=== PATIENT | female | born 1975 | race Caucasian/White ===

== ENCOUNTER 2018-01-25 21:03 | Inpatient (IN) | payer SELFPAY ==
--- NOTE | 2018-01-25 22:14 | RAD ---
CHEST ONE VIEWS: 01/25/18 HISTORY: 42-year-old female with history of dyspnea. History of rheumatoid arthritis and lung disorder. Single upright AP view of the chest is performed. There is extensive interstitial and reticulonodular parenchymal changes throughout both lungs. Heart size is at least borderline enlarged. No evidence for significant pleural effusion. No old studies. IMPRESSION: Extensive bilateral alveolar and interstitial opacities throughout both lungs. This certainly could b e consistent with pulmonary edema although could also represent extensive bilateral atypical pneumon itis including that that can be seen in rheumatoid lung disease. No cardiomegaly or pleural effusion. POS: [facility]
[2018-01-25] MEDS ORDERED: Morphine 2 MG/ML SYRINGE ONE (22:49)
[2018-01-25] MEDS ORDERED: methylPREDNISolone Sod Succ/PF 125 MG/2 ML VIAL ONE (22:56)
[2018-01-25] MEDS ORDERED: cefTRIAXone\\ROCEPHIN 2 GM VIAL ONE (22:56)
[2018-01-25 23:03] LABS: #Lymphocytes 0.7 thou/uL (1.20-3.40); #Monocytes 0.6 thou/uL (0.11-0.59); #Neutrophils 15.5 thou/uL (1.40-6.50); %Eosinophils 0.1 % (0.0-10.0); %Lymphocytes 3.9 % (21.0-51.0); %Monocytes 3.6 % (0.0-10.0); %Neutrophils 92.4 % (42.0-75.0); Hemoglobin 12.7 g/dL (12.0-16.0); Mean Corpuscular HGB CONC 32.9 g/dL (32.0-36.0); Mean Corpuscular Hemoglobin 31.6 pg (27.0-31.0); Mean Corpuscular Volume 95.8 fL (78.0-98.0); Mean Platelet Volume 7.1 fL (7.4-10.4); Platelet Count 269 thou/uL (130-400); RBC Distribution Width 15.2 % (11.5-14.5); Red Blood Cell (RBC) Count 4.02 mill/uL (4.20-5.40); White Blood Cell (WBC) Count 16.8 thou/uL (4.8-10.8)
[2018-01-25 23:19] LABS: ALT (SGPT) 20 U/L (8-55); AST (SGOT) 38 U/L (5-34); Albumin 3.9 g/dL (3.5-5.0); Alkaline Phosphatase 63 U/L (40-150); Anion Gap 17 mmol/L (10-20); BUN (Urea Nitrogen) 11 mg/dL (7.0-18.7); Bilirubin, Total 0.3 mg/dL (0.2-1.2); Calc. Creatinine Clearance 0 mL/min (70-130); Calcium 8.8 mg/dL (7.8-10.44); Carbon Dioxide 23 mmol/L (22-29); Chloride 102 mmol/L (98-107); Estimated GFR-MDRD Greater than 90; Globulin 2.6 g/dL (2.4-3.5); Glucose 102 mg/dL (70-105); Potassium 3.6 mmol/L (3.5-5.1); Protein, Total 6.5 g/dL (6.0-8.3); Sodium 138 mmol/L (136-145)
[2018-01-25 23:23] LABS: CKMB 2.5 ng/mL (0-6.6); Troponin I Less than 0.010 ng/mL (< 0.028)
[2018-01-26 00:57] LABS: Troponin I Less than 0.010 ng/mL (< 0.028)
[2018-01-26] MEDS ORDERED: Ondansetron ODT 4 MG TAB SL PRN (01:12)
[2018-01-26] MEDS ORDERED: Ondansetron PF 4 MG/2 ML Vial IVP PRN ×2 (01:12→07:27)
[2018-01-26] MEDS ORDERED: Acetaminophen 325 MG TAB PO PRN (01:12)
[2018-01-26 03:47] LABS: Troponin I Less than 0.010 ng/mL (< 0.028)
[2018-01-26] MEDS ORDERED: guaiFENesin/Codeine Phosphate 200 mg/20 mg 10 ml UD Cup PO PRN (05:26)
[2018-01-26] MEDS ORDERED: Benzonatate 100 MG CAP PO PRN (05:27)
[2018-01-26] MEDS ORDERED: Guaifenesin DM 100-10/5 ML UDCUP PO PRN (05:27)
[2018-01-26] MEDS ORDERED: PROVENTIL INHALER 6.7 G (200 INHALATIONS) INH PRN (05:29)
[2018-01-26] MEDS ORDERED: Artificial Tear Sol 15 ML BOT EA EYE PRN (07:27)
[2018-01-26] MEDS ORDERED: Eucerin (Mineral Oil/Petrolatum,White) 30 gm Jar TOP PRN (07:27)
[2018-01-26] MEDS ORDERED: Bisacodyl 5 MG TAB PO PRN (07:27)
[2018-01-26] MEDS ORDERED: Zolpidem Tartrate 5 MG TAB PO PRN (07:27)
[2018-01-26] MEDS ORDERED: Cepastat Lozenges 1 LOZ PO PRN (07:27)
[2018-01-26] MEDS ORDERED: Diabetic Tussin 200 MG/10 ML UDCUP PO PRN (07:27)
[2018-01-26] MEDS ORDERED: Sodium Chloride 0.65% Nasal 44 ML BOT EA NARE PRN (07:27)
[2018-01-26] MEDS ORDERED: Calcium Carbonate 500 MG ChewTAB PO PRN (07:27)
[2018-01-26] MEDS ORDERED: Bisacodyl 10 MG SUPP PR PRN (07:27)
[2018-01-26] MEDS ORDERED: hydrALAZINE 20 MG/ML VIAL SLOW IVP PRN (07:27)
[2018-01-26] MEDS ORDERED: Loratadine 10 MG TAB PO PRN (07:27)
[2018-01-26] MEDS ORDERED: Senokot S 8.6-50 MG TAB PO PRN (07:27)
[2018-01-26] MEDS: Azithromycin 500 MG in Sodium Chloride 0.9% 250 ML 250 ML IVPB SCH (08:25)
[2018-01-26] MEDS: Enoxaparin Sodium 40 MG/0.4 ML SYRINGE SC SCH (08:26)
[2018-01-26] MEDS: Saccharomyces boulardii 250 MG CAP PO SCH (08:26)
[2018-01-26] MEDS: Famotidine 20 MG TAB PO SCH ×2 (08:26→20:02)
[2018-01-26] MEDS: Divalproex Sodium 250 MG (DR) TAB PO SCH (08:26)
[2018-01-26] MEDS: Hydroxychloroquine Sulfate 200 MG TAB PO SCH (08:39)
[2018-01-26] MEDS: HYDROcodone/Acetaminophen 10/325 mg Tablet PO PRN ×4 (09:07→21:17)
--- NOTE | 2018-01-26 11:36 | HP ---
PRIMARY CARE PHYSICIAN: Dr. Maciej Batista. REASON FOR ADMISSION: Acute hypoxic respiratory failure, pneumonitis. HISTORY OF PRESENT ILLNESS: A 42-year-old female who has underlying history of rheumatoid arthritis as well as chronic interstitial lung disease and seizure disorder who was brought to the emergency ro with complaint of shortness of breath. The patient reports that yesterday, they went to [facility] here she was exposed with dry heat. Subsequently, she was feeling shortness of breath. She remained outside in her car. She remained confused to find her car. At that time, she also exposed to cold air. She started feeling shortness of breath. When she went home, her oxygen saturation was low. I t was in 70s and they tried a breathing treatment at home, but her oxygen saturation was not coming u p, it remained in 70 to 80s and that is why family member brought her to emergency room for evaluatio n. In the emergency room, her oxygen saturation was 80% on room air. Otherwise, she was afebrile. She denies any recent upper respiratory or lower respiratory symptoms. She does have a cough. She r eports that she had interstitial lung disease diagnosed by her java web engineer with the biopsy. She is following Juanita rouge miller and java web engineer. Patient denies any recent travel or sick exposures. She denies any fever or chills. She denies any UTI symptoms. She does have polyarthralgia from her rheumatoid arthritis. She denies any lower extr emity edema, orthopnea, or PND. She is not using oxygen at home. REVIEW OF SYSTEMS: The following complete review of systems was negative, unless otherwise mentioned in the HPI or below: Constitutional: Weight loss or gain, ability to conduct usual activities. Skin: Rash, itching. Eyes: Double vision, pain. ENT/Mouth: Nose bleeding, neck stiffness, pain, tenderness. Cardiovascular: Palpitations, dyspnea on exertion, orthopnea. Respiratory: Shortness of breath, wheezing, cough, hemoptysis, fever or night sweats. Gastrointestinal: Poor appetite, abdominal pain, heartburn, nausea, vomiting, constipation, or diarr hea. Genitourinary: Urgency, frequency, dysuria, nocturia. Musculoskeletal: Pain, swelling. Neurologic/Psychiatric: Anxiety, depression. Allergy/Immunologic: Skin rash, bleeding tendency. Please see my HPI for pertinent positive and negative. All other review of systems reviewed and nega tive except as mentioned in the HPI. ALLERGIES: LEVAQUIN, NSAID, PENICILLIN, TRAMADOL. CURRENT HOME MEDICATIONS: Plaquenil 400 mg p.o. daily, [place] 10 one tablet q.4 hourly p.r.n., Fioric et 1-2 tablets q.6 hourly p.r.n., Depakote 750 mg daily, prednisone 10 mg p.o. b.i.d. PAST MEDICAL HISTORY: Interstitial lung disease, rheumatoid arthritis, lupus, seizure disorder. PAST SURGICAL HISTORY: Tubal ligation, lung biopsy, . PAST PSYCHIATRIC HISTORY: Reviewed and negative. SOCIAL HISTORY: Patient is . She drinks alcohol socially. She smokes about half pack per da y. She denies any other illicit drug abuse. FAMILY HISTORY: The patient denies any strong family history of autoimmune disorder, coronary artery disease, stroke or cancer. EMERGENCY ROOM COURSE: The patient is given morphine 8 mg, Rocephin 2 grams, Solu-Medrol 125 mg, Duo Neb therapy, IV fluid. PHYSICAL EXAMINATION: VITAL SIGNS: On arrival, blood pressure 117/69, pulse 96, respiratory rate 24, temperature 98.6, sat uration 80% on room air, weight 72.6 kilograms. GENERAL: Patient is currently alert, awake, mild respiratory distress. HEENT: Head: Normocephalic, atraumatic. Eyes: Pupils round, reactive to light. Extraocular muscl e intact. ENT: Oropharynx within normal limits. Moist mucous membranes, no oral lesion, no pharyng eal erythema, no exudate. NECK: Supple, no JVD, no thyromegaly, no carotid bruit. LUNGS: Bibasilar fine rales noted. No wheezing, no accessory muscles of respiration in use. CARDIAC: S1, S2 regular without any murmur. ABDOMEN: Soft, bowel sounds present, nontender, nondistended. No organomegaly, no mass, no suprapub ic tenderness. BACK: Unremarkable, no CVA tenderness. EXTREMITIES: Upper extremity, passive movement of all joints are normal. Lower extremity, no edema . Good distal pulsation, no calf tenderness. SKIN: No skin rash. HEMATOLOGICAL: No lymphadenopathy. NEUROLOGIC: Nonfocal examination. The patient moves all 4 limbs. Plantar bilateral flexor. Speech normal. MUSCULOSKELETAL: The patient does have polyarthralgia without any active inflammation. Range of mot ion is limited because of arthralgia. SIGNIFICANT LABORATORY DATA AND IMAGING: EKG showing normal sinus rhythm, LVH, nonspecific ST-T garner ges. CBC: WBC 16.8, hemoglobin 12.7, platelet 269. ESR 33. BMP: Sodium 138, potassium 3.6, chlor talon 102, carbon dioxide 23, BUN 11, creatinine 0.70, glucose 102, calcium 8.8. LFT: AST 38, ALT 20, alkaline phosphatase 63, albumin 3.9. Cardiac enzymes negative x3. BNP 37.9. CRP 22.6. Influenzae A and B negative. ASSESSMENT AND PLAN: 1. Acute respiratory failure with hypoxia, likely due to pneumonitis. The patient will need oxygen therapy. We will titrate oxygen requirement. This patient has underlying chronic interstitial lung disease. We will monitor whether she needs any oxygen upon discharge. 2. Acute pneumonitis. This was happened after heat exposure and cold exposure, underlying infection cannot be entirely excluded. Her CRP is elevated, suspecting from inflammatory process. We will co ntinue with Solu-Medrol 40 mg IV q.6 hourly. We will also start empiric antibiotic therapy with Roce phin and azithromycin. Respiratory therapy with DuoNeb will be given. Pulmonary group will be consu lted. 3. Interstitial lung disease with current exacerbation. As mentioned in problem #2, we will continu e Solu-Medrol, respiratory therapy and monitor. 4. Rheumatoid arthritis. The patient is not on any specific disease modifying therapy. At this poi nt, we will continue with Solu-Medrol. We will continue Plaquenil 400 mg p.o. daily. 5. Seizure disorder. Continue Depakote 750 mg p.o. daily. 6. Obesity with BMI of 37. Dietary education given, weight loss education given. 7. Deep venous thrombosis prophylaxis. Lovenox 40 mg subcu daily. 8. Gastrointestinal prophylaxis, Pepcid 20 mg p.o. b.i.d. 9. CODE STATUS: The patient is FULL CODE. Patient's is surrogate decision maker. We will also check GENARO, respiratory virus panel, urinalysis.
[2018-01-26] MEDS ORDERED: Furosemide 20 MG/2 ML VIAL SLOW IVP SCH (15:30)
--- NOTE | 2018-01-26 16:07 | CON ---
DATE OF CONSULTATION: 01/26/2018 SERVICE: Pulmonary Medicine. REASON FOR CONSULTATION: Respiratory failure. HISTORY OF PRESENT ILLNESS: The patient is a 42-year-old white female with past medical history significant for connective tissue disease. This is a rheumatoid arthritis or lupus. Either way, she also suffers from interstitial lung disease. She is on 40 mg of prednisone on a daily basis. This was initiated about a month ago. She reports being on Plaquenil at home on a daily basis. She was in her usual state of health until she went into [facility]. There was some dry air on inside of the store. She started having progressive increasing dyspnea with exertion. It came on gradually over a period of about 20 minutes or so. She then came outside and hit the cold air. This made things a little bit worse. She checked her saturations when she got home and was in the 70s. As such, EMS services were contacted. She was subsequently brought to the emergency department. In the IMCU, her breathing has improved. She denies having any fevers or chills. She is coughing and bringing up a little bit of clear phlegm from time to time. She is not having any night sweats, nausea, vomiting, diarrhea, hot, red, swollen joints, arthralgias, or rashes. Whenever she coughs, she has some chest discomfort for which she has aspirin, [place]. She is having a difficult time sleeping because of the steroids and is requesting melatonin. PAST MEDICAL HISTORY: 1. Rheumatoid arthritis. 2. Systemic lupus erythematosus. 3. Interstitial lung disease. 4. Seizure disorder. 5. Migraine headaches. PAST SURGICAL HISTORY: 1. Tubal ligation. 2. Bronchoscopy. 3. section. SOCIAL HISTORY: She smokes a half pack on a daily basis, but has a greater than [id number] history of smoking. She denies any street drugs or significant alcohol use. She has no exposure to chemicals, dust asbestos or tuberculosis. FAMILY HISTORY: Noncontributory. ALLERGIES: LEVAQUIN, NSAID, PENICILLIN, TRAMADOL. REVIEW OF SYSTEMS: General, head, ears, eyes, nose, throat, cardiovascular, respiratory, GI, , musculoskeletal, neurologic and skin is negative except as mentioned in the HPI. MEDICATIONS: List of her inpatient medications were reviewed and heavily modified. PHYSICAL EXAMINATION: VITAL SIGNS: Afebrile, pulse 85, blood pressure 135/91, respirations 22, saturation 92% on 4 liters nasal cannula. GENERAL: The patient is awake, alert, no apparent distress. LUNGS: Excellent air entry. Crackles are present. There is no prolonged expiratory phase or wheezing present. HEART: Normal rate, regular. ABDOMEN: Soft, nontender, nondistended. Bowel sounds are positive. MUSCULOSKELETAL: No cyanosis or clubbing. There is no pitting in the bilateral lower extremities. NEUROLOGIC: Grossly nonfocal. LABORATORY DATA: WBC 16.8, hemoglobin 12.7, platelets 269,000. ESR is 33. Neutrophil count is 93%. Comprehensive metabolic profile is completely unremarkable. Troponin is negative x3, BNP is normal, CRP is 22.6. Respiratory virus panel is negative, Influenza A and B is unremarkable. IMAGING: Chest x-ray demonstrates bilateral patchy infiltrates as well as interstitial lung changes that spare the lower portions of the lung field consistent with a noncardiogenic pulmonary edema, superimposed on interstitial process. ASSESSMENT: 1. Acute on chronic hypoxic respiratory failure, improving. 2. Interstitial lung disease. 3. Connective tissue disease (rheumatoid arthritis and/or systemic lupus erythematosus). 4. Sepsis. DISCUSSION AND PLAN: I agree with our empiric antibiotics currently. We need to get blood cultures, urinalysis, urine cultures. From my perspective, she is stable for transition to the regular floor. I will check a D-dimer. If it is elevated, reflex CTA of the chest will be considered. Melatonin will be scheduled at night. No additional narcotics will be provided beyond her home medication. 70 minutes have been devoted to this patient in various activities. I personally reviewed all imaging studies and laboratory data noted within this document. For fifty percent of this time, I was interacting with the patient at the bedside or coordinating care with the care team. For the remainder of the time I was immediately available to the patient in the hospital unit. DEMETRIO
[2018-01-26 16:21] LABS: Bilirubin Negative (Negative); Blood, Urine Moderate (Negative); Clarity CLEAR (Clear); Glucose, Urine (Dipstick) Negative (Negative); Leukocyte Negative (Negative); Nitrite Negative (Negative); Protein, Urine (Dipstick) Negative (Neg-Trace); Urobilinogen 0.2 mg/dL (0.2-1.0); pH, Urine 6.5 (5.0-9.0)
[2018-01-26 16:23] LABS: Bacteria/HPF None Seen HPF (None Seen); Hyaline Casts/LPF 0-3 HYALINE CAST LPF (0-3 Hyaline); WBC/HPF 0-3 HPF (0-3)
[2018-01-26 16:42] LABS: Amphetamine Not Detected (NotDetected); Barbiturates Screen Not Detected (NotDetected); Benzodiazepine Screen Not Detected (NotDetected); Cocaine Metabolite Screen Not Detected (NotDetected); Medtox Control Line Valid? VALID (VALID); Medtox Reader # READER 4; Methadone Not Detected (NotDetected); Methamphetamine Not Detected (NotDetected); Opiate Screen Detected (NotDetected); Oxycodone Screen Not Detected (NotDetected); Phencyclidine (PCP) Not Detected (NotDetected); THC/Cannabinoid Screen Not Detected (NotDetected); Tricyclic Screen Not Detected (NotDetected)
[2018-01-26] MEDS: Melatonin 3 MG TAB PO SCH (21:17)
[2018-01-26] MEDS: cefTRIAXone\\ROCEPHIN 2 GM in Sodium Chloride 0.9% 100 ML IVPB SCH (22:38)
[2018-01-27] MEDS: Fioricet 325/50/40 mg Tablet PO PRN ×2 (00:27→11:46)
[2018-01-27 04:29] LABS: #Lymphocytes 1.2 thou/uL (1.20-3.40); #Monocytes 0.7 thou/uL (0.11-0.59); #Neutrophils 13.2 thou/uL (1.40-6.50); %Basophils 0.1 % (0.0-1.0); %Eosinophils 0.3 % (0.0-10.0); %Lymphocytes 8.1 % (21.0-51.0); %Monocytes 4.3 % (0.0-10.0); %Neutrophils 87.2 % (42.0-75.0); Hemoglobin 11.1 g/dL (12.0-16.0); Mean Corpuscular HGB CONC 31.9 g/dL (32.0-36.0); Mean Corpuscular Hemoglobin 30.5 pg (27.0-31.0); Mean Corpuscular Volume 95.6 fL (78.0-98.0); Mean Platelet Volume 7.1 fL (7.4-10.4); Platelet Count 289 thou/uL (130-400); RBC Distribution Width 15.2 % (11.5-14.5); Red Blood Cell (RBC) Count 3.65 mill/uL (4.20-5.40); White Blood Cell (WBC) Count 15.1 thou/uL (4.8-10.8)
[2018-01-27 04:51] LABS: Anion Gap 14 mmol/L (10-20); BUN (Urea Nitrogen) 9 mg/dL (7.0-18.7); Calc. Creatinine Clearance 172 mL/min (70-130); Calcium 9.3 mg/dL (7.8-10.44); Carbon Dioxide 29 mmol/L (22-29); Chloride 103 mmol/L (98-107); Estimated GFR-MDRD Greater than 90; Glucose 104 mg/dL (70-105); Potassium 3.5 mmol/L (3.5-5.1); Sodium 142 mmol/L (136-145)
--- NOTE | 2018-01-27 07:29 | RAD ---
CHEST PA AND LATERAL: 01/25/18 HISTORY: Dyspnea. Patient with rheumatoid arthritis and lung disorder with difficulty breathing. Monitor leads overlie the chest. Heart size is borderline enlarged. There are extensive interstitial and reticulonodular parenchymal changes noted bilaterally diffusely through both lungs. This is nonsp ecific and could be related to bilateral edema or certainly could be related to bilateral nonspecific pneumonitis including lung disease associated with rheumatoid arthritis. No confluent pneumonia. No pleural effusion. IMPRESSION: Extensive bilateral mostly interstitial lung disease with possibilities including that of interstitia l edema, interstitial atypical pneumonia or pneumonitis, and/or interstitial lung disease associated with rheumatoid arthritis. POS: [facility]
[2018-01-27] MEDS: Enoxaparin Sodium 40 MG/0.4 ML SYRINGE SC SCH (09:20)
[2018-01-27] MEDS: Divalproex Sodium 250 MG (DR) TAB PO SCH (09:21)
[2018-01-27] MEDS: Azithromycin 500 MG in Sodium Chloride 0.9% 250 ML 250 ML IVPB SCH (09:21)
[2018-01-27] MEDS: predniSONE 20 MG TAB PO SCH (09:21)
[2018-01-27] MEDS: Saccharomyces boulardii 250 MG CAP PO SCH (09:22)
[2018-01-27] MEDS: Hydroxychloroquine Sulfate 200 MG TAB PO SCH (09:22)
[2018-01-27] MEDS: Famotidine 20 MG TAB PO SCH (09:22)
[2018-01-27 10:22] LABS: ALT (SGPT) 19 U/L (8-55); AST (SGOT) 46 U/L (5-34); Albumin 3.5 g/dL (3.5-5.0); Alkaline Phosphatase 64 U/L (40-150); Bilirubin, Direct 0.2 mg/dL (0.1-0.3); Bilirubin, Total 0.3 mg/dL (0.2-1.2); Protein, Total 6.3 g/dL (6.0-8.3)
--- NOTE | 2018-01-27 10:22 | PDOC.PN ---
- Subjective Encounter Start Date: 01/27/18 Encounter Start Time: 10:00 -: old records requested/rev Patient seen and examined. No new complaints. No overnight events still has dyspnea and cough - Objective Resuscitation Status: Resuscitation Status FULL:Full Resuscitation MAR Reviewed: Yes Vital Signs & Weight: Vital Signs (12 hours) Temp Pulse Resp BP Pulse Ox 01/27/18 07:17 97.5 F L 95 22 H 145/89 H 95 01/27/18 06:25 90 L 01/27/18 06:23 107 H 20 01/27/18 03:39 98.6 F 74 18 109/72 94 L 01/27/18 00:15 113 H 135/85 01/26/18 23:47 98.4 F 99 18 139/97 H 98 01/26/18 23:13 100 16 97 Weight Weight 206 lb 9.6 oz I&O: 01/26/18 01/27/18 01/28/18 06:59 06:59 06:59 Intake Total 360 100 Output Total 800 750 Balance -440 -650 Result Diagrams: 01/27/18 03:46 01/27/18 03:46 EKG Reviewed by me: Yes (nsr) Phys Exam - Physical Examination Constitutional: NAD HEENT: PERRLA, moist MMs, sclera anicteric Neck: no JVD, supple Respiratory: no wheezing, no rhonchi bilateral lower part coarse rales+ Cardiovascular: RRR, no significant murmur, no rub Gastrointestinal: soft, non-tender, no distention, positive bowel sounds Musculoskeletal: no edema, pulses present Neurological: non-focal, normal sensation, moves all 4 limbs Psychiatric: normal affect, A&O x 3 Skin: no rash, normal turgor Dx/Plan (1) Acute respiratory failure with hypoxia Code(s): J96.01 - ACUTE RESPIRATORY FAILURE WITH HYPOXIA Status: Acute (2) Obesity (BMI 30-39.9) Code(s): E66.9 - OBESITY, UNSPECIFIED Status: Acute (3) Pneumonitis Code(s): J18.9 - PNEUMONIA, UNSPECIFIED ORGANISM Status: Acute (4) ILD (interstitial lung disease) Code(s): J84.9 - INTERSTITIAL PULMONARY DISEASE, UNSPECIFIED Status: Chronic (5) Rheumatoid arthritis Code(s): M06.9 - RHEUMATOID ARTHRITIS, UNSPECIFIED Status: Chronic (6) Seizure disorder Code(s): G40.909 - EPILEPSY, UNSP, NOT INTRACTABLE, WITHOUT STATUS EPILEPTICUS Status: Chronic (7) Tobacco abuse Code(s): Z72.0 - TOBACCO USE Status: Chronic - Plan cont current plan of care, continue antibiotics, respiratory therapy * transfer to medical * continue iv rocephin and azithromycin * continue oral prednisone * evaluate for need for home oxygen * medication reviewed as below * symptomatic treatment * counselled to avoid smoking. Review of Systems - Review of Systems Constitutional: negative: fever, chills, sweats, weakness, malaise, other Eyes: negative: Pain, Vision Change, Conjunctivae Inflammation, Eyelid Inflammation, Redness, Other ENT: negative: Ear Pain, Ear Discharge, Nose Pain, Nose Discharge, Nose Congestion, Mouth Pain, Mouth Swelling, Throat Pain, Throat Swelling, Other Respiratory: Cough, Shortness of Breath, SOB with Excertion. negative: Dry, Hemoptysis, Pleuritic Pain, Sputum, Wheezing Cardiovascular: negative: chest pain, palpitations, orthopnea, paroxysmal nocturnal dyspnea, edema, light headedness, other Gastrointestinal: negative: Nausea, Vomiting, Abdominal Pain, Diarrhea, Constipation, Melena, Hematochezia, Other Genitourinary: negative: Dysuria, Frequency, Incontinence, Hematuria, Retention , Other Musculoskeletal: negative: Neck Pain, Shoulder Pain, Arm Pain, Back Pain, Hand Pain, Leg Pain, Foot Pain, Other Skin: negative: Rash, Lesions, Harish, Bruising, Other - Medications/Allergies Allergies/Adverse Reactions: Allergies Allergy/AdvReac Type Severity Reaction Status Date / Time levofloxacin [From Levaquin] Allergy Verified 01/26/18 01:11 NSAIDS (Non-Steroidal Allergy Verified 01/26/18 01:11 Anti-Inflamma Penicillins Allergy Verified 01/26/18 01:23 tramadol Allergy Verified 01/26/18 01:11 Medications: Current Medications Acetaminophen/Butalbital/Caffeine (Fioricet) 1 tab PO Q6HR PRN PRN Reason: Headache Stop: 01/31/18 07:31 Last Admin: 01/27/18 00:27 Dose: 1 tab Hydrocodone Bitart/Acetaminophen ([place] 10/325) 1 tab PO Q4HR PRN PRN Reason: Moderate Pain (4-6) Last Admin: 01/26/18 21:17 Dose: 1 tab Albuterol Sulfate (Proventil Hfa) 1 puff INH QIDPRN PRN PRN Reason: sob/wheezing Albuterol/Ipratropium (Duoneb) 3 ml NEB Q4H PRN PRN Reason: SOB &/or Wheezing Albuterol/Ipratropium (Duoneb) 3 ml NEB [id number] [facility] Last Admin: 01/27/18 06:23 Dose: 3 ml Artificial Tears (Tears Renewed 15ml Bottle) 2 drop EA EYE PRN PRN PRN Reason: Dry Eyes Bisacodyl (Dulcolax) 10 mg PO DAILYPRN PRN PRN Reason: Constipation Bisacodyl (Dulcolax) 10 mg ND DAILYPRN PRN PRN Reason: Constipation Calcium Carbonate (Tums) 1,000 mg PO Q4H PRN PRN Reason: Heartburn or Indigestion Divalproex Sodium (Depakote) 750 mg PO DAILY [facility] Last Admin: 01/27/18 09:21 Dose: 750 mg Enoxaparin Sodium (Lovenox) 40 mg SC 0900 [facility] Last Admin: 01/27/18 09:20 Dose: 40 mg Famotidine (Pepcid) 20 mg PO BID [facility] Last Admin: 01/27/18 09:22 Dose: 20 mg Guaifenesin (Robitussin Sf) 200 mg PO Q4H PRN PRN Reason: Cough Guaifenesin/Codeine Phosphate (Robitussin Ac) 10 ml PO Q6H PRN PRN Reason: FOR PRODUCTIVE Cough 1ST AGE Last Admin: 01/26/18 05:57 Dose: 10 ml Hydralazine HCl (Apresoline) 10 mg SLOW IVP Q4H PRN PRN Reason: SBP Greater Than 170 Hydroxychloroquine Sulfate (Plaquenil) 400 mg PO DAILY [facility] Last Admin: 01/27/18 09:22 Dose: 400 mg Azithromycin 500 mg/ Sodium (Chloride) 250 mls @ 250 mls/hr IVPB Q24HR [facility] Last Admin: 01/27/18 09:21 Dose: 250 mls Ceftriaxone Sodium 2 gm/ (Sodium Chloride) 100 mls @ 200 mls/hr IVPB Q24HR [facility] Last Admin: 01/26/18 22:38 Dose: 100 mls Loratadine (Claritin) 10 mg PO DAILYPRN PRN PRN Reason: Sinus Symptoms Melatonin (Melatonin) 3 mg PO 2200 [facility] Last Admin: 01/26/18 21:17 Dose: 3 mg Mineral Oil/White Petrolatum (Eucerin Cream) 0 gm TOP BIDPRN PRN PRN Reason: Dry Skin Ondansetron HCl (Zofran Odt) 4 mg PO Q6H PRN PRN Reason: Nausea/Vomiting Ondansetron HCl (Zofran) 4 mg IVP Q6H PRN PRN Reason: Nausea/Vomiting Prednisone (Prednisone) 40 mg PO QA-[facility] Last Admin: 01/27/18 09:21 Dose: 40 mg Saccharomyces Boulardii (Florastor) 250 mg PO DAILY [facility] Last Admin: 01/27/18 09:22 Dose: 250 mg Senna/Docusate Sodium (Senokot S) 2 tab PO BID PRN PRN Reason: Constipation Sodium Chloride ([place] 0.65%) 0 ml EA NARE QIDPRN PRN PRN Reason: Nasal Congestion Throat Lozenges (Cepastat Lozenges) 1 candice PO Q2H PRN PRN Reason: Sore Throat Zolpidem Tartrate (Ambien) 5 mg PO HSPRN PRN PRN Reason: Insomnia
[2018-01-27 11:56] LABS: Actual Bicarbonate (HCO3a) 28.9 mEq/L (22-28); Base Excess (BEa) 4.5 mEq/L (-2.0 to +3.0); Calcium, Ionized 1.13 mmol/L (1.12-1.30); Carboxyhemoglobin (COHb) 1.6 gm% (0.0-3.0); Hemoglobin (Hb) 11.9 g/dL (12.0-16.0); Potassium - ABG Lab 3.63 mmol/L (3.70-5.30); pH, Arterial 7.46 (7.35-7.45)
[2018-01-27] MEDS ORDERED: Naloxone HCl 0.4 mg/ml Vial IV PRN (11:59)
[2018-01-27] MEDS ORDERED: Furosemide 20 MG/2 ML VIAL SLOW IVP SCH (12:00)
[2018-01-27 12:08] LABS: O2 Tension (PaO2) 45.5 mmHg (80.0-100.0); Puncture Site RR
[2018-01-27] MEDS: Ondansetron ODT 4 MG TAB PO PRN (12:17)
--- NOTE | 2018-01-27 13:23 | PRG ---
DATE OF SERVICE: 01/27/2018 SERVICE: Pulmonary Medicine. INTERVAL HISTORY: Patient was doing just fine yesterday afternoon. This morning, she was difficult to arouse. She was hypersomnolent. Whenever she would wake up, she would ask for pain medication, basically every time it was available. We suspected that she perhaps was using additional medications. We asked to inspect her purse, she refused. We then were able to look at her purse at some later point. We found a bottle of [place] 10/325's. They were supposed to be 120 tablets in it because she had filled this thing only 4 days ago. There was about 60 tablets left. The rest of the medications were taken apparently over the last 2 days. My suspicion is this is a major contributing factor to her presentation. Either way, we confiscated those medications. She will not be taking any medications that are not on her explicitly written for her to have during this hospital stay. Otherwise, there has been no interval change to her condition. PHYSICAL EXAMINATION: VITAL SIGNS: Afebrile with the T-max of 100.3, pulse 108, blood pressure 137/ 100, respirations 18, saturation 95% on Ventimask. HEENT: Normocephalic, atraumatic. Sclerae are white, conjunctivae pink. Oral and nasal mucosa is moist without lesions. LUNGS: Crackles are present bilaterally. No prolonged expiratory phase or wheezing is appreciated. HEART: Normal rate, regular. ABDOMEN: Soft, nontender, nondistended. Bowel sounds are positive. MUSCULOSKELETAL: No cyanosis or clubbing. There is trace pitting in the bilateral lower extremities. NEUROLOGIC: Grossly nonfocal. LABORATORY DATA: WBC 15.1 and down trending. Hemoglobin 11.1, platelets 289, 000. Neutrophil count is 87%. D-dimer 0.39. Basic metabolic profile and liver function studies are essentially unremarkable. CRP 22.6. Urinalysis is unremarkable, opiates are positive on the urine drug screen. Blood cultures x2 were unremarkable. ASSESSMENT: 1. Acute on chronic hypoxic respiratory failure. 2. Interstitial lung disease. 3. Connective tissue disease. 4. Narcotic abuse (60 tablets of 10/325 [place] have been consumed in addition to what we have been giving her in 4 days). 5. Sepsis. DISCUSSION AND PLAN: Her AST is gently trending upward. That being said, the acetaminophen is likely already out of her system. As such, I do think that she is going to develop any hepatotoxicity associated with this ingestion. We will continue empiric antibiotics. The patient can be transitioned to the medical unit. I am going to drop her narcotics to [place] 5/325 q.4 hours as needed for discomfort. She is not to take any of her home medications from this moment forward. I did call her physician, Dr. Batista at [facility] in [place], [place]. I have let him know about her drug-seeking behavior. He seemed appreciative for the phone call. DEMETRIO
[2018-01-27] MEDS: Melatonin 3 MG TAB PO SCH (21:31)
[2018-01-27] MEDS: cefTRIAXone\\ROCEPHIN 2 GM in Sodium Chloride 0.9% 100 ML IVPB SCH (22:34)
[2018-01-27] MEDS: HYDROcodone/Acetaminophen 5/325 mg Tablet PO PRN (23:25)
[2018-01-28] MEDS: HYDROcodone/Acetaminophen 5/325 mg Tablet PO PRN ×4 (05:48→20:47)
[2018-01-28] MEDS ORDERED: Potassium Chloride 20 MEQ TAB PO SCH (09:00)
[2018-01-28] MEDS: Azithromycin 500 MG in Sodium Chloride 0.9% 250 ML 250 ML IVPB SCH (09:58)
[2018-01-28] MEDS: Enoxaparin Sodium 40 MG/0.4 ML SYRINGE SC SCH (09:58)
[2018-01-28] MEDS: predniSONE 20 MG TAB PO SCH (09:59)
[2018-01-28] MEDS: Saccharomyces boulardii 250 MG CAP PO SCH (09:59)
[2018-01-28] MEDS: Hydroxychloroquine Sulfate 200 MG TAB PO SCH (10:00)
[2018-01-28] MEDS: Divalproex Sodium 250 MG (DR) TAB PO SCH (10:00)
--- NOTE | 2018-01-28 10:10 | PDOC.PN ---
- Subjective Encounter Start Date: 01/28/18 Encounter Start Time: 09:30 Patient seen and examined. No new complaints. No overnight events - Objective Resuscitation Status: Resuscitation Status FULL:Full Resuscitation MAR Reviewed: Yes Vital Signs & Weight: Vital Signs (12 hours) Temp Pulse Resp BP BP Pulse Ox 01/28/18 08:00 98 01/28/18 07:43 98 01/28/18 07:41 91 22 H 98 01/28/18 07:23 98.7 F 82 36 H 123/81 100 01/28/18 04:00 99.6 F 98 18 127/100 H 100 01/28/18 00:11 93 L 01/28/18 00:00 99.7 F H 108 H 18 140/98 H 92 L Weight Weight 207 lb I&O: 01/27/18 01/28/18 01/29/18 06:59 06:59 06:59 Intake Total 100 1000 Output Total 750 2000 Balance -650 -1000 Result Diagrams: 01/27/18 03:46 01/27/18 03:46 Additional Labs: Accuchecks 01/27/18 16:42 POC Glucose 139 H EKG Reviewed by me: Yes (nsr) Phys Exam - Physical Examination Constitutional: NAD HEENT: PERRLA, moist MMs, sclera anicteric Neck: no JVD, supple Respiratory: no wheezing, no rhonchi bilateral rales+ Cardiovascular: RRR, no significant murmur, no rub Gastrointestinal: soft, non-tender, no distention, positive bowel sounds Musculoskeletal: no edema, pulses present Neurological: non-focal, normal sensation Lymphatic: no nodes Psychiatric: normal affect, A&O x 3 Skin: no rash, normal turgor Dx/Plan (1) Acute respiratory failure with hypoxia Code(s): J96.01 - ACUTE RESPIRATORY FAILURE WITH HYPOXIA Status: Acute (2) Obesity (BMI 30-39.9) Code(s): E66.9 - OBESITY, UNSPECIFIED Status: Acute (3) Pneumonitis Code(s): J18.9 - PNEUMONIA, UNSPECIFIED ORGANISM Status: Acute (4) ILD (interstitial lung disease) Code(s): J84.9 - INTERSTITIAL PULMONARY DISEASE, UNSPECIFIED Status: Chronic (5) Rheumatoid arthritis Code(s): M06.9 - RHEUMATOID ARTHRITIS, UNSPECIFIED Status: Chronic (6) Seizure disorder Code(s): G40.909 - EPILEPSY, UNSP, NOT INTRACTABLE, WITHOUT STATUS EPILEPTICUS Status: Chronic (7) Tobacco abuse Code(s): Z72.0 - TOBACCO USE Status: Chronic - Plan cont current plan of care, plan discussed w/ family, continue antibiotics, respiratory therapy * continue rocephin and azithromycin * continue prednisone * monitor oxygen saturation, her level drops with exertion and while at sleep, she may need home oxygen * will monitor today * discussed with * medication reviewed as below * symptomatic treatment. Review of Systems - Review of Systems ENT: negative: Ear Pain, Ear Discharge, Nose Pain, Nose Discharge, Nose Congestion, Mouth Pain, Mouth Swelling, Throat Pain, Throat Swelling, Other Respiratory: Cough, Shortness of Breath, SOB with Excertion. negative: Dry, Hemoptysis, Pleuritic Pain, Sputum, Wheezing Cardiovascular: negative: chest pain, palpitations, orthopnea, paroxysmal nocturnal dyspnea, edema, light headedness, other Gastrointestinal: negative: Nausea, Vomiting, Abdominal Pain, Diarrhea, Constipation, Melena, Hematochezia, Other Genitourinary: negative: Dysuria, Frequency, Incontinence, Hematuria, Retention , Other Musculoskeletal: negative: Neck Pain, Shoulder Pain, Arm Pain, Back Pain, Hand Pain, Leg Pain, Foot Pain, Other Skin: negative: Rash, Lesions, Harish, Bruising, Other - Medications/Allergies Allergies/Adverse Reactions: Allergies Allergy/AdvReac Type Severity Reaction Status Date / Time levofloxacin [From Levaquin] Allergy Verified 01/26/18 01:11 NSAIDS (Non-Steroidal Allergy Verified 01/26/18 01:11 Anti-Inflamma Penicillins Allergy Verified 01/26/18 01:23 tramadol Allergy Verified 01/26/18 01:11 Medications: Current Medications Acetaminophen/Butalbital/Caffeine (Fioricet) 1 tab PO Q6HR PRN PRN Reason: Headache Stop: 01/31/18 07:31 Last Admin: 01/27/18 00:27 Dose: 1 tab Hydrocodone Bitart/Acetaminophen ([place] 5/325) 1 tab PO Q4H PRN PRN Reason: Pain Last Admin: 01/28/18 05:48 Dose: 1 tab Albuterol Sulfate (Proventil Hfa) 1 puff INH QIDPRN PRN PRN Reason: sob/wheezing Albuterol/Ipratropium (Duoneb) 3 ml NEB Q4H PRN PRN Reason: SOB &/or Wheezing Albuterol/Ipratropium (Duoneb) 3 ml NEB [id number] [facility] Last Admin: 01/28/18 07:41 Dose: 3 ml Artificial Tears (Tears Renewed 15ml Bottle) 2 drop EA EYE PRN PRN PRN Reason: Dry Eyes Bisacodyl (Dulcolax) 10 mg PO DAILYPRN PRN PRN Reason: Constipation Bisacodyl (Dulcolax) 10 mg [place] DAILYPRN PRN PRN Reason: Constipation Calcium Carbonate (Tums) 1,000 mg PO Q4H PRN PRN Reason: Heartburn or Indigestion Divalproex Sodium (Depakote) 750 mg PO DAILY [facility] Last Admin: 01/28/18 10:00 Dose: 750 mg Enoxaparin Sodium (Lovenox) 40 mg SC 0900 [facility] Last Admin: 01/28/18 09:58 Dose: 40 mg Guaifenesin (Robitussin Sf) 200 mg PO Q4H PRN PRN Reason: Cough Hydralazine HCl (Apresoline) 10 mg SLOW IVP Q4H PRN PRN Reason: SBP Greater Than 170 Hydroxychloroquine Sulfate (Plaquenil) 400 mg PO DAILY [facility] Last Admin: 01/28/18 10:00 Dose: 400 mg Azithromycin 500 mg/ Sodium (Chloride) 250 mls @ 250 mls/hr IVPB Q24HR [facility] Last Admin: 01/28/18 09:58 Dose: 250 mls Ceftriaxone Sodium 2 gm/ (Sodium Chloride) 100 mls @ 200 mls/hr IVPB Q24HR [facility] Last Admin: 01/27/18 22:34 Dose: 100 mls Loratadine (Claritin) 10 mg PO DAILYPRN PRN PRN Reason: Sinus Symptoms Melatonin (Melatonin) 3 mg PO 2200 [facility] Last Admin: 01/27/18 21:31 Dose: Not Given Mineral Oil/White Petrolatum (Eucerin Cream) 0 gm TOP BIDPRN PRN PRN Reason: Dry Skin Naloxone HCl (Narcan) 0.4 mg IV Q2H PRN PRN Reason: Sedation Last Admin: 01/27/18 12:17 Dose: 0.4 mg Ondansetron HCl (Zofran Odt) 4 mg PO Q6H PRN PRN Reason: Nausea/Vomiting Last Admin: 01/27/18 12:17 Dose: 4 mg Ondansetron HCl (Zofran) 4 mg IVP Q6H PRN PRN Reason: Nausea/Vomiting Potassium Chloride (K-Dur) 40 meq PO 0900 [facility] Stop: 01/28/18 11:00 Last Admin: 01/28/18 10:06 Dose: 40 meq Prednisone (Prednisone) 40 mg PO [facility] Last Admin: 01/28/18 09:59 Dose: 40 mg Saccharomyces Boulardii (Florastor) 250 mg PO DAILY [facility] Last Admin: 01/28/18 09:59 Dose: 250 mg Senna/Docusate Sodium (Senokot S) 2 tab PO BID PRN PRN Reason: Constipation Sodium Chloride ([place] Nasal [place] 0.65%) 0 ml EA NARE QIDPRN PRN PRN Reason: Nasal Congestion Throat Lozenges (Cepastat Lozenges) 1 candice PO Q2H PRN PRN Reason: Sore Throat
[2018-01-28] MEDS: Ondansetron ODT 4 MG TAB PO PRN (17:43)
[2018-01-28] MEDS: Melatonin 3 MG TAB PO SCH (22:12)
[2018-01-28] MEDS: cefTRIAXone\\ROCEPHIN 2 GM in Sodium Chloride 0.9% 100 ML IVPB SCH (22:12)
[2018-01-29] MEDS: HYDROcodone/Acetaminophen 5/325 mg Tablet PO PRN ×4 (01:48→19:19)
[2018-01-29 05:49] VITALS: BMI 35.2
[2018-01-29] MEDS: predniSONE 20 MG TAB PO SCH (09:34)
[2018-01-29] MEDS: Saccharomyces boulardii 250 MG CAP PO SCH (09:34)
[2018-01-29] MEDS: Enoxaparin Sodium 40 MG/0.4 ML SYRINGE SC SCH (09:35)
[2018-01-29] MEDS: Hydroxychloroquine Sulfate 200 MG TAB PO SCH (09:35)
[2018-01-29] MEDS: Azithromycin 500 MG in Sodium Chloride 0.9% 250 ML 250 ML IVPB SCH (09:36)
[2018-01-29] MEDS: Divalproex Sodium 250 MG (DR) TAB PO SCH ×2 (09:37→09:42)
--- NOTE | 2018-01-29 09:47 | PDOC.PN ---
- Subjective Encounter Start Date: 01/29/18 Encounter Start Time: 07:10 Patient seen and examined. No new complaints. No overnight events - Objective Resuscitation Status: Resuscitation Status FULL:Full Resuscitation MAR Reviewed: Yes Vital Signs & Weight: Vital Signs (12 hours) Temp Pulse Resp BP Pulse Ox 01/29/18 07:15 94 L 01/29/18 07:14 65 19 94 L 01/29/18 04:00 99.0 F 75 17 112/74 92 L 01/29/18 00:26 84 14 100 01/29/18 00:00 98.5 F 73 18 110/77 99 Weight Weight 198 lb 9.6 oz I&O: 01/28/18 01/29/18 01/30/18 06:59 06:59 06:59 Intake Total 1000 760 Output Total 2000 Balance -1000 760 Result Diagrams: 01/27/18 03:46 01/27/18 03:46 EKG Reviewed by me: Yes (nsr) Phys Exam - Physical Examination Constitutional: NAD HEENT: PERRLA, moist MMs, sclera anicteric Neck: no JVD, supple Respiratory: no wheezing, no rhonchi bilateral fine rales+ basally Cardiovascular: RRR, no significant murmur, no rub Gastrointestinal: soft, non-tender, no distention, positive bowel sounds Musculoskeletal: no edema, pulses present Neurological: non-focal, normal sensation, moves all 4 limbs Lymphatic: no nodes Psychiatric: normal affect, A&O x 3 Skin: no rash, normal turgor Dx/Plan (1) Acute respiratory failure with hypoxia Code(s): J96.01 - ACUTE RESPIRATORY FAILURE WITH HYPOXIA Status: Acute (2) Obesity (BMI 30-39.9) Code(s): E66.9 - OBESITY, UNSPECIFIED Status: Acute (3) Pneumonitis Code(s): J18.9 - PNEUMONIA, UNSPECIFIED ORGANISM Status: Acute (4) ILD (interstitial lung disease) Code(s): J84.9 - INTERSTITIAL PULMONARY DISEASE, UNSPECIFIED Status: Chronic (5) Rheumatoid arthritis Code(s): M06.9 - RHEUMATOID ARTHRITIS, UNSPECIFIED Status: Chronic (6) Seizure disorder Code(s): G40.909 - EPILEPSY, UNSP, NOT INTRACTABLE, WITHOUT STATUS EPILEPTICUS Status: Chronic (7) Tobacco abuse Code(s): Z72.0 - TOBACCO USE Status: Chronic - Plan cont current plan of care, continue antibiotics, respiratory therapy * transfer to medical * will need assessment for oxygen with ambulation * she will need arrangement for home oxygen on discharge * continue rocephin and azithromycin and prednisone. Review of Systems - Review of Systems ENT: negative: Ear Pain, Ear Discharge, Nose Pain, Nose Discharge, Nose Congestion, Mouth Pain, Mouth Swelling, Throat Pain, Throat Swelling, Other Respiratory: Cough, Shortness of Breath, SOB with Excertion. negative: Dry, Hemoptysis, Pleuritic Pain, Sputum, Wheezing Cardiovascular: negative: chest pain, palpitations, orthopnea, paroxysmal nocturnal dyspnea, edema, light headedness, other Gastrointestinal: negative: Nausea, Vomiting, Abdominal Pain, Diarrhea, Constipation, Melena, Hematochezia, Other Genitourinary: negative: Dysuria, Frequency, Incontinence, Hematuria, Retention , Other Musculoskeletal: negative: Neck Pain, Shoulder Pain, Arm Pain, Back Pain, Hand Pain, Leg Pain, Foot Pain, Other Skin: negative: Rash, Lesions, Harish, Bruising, Other - Medications/Allergies Allergies/Adverse Reactions: Allergies Allergy/AdvReac Type Severity Reaction Status Date / Time levofloxacin [From Levaquin] Allergy Verified 01/26/18 01:11 NSAIDS (Non-Steroidal Allergy Verified 01/26/18 01:11 Anti-Inflamma Penicillins Allergy Verified 01/26/18 01:23 tramadol Allergy Verified 01/26/18 01:11 Medications: Current Medications Acetaminophen/Butalbital/Caffeine (Fioricet) 1 tab PO Q6HR PRN PRN Reason: Headache Stop: 01/31/18 07:31 Last Admin: 01/27/18 00:27 Dose: 1 tab Hydrocodone Bitart/Acetaminophen ([place] 5/325) 1 tab PO Q4H PRN PRN Reason: Pain Last Admin: 01/29/18 09:35 Dose: 1 tab Albuterol Sulfate (Proventil Hfa) 1 puff INH QIDPRN PRN PRN Reason: sob/wheezing Albuterol/Ipratropium (Duoneb) 3 ml NEB Q4H PRN PRN Reason: SOB &/or Wheezing Albuterol/Ipratropium (Duoneb) 3 ml NEB [id number] [id number] Last Admin: 01/29/18 07:14 Dose: 3 ml Artificial Tears (Tears Renewed 15ml Bottle) 2 drop EA EYE PRN PRN PRN Reason: Dry Eyes Bisacodyl (Dulcolax) 10 mg PO DAILYPRN PRN PRN Reason: Constipation Bisacodyl (Dulcolax) 10 mg [place] DAILYPRN PRN PRN Reason: Constipation Calcium Carbonate (Tums) 1,000 mg PO Q4H PRN PRN Reason: Heartburn or Indigestion Divalproex Sodium (Depakote) 750 mg PO DAILY [facility] Last Admin: 01/29/18 09:42 Dose: 750 mg Enoxaparin Sodium (Lovenox) 40 mg SC 0900 [facility] Last Admin: 01/29/18 09:35 Dose: 40 mg Guaifenesin (Robitussin Sf) 200 mg PO Q4H PRN PRN Reason: Cough Hydralazine HCl (Apresoline) 10 mg SLOW IVP Q4H PRN PRN Reason: SBP Greater Than 170 Hydroxychloroquine Sulfate (Plaquenil) 400 mg PO DAILY [facility] Last Admin: 01/29/18 09:35 Dose: 400 mg Azithromycin 500 mg/ Sodium (Chloride) 250 mls @ 250 mls/hr IVPB Q24HR [facility] Last Admin: 01/29/18 09:36 Dose: 250 mls Ceftriaxone Sodium 2 gm/ (Sodium Chloride) 100 mls @ 200 mls/hr IVPB Q24HR [facility] Last Admin: 01/28/18 22:12 Dose: 100 mls Loratadine (Claritin) 10 mg PO DAILYPRN PRN PRN Reason: Sinus Symptoms Melatonin (Melatonin) 3 mg PO 2200 [facility] Last Admin: 01/28/18 22:12 Dose: 3 mg Mineral Oil/White Petrolatum (Eucerin Cream) 0 gm TOP BIDPRN PRN PRN Reason: Dry Skin Naloxone HCl (Narcan) 0.4 mg IV Q2H PRN PRN Reason: Sedation Last Admin: 01/27/18 12:17 Dose: 0.4 mg Ondansetron HCl (Zofran Odt) 4 mg PO Q6H PRN PRN Reason: Nausea/Vomiting Last Admin: 01/28/18 17:43 Dose: 4 mg Ondansetron HCl (Zofran) 4 mg IVP Q6H PRN PRN Reason: Nausea/Vomiting Prednisone (Prednisone) 40 mg PO QAM-[facility] Last Admin: 01/29/18 09:34 Dose: 40 mg Saccharomyces Boulardii (Florastor) 250 mg PO DAILY [facility] Last Admin: 01/29/18 09:34 Dose: 250 mg Senna/Docusate Sodium (Senokot S) 2 tab PO BID PRN PRN Reason: Constipation Sodium Chloride ([place] Nasal [place] 0.65%) 0 ml EA NARE QIDPRN PRN PRN Reason: Nasal Congestion Throat Lozenges (Cepastat Lozenges) 1 candice PO Q2H PRN PRN Reason: Sore Throat
--- NOTE | 2018-01-29 10:40 | PRG ---
DATE OF SERVICE: 01/29/2018 SERVICE: Pulmonary Medicine. INTERVAL HISTORY: The patient is doing fine from a respiratory standpoint. She is breathing comfort ably. She has no complaints of fevers, chills, nausea or vomiting. She continues to have a little b it of dyspnea that limits her activity. Her oxygen saturations remained marginal. When she walks, s he desaturates. PHYSICAL EXAMINATION: VITAL SIGNS: Afebrile with a T-max of 99.0. Pulse 65, blood pressure 112/74, respirations 19, satur ation 94% on 3 liters nasal cannula. GENERAL: The patient is awake and alert, in no apparent distress. LUNGS: Decent air entry. Crackles are present. No prolonged expiratory phase or wheezing is apprec iated. HEART: Normal rate, regular. ABDOMEN: Soft, nontender, nondistended. Bowel sounds are positive. MUSCULOSKELETAL: No cyanosis or clubbing. There is no pitting in the bilateral lower extremities. NEUROLOGIC: Grossly nonfocal. LABORATORY DATA: No laboratories. ASSESSMENT: 1. Acute on chronic hypoxic respiratory failure. 2. Interstitial lung disease. 3. Connective tissue disease. 4. Narcotic abuse. 5. Sepsis. DISCUSSION AND PLAN: From my perspective, the patient is stable for transition out of the hospital. We need to continue her antibiotics to treat for a total duration of 7 days. On discharge from the hospital, she can resume her home dose of steroids. She will need to follow up with her pulmonologis t as previously directed. He has relocated to [facility] recently.
[2018-01-29] MEDS: Melatonin 3 MG TAB PO SCH (21:28)
[2018-01-29] MEDS: cefTRIAXone\\ROCEPHIN 2 GM in Sodium Chloride 0.9% 100 ML IVPB SCH (21:28)
[2018-01-30] MEDS: HYDROcodone/Acetaminophen 5/325 mg Tablet PO PRN ×3 (00:10→10:24)
[2018-01-30] MEDS: Azithromycin 500 MG in Sodium Chloride 0.9% 250 ML 250 ML IVPB SCH (08:46)
[2018-01-30] MEDS: Saccharomyces boulardii 250 MG CAP PO SCH (08:47)
[2018-01-30] MEDS: predniSONE 20 MG TAB PO SCH (08:47)
[2018-01-30] MEDS: Enoxaparin Sodium 40 MG/0.4 ML SYRINGE SC SCH (08:48)
[2018-01-30] MEDS: Hydroxychloroquine Sulfate 200 MG TAB PO SCH (08:48)
[2018-01-30] MEDS: Divalproex Sodium 250 MG (DR) TAB PO SCH (08:50)
--- NOTE | 2018-01-30 09:39 | PDOC.PN ---
- Subjective Encounter Start Date: 01/30/18 Encounter Start Time: 08:40 Patient seen and examined. No new complaints. No overnight events - Objective Resuscitation Status: Resuscitation Status FULL:Full Resuscitation MAR Reviewed: Yes Vital Signs & Weight: Vital Signs (12 hours) Temp Pulse Resp BP Pulse Ox 01/30/18 09:04 99 01/30/18 08:00 98.3 F 73 16 146/94 H 99 01/30/18 06:02 79 14 96 01/30/18 00:08 75 16 96 Weight Weight 198 lb 9.6 oz I&O: 01/29/18 01/30/18 01/31/18 06:59 06:59 06:59 Intake Total 760 Balance 760 Result Diagrams: 01/27/18 03:46 01/27/18 03:46 Phys Exam - Physical Examination Constitutional: NAD HEENT: PERRLA, moist MMs, sclera anicteric Neck: no JVD, supple Respiratory: no wheezing, no rhonchi few basal rales Cardiovascular: RRR, no significant murmur, no rub Gastrointestinal: soft, non-tender, no distention, positive bowel sounds Musculoskeletal: no edema, pulses present Neurological: non-focal, normal sensation, moves all 4 limbs Lymphatic: no nodes Psychiatric: normal affect, A&O x 3 Skin: no rash, normal turgor Dx/Plan (1) Acute respiratory failure with hypoxia Code(s): J96.01 - ACUTE RESPIRATORY FAILURE WITH HYPOXIA Status: Acute (2) Obesity (BMI 30-39.9) Code(s): E66.9 - OBESITY, UNSPECIFIED Status: Acute (3) Pneumonitis Code(s): J18.9 - PNEUMONIA, UNSPECIFIED ORGANISM Status: Acute (4) ILD (interstitial lung disease) Code(s): J84.9 - INTERSTITIAL PULMONARY DISEASE, UNSPECIFIED Status: Chronic (5) Rheumatoid arthritis Code(s): M06.9 - RHEUMATOID ARTHRITIS, UNSPECIFIED Status: Chronic (6) Seizure disorder Code(s): G40.909 - EPILEPSY, UNSP, NOT INTRACTABLE, WITHOUT STATUS EPILEPTICUS Status: Chronic (7) Tobacco abuse Code(s): Z72.0 - TOBACCO USE Status: Chronic - Plan cont current plan of care, continue antibiotics, respiratory therapy * today will dc with home oxygen * change prednisone taper and omnicef * medication reviewed as below * symptomatic treatment. Review of Systems - Review of Systems ENT: negative: Ear Pain, Ear Discharge, Nose Pain, Nose Discharge, Nose Congestion, Mouth Pain, Mouth Swelling, Throat Pain, Throat Swelling, Other Respiratory: negative: Cough, Dry, Shortness of Breath, Hemoptysis, SOB with Excertion, Pleuritic Pain, Sputum, Wheezing Cardiovascular: negative: chest pain, palpitations, orthopnea, paroxysmal nocturnal dyspnea, edema, light headedness, other Gastrointestinal: negative: Nausea, Vomiting, Abdominal Pain, Diarrhea, Constipation, Melena, Hematochezia, Other Genitourinary: negative: Dysuria, Frequency, Incontinence, Hematuria, Retention , Other Musculoskeletal: negative: Neck Pain, Shoulder Pain, Arm Pain, Back Pain, Hand Pain, Leg Pain, Foot Pain, Other - Medications/Allergies Allergies/Adverse Reactions: Allergies Allergy/AdvReac Type Severity Reaction Status Date / Time levofloxacin [From Levaquin] Allergy Verified 01/26/18 01:11 NSAIDS (Non-Steroidal Allergy Verified 01/26/18 01:11 Anti-Inflamma Penicillins Allergy Verified 01/26/18 01:23 tramadol Allergy Verified 01/26/18 01:11 Medications: Current Medications Acetaminophen/Butalbital/Caffeine (Fioricet) 1 tab PO Q6HR PRN PRN Reason: Headache Stop: 01/31/18 07:31 Last Admin: 01/27/18 00:27 Dose: 1 tab Hydrocodone Bitart/Acetaminophen ([place] 5/325) 1 tab PO Q4H PRN PRN Reason: Pain Last Admin: 01/30/18 04:46 Dose: 1 tab Albuterol Sulfate (Proventil Hfa) 1 puff INH QIDPRN PRN PRN Reason: sob/wheezing Albuterol/Ipratropium (Duoneb) 3 ml NEB Q4H PRN PRN Reason: SOB &/or Wheezing Albuterol/Ipratropium (Duoneb) 3 ml NEB [id number] Last Admin: 01/30/18 06:02 Dose: 3 ml Artificial Tears (Tears Renewed 15ml Bottle) 2 drop EA EYE PRN PRN PRN Reason: Dry Eyes Bisacodyl (Dulcolax) 10 mg PO DAILYPRN PRN PRN Reason: Constipation Bisacodyl (Dulcolax) 10 mg [place] DAILYPRN PRN PRN Reason: Constipation Calcium Carbonate (Tums) 1,000 mg PO Q4H PRN PRN Reason: Heartburn or Indigestion Divalproex Sodium (Depakote) 750 mg PO DAILY [facility] Last Admin: 01/30/18 08:50 Dose: 750 mg Enoxaparin Sodium (Lovenox) 40 mg SC 0900 [facility] Last Admin: 01/30/18 08:48 Dose: 40 mg Guaifenesin (Robitussin Sf) 200 mg PO Q4H PRN PRN Reason: Cough Hydralazine HCl (Apresoline) 10 mg SLOW IVP Q4H PRN PRN Reason: SBP Greater Than 170 Hydroxychloroquine Sulfate (Plaquenil) 400 mg PO DAILY [facility] Last Admin: 01/30/18 08:48 Dose: 400 mg Azithromycin 500 mg/ Sodium (Chloride) 250 mls @ 250 mls/hr IVPB Q24HR [facility] Last Admin: 01/30/18 08:46 Dose: 250 mls Ceftriaxone Sodium 2 gm/ (Sodium Chloride) 100 mls @ 200 mls/hr IVPB Q24HR [facility] Last Admin: 01/29/18 21:28 Dose: 100 mls Loratadine (Claritin) 10 mg PO DAILYPRN PRN PRN Reason: Sinus Symptoms Melatonin (Melatonin) 3 mg PO 2200 [facility] Last Admin: 01/29/18 21:28 Dose: 3 mg Mineral Oil/White Petrolatum (Eucerin Cream) 0 gm TOP BIDPRN PRN PRN Reason: Dry Skin Naloxone HCl (Narcan) 0.4 mg IV Q2H PRN PRN Reason: Sedation Last Admin: 01/27/18 12:17 Dose: 0.4 mg Ondansetron HCl (Zofran Odt) 4 mg PO Q6H PRN PRN Reason: Nausea/Vomiting Last Admin: 01/28/18 17:43 Dose: 4 mg Ondansetron HCl (Zofran) 4 mg IVP Q6H PRN PRN Reason: Nausea/Vomiting Prednisone (Prednisone) 40 mg PO QAM-WM [facility] Last Admin: 01/30/18 08:47 Dose: 40 mg Saccharomyces Boulardii (Florastor) 250 mg PO DAILY [facility] Last Admin: 01/30/18 08:47 Dose: 250 mg Senna/Docusate Sodium (Senokot S) 2 tab PO BID PRN PRN Reason: Constipation Sodium Chloride ([place] Nasal [place] 0.65%) 0 ml EA NARE QIDPRN PRN PRN Reason: Nasal Congestion Throat Lozenges (Cepastat Lozenges) 1 candice PO Q2H PRN PRN Reason: Sore Throat
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
[2018-01-30 11:34] VITALS: BP 155/95; TEMP 97.9
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
[2018-01-30 15:39] LABS: ANA Symphony (Qualitative) Negative (Negative); dsDNA IgG Antibody Less than 0.5 IU/mL (<10 Negative)
--- NOTE | 2018-01-31 15:51 | PQF ---
RIVER COE RICHA MD [id number] CLINICAL DOCUMENTATION CLARIFICATION FORM: POST DISCHARGE Addendum to original discharge summary date: NOT MY PATIENT AT ALL FOR THESE DATES Late entry note date: __ DATE: 01/31/18 ATTN: Please exercise your independent, professional judgment in responding to the clarification form. Clinical indicators are provided on the bottom of this form for your review Please check appropriate box(es): [ ] Sepsis due to: (Pna, UTI, gangrenous gall bladder, etc.) Due to: [ ] Device (please specify) [ ] Implant [ ] Graft [ ] Infusion [ ] SIRS due to non-infectious process (please specify etiology) [ ] with organ dysfunction [ ] without organ dysfunction [ ] Severe sepsis with acute organ dysfunction of: (Examples: respiratory failure, encephalopathy, acute kidney failure, other) [ ] Septic Shock [ ] Localized infection without sepsis [ ] Other diagnosis __NOT MY PATIENT.PLEASE REASSIGN TO DR PEREIRA [ ] Unable to determine In addition, please specify: Present on Admission (POA): [ ] Yes [ ] No [ ] Unable to determine For continuity of documentation, please document condition throughout progress notes and discharge summary. Thank You. CLINICAL INDICATORS - SIGNS / SYMPTOMS / LABS Altered mental status Fever or hypothermia (<96.8 F/36 C or > 100.4 F/38C) Respiratory rate >20/min, Hypoxemia, WBC count (>12,000/mm^4 or <4000/mm^3 or 10% neuts, 10% bands) RISK FACTORS Pneumonia Respiratory failure TREATMENTS: IV antibiotics - broad spectrum IV Fluids (This form is maintained as a part of the permanent medical record) 2014 [employer]. All Rights Reserved Ap [email or web address] [phone] MTDD
--- NOTE | 2018-02-06 14:18 | EKG ---
Test Reason : Blood Pressure : / mmHG Vent. Rate : 083 BPM Atrial Rate : 083 BPM P-R Int : 118 ms QRS Dur : 088 ms QT Int : 378 ms P-R-T Axes : 006 -04 -13 degrees QTc Int : 444 ms Normal sinus rhythm Voltage criteria for left ventricular hypertrophy Abnormal ECG Confirmed by EDGARD BLEVINS ([id number]), business editor CORIN GRIMES ([id number]) on 02/06/2018 2:18:09 PM Referred By: GEN Confirmed By:EDGARD BLEVINS
--- NOTE | 2018-02-10 18:23 | PQF ---
RIVER COE, DENAE SCOTT MD [id number] CLINICAL DOCUMENTATION CLARIFICATION FORM: POST DISCHARGE Addendum to original discharge summary date: ____ Late entry note date: __ DATE: 02/10/18 ATTN: Please exercise your independent, professional judgment in responding to the clarification form. Clinical indicators are provided on the bottom of this form for your review Please check appropriate box(es): [x ] Sepsis due to: (Pna, UTI, gangrenous gall bladder, etc.) pneumonia Due to: [ ] Device (please specify) [ ] Implant [ ] Graft [ ] Infusion [ ] SIRS due to non-infectious process (please specify etiology) [ ] with organ dysfunction [ ] without organ dysfunction [ x] Severe sepsis with acute organ dysfunction of: __acute respi failure (Examples: respiratory failure, encephalopathy, acute kidney failure, other) [ ] Septic Shock [ ] Localized infection without sepsis [ ] Other diagnosis [ ] Unable to determine In addition, please specify: Present on Admission (POA): [ x ] Yes [ ] No [ ] Unable to determine For continuity of documentation, please document condition throughout progress notes and discharge summary. Thank You. CLINICAL INDICATORS - SIGNS / SYMPTOMS / LABS Altered mental status Fever or hypothermia (<96.8 F/36 C or > 100.4 F/38C) Respiratory rate >20/min, Hypoxemia, WBC count (>12,000/mm^4 or <4000/mm^3 or 10% neuts, 10% bands) RISK FACTORS Pneumonia, Respiratory Failure TREATMENTS: IV antibiotics - broad spectrum IV Fluids (This form is maintained as a part of the permanent medical record) 2014 [employer]. All Rights Reserved Ap [email or web address] [phone] MTDD
== END 2018-01-30 12:08 | disposition home or self-care (01) | DRG 871 ==
LOC: ERS 21:03 → IMCU/EMU 01-26 00:46 → T4-A 01-29 19:25
PROVIDERS: ADMIT Internal Medicine; ATTEND Internal Medicine
DX: A41.9 Sepsis, unspecified organism (principal); J18.9 Pneumonia, unspecified organism; J96.01 Acute respiratory failure with hypoxia; G40.909 Epilepsy, unspecified, not intractable, without status epilepticus; Z88.0 Allergy status to penicillin; Z88.1 Allergy status to other antibiotic agents; Z88.6 Allergy status to analgesic agent; Z88.5 Allergy status to narcotic agent; Z79.899 Other long term (current) drug therapy; Z79.52 Long term (current) use of systemic steroids; M06.9 Rheumatoid arthritis, unspecified; M32.9 Systemic lupus erythematosus, unspecified; F17.210 Nicotine dependence, cigarettes, uncomplicated; E66.9 Obesity, unspecified; Z68.37 Body mass index [BMI] 37.0-37.9, adult; M35.9 Systemic involvement of connective tissue, unspecified; F11.10 Opioid abuse, uncomplicated; R65.20 Severe sepsis without septic shock
CPT/HCPCS: 36415; 36416; 71046; 80048; 80053; 80076; 80306; 81001; 82553; 82805; 83880; 84484; 85025; 85379; 85652; 86038; 86140; 86225; 87040; 87086; 87633; 87804; 90471; 90686; 90732; 93005; 94640; 94760; 96361; 96365; 96375; G0008; G0009; J0456; J0696; J1650; J1940; J2270; J2310; J2920; J2930; J7050; J7506; J7620; Q0162

== ENCOUNTER 2018-03-26 21:07 | Emergency (ER) | payer SELFPAY ==
--- NOTE | 2018-03-26 22:14 | RAD ---
TWO VIEWS CHEST: 03/26/18 PROVIDED CLINICAL HISTORY: Cough. FINDINGS: Comparison 01/25/18. The cardiac silhouette remains enlarged. Prominence of the pulmonary vasculature. No focal consolidat ion, pleural fluid, or pneumothorax apparent. IMPRESSION: Cardiomegaly and prominence of the pulmonary vasculature. POS: [facility]
== END 2018-03-26 22:37 | disposition home or self-care (01) ==
LOC: ERS 21:07
DX: J06.9 Acute upper respiratory infection, unspecified (principal); F17.210 Nicotine dependence, cigarettes, uncomplicated; M06.9 Rheumatoid arthritis, unspecified; Z79.891 Long term (current) use of opiate analgesic; Z79.899 Other long term (current) drug therapy
CPT/HCPCS: 71046; 87804

== ENCOUNTER 2018-04-21 22:34 | Inpatient (IN) | payer SELFPAY ==
--- NOTE | 2018-04-21 23:23 | RAD ---
CHEST TWO VIEWS: HISTORY: A 42-year-old in need of home oxygen. COMPARISON: 03/26/2018 TECHNIQUE: PA and lateral views of the chest are obtained. FINDINGS: Two views of the chest demonstrate cardiomegaly. Pulmonary vascular congestion is seen. No signific ant interval changes or effusions seen. No evidence of pneumonia seen. IMPRESSION: Cardiomegaly and pulmonary vascular congestion. POS: [facility]
[2018-04-21] MEDS ORDERED: Albuterol Sulfate 2.5 mg/3 ml Neb ONE (23:34)
[2018-04-21 23:57] LABS: #Eosinphils 0.1 thou/uL (0.0-0.7); #Lymphocytes 3.2 thou/uL (1.20-3.40); #Monocytes 1.3 thou/uL (0.11-0.59); %Basophils 0.3 % (0.0-1.0); %Eosinophils 0.8 % (0.0-10.0); %Lymphocytes 23.4 % (21.0-51.0); %Monocytes 9.3 % (0.0-10.0); %Neutrophils 66.1 % (42.0-75.0); Hemoglobin 12.7 g/dL (12.0-16.0); Mean Corpuscular HGB CONC 33.3 g/dL (32.0-36.0); Mean Corpuscular Hemoglobin 31.5 pg (27.0-31.0); Mean Corpuscular Volume 94.6 fL (78.0-98.0); Mean Platelet Volume 7.1 fL (7.4-10.4); Platelet Count 341 thou/uL (130-400); RBC Distribution Width 14.6 % (11.5-14.5); Red Blood Cell (RBC) Count 4.03 mill/uL (4.20-5.40); White Blood Cell (WBC) Count 13.5 thou/uL (4.8-10.8)
[2018-04-22 00:05] LABS: Bilirubin Negative (Negative); Blood, Urine Moderate (Negative); Clarity CLEAR (Clear); Glucose, Urine (Dipstick) Negative (Negative); Leukocyte Small (Negative); Nitrite Negative (Negative); Protein, Urine (Dipstick) Negative (Neg-Trace); Specific Gravity, Urine 1.008 (1.002-1.036); Urobilinogen 0.2 mg/dL (0.2-1.0)
[2018-04-22 00:09] LABS: Bacteria/HPF None Seen HPF (None Seen); Hyaline Casts/LPF 0-3 HYALINE CAST LPF (0-3 Hyaline); Squamous Epithelial 0-3 HPF (0-3)
[2018-04-22 00:25] LABS: ALT (SGPT) 23 U/L (8-55); AST (SGOT) 21 U/L (5-34); Alkaline Phosphatase 59 U/L (40-150); Anion Gap 14 mmol/L (10-20); BUN (Urea Nitrogen) 10 mg/dL (7.0-18.7); CK (CPK) 109 U/L (29-168); Calc. Creatinine Clearance 0 mL/min (70-130); Calcium 9.1 mg/dL (7.8-10.44); Carbon Dioxide 27 mmol/L (22-29); Chloride 103 mmol/L (98-107); Estimated GFR-MDRD 83; Globulin 2.6 g/dL (2.4-3.5); Glucose 87 mg/dL (70-105); Lipase 22 U/L (8-78); Protein, Total 6.6 g/dL (6.0-8.3); Sodium 141 mmol/L (136-145)
[2018-04-22 00:30] LABS: Potassium 2.8 mmol/L (3.5-5.1)
[2018-04-22] MEDS ORDERED: Potassium Chloride 20 MEQ TAB ONE (00:42)
[2018-04-22] MEDS ORDERED: Magnesium 2 GM/50 ML BAG (IN WATER) ONE (00:42)
[2018-04-22] MEDS ORDERED: Dexamethasone 4 mg/ml Vial ONE (00:43)
[2018-04-22] MEDS ORDERED: Azithromycin 500 MG VIAL ONE (01:18)
[2018-04-22] MEDS ORDERED: Morphine 4 MG/ML VIAL ONE (01:18)
[2018-04-22 01:34] LABS: Bilirubin, Total 0.3 mg/dL (0.2-1.2)
[2018-04-22] MEDS: cefTRIAXone\\ROCEPHIN 1 GM in Sodium Chloride 0.9% 100 ML IVPB SCH (03:32)
[2018-04-22 04:05] VITALS: BMI 38.0
[2018-04-22] MEDS ORDERED: Ondansetron ODT 4 MG TAB PO PRN (05:36)
[2018-04-22] MEDS ORDERED: Ondansetron PF 4 MG/2 ML Vial IVP PRN (05:36)
[2018-04-22] MEDS ORDERED: Acetaminophen 325 MG TAB PO PRN (05:36)
[2018-04-22] MEDS ORDERED: Fioricet 325/50/40 mg Tablet PO PRN (05:38)
[2018-04-22 06:11] LABS: Hemoglobin 11.3 g/dL (12.0-16.0); Mean Corpuscular HGB CONC 33.2 g/dL (32.0-36.0); Mean Corpuscular Hemoglobin 31.4 pg (27.0-31.0); Mean Corpuscular Volume 94.4 fL (78.0-98.0); Mean Platelet Volume 7.5 fL (7.4-10.4); Platelet Count 313 thou/uL (130-400); RBC Distribution Width 14.6 % (11.5-14.5); White Blood Cell (WBC) Count 11.8 thou/uL (4.8-10.8)
[2018-04-22] MEDS ORDERED: VANCOMYCIN IVPB PRN (06:13)
[2018-04-22] MEDS ORDERED: Potassium Chloride 20 MEQ TAB PO SCH ×2 (06:15→13:15)
[2018-04-22 06:35] LABS: Band 3 % (5-11); Lymphocytes 3 % (21-51); MDiff Complete? YES; Monocytes 1 % (0-10); Neutrophil 93 % (42-75)
--- NOTE | 2018-04-22 07:56 | CT ---
PRELIMINARY REPORT/[facility]/EMERGENTY AFTER-HOURS PROCEDURE CT Angiography Chest With Contrast EXAM DATE/TIME: 04/22/2018 1:08 AM CLINICAL HISTORY: 42 years old, female; Signs and symptoms; Dyspnea; Patient HX: F42 dx with ra, lupus and interstitial lung disease presents to ed with C/O weakness, dizziness and cough. Reports that this is a flare up. Reports similar attack in january for which the PT stayed in the icu. TECHNIQUE: Axial computed tomographic angiography images of the chest with intravenous contrast using CT angiogr aphy protocol. MIP reconstructed images were created and reviewed. COMPARISON: No relevant prior studies available. FINDINGS: Pulmonary arteries: Normal. No pulmonary emboli. Aorta: Normal. No aortic aneurysm. No aortic dissection. Lungs: Multifocal partially confluent bilateral airspace opacities, worse in the upper and midlungs, with right/left symmetry, much of which is subpleural. No interlobular septal thickening. No definite fibrosis. Pleural space: Normal. No pneumothorax. No pleural effusion. Heart: Normal. No cardiomegaly. No pericardial effusion. Mediastinum: Esophagus is unremarkable. Lymph nodes: Unremarkable. No enlarged lymph nodes. Bones/joints: Unremarkable. No acute fracture. Soft tissues: Unremarkable. IMPRESSION: Multifocal partially confluent bilateral airspace opacities, worse in the upper and mid lungs, with r ight/left symmetry, much of which is subpleural. Findings are nonspecific but differential diagnosis includes acute lupus pneumonitis, cryptogenic organizing pneumonia, pulmonary infection (potentially with an atypical organism), or medication toxicity/hypersensitivity. Thank you for allowing us to participate in the care of your patient. Dictated and Authenticated by: Maciej Salamanca MD 04/22/2018 1:43 AM Central Time ([place] & [place]) FINAL REPORT CT OF THE THORAX UTILIZING IV CONTRAST AND 3D REFORMATTED IMAGING: INDICATION: History of lupus, rheumatoid arthritis, interstitial lung disease, weakness, and dizziness and cough. IMPRESSION: I agree with the preliminary report provided. No central or segmental pulmonary embolus is evident. There are multifocal areas of patchy airspace opacity seen within both lungs in a predominant upper l obe distribution. Agree with the differential diagnosis provided. An atypical infectious process ca nnot be entirely excluded. Due to the patient's history of inflammatory disease such as lupus and rh eumatoid arthritis, an inflammatory pneumonitis is not entirely excluded. An entity such as crytogen ic organizing pneumonia is not entirely excluded. An interstitial pneumonitis could also produce thi s finding. CT followup is recommended. POS: [facility]
--- NOTE | 2018-04-22 08:18 | HP ---
PRIMARY CARE DOCTOR: Dr. Maciej Batista. CODE STATUS: Full code. TIME OF EVALUATION: 05:40 a.m. CHIEF COMPLAINT: Chief complaint for this patient was weakness, cough, and shortness of breath. HISTORY OF PRESENT ILLNESS: This is a 42-year-old female patient with a past medical history of RA and lupus. The patient also has interstitial lung disease came to the hospital after having a generalized weakness that was severe and associated with cough and shortness of breath. No clear triggers. No alleviating factors. Symptoms were severe. The symptoms have been present the past few days, it started insidiously, and being gradually getting worse. The patient also reported some associated generalize pain. REVIEW OF SYSTEMS: CONSTITUTIONAL: The patient has no fever, chills, or generalized weakness. RESPIRATORY: The patient has cough. No sputum production. The patient has shortness of breath. CARDIOVASCULAR: No chest pain or palpitation. GASTROINTESTINAL: No nausea. No vomiting, diarrhea, or abdominal pain. STREET CONTRACTOR: The patient is lethargic. No headache or feeling lightheaded. GENITOURINARY: No burning on urination. EXTREMITIES: No leg swelling. All other systems were reviewed and negative except for the findings mentioned above. FAMILY HISTORY: Reviewed and non contributory for current presentation. PAST MEDICAL HISTORY: As mentioned in the HPI. Seizures. PAST SURGICAL HISTORY: 1. x3. 2. Tubal ligation. 3. Lung scraping. PSYCH HISTORY: No previous psych history. SOCIAL HISTORY: No known drug use. The patient drinks socially and rarely. The patient is an everyday smoker, half a pack per day. ALLERGIES: LEVAQUIN, NSAIDS, PENICILLINS, AND TRAMADOL. REPORTED MEDICATIONS: 1. Plaquenil. 2. Depakote. 3. [place]. 4. Prednisone. PHYSICAL EXAMINATION: VITAL SIGNS: Blood pressure 141/84 with heart rate 84, respiratory rate was 20, temperature 98.3, and the pain was 8/10. Oxygen saturation was 100 on room air. GENERAL APPEARANCE: The patient is alert, oriented, seems to be mildly lethargic during my examination. HEENT: Eyes, normal conjunctiva. Moist oral mucosa. Anicteric. No JVD. RESPIRATORY: Bilateral air entry. No rales. No wheezing. Symmetric expansion. CARDIOVASCULAR: Normal rate, regular rhythm. No murmurs. No gallops. No edema. ABDOMEN: Soft. Normal bowel sounds. MUSCULOSKELETAL: Baseline range of motion and strength. No tenderness. SKIN: The patient has multiple skin lesions in the face and distributed universally. She reported that these are the same lesion that she had with a lupus, when she had a flare-up. Peripheral pulses are present. Capillary refill seems to be intact. NEURO: No evidence of any new focal weakness. Baseline speech. Cranial nerves seem to be intact. PSYCH: The patient has good mood. No anxiety. Optimal judgment. DIAGNOSTIC DATA: EKG was reviewed. The patient has normal sinus rhythm with a rate of 68, CT 132, QRS 96, QT corrected 448. LABORATORY DATA: Labs were reviewed. The patient has white count 15.5, hemoglobin 10.7, MCV 94.6, and platelet count 241. D-dimer 0.48. Chemistry: Sodium 141, potassium 2.8, chloride 103, carbon dioxide 27, anion gap 14, BUN 10, creatinine 0.76, GFR 83, glucose 87, lactic acid 1.8, calcium 9.1, total bilirubin 0.3, AST 31, ALT 23, alkaline phosphatase 59. CK 109. Troponin 0.016. Beta-natriurectic peptide 5.1, albumin 4.0. Urine was reviewed and was positive with white count 7 to 10, rbc's 7 to 10. Chest x-ray was reviewed. The patient has cardiomegaly and pulmonary vascular congestion. CT angio was done. The patient has no significant evidence of any major pulmonary embolism. The patient also have ground-glass opacity bilaterally, this to be read in multiple lobes. ASSESSMENT AND PLAN: The patient has been placed in the hospital with following medical problems: 1. Possible sepsis. The patient was tachycardic, elevated white count, possible source could be pneumonia, although the patient is immunosuppressed due to treatment for lupus, high risk for complication. I will continue the patient on antibiotics that have been started in the ER and oxygen as needed to keep saturation above 90. 2. Positive D-dimer 0.48. CT angio did not show any significant pulmonary embolism. However, official report is still pending from Radiology. 3. Hypokalemia, that is moderate. Potassium 2.8. We will replace electrolytes as needed. 4. Possible urinary tract infection. The patient has white count in the urine 7 to 10 that is positive. The patient had been receiving antibiotics, we will follow cultures. 5. Lupus flare up. The patient has multiple lesions in the skin, might need Hematology assistance. Due to patient is septic we might need to hold immunosuppressants. 6. Deep venous thrombosis prophylaxis. 7. Possible pneumonia versus interstitial lung disease, we will consult Dr. Simmons, the patient has been started on antibiotics, follow cultures. We will adjust treatment as per sensitivity. Job ID: [id number] MTDD
[2018-04-22] MEDS: Vancomycin HCl 1.5 GM in Sodium Chloride 0.9% 250 ML 300 ML IVPB SCH ×2 (08:51→22:03)
[2018-04-22] MEDS: Enoxaparin Sodium 40 MG/0.4 ML SYRINGE SC SCH (08:53)
[2018-04-22] MEDS: Divalproex Sodium 250 MG (DR) TAB PO SCH (08:54)
[2018-04-22] MEDS: Hydroxychloroquine Sulfate 200 MG TAB PO SCH (08:54)
[2018-04-22] MEDS ORDERED: Vancomycin HCl 1 GM in Premix Bag 1 BAG IVPB SCH (09:00)
[2018-04-22] MEDS: Morphine 4 MG/ML VIAL SLOW IVP PRN (09:44)
[2018-04-22] MEDS ORDERED: ISOVUE-370 76%-LOCM 1 ML ONE (09:55)
--- NOTE | 2018-04-22 12:59 | PDOC.PN ---
- Subjective Encounter Start Date: 04/22/18 Encounter Start Time: 12:57 Ms. Guy was seen today in follow-up of Pneumonia. She tells me she is feeling a little better. She told the nurse that she has " hurting". - Objective Resuscitation Status - Order Detail: 04/22/18 05:36 Resuscitation Status Routine Resuscitation Status: FULL: Full Resuscitation MAR Reviewed: Yes Vital Signs & Weight: Vital Signs (12 hours) Temp Pulse Resp BP Pulse Ox 04/22/18 11:25 97.5 F L 80 16 118/57 L 98 04/22/18 08:00 96 04/22/18 07:37 99.1 F 71 16 137/75 96 04/22/18 03:00 98.5 F 78 22 H 138/68 100 Weight Weight 221 lb 9 oz I&O: 04/21/18 04/22/18 04/23/18 06:59 06:59 06:59 Intake Total 480 Balance 480 Result Diagrams: 04/22/18 05:52 04/21/18 23:49 Phys Exam - Physical Examination HEENT: PERRLA Respiratory: no wheezing, no rales + coarse breath sounds Cardiovascular: RRR, no significant murmur, no rub Gastrointestinal: soft, non-tender, no distention, positive bowel sounds Musculoskeletal: no edema, pulses present Dx/Plan (1) Pneumonia Code(s): J18.9 - PNEUMONIA, UNSPECIFIED ORGANISM Status: Acute (2) Obesity (BMI 30-39.9) Code(s): E66.9 - OBESITY, UNSPECIFIED Status: Acute (3) ILD (interstitial lung disease) Code(s): J84.9 - INTERSTITIAL PULMONARY DISEASE, UNSPECIFIED Status: Chronic (4) Rheumatoid arthritis Code(s): M06.9 - RHEUMATOID ARTHRITIS, UNSPECIFIED Status: Chronic (5) Seizure disorder Code(s): G40.909 - EPILEPSY, UNSP, NOT INTRACTABLE, WITHOUT STATUS EPILEPTICUS Status: Chronic (6) Hypokalemia Code(s): E87.6 - HYPOKALEMIA Status: Acute - Plan * Pneumonia- improving - continue Rocephin, Vancomycin and Azithromycin * Seizure disorder- continue Depakote * ILD- stable * Hypokalemia- replace potassium * RA- stable.
[2018-04-22] MEDS: HYDROcodone/Acetaminophen 10/325 mg Tablet PO PRN ×3 (13:46→22:43)
--- NOTE | 2018-04-22 20:49 | CON ---
DATE OF CONSULTATION: 04/22/2018 HISTORY OF PRESENT ILLNESS: Ms. Guy is a pleasant 42-year-old female with collagen vascular disease. She reports to have rheumatoid arthritis and lupus. She says she feels like she is having a lupus flare. She says yesterday was very atypical for her. She said she was feeling fine, watching TV and then became short of breath, hypoxic and confused. Her hypoxia was never below a sat of 90%, according to the . She had several hours where she just was talking out of her head, so eventually she was brought to the emergency room and subsequently admitted. She was followed by the consumer science teacher at [facility]. PAST MEDICAL HISTORY: 1. She had tubal ligation in the past. She has had in the past. 2. She has chronic interstitial lung disease, felt to be related to her collagen vascular disease. 3. History of seizures. 4. History of vascular headaches. 5. History of bronchoscopy in the past. SOCIAL HISTORY: History of smoking half pack a day. She is not a drug or alcohol user. It has been noted in progress notes in the past that she abused prescription narcotics. Her is in the room. I answered all of his questions. He seems to be reasonable and appropriate. FAMILY HISTORY: Negative for vasculitis or any lung disease in early age. REVIEW OF SYSTEMS: 10 point review of systems completed, otherwise negative. PHYSICAL EXAMINATION: GENERAL: She is in no distress. She is afebrile. VITAL SIGNS: Heart rate is 80, respiratory rate 16, oximetry is 98% on room air , blood pressure 118/57. HEENT: Pupils are equal. Sclerae anicteric. She has some petechial hemorrhages on her face. NECK: Supple. LUNGS: Remarkable for very fine crackles at her lung bases. HEART: Regular rhythm. S1 and S2 are normal. ABDOMEN: Soft and nontender. EXTREMITIES: Without clubbing, cyanosis, or edema. Looking at her chest x-ray and comparing it to old films, I do not see any significant change. IMPRESSION: 1. Chronic interstitial lung disease with a history of biopsy and bronchoscopy in the past. 2. Lupus. 3. Anemia of chronic disease. Her hemoglobin is 11.3. White count is not markedly elevated. 4. Manual differential was not done in the emergency room. 5. Hypokalemia that is mild. She has normal liver enzymes and normal albumin and globulin. BNP was 85. I do not see a sedimentation rate. There is lab from last year, where in January, her double-stranded DNA was less than 0.5 and her GENARO screen was negative, ? we wound wonder about the diagnosis of lupus, she is seronegative. I really cannot explain her sudden decompensation yesterday and her dramatic improvement today. This would be in my opinion a little atypical. With the confusion, one would wonder about a lupus cerebritis, but this certainly wound not turn around quickly. Febrile illness triggered by influenza or virus barely could do this. In any event, we will continue to follow along with the other physicians. Dr. Woodard will be notified of her admission in the morning. This is a 70 minute consult, with greater than 50% of time on unit coordinating care. Job ID: [id number] MTDD
[2018-04-22] MEDS ORDERED: Zolpidem Tartrate 5 MG TAB PO SCH (22:00)
[2018-04-23] MEDS: Azithromycin 500 MG in Sodium Chloride 0.9% 250 ML 250 ML IVPB SCH ×2 (00:13→23:46)
[2018-04-23] MEDS: cefTRIAXone\\ROCEPHIN 1 GM in Sodium Chloride 0.9% 100 ML IVPB SCH (01:21)
[2018-04-23] MEDS: Morphine 4 MG/ML VIAL SLOW IVP PRN ×2 (01:22→11:23)
[2018-04-23] MEDS: HYDROcodone/Acetaminophen 10/325 mg Tablet PO PRN ×4 (03:14→21:59)
[2018-04-23 06:23] LABS: #Eosinphils 0.1 thou/uL (0.0-0.7); #Lymphocytes 2.3 thou/uL (1.20-3.40); #Monocytes 0.8 thou/uL (0.11-0.59); #Neutrophils 6.9 thou/uL (1.40-6.50); %Basophils 0.4 % (0.0-1.0); %Eosinophils 0.7 % (0.0-10.0); %Lymphocytes 22.7 % (21.0-51.0); %Monocytes 7.9 % (0.0-10.0); %Neutrophils 68.3 % (42.0-75.0); Hemoglobin 10.9 g/dL (12.0-16.0); Mean Corpuscular HGB CONC 32.5 g/dL (32.0-36.0); Mean Corpuscular Hemoglobin 31.4 pg (27.0-31.0); Mean Corpuscular Volume 96.4 fL (78.0-98.0); Mean Platelet Volume 7.5 fL (7.4-10.4); Platelet Count 317 thou/uL (130-400); RBC Distribution Width 15.1 % (11.5-14.5); Red Blood Cell (RBC) Count 3.48 mill/uL (4.20-5.40); White Blood Cell (WBC) Count 10.1 thou/uL (4.8-10.8)
[2018-04-23 06:41] LABS: Anion Gap 14 mmol/L (10-20); BUN (Urea Nitrogen) 10 mg/dL (7.0-18.7); Calc. Creatinine Clearance 183 mL/min (70-130); Calcium 8.7 mg/dL (7.8-10.44); Carbon Dioxide 25 mmol/L (22-29); Chloride 108 mmol/L (98-107); Estimated GFR-MDRD Greater than 90; Glucose 107 mg/dL (70-105); Potassium 3.6 mmol/L (3.5-5.1); Sodium 143 mmol/L (136-145)
[2018-04-23] MEDS: Hydroxychloroquine Sulfate 200 MG TAB PO SCH (09:11)
[2018-04-23] MEDS: Divalproex Sodium 250 MG (DR) TAB PO SCH (09:12)
[2018-04-23] MEDS: Vancomycin HCl 1.5 GM in Sodium Chloride 0.9% 250 ML 300 ML IVPB SCH ×2 (09:12→20:29)
[2018-04-23] MEDS: Enoxaparin Sodium 40 MG/0.4 ML SYRINGE SC SCH (09:13)
--- NOTE | 2018-04-23 13:46 | PDOC.PN ---
- Subjective Encounter Start Date: 04/23/18 Encounter Start Time: 13:45 Subjective: feels better but still weak.SOb better - Objective Resuscitation Status - Order Detail: 04/22/18 05:36 Resuscitation Status Routine Resuscitation Status: FULL: Full Resuscitation MAR Reviewed: Yes Vital Signs & Weight: Vital Signs (12 hours) Temp Pulse Resp BP Pulse Ox 04/23/18 12:00 98.8 F 67 16 132/67 100 04/23/18 07:50 97.5 F L 65 16 124/67 92 L 04/23/18 04:00 98.2 F 70 18 117/73 96 Weight Weight 221 lb 9 oz I&O: 04/22/18 04/23/18 04/24/18 06:59 06:59 06:59 Intake Total 3153 233 Balance 3153 233 Result Diagrams: 04/23/18 05:18 04/23/18 05:18 Additional Labs: Microbiology 04/22/18 00:09 Nasopharyngeal swab Influenza Types A,B Direct EIA - Final 04/22/18 00:27 Venous blood - Left Arm Blood Culture - Preliminary Specimen has been received and culture in progress. No Growth to date. 04/21/18 23:50 Venous blood - Right Hand Blood Culture - Preliminary Specimen has been received and culture in progress. No Growth to date. 04/21/18 23:50 Urine voided Urine Culture - Preliminary Laboratory Tests 04/21/18 04/21/18 04/21/18 23:49 23:50 23:50 Creatine Kinase 109 Troponin I 0.016 B-Natriuretic Peptide 85.1 Phys Exam - Physical Examination Constitutional: NAD HEENT: PERRLA, moist MMs, sclera anicteric, oral pharynx no lesions Neck: no nodes, no JVD, supple, full ROM Respiratory: no wheezing, no rales, no rhonchi, clear to auscultation bilateral Cardiovascular: RRR, no significant murmur, no rub Gastrointestinal: soft, non-tender, no distention, positive bowel sounds Musculoskeletal: no edema, pulses present Neurological: non-focal, normal sensation, moves all 4 limbs Psychiatric: normal affect, A&O x 3 Skin: no rash Dx/Plan (1) Dyspnea Code(s): R06.00 - DYSPNEA, UNSPECIFIED Status: Acute (2) Pneumonitis Code(s): J18.9 - PNEUMONIA, UNSPECIFIED ORGANISM Status: Acute (3) Obesity (BMI 30-39.9) Code(s): E66.9 - OBESITY, UNSPECIFIED Status: Acute (4) ILD (interstitial lung disease) Code(s): J84.9 - INTERSTITIAL PULMONARY DISEASE, UNSPECIFIED Status: Chronic (5) Rheumatoid arthritis Code(s): M06.9 - RHEUMATOID ARTHRITIS, UNSPECIFIED Status: Chronic (6) Seizure disorder Code(s): G40.909 - EPILEPSY, UNSP, NOT INTRACTABLE, WITHOUT STATUS EPILEPTICUS Status: Chronic (7) Tobacco abuse Code(s): Z72.0 - TOBACCO USE Status: Chronic - Plan continue antibiotics, PT/OT, respiratory therapy, incentive spirometry, out of bed/ambulate, DVT proph w/SCDs Stable. restart home prednisone. -: empiric Abx but can be tapered .defer to [facility] -: transfer to medical -: restart lasix * . Review of Systems - Review of Systems Constitutional: weakness, malaise. negative: fever, chills, sweats, other ENT: negative: Ear Pain, Ear Discharge, Nose Pain, Nose Discharge, Nose Congestion, Mouth Pain, Mouth Swelling, Throat Pain, Throat Swelling, Other Respiratory: SOB with Excertion. negative: Cough, Dry, Shortness of Breath, Hemoptysis, Pleuritic Pain, Sputum, Wheezing Cardiovascular: negative: chest pain, palpitations, orthopnea, paroxysmal nocturnal dyspnea, edema, light headedness, other Gastrointestinal: negative: Nausea, Vomiting, Abdominal Pain, Diarrhea, Constipation, Melena, Hematochezia, Other Genitourinary: negative: Dysuria, Frequency, Incontinence, Hematuria, Retention , Other Musculoskeletal: negative: Neck Pain, Shoulder Pain, Arm Pain, Back Pain, Hand Pain, Leg Pain, Foot Pain, Other Neurological: negative: Weakness, Numbness, Incoordination, Change in Speech, Confusion, Seizures, Other - Medications/Allergies Allergies/Adverse Reactions: Allergies Allergy/AdvReac Type Severity Reaction Status Date / Time levofloxacin [From Levaquin] Allergy Verified 01/26/18 01:11 NSAIDS (Non-Steroidal Allergy Verified 01/26/18 01:11 Anti-Inflamma Penicillins Allergy Verified 01/26/18 01:23 tramadol Allergy Verified 01/26/18 01:11 Medications: Current Medications Acetaminophen (Tylenol) 650 mg PO Q4H PRN PRN Reason: Headache/Fever/Mild Pain (1-3) Acetaminophen/Butalbital/Caffeine (Fioricet) 1 tab PO Q6HR PRN PRN Reason: Headache Stop: 04/27/18 05:39 Hydrocodone Bitart/Acetaminophen ([place] 10/325) 1 tab PO Q4HR PRN PRN Reason: Moderate Pain (4-6) Last Admin: 04/23/18 07:57 Dose: 1 tab Divalproex Sodium (Depakote) 750 mg PO DAILY [facility] Last Admin: 04/23/18 09:12 Dose: 750 mg Enoxaparin Sodium (Lovenox) 40 mg SC 09 [facility] Last Admin: 04/23/18 09:13 Dose: 40 mg Hydroxychloroquine Sulfate (Plaquenil) 400 mg PO DAILY [facility] Last Admin: 04/23/18 09:11 Dose: 400 mg Ceftriaxone Sodium 1 gm/ (Sodium Chloride) 100 mls @ 200 mls/hr IVPB Q24HR [facility] Last Admin: 04/23/18 01:21 Dose: 100 mls Azithromycin 500 mg/ Sodium (Chloride) 250 mls @ 250 mls/hr IVPB Q24HR [facility] Last Admin: 04/23/18 00:13 Dose: 250 mls Vancomycin HCl 1.5 gm/ Sodium (Chloride) 300 mls @ 200 mls/hr IVPB 0800,2000 [facility] Last Admin: 04/23/18 09:12 Dose: 300 mls Miscellaneous Medication (Pharmacy To Dose) 1 each IVPB PRN PRN PRN Reason: Pharmacy to dose Morphine Sulfate (Morphine) 2 mg SLOW IVP Q4H PRN PRN Reason: Severe Pain (7-10) Last Admin: 04/23/18 11:23 Dose: 2 mg Ondansetron HCl (Zofran Odt) 4 mg PO Q6H PRN PRN Reason: Nausea/Vomiting Ondansetron HCl (Zofran) 4 mg IVP Q6H PRN PRN Reason: Nausea/Vomiting Prednisone (Prednisone) 40 mg PO DAILY [facility]
[2018-04-23] MEDS ORDERED: Furosemide 20 MG TAB PO SCH (14:00)
[2018-04-23] MEDS ORDERED: predniSONE 20 MG TAB PO SCH (14:00)
--- NOTE | 2018-04-23 16:29 | PRG ---
DATE OF SERVICE: 04/23/2018 SUBJECTIVE: Karla Guy says she feels about the same. She is complaining of joint stiffness. She also feels like her abdomen is bloating. She has not had a bowel movement. She had been ambulating. Her is pushing around her wheelchair. I asked her to ambulate to see if this improves. This all may be related to decreased bowel motility with her lying in bed all the time. Intake and output are not recorded. By the records yet 3153 in yesterday, but there is no output. OBJECTIVE: LUNGS: Still remarkable for crackles at her bases. HEART: Regular rhythm. ABDOMEN: Soft and nontender. LABORATORY DATA: Sodium 143, potassium 3.6, chloride 108, bicarb 25, BUN 10, and creatinine 0.63. White count 10.1, hemoglobin 10.9, and platelets 317,000. IMPRESSION: Interstitial lung disease, presumably secondary to rheumatoid arthritis, ? lupus. She had transbronchial biopsies, but never had a surgical lung biopsy. Statistically interstitial lung disease combined with a vasculitis would most likely be related to that vasculitis. She appears to be clinically stable, and her symptoms actually resolved quickly. I would think she could be switched to p.o. antimicrobial therapy and p.o. steroids. All of her cultures remain negative except for a urinary organism that did not meet criteria for infection with only 25,000 to 50,000 colony-forming units per mL. Job ID: [id number]
[2018-04-23 19:09] LABS: Vancomycin, Trough 12.9 ug/mL
[2018-04-23] MEDS ORDERED: Zolpidem Tartrate 5 MG TAB PO PRN (23:44)
[2018-04-24] MEDS: cefTRIAXone\\ROCEPHIN 1 GM in Sodium Chloride 0.9% 100 ML IVPB SCH (01:34)
[2018-04-24 06:06] LABS: Anion Gap 11 mmol/L (10-20); BUN (Urea Nitrogen) 10 mg/dL (7.0-18.7); Calc. Creatinine Clearance 195 mL/min (70-130); Calcium 8.7 mg/dL (7.8-10.44); Carbon Dioxide 30 mmol/L (22-29); Chloride 109 mmol/L (98-107); Estimated GFR-MDRD Greater than 90; Glucose 101 mg/dL (70-105); Potassium 3.9 mmol/L (3.5-5.1); Sodium 146 mmol/L (136-145)
[2018-04-24] MEDS: HYDROcodone/Acetaminophen 10/325 mg Tablet PO PRN ×3 (06:30→14:46)
[2018-04-24] MEDS ORDERED: diphenhydrAMINE 25 MG CAP PO PRN (08:17)
[2018-04-24] MEDS ORDERED: predniSONE 20 MG TAB PO SCH (09:00)
[2018-04-24] MEDS ORDERED: Cefdinir 300 MG CAP PO SCH (09:00)
[2018-04-24] MEDS ORDERED: Furosemide 20 MG TAB PO SCH (09:00)
[2018-04-24] MEDS: Divalproex Sodium 250 MG (DR) TAB PO SCH (09:33)
[2018-04-24] MEDS: Hydroxychloroquine Sulfate 200 MG TAB PO SCH (09:33)
[2018-04-24] MEDS: Enoxaparin Sodium 40 MG/0.4 ML SYRINGE SC SCH (09:33)
[2018-04-24] MEDS: Vancomycin HCl 1.5 GM in Sodium Chloride 0.9% 250 ML 300 ML IVPB SCH (09:55)
[2018-04-24 15:37] VITALS: BP 135/71; TEMP 99.6
--- NOTE | 2018-04-24 17:33 | PRG ---
DATE OF SERVICE: 04/24/2018 SERVICE: Pulmonary Medicine. INTERVAL HISTORY: The patient is doing great from a respiratory standpoint. She had been weaned down to room air and she says that her breathing is essentially back to baseline. She is really pleased with how well her lower extremity swelling went down. Otherwise, there were no overnight events. PHYSICAL EXAMINATION: VITAL SIGNS: Afebrile, pulse 71, blood pressure 135/71, respirations 16, and saturation 96% on room air. GENERAL: The patient is awake and alert, in no apparent distress. LUNGS: Excellent air entry with no prolonged expiratory phase or wheezing present. Minimal dependent crackles are noted. HEART: Normal, rate regular. ABDOMEN: Soft, nontender, and nondistended. Bowel sounds are positive. MUSCULOSKELETAL: No cyanosis or clubbing. There is no pitting in the bilateral lower extremities. NEUROLOGIC: Grossly nonfocal. LABORATORY DATA: Sodium 146 and chloride 109. Basic metabolic profile is otherwise unremarkable. Urine culture is growing Klebsiella pneumoniae, which is pansensitive. Blood cultures x2 and influenza A and B are negative. ASSESSMENT: 1. Acute hypoxic respiratory failure, resolved. 2. Interstitial lung disease. 3. Connective tissue disease, not otherwise specified. 4. History of narcotic abuse. DISCUSSION AND PLAN: The patient is essentially returned to baseline. She had such rapid resolution in symptoms associated with resolution in her lower extremity swelling. My suspicion is that much of what we saw on the CT scan may have been volume related. I do think she would benefit from outpatient polysomnogram. That being said, she can follow up with her primary organ recovery coordinator in the outpatient setting. If she remains in-house, Pulmonary will continue to follow, but from my perspective, she is stable for transition to home on her home medications. Job ID: [id number]
--- NOTE | 2018-04-25 00:32 | DIS ---
DATE OF ADMISSION: 04/22/2018 DATE OF DISCHARGE: 04/24/2018 CONDITION: At the time of discharge, stable and improved. DISCHARGE DIAGNOSES: 1. Dyspnea. 2. Pneumonitis. 3. History of chronic interstitial lung disease. 4. History of lupus. 5. History of rheumatoid arthritis. 6. Obesity. 7. History of seizure disorder. 8. Tobacco abuse. DISCHARGE MEDICATIONS: Resume home medication as per the HPI. New Medications: 1. Omnicef 300 mg p.o. b.i.d. 2. Prednisone 40 mg daily for 5 days and then resume 20 mg daily. IN-HOUSE CONSULTATIONS: Pulmonology, Dr. Simmons. PROCEDURES IN HOSPITAL: CT angio of the thorax which showed interstitial changes in both upper air spaces. HISTORY OF PRESENTING ILLNESS: Ms. Guy is a pleasant 42-year-old female with complicated past medical history of chronic interstitial lung disease as well as diagnosis of lupus and rheumatoid arthritis, under care of Dr. Wu in Rheumatology Clinic at [facility], who presented to the emergency room with complaints of weakness, cough, and shortness of breath. She was hemodynamically stable upon presentation and chest x-ray and labs were unremarkable. She underwent a CT angio because her D-dimer was somewhat elevated, which did not show any pulmonary embolism. There was ground-glass opacities bilaterally, read as pneumonitis by the radiologist. She was started on empiric IV antibiotics and was admitted with a presumptive diagnosis of sepsis. Please see admission history and physical for further details. HOSPITAL COURSE: All the patient's cultures remained negative and she was tapered off antibiotics. She was seen by Pulmonary Medicine, who also agreed that this most likely is not a new infection by the chronic findings. She was treated with high-dose steroids and daily Lasix while in the hospital. She normally takes Lasix every other day, but she was treated with daily dose for the last 2 days. Once again, her symptoms improved dramatically overnight. She has had multiple hospitalizations with similar problems and presentation with spontaneous recovery. Due to a complicated past medical history, I have requested the patient to follow up with the primary care physician, Dr. Maciej Batista. She has an upcoming appointment with her search engine marketing specialist next week, Dr. Wu as well. Dr. Woodard will also see her in the outpatient setting. Dr. Simmons was following her in the inpatient setting for Dr. Woodard. The patient was seen and examined prior to discharge. She is back to her baseline and has no new complaints. PHYSICAL EXAMINATION: GENERAL: Stable. CHEST: Clear to auscultation bilaterally. VITAL SIGNS: Temperature 99, respirations 16, saturating 98% on room air, blood pressure 145/73. No acute distress. LABORATORY DATA: Her urine culture did grow Klebsiella, but it was less than 50,000 CFU per mL. It was nonsignificant. Other than that all of her testings were negative. She was noticed to have multiple sores in various stages of healing all over her body, mainly on her face and upper extremities. I am suspicious that most likely represents some sort of vasculitis. I have encouraged her to discuss a skin biopsy with either her primary care physician or her primary search engine marketing specialist for this. Primary care physician, Dr. Maciej Batista. Discharge plan was discussed with the patient who verbalized understanding. [facility] has been consulted with regard to her medication prescription help. Job ID: [id number]
== END 2018-04-24 15:48 | disposition home or self-care (01) | DRG 195 ==
LOC: ERS 22:34 → 2SE 04-22 00:45
PROVIDERS: ADMIT Hospitalist; ATTEND Hospitalist
DX: J18.9 Pneumonia, unspecified organism (principal); M06.9 Rheumatoid arthritis, unspecified; M32.9 Systemic lupus erythematosus, unspecified; E87.6 Hypokalemia; E66.9 Obesity, unspecified; G40.909 Epilepsy, unspecified, not intractable, without status epilepticus; D63.8 Anemia in other chronic diseases classified elsewhere; F17.210 Nicotine dependence, cigarettes, uncomplicated; Z87.09 Personal history of other diseases of the respiratory system; Z98.51 Tubal ligation status; Z88.0 Allergy status to penicillin; Z88.1 Allergy status to other antibiotic agents; Z88.8 Allergy status to other drugs, medicaments and biological substances; Z68.38 Body mass index [BMI] 38.0-38.9, adult
CPT/HCPCS: 36415; 71046; 71275; 80048; 80053; 80202; 81003; 81015; 82550; 83605; 83690; 83735; 83880; 84484; 85025; 85379; 87040; 87077; 87086; 87186; 87804; 93005; J0456; J0696; J1100; J1650; J2270; J3370; J3475; J7050; J7506; J7611; J7620; Q0162; Q9966

== ENCOUNTER 2018-05-20 03:44 | Inpatient (IN) | payer SELFPAY ==
[2018-05-20 04:39] LABS: ALT (SGPT) 18 U/L (8-55); AST (SGOT) 32 U/L (5-34); Albumin 3.5 g/dL (3.5-5.0); Alkaline Phosphatase 62 U/L (40-150); Anion Gap 14 mmol/L (10-20); BUN (Urea Nitrogen) 10 mg/dL (7.0-18.7); Bilirubin, Total 0.3 mg/dL (0.2-1.2); Calc. Creatinine Clearance 0 mL/min (70-130); Calcium 9.3 mg/dL (7.8-10.44); Carbon Dioxide 26 mmol/L (22-29); Chloride 104 mmol/L (98-107); Estimated GFR-MDRD Greater than 90; Globulin 2.9 g/dL (2.4-3.5); Glucose 86 mg/dL (70-105); Potassium 3.3 mmol/L (3.5-5.1); Protein, Total 6.4 g/dL (6.0-8.3); Sodium 141 mmol/L (136-145)
[2018-05-20 04:45] LABS: Actual Bicarbonate (HCO3a) 27.5 mEq/L (22-28); Analyzer IN Cardio ER; Base Excess (BEa) 2.6 mEq/L (-2.0 to +3.0); CO2 Tension 43.6 mmHg (35.0-45.0); Calcium, Ionized 1.16 mmol/L (1.12-1.30); Carboxyhemoglobin (COHb) 2.5 gm% (0.0-3.0); Hemoglobin (Hb) 12.6 g/dL (12.0-16.0); O2 Tension (PaO2) 108.6 mmHg (80.0-100.0); Potassium - ABG Lab 3.44 mmol/L (3.70-5.30); pH, Arterial 7.42 (7.35-7.45)
[2018-05-20 04:46] LABS: Hemoglobin 12.4 g/dL (12.0-16.0); Mean Corpuscular HGB CONC 33.5 g/dL (32.0-36.0); Mean Corpuscular Hemoglobin 31.7 pg (27.0-31.0); Mean Corpuscular Volume 94.6 fL (78.0-98.0); Mean Platelet Volume 7.2 fL (7.4-10.4); Platelet Count 284 thou/uL (130-400); RBC Distribution Width 14.5 % (11.5-14.5); Red Blood Cell (RBC) Count 3.91 mill/uL (4.20-5.40); White Blood Cell (WBC) Count 16.9 thou/uL (4.8-10.8)
[2018-05-20 04:48] LABS: #Lymphocytes 1.8 thou/uL (1.20-3.40); #Monocytes 0.7 thou/uL (0.11-0.59); #Neutrophils 14.3 thou/uL (1.40-6.50); %Basophils 0.2 % (0.0-1.0); %Eosinophils 0.3 % (0.0-10.0); %Lymphocytes 10.4 % (21.0-51.0); %Monocytes 4.3 % (0.0-10.0); %Neutrophils 84.8 % (42.0-75.0); Platelet Morphology Comment Appears Adequate; RBC Morphology Normal
[2018-05-20 04:53] LABS: Puncture Site LRA
[2018-05-20] MEDS ORDERED: Fentanyl 100 MCG/2 ML VIAL ONE (05:21)
[2018-05-20] MEDS ORDERED: Gentamicin Sulfate 340 MG in Sodium Chloride 0.9% 100 ML IVPB SCH (05:45)
[2018-05-20] MEDS ORDERED: Loperamide HCl 2 MG CAP PO PRN (07:26)
[2018-05-20] MEDS ORDERED: Bisacodyl 5 MG TAB PO PRN (07:26)
[2018-05-20] MEDS ORDERED: Sodium Chloride 0.65% Nasal 44 ML BOT EA NARE PRN (07:26)
[2018-05-20] MEDS ORDERED: Bisacodyl 10 MG SUPP PR PRN (07:26)
[2018-05-20] MEDS ORDERED: hydrALAZINE 20 MG/ML VIAL SLOW IVP PRN (07:26)
[2018-05-20] MEDS ORDERED: Cepastat Lozenges 1 LOZ PO PRN (07:26)
[2018-05-20] MEDS ORDERED: Loratadine 10 MG TAB PO PRN (07:26)
[2018-05-20] MEDS ORDERED: Eucerin (Mineral Oil/Petrolatum,White) 30 gm Jar TOP PRN (07:26)
[2018-05-20] MEDS ORDERED: Artificial Tears 18 DROP/0.9 ML EA EYE PRN (07:26)
[2018-05-20] MEDS ORDERED: Senokot S 8.6-50 MG TAB PO PRN (07:26)
[2018-05-20] MEDS ORDERED: Diabetic Tussin 200 MG/10 ML UDCUP PO PRN (07:26)
[2018-05-20] MEDS ORDERED: Calcium Carbonate 500 MG ChewTAB PO PRN (07:26)
[2018-05-20] MEDS ORDERED: Acetaminophen 325 MG TAB PO PRN (07:26)
[2018-05-20 08:00] LABS: Lactic Acid 1.6 mmol/L (0.5-2.2)
[2018-05-20 08:01] LABS: Troponin I Less than 0.010 ng/mL (< 0.028)
--- NOTE | 2018-05-20 08:07 | RAD ---
RADIOGRAPH CHEST 1 VIEW: Date: 05/20/2018. Time: 4:11 a.m. HISTORY: A 42-year-old female with cough. COMPARISON: 04/21/2018. FINDINGS: There is a new finding of diffuse bilateral mixed interstitial and alveolar infiltrates. Cardiac siz e has not significantly changed and is not significantly enlarged. No pneumothorax. The lateral cos tophrenic angles remain sharp. No evidence of large pneumothorax. IMPRESSION: Extensive bilateral pulmonary infiltrates, left greater than right. Differential diagnosis includes pneumonia with atypical organisms, noninfectious pneumonitis, and noncardiogenic pulmonary edema. JN [] POS: QUIN
[2018-05-20] MEDS ORDERED: Cefepime 2 GM in Sodium Chloride 0.9% 100 ML IVPB SCH (09:00)
[2018-05-20] MEDS ORDERED: Bacteriostatic Water 30 ML VIAL FS PRN (09:19)
[2018-05-20] MEDS ORDERED: Potassium Chloride 20 MEQ TAB PO SCH (10:00)
--- NOTE | 2018-05-20 10:25 | HP ---
PRIMARY CARE PHYSICIAN: Maciej Batista MD REASON FOR ADMISSION: Acute respiratory failure with hypoxia, suspected pneumonia. HISTORY OF PRESENT ILLNESS: This is a 42-year-old female who has underlying history of rheumatoid arthritis/lupus as well as chronic interstitial lung disease and chronic respiratory failure with hypoxia on home oxygen. The patient also has underlying seizure disorder. She was recently admitted in our hospital in April with similar symptoms. At that time, flat breakdown processor evaluated this patient while in hospital and she had CT angiography of chest, which showed findings suggestive of chronic interstitial lung disease. This patient is taking Plaquenil and steroid at home. She was not tried with any stronger immunosuppressive therapy for underlying chronic lung disease as well as her autoimmune disorder. The patient also not using oxygen regularly. She only uses periodically during nighttime. Last night, the patient oxygen saturation was 70% even with oxygen and she was feeling increasing shortness of breath, cough and that is why she decided to come to emergency room for evaluation. Currently, the patient is only able to walk a few steps and after that she gets out of breath and her oxygen saturation drops. She denies any pleuritic chest pain. She denies any calf tenderness. She denies any fever or flu-like illness. She does have occasional scant white sputum, but mostly she has dry cough. She is still smoking about 5-6 cigarettes everyday basis and she is trying to cut down smoking from previously heavy smoking. She denies any UTI symptoms. She denies any constipation, diarrhea, melena, or hematochezia. REVIEW OF SYSTEMS: CONSTITUTIONAL: Negative for weight loss or gain, ability to conduct usual activities. SKIN: Negative for rash, itching. EYES: Negative for double vision, pain. ENT/MOUTH: Negative for nose bleeding, neck stiffness, pain, tenderness. CARDIOVASCULAR: Negative for palpitations, dyspnea on exertion, orthopnea. RESPIRATORY: Negative for shortness of breath, wheezing, cough, hemoptysis, fever or night sweats. GASTROINTESTINAL: Negative for poor appetite, abdominal pain, heartburn, nausea , vomiting, constipation, or diarrhea. GENITOURINARY: Negative for urgency, frequency, dysuria, nocturia. MUSCULOSKELETAL: Negative for pain, swelling. NEUROLOGIC/PSYCHIATRIC: Negative for anxiety, depression. ALLERGY/IMMUNOLOGIC: Negative for skin rash, bleeding tendency. Please see my HPI for pertinent positives and negatives. All other review of systems reviewed and negative except as mentioned in HPI. PAST MEDICAL HISTORY: Rheumatoid arthritis, lupus disorder, seizure disorder, chronic interstitial lung disease, and chronic respiratory failure with hypoxia on home oxygen therapy. PAST SURGICAL HISTORY: Tubal ligation, lung biopsy, and . PAST PSYCHIATRIC HISTORY: Reviewed and negative. ALLERGIES: LEVOFLOXACIN, NSAID, PENICILLIN, AND TRAMADOL. CURRENT HOME MEDICATIONS: 1. Lasix 20 mg p.o. every other day. 2. Depakote sodium 750 mg daily. 3. Plaquenil 400 mg p.o. daily. The patient recently finished antibiotic and steroid course. SOCIAL HISTORY: Patient smokes 5 cig daily, she is , no alcohol or drug abuse. FAMILY HISTORY: No family history of CAD, CVA or cancer. EMERGENCY ROOM COURSE: The patient has received cefepime, gentamicin, vancomycin, IV fluid, fentanyl and DuoNeb therapy. PHYSICAL EXAMINATION: VITAL SIGNS: Currently, blood pressure 107/74, pulse 70, respiratory rate 18, temperature 98.8 and saturation 96% on 4 L nasal cannula. Weight 68 kg. GENERAL: The patient is currently alert, awake, mild respiratory distress. HEENT: Head; normocephalic, atraumatic. Eyes; pupils round, and reactive to light. Extraocular muscle intact. ENT; oropharynx within normal limits. Moist mucous membrane. NECK: Supple. No JVD. LUNGS: Bilateral end-expiratory wheezing plus bilateral scattered rales. No accessory muscles of respiration in use. CARDIAC: S1, S2 regular. No murmur. No gallop. No rub. ABDOMEN: Obesity present. Bowel sounds present. Nontender. Nondistended. No organomegaly. No mass. No suprapubic tenderness. BACK: Unremarkable. No CVA tenderness. EXTREMITIES: Upper extremities; passive movement of all joints are normal. Lower extremities; no edema. Good distal pulsation. No calf tenderness. SKIN: No skin rash. NEUROLOGIC: Nonfocal examination. SIGNIFICANT LABORATORY DATA: EKG showing normal sinus rhythm, LVH criteria. Chest x-ray showing bilateral interstitial infiltration. WBC 16.9, hemoglobin 12.4, platelets 284, with left shift. ABG; pH 7.42, CO2 43.6, O2 108.6, saturation 97.9, bicarb 27.5. BMP; sodium 141, potassium 3.3, chloride 104, carbon dioxide 26, BUN 10, creatinine 0.64, glucose 86, calcium 9.3. LFT; AST 32, ALT 18, alkaline phosphatase 62, and albumin 3.5. Lactic acid 2.2. Cardiac enzyme negative x2. BNP 129.4. ASSESSMENT/PLAN: 1. Acute on chronic respiratory failure with hypoxia. This patient has underlying chronic interstitial lung disease. I advised her to use oxygen /. At home, she was only using periodically. Currently, her oxygen saturation has dropped probably related with multiple etiologies including rule out pneumonia as well as underlying interstitial lung disease exacerbation. She will be admitted to the hospital and she will be given cefepime 2 g IV q.12 hourly as well as azithromycin 500 mg IV daily along with Solu-Medrol 40 mg IV q.6 hourly, DuoNeb therapy every 6 hourly and as needed basis. We will monitor clinical response as this patient has underlying chronic interstitial lung disease and chronic hypoxia, she is at high risk for having pulmonary hypertension and that is why we will obtain echocardiography for further evaluation. This patient is taking Lasix every other day. 2. Hypokalemia. The patient will be given potassium chloride 40 mEq p.o. one time dose. 3. Chronic connective tissue disorder, rheumatoid arthritis/lupus. The patient had previously autoimmune workup. At that time, the autoimmune workup came back negative. 4. Seizure disorder. We will continue Depakote sodium 750 mg p.o. daily. 5. Deep venous thrombosis prophylaxis. Lovenox 40 mg subcutaneous daily. 6. Gastrointestinal prophylaxis, Pepcid 20 mg p.o. b.i.d. 7. Tobacco abuse disorder. Smoking cessation counseling given. 8. Healthy lifestyle measure discussed with the patient. 9. Obesity. Dietary education given. DISPOSITION PLAN: Based on clinical course, we are expecting the patient's stay in hospital more than 2 midnights. Plan of care discussed with the patient in the emergency room. Job ID: [id number] [facility]
[2018-05-20] MEDS ORDERED: HYDROcodone/Acetaminophen 10/325 mg Tablet ONE (10:45)
[2018-05-20] MEDS ORDERED: Enoxaparin Sodium 40 MG/0.4 ML SYRINGE ONE (10:45)
[2018-05-20] MEDS ORDERED: Famotidine/PF 20 mg/2ml Vial ONE (10:45)
[2018-05-20] MEDS ORDERED: Famotidine 20 MG TAB ONE (10:46)
[2018-05-20 10:54] LABS: Troponin I Less than 0.010 ng/mL (< 0.028)
[2018-05-20] MEDS: HYDROcodone/Acetaminophen 10/325 mg Tablet PO PRN ×3 (10:57→22:11)
[2018-05-20] MEDS: Enoxaparin Sodium 40 MG/0.4 ML SYRINGE SC SCH (11:12)
[2018-05-20] MEDS: Famotidine 20 MG TAB PO SCH ×2 (11:15→21:05)
[2018-05-20] MEDS ORDERED: Potassium Chloride 20 MEQ TAB ONE ×2 (12:52→16:45)
[2018-05-20] MEDS ORDERED: methylPREDNISolone Sod Succ 40 MG VIAL ONE ×2 (12:52→17:04)
[2018-05-20] MEDS: methylPREDNISolone Sod Succ 40 MG VIAL IVP SCH ×3 (13:02→21:05)
[2018-05-20] MEDS: Azithromycin 500 MG in Sodium Chloride 0.9% 250 ML 250 ML IVPB SCH (13:03)
[2018-05-20] MEDS: Cefepime 2 GM in Sodium Chloride 0.9% 100 ML IVPB SCH ×2 (13:07→23:13)
[2018-05-20 17:32] VITALS: BMI 35.7
[2018-05-20] MEDS: Saccharomyces boulardii 250 MG CAP PO SCH (18:08)
[2018-05-21] MEDS: HYDROcodone/Acetaminophen 10/325 mg Tablet PO PRN ×5 (02:35→19:44)
[2018-05-21] MEDS: methylPREDNISolone Sod Succ 40 MG VIAL IVP SCH ×4 (04:37→22:15)
[2018-05-21 04:59] LABS: #Lymphocytes 0.5 thou/uL (1.20-3.40); #Monocytes 0.2 thou/uL (0.11-0.59); #Neutrophils 8.7 thou/uL (1.40-6.50); %Eosinophils 0.3 % (0.0-10.0); %Lymphocytes 5.3 % (21.0-51.0); %Monocytes 2.2 % (0.0-10.0); %Neutrophils 92.2 % (42.0-75.0); Hemoglobin 10.8 g/dL (12.0-16.0); Mean Corpuscular HGB CONC 32.4 g/dL (32.0-36.0); Mean Corpuscular Hemoglobin 31.3 pg (27.0-31.0); Mean Corpuscular Volume 96.6 fL (78.0-98.0); Mean Platelet Volume 7.2 fL (7.4-10.4); Platelet Count 294 thou/uL (130-400); RBC Distribution Width 14.4 % (11.5-14.5); Red Blood Cell (RBC) Count 3.46 mill/uL (4.20-5.40); White Blood Cell (WBC) Count 9.4 thou/uL (4.8-10.8)
[2018-05-21 05:21] LABS: ALT (SGPT) 15 U/L (8-55); AST (SGOT) 23 U/L (5-34); Albumin 3.2 g/dL (3.5-5.0); Alkaline Phosphatase 65 U/L (40-150); Anion Gap 13 mmol/L (10-20); BUN (Urea Nitrogen) 10 mg/dL (7.0-18.7); Bilirubin, Total 0.3 mg/dL (0.2-1.2); Calc. Creatinine Clearance 172 mL/min (70-130); Calcium 9.4 mg/dL (7.8-10.44); Carbon Dioxide 26 mmol/L (22-29); Chloride 107 mmol/L (98-107); Estimated GFR-MDRD Greater than 90; Globulin 2.9 g/dL (2.4-3.5); Glucose 153 mg/dL (70-105); Protein, Total 6.1 g/dL (6.0-8.3); Sodium 142 mmol/L (136-145)
[2018-05-21] MEDS: Enoxaparin Sodium 40 MG/0.4 ML SYRINGE SC SCH (09:28)
[2018-05-21] MEDS: Famotidine 20 MG TAB PO SCH ×2 (09:29→19:44)
[2018-05-21] MEDS: Saccharomyces boulardii 250 MG CAP PO SCH (09:29)
[2018-05-21] MEDS: Hydroxychloroquine Sulfate 200 MG TAB PO SCH (09:29)
[2018-05-21] MEDS: Azithromycin 500 MG in Sodium Chloride 0.9% 250 ML 250 ML IVPB SCH (09:29)
[2018-05-21] MEDS: Divalproex Sodium 250 MG (DR) TAB PO SCH (10:12)
[2018-05-21] MEDS: Cefepime 2 GM in Sodium Chloride 0.9% 100 ML IVPB SCH ×2 (11:09→22:15)
--- NOTE | 2018-05-21 20:02 | PDOC.PN ---
- Subjective Encounter Start Date: 05/21/18 Encounter Start Time: 19:50 Subjective: f/u for resp failure and suspected PNA and hx of ILD. Receiving -: Zithromax/Cefepime/Solumedrol. - Objective Resuscitation Status - Order Detail: 05/20/18 07:24 Resuscitation Status Routine Resuscitation Status: FULL: Full Resuscitation MAR Reviewed: Yes Vital Signs & Weight: Vital Signs (12 hours) Temp Pulse Resp BP Pulse Ox 05/21/18 15:59 98.1 F 96 20 131/65 98 05/21/18 13:14 64 18 95 05/21/18 11:16 98.1 F 79 20 120/64 95 05/21/18 08:27 98.9 F 73 22 H 119/65 96 Weight Weight 208 lb 1.6 oz I&O: 05/20/18 05/21/18 05/22/18 06:59 06:59 06:59 Intake Total 400 2590 Balance 400 2590 Result Diagrams: 05/21/18 04:17 05/21/18 04:17 Additional Labs: Microbiology 05/20/18 07:51 Nasal swab Influenza Types A,B Direct EIA - Final 05/20/18 04:04 Nasal swab Influenza Types A,B Direct EIA - Final 05/20/18 04:28 Venous blood - Right Hand Blood Culture - Preliminary Specimen has been received and culture in progress. No Growth to date. 05/20/18 04:28 Venous blood - Right Hand Blood Culture - Preliminary Specimen has been received and culture in progress. No Growth to date. Laboratory Tests 05/20/18 05/20/18 05/20/18 04:10 04:10 04:10 WBC 16.9 H Neutrophils % 84.8 H Potassium 3.3 L B-Natriuretic Peptide 129.4 H 05/21/18 04:17 WBC Neutrophils % 92.2 H Potassium B-Natriuretic Peptide Radiology Reviewed by me: Yes (PCXR - bilat diffuse infiltrates L>R) EKG Reviewed by me: Yes (Tele - SR) Phys Exam - Physical Examination Constitutional: NAD HEENT: PERRLA, sclera anicteric, oral pharynx no lesions Neck: no nodes, no JVD, supple, full ROM coarse sounds bilat with diminished sounds bilat S1, S2 Cardiovascular: RRR, no significant murmur, no rub, gallop Gastrointestinal: soft, non-tender, no distention, positive bowel sounds Musculoskeletal: no edema, pulses present Neurological: normal sensation, moves all 4 limbs Psychiatric: A&O x 3 Skin: normal turgor, cap refill <2 seconds Dx/Plan (1) Acute and chronic respiratory failure with hypoxia Code(s): J96.21 - ACUTE AND CHRONIC RESPIRATORY FAILURE WITH HYPOXIA Status: Acute Comment: Continue O2 supplementation to maintain sats > 90% (2) Pneumonia Code(s): J18.9 - PNEUMONIA, UNSPECIFIED ORGANISM Status: Acute Comment: Suspected gm + cocci, continue Zithromax/Cefepime, Duonebs (3) ILD (interstitial lung disease) Code(s): J84.9 - INTERSTITIAL PULMONARY DISEASE, UNSPECIFIED Status: Chronic Comment: Continue O2 supplementation, Solumedrol, Duonebs (4) Rheumatoid arthritis Code(s): M06.9 - RHEUMATOID ARTHRITIS, UNSPECIFIED Status: Chronic Comment: Continue Plaquenil (5) Seizure disorder Code(s): G40.909 - EPILEPSY, UNSP, NOT INTRACTABLE, WITHOUT STATUS EPILEPTICUS Status: Chronic Comment: Continue Depakote 750mg daily (6) Tobacco abuse Code(s): Z72.0 - TOBACCO USE Status: Chronic Comment: Smoking cessation resources - Plan continue antibiotics, respiratory therapy, out of bed/ambulate, DVT proph w/SCDs Stable currently -: Continue Zithromax/Cefepime -: Continue Solumedrol IV -: Contiue Plaquenil 400mg daily -: 2D echo pending * Likely home in 48h
[2018-05-21] MEDS: Zolpidem Tartrate 5 MG TAB PO PRN (22:25)
[2018-05-22] MEDS: HYDROcodone/Acetaminophen 10/325 mg Tablet PO PRN ×6 (01:02→20:12)
[2018-05-22] MEDS: methylPREDNISolone Sod Succ 40 MG VIAL IVP SCH ×4 (03:27→21:17)
[2018-05-22] MEDS: Famotidine 20 MG TAB PO SCH ×2 (09:07→20:08)
[2018-05-22] MEDS: Saccharomyces boulardii 250 MG CAP PO SCH (09:07)
[2018-05-22] MEDS: Divalproex Sodium 250 MG (DR) TAB PO SCH (09:07)
[2018-05-22] MEDS: Hydroxychloroquine Sulfate 200 MG TAB PO SCH (09:07)
[2018-05-22] MEDS: Azithromycin 500 MG in Sodium Chloride 0.9% 250 ML 250 ML IVPB SCH (09:08)
[2018-05-22] MEDS: Enoxaparin Sodium 40 MG/0.4 ML SYRINGE SC SCH (09:37)
[2018-05-22] MEDS: Cefepime 2 GM in Sodium Chloride 0.9% 100 ML IVPB SCH ×2 (10:11→22:46)
[2018-05-22] MEDS: Fioricet 325/50/40 mg Tablet PO PRN ×2 (11:56→18:47)
--- NOTE | 2018-05-22 12:21 | PDOC.PN ---
- Subjective Encounter Start Date: 05/22/18 Encounter Start Time: 12:20 Patient seen and examined, states she has a headache would like to have her fiorecet restarted, states her SOB is slightly better but not much. No other issues overnight, no family at bedside, all questions answered. - Objective Resuscitation Status - Order Detail: 05/20/18 07:24 Resuscitation Status Routine Resuscitation Status: FULL: Full Resuscitation Vital Signs & Weight: Vital Signs (12 hours) Temp Pulse Resp BP Pulse Ox 05/22/18 11:46 77 20 93 L 05/22/18 11:19 98.3 F 77 18 134/78 94 L 05/22/18 07:24 98.5 F 85 19 137/86 92 L 05/22/18 07:12 70 14 99 05/22/18 03:32 98.5 F 76 29 H 128/81 94 L Weight Weight 208 lb 1.6 oz I&O: 05/21/18 05/22/18 05/23/18 06:59 06:59 06:59 Intake Total 400 3060 Balance 400 3060 Result Diagrams: 05/21/18 04:17 05/21/18 04:17 Phys Exam - Physical Examination Constitutional: NAD HEENT: PERRLA, moist MMs, sclera anicteric Neck: no nodes, no JVD, supple coarse breath sounds mild respiratory distress Cardiovascular: RRR, no significant murmur, no rub Gastrointestinal: soft, non-tender, no distention, positive bowel sounds Musculoskeletal: pulses present, edema present (trace) Dx/Plan (1) Dyspnea Code(s): R06.00 - DYSPNEA, UNSPECIFIED Status: Acute (2) Obesity (BMI 30-39.9) Code(s): E66.9 - OBESITY, UNSPECIFIED Status: Acute (3) ILD (interstitial lung disease) Code(s): J84.9 - INTERSTITIAL PULMONARY DISEASE, UNSPECIFIED Status: Chronic Comment: Continue O2 supplementation, Solumedrol, Duonebs (4) Tobacco abuse Code(s): Z72.0 - TOBACCO USE Status: Chronic Comment: Smoking cessation resources - Plan * resume home meds for headache * cont with steroids and other modalities of supportive care * pulmonary following * will need to be inpatient for another 2-3 days likely * case and plan d/w patient at length, she understood and agreed with this plan.
[2018-05-22] MEDS: Zolpidem Tartrate 5 MG TAB PO PRN (20:08)
[2018-05-23] MEDS: HYDROcodone/Acetaminophen 10/325 mg Tablet PO PRN ×4 (00:16→12:26)
[2018-05-23] MEDS: Fioricet 325/50/40 mg Tablet PO PRN ×2 (02:24→10:40)
[2018-05-23] MEDS: methylPREDNISolone Sod Succ 40 MG VIAL IVP SCH ×2 (03:29→09:58)
[2018-05-23] MEDS ORDERED: Furosemide 20 MG TAB PO SCH (09:00)
[2018-05-23] MEDS: Azithromycin 500 MG in Sodium Chloride 0.9% 250 ML 250 ML IVPB SCH (09:49)
[2018-05-23] MEDS: Divalproex Sodium 250 MG (DR) TAB PO SCH (09:50)
[2018-05-23] MEDS: Hydroxychloroquine Sulfate 200 MG TAB PO SCH (09:50)
[2018-05-23] MEDS: Famotidine 20 MG TAB PO SCH (09:51)
[2018-05-23] MEDS: Saccharomyces boulardii 250 MG CAP PO SCH (09:53)
[2018-05-23] MEDS: Enoxaparin Sodium 40 MG/0.4 ML SYRINGE SC SCH (09:53)
[2018-05-23 11:14] VITALS: BP 146/82; TEMP 98.2
[2018-05-23] MEDS: Cefepime 2 GM in Sodium Chloride 0.9% 100 ML IVPB SCH (12:13)
--- NOTE | 2018-05-23 13:16 | PDOC.EVN ---
Event Note - Event Note Event Note: DC SUMMARY #[id number]
--- NOTE | 2018-05-23 15:20 | DIS ---
DATE OF ADMISSION: 05/20/2018 DATE OF DISCHARGE: 05/23/2018 ADMITTING DIAGNOSES: 1. Acute respiratory failure with hypoxia, suspect pneumonia. 2. History of urinary tract infection. 3. Rheumatoid arthritis. 4. Lupus disorder. 5. Seizure disorder. 6. Chronic interstitial lung disease. DISCHARGE DIAGNOSES: 1. Urinary tract infection, stable. 2. Rheumatoid arthritis, stable. 3. Lupus disorder, stable. 4. Seizure disorder, stable. 5. Chronic interstitial lung disease, stable. 6. Acute respiratory distress and hypoxia, stable. HOSPITAL COURSE: This is a 42-year-old female with significant underlying history of pulmonary disorder, admitted to Internal Medicine Team with hypoxic respiratory disorder, interstitial lung disease. The patient was started on high-dose steroids and antibiotics. Also, had some IV fluid resuscitation, supportive care given, the patient having significant improvement, was breathing well. Denies any nausea, vomiting, diarrhea, constipation, chest pain, fevers, or shortness of breath. The patient was given a prescription for Levaquin to be taken for 7 days. The patient was also given a prescription for Fioricet as she was out of her medication. Would be happy to follow up with primary care physician within 1 week for further refills. The patient at the point of time of discharge was stable, back on her baseline per the patient, advised to use home O2. The patient stated she already had home O2 arranged at home prior, was advised to use that continuously for now until she sees improvement. The patient was also given a prescription for taper to be taken 40 mg daily for one week, 30 mg daily the week after, 20 mg daily the week after, 10 mg for the next two weeks after that. Follow up with primary care physician as well as biofuels plant manager for pulmonary function test as well as any adjustment that may be needed for her steroid taper. The patient was given a prescription for antibiotics as mentioned earlier, and was discharged home. DISPOSITION: Home. Follow up with PCP and Pulmonary within 1 to 2 weeks. DIET: Low-fat low-calorie high-fiber diet. CONDITION: Stable. PROGNOSIS: Good. ACTIVITY: As tolerated with assistance as needed. Case and plan discussed with the patient at length. She understood and agreed with this plan. Job ID: [id number]
== END 2018-05-23 15:26 | disposition home or self-care (01) | DRG 193 ==
LOC: ERS 03:44 → ERHOLD 05:10 → 2NO 17:23 → T4-B 05-21 22:01
PROVIDERS: ADMIT Hospitalist; ATTEND Hospitalist
DX: J18.9 Pneumonia, unspecified organism (principal); J96.21 Acute and chronic respiratory failure with hypoxia; N39.0 Urinary tract infection, site not specified; E87.6 Hypokalemia; M06.9 Rheumatoid arthritis, unspecified; G40.909 Epilepsy, unspecified, not intractable, without status epilepticus; F17.200 Nicotine dependence, unspecified, uncomplicated; E66.9 Obesity, unspecified; Z68.35 Body mass index [BMI] 35.0-35.9, adult; M32.9 Systemic lupus erythematosus, unspecified; Z99.81 Dependence on supplemental oxygen
CPT/HCPCS: 36415; 71045; 80053; 82805; 83605; 83880; 84484; 85025; 87040; 87804; 93005; 93306; 94640; 96365; 96367; 96375; 99406; J0456; J0692; J1580; J1650; J2920; J3010; J3370; J7050; J7620; S0028

== ENCOUNTER 2018-07-04 14:54 | Emergency (ER) | payer SELFPAY ==
[2018-07-04] MEDS ORDERED: Diazepam 5 MG TAB ONE (16:36)
[2018-07-04] MEDS ORDERED: Acetaminophen 500 MG TAB ONE (16:36)
[2018-07-04 17:00] LABS: #Eosinphils 0.1 thou/uL (0.0-0.7); #Lymphocytes 2.4 thou/uL (1.20-3.40); #Monocytes 0.6 thou/uL (0.11-0.59); #Neutrophils 6.2 thou/uL (1.40-6.50); %Basophils 0.1 % (0.0-1.0); %Eosinophils 1.6 % (0.0-10.0); %Lymphocytes 25.7 % (21.0-51.0); %Monocytes 6.4 % (0.0-10.0); %Neutrophils 66.2 % (42.0-75.0); Mean Corpuscular Hemoglobin 31.8 pg (27.0-31.0); Mean Corpuscular Volume 93.5 fL (78.0-98.0); Mean Platelet Volume 6.9 fL (7.4-10.4); Platelet Count 312 thou/uL (130-400); RBC Distribution Width 14.9 % (11.5-14.5); Red Blood Cell (RBC) Count 4.08 mill/uL (4.20-5.40); White Blood Cell (WBC) Count 9.3 thou/uL (4.8-10.8)
[2018-07-04 17:22] LABS: Anion Gap 14 mmol/L (10-20); BUN (Urea Nitrogen) 10 mg/dL (7.0-18.7); Calc. Creatinine Clearance 0 mL/min (70-130); Carbon Dioxide 27 mmol/L (22-29); Chloride 103 mmol/L (98-107); Estimated GFR-MDRD Greater than 90; Glucose 82 mg/dL (70-105); Potassium 3.7 mmol/L (3.5-5.1); Sodium 140 mmol/L (136-145)
[2018-07-04] MEDS ORDERED: Morphine 4 MG/ML VIAL ONE (17:42)
--- NOTE | 2018-07-04 19:12 | RAD ---
THREE VIEWS LUMBAR SPINE: 07/04/18 HISTORY: Back pain. AP, lateral, and cone down views of the lumbar spine is obtained on 07/04/18. Comparison made to previ ous exam from 12/09/14. Three views lumbar spine demonstrate five nonribbearing lumbar vertebrae. Disc space height loss see n with vacuum disc changes seen at L4-5. Findings compatible with changes of spondylosis. This was pr esent on the patient's previous exam and is unchanged. IMPRESSION: L4-5 changes of spondylosis. No acute lumbar spine abnormality seen. POS: [facility]
== END 2018-07-04 19:47 | disposition home or self-care (01) ==
LOC: ERS 14:54
DX: M54.41 Lumbago with sciatica, right side (principal); I50.9 Heart failure, unspecified; F17.210 Nicotine dependence, cigarettes, uncomplicated; Z79.899 Other long term (current) drug therapy
CPT/HCPCS: 36415; 72100; 80048; 83880; 85025; 96372; J2270

== ENCOUNTER 2018-08-31 20:43 | Emergency (ER) | payer SELFPAY ==
[2018-08-31 22:15] LABS: #Lymphocytes 1.7 thou/uL (1.20-3.40); #Monocytes 0.5 thou/uL (0.11-0.59); #Neutrophils 8.9 thou/uL (1.40-6.50); %Basophils 0.2 % (0.0-1.0); %Eosinophils 0.4 % (0.0-10.0); %Lymphocytes 14.9 % (21.0-51.0); %Monocytes 4.5 % (0.0-10.0); Hemoglobin 14.7 g/dL (12.0-16.0); Mean Corpuscular HGB CONC 34.1 g/dL (32.0-36.0); Mean Corpuscular Volume 93.7 fL (78.0-98.0); Mean Platelet Volume 7.3 fL (7.4-10.4); Platelet Count 281 thou/uL (130-400); RBC Distribution Width 14.6 % (11.5-14.5); White Blood Cell (WBC) Count 11.2 thou/uL (4.8-10.8)
[2018-08-31 22:22] LABS: Bilirubin Negative (Negative); Blood, Urine Moderate (Negative); Clarity CLEAR (Clear); Glucose, Urine (Dipstick) Negative (Negative); Leukocyte Negative (Negative); Nitrite Negative (Negative); Protein, Urine (Dipstick) Negative (Neg-Trace); Specific Gravity, Urine 1.015 (1.002-1.036); Urobilinogen 0.2 mg/dL (0.2-1.0); pH, Urine 7.5 (5.0-9.0)
[2018-08-31 22:24] LABS: Bacteria/HPF None Seen HPF (None Seen); Hyaline Casts/LPF 0-3 HYALINE CAST LPF (0-3 Hyaline); Pathc Cast-AUWi Flag 0.13 (0-2.49); RBC/HPF 21-50 HPF (0-3); Squamous Epithelial 0-3 HPF (0-3); WBC/HPF 0-3 HPF (0-3)
[2018-08-31 22:33] LABS: ALT (SGPT) 17 U/L (8-55); AST (SGOT) 16 U/L (5-34); Albumin 4.4 g/dL (3.5-5.0); Alkaline Phosphatase 64 U/L (40-150); Anion Gap 18 mmol/L (10-20); BUN (Urea Nitrogen) 8 mg/dL (7.0-18.7); Bilirubin, Total 0.3 mg/dL (0.2-1.2); Calc. Creatinine Clearance 0 mL/min (70-130); Calcium 9.6 mg/dL (7.8-10.44); Carbon Dioxide 24 mmol/L (22-29); Chloride 106 mmol/L (98-107); Estimated GFR-MDRD 81; Globulin 2.8 g/dL (2.4-3.5); Glucose 124 mg/dL (70-105); Potassium 3.9 mmol/L (3.5-5.1); Protein, Total 7.2 g/dL (6.0-8.3); Sodium 144 mmol/L (136-145)
[2018-08-31 22:52] LABS: Pregnancy Test - Urine (BHCG) Negative (Negative); Pregu Control Background? CLEAR/WHITE (CLR/WHITE); Pregu Control Bar Appear? YES (CONTROL BAR); Specific Gravity 1.015 (1.002-1.036)
--- NOTE | 2018-08-31 23:02 | RAD ---
PORTABLE CHEST: HISTORY: Chest pain. Shortness of breath. COMPARISON: 07/30/2018 FINDINGS: The lungs are clear. No infiltrate or vascular congestion. The heart size is upper normal and stabl e. IMPRESSION: No acute process. POS: [facility]
== END 2018-08-31 23:06 | disposition home or self-care (01) ==
LOC: ERS 20:43
DX: R60.0 Localized edema (principal); R10.9 Unspecified abdominal pain; M79.10 Myalgia, unspecified site; M54.5 Low back pain; I50.9 Heart failure, unspecified; M32.9 Systemic lupus erythematosus, unspecified; M06.9 Rheumatoid arthritis, unspecified; F17.210 Nicotine dependence, cigarettes, uncomplicated; F41.9 Anxiety disorder, unspecified
CPT/HCPCS: 36415; 71045; 80053; 81003; 81015; 81025; 83880; 84484; 85025; 93005

== ENCOUNTER 2018-10-05 20:45 | Emergency (ER) | payer SELFPAY ==
--- NOTE | 2018-10-05 21:31 | RAD ---
Portable frontal chest radiograph: 10/05/2018 COMPARISON: None HISTORY: Cough FINDINGS: There is mild interstitial prominence and prominence of the cardiac silhouette, stable. No focal consolidation or alveolar edema. IMPRESSION: No acute findings.
[2018-10-05] MEDS ORDERED: Ondansetron PF 4 MG/2 ML Vial ONE (21:33)
[2018-10-05 21:37] LABS: #Eosinphils 0.1 thou/uL (0.0-0.7); #Lymphocytes 0.9 thou/uL (1.20-3.40); #Monocytes 0.7 thou/uL (0.11-0.59); #Neutrophils 7.5 thou/uL (1.40-6.50); %Basophils 0.4 % (0.0-1.0); %Eosinophils 0.6 % (0.0-10.0); %Lymphocytes 9.5 % (21.0-51.0); %Monocytes 7.2 % (0.0-10.0); %Neutrophils 82.3 % (42.0-75.0); Hemoglobin 14.4 g/dL (12.0-16.0); Mean Corpuscular HGB CONC 33.2 g/dL (32.0-36.0); Mean Corpuscular Hemoglobin 31.2 pg (27.0-31.0); Mean Platelet Volume 6.7 fL (7.4-10.4); Platelet Count 335 thou/uL (130-400); RBC Distribution Width 14.6 % (11.5-14.5); Red Blood Cell (RBC) Count 4.62 mill/uL (4.20-5.40); White Blood Cell (WBC) Count 9.1 thou/uL (4.8-10.8)
[2018-10-05 21:58] LABS: ALT (SGPT) 18 U/L (8-55); AST (SGOT) 17 U/L (5-34); Albumin 3.9 g/dL (3.5-5.0); Alkaline Phosphatase 66 U/L (40-150); Anion Gap 15 mmol/L (10-20); BUN (Urea Nitrogen) 12 mg/dL (7.0-18.7); Bilirubin, Total 0.6 mg/dL (0.2-1.2); Calc. Creatinine Clearance 0 mL/min (70-130); Calcium 9.8 mg/dL (7.8-10.44); Carbon Dioxide 31 mmol/L (22-29); Chloride 100 mmol/L (98-107); Estimated GFR-MDRD 76; Globulin 2.7 g/dL (2.4-3.5); Glucose 106 mg/dL (70-105); Protein, Total 6.6 g/dL (6.0-8.3); Sodium 143 mmol/L (136-145)
[2018-10-05] MEDS ORDERED: Potassium Chloride 20 MEQ TAB ONE (22:36)
== END 2018-10-05 23:30 | disposition home or self-care (01) ==
LOC: ERS 20:45
DX: R05 Cough (principal); R06.2 Wheezing; F17.210 Nicotine dependence, cigarettes, uncomplicated; F41.9 Anxiety disorder, unspecified; M32.9 Systemic lupus erythematosus, unspecified; M06.9 Rheumatoid arthritis, unspecified; I50.9 Heart failure, unspecified; Z79.899 Other long term (current) drug therapy
CPT/HCPCS: 36415; 71045; 80053; 84484; 85025; 93005; 94640; 96361; 96374; 99406; J2405; J7620

== ENCOUNTER 2018-11-17 21:52 | Emergency (ER) | payer BC, SELFPAY ==
[~2018-11-17 21:52] MED LIST: ISOVUE-370 76%-LOCM 1 ML ONE
--- NOTE | 2018-11-17 22:29 | RAD ---
PORTABLE CHEST ONE VIEW: Date: 11-17-18 Time: 10:20 p.m. History: Chest pain FINDINGS: Comparison is made with exam of 11-08-18. The heart size is borderline. The lungs are expanded without focal areas of consolidation, pneumothor aces, estee pulmonary edema or pleural effusions. IMPRESSION: No acute process. POS: [facility]
[2018-11-17 22:43] LABS: #Basophils 0.1 thou/uL (0.0-0.2); #Eosinphils 0.1 thou/uL (0.0-0.7); #Lymphocytes 1.2 thou/uL (1.20-3.40); #Monocytes 0.2 thou/uL (0.11-0.59); %Basophils 0.6 % (0.0-1.0); %Eosinophils 0.7 % (0.0-10.0); %Lymphocytes 13.9 % (21.0-51.0); %Monocytes 2.1 % (0.0-10.0); %Neutrophils 82.7 % (42.0-75.0); Hemoglobin 12.5 g/dL (12.0-16.0); Mean Corpuscular HGB CONC 33.9 g/dL (32.0-36.0); Mean Corpuscular Volume 91.4 fL (78.0-98.0); Mean Platelet Volume 7.1 fL (7.4-10.4); Platelet Count 346 thou/uL (130-400); RBC Distribution Width 13.9 % (11.5-14.5); Red Blood Cell (RBC) Count 4.04 mill/uL (4.20-5.40); White Blood Cell (WBC) Count 8.4 thou/uL (4.8-10.8)
[2018-11-17 23:00] LABS: ALT (SGPT) 20 U/L (8-55); AST (SGOT) 15 U/L (5-34); Albumin 3.8 g/dL (3.5-5.0); Alkaline Phosphatase 64 U/L (40-150); Anion Gap 12 mmol/L (10-20); BUN (Urea Nitrogen) 9 mg/dL (7.0-18.7); Bilirubin, Total 0.2 mg/dL (0.2-1.2); Calc. Creatinine Clearance 0 mL/min (70-130); Calcium 9.1 mg/dL (7.8-10.44); Carbon Dioxide 25 mmol/L (22-29); Chloride 108 mmol/L (98-107); Estimated GFR-MDRD 87; Globulin 2.6 g/dL (2.4-3.5); Glucose 127 mg/dL (70-105); Protein, Total 6.4 g/dL (6.0-8.3); Sodium 141 mmol/L (136-145)
[2018-11-17 23:45] LABS: Bacteria/HPF None Seen HPF (None Seen); Bilirubin Negative (Negative); Blood, Urine 2+ (Negative); Clarity Clear (Clear); Glucose, Urine (Dipstick) Normal (Negative); Leukocyte Negative Leu/uL (Negative); Nitrite Negative (Negative); Protein, Urine (Dipstick) Negative (Neg-Trace); Squamous Epithelial 0-3 HPF (0-3); Urobilinogen Normal mg/dL (Less than 2)
[2018-11-17 23:57] LABS: BHCG - Serum Negative (NEGATIVE); Pregs Control Background? CLEAR/WHITE (CLR/WHITE); Pregs Control Bar Appear? YES (CONTROL BAR)
[2018-11-18] MEDS ORDERED: Azithromycin 250 MG TAB ONE (01:21)
--- NOTE | 2018-11-18 07:04 | CT ---
CT ABDOMEN AND PELVIS WITH IV CONTRAST: Date: 11/17/18 HISTORY: Fever. Abdominal pain. FINDINGS: Comparison made with exam of 12/15/14. The lung bases are clear. No calcified gallstones are seen. The liver, spleen, pancreas, adrenal glan ds, and kidneys are normal. No free air, free fluid, or lymphadenopathy seen in the abdomen or pelvis . Uterus and ovaries are present. The small bowel loops are not abnormally dilated. An abnormal appendix is not visualized. The ureteri c caliber is normal without aneurysm. There are degenerative changes in the spine, most prominent at L4-5 and L5-S1 levels. A small hiatal hernia is present. There is colonic diverticulosis without dive rticulitis. IMPRESSION: No acute process. POS: [facility]
== END 2018-11-18 01:33 | disposition home or self-care (01) ==
LOC: ERS 21:52
DX: J02.9 Acute pharyngitis, unspecified (principal); I50.9 Heart failure, unspecified; M06.9 Rheumatoid arthritis, unspecified; F17.210 Nicotine dependence, cigarettes, uncomplicated; Z79.51 Long term (current) use of inhaled steroids; Z79.899 Other long term (current) drug therapy
CPT/HCPCS: 36415; 71045; 74177; 80053; 81003; 81015; 83605; 83880; 84484; 84703; 85025; 87804; 93005; Q9966

== ENCOUNTER 2018-12-29 20:53 | Observation (INO) | payer BC ==
--- NOTE | 2018-12-29 21:26 | RAD ---
Exam: Chest one view HISTORY:Dizziness, weakness. New onset chest pain. Comparison: 11/17/2018 FINDINGS: Lungs: No masses or consolidation. Cardiac silhouette:Stable Pulmonary vessels: Normal Pleural Spaces: Clear Pneumothorax: None Osseous abnormalities: None of acuity. IMPRESSION: No focal consolidation.
[2018-12-29 21:30] LABS: #Basophils 0.1 thou/uL (0.0-0.2); #Eosinphils 0.1 thou/uL (0.0-0.7); #Lymphocytes 3.1 thou/uL (1.20-3.40); #Monocytes 0.6 thou/uL (0.11-0.59); #Neutrophils 4.8 thou/uL (1.40-6.50); %Basophils 0.8 % (0.0-1.0); %Eosinophils 0.8 % (0.0-10.0); %Lymphocytes 36.5 % (21.0-51.0); %Monocytes 6.7 % (0.0-10.0); %Neutrophils 55.3 % (42.0-75.0); Mean Corpuscular HGB CONC 35.2 g/dL (32.0-36.0); Mean Corpuscular Hemoglobin 31.8 pg (27.0-31.0); Mean Corpuscular Volume 90.2 fL (78.0-98.0); Mean Platelet Volume 6.5 fL (7.4-10.4); Platelet Count 402 thou/uL (130-400); RBC Distribution Width 14.3 % (11.5-14.5); White Blood Cell (WBC) Count 8.6 thou/uL (4.8-10.8)
[2018-12-29 21:50] LABS: ALT (SGPT) 9 U/L (8-55); AST (SGOT) 12 U/L (5-34); Albumin 3.9 g/dL (3.5-5.0); Alkaline Phosphatase 59 U/L (40-110); Anion Gap 12 mmol/L (10-20); BUN (Urea Nitrogen) 8 mg/dL (7.0-18.7); Bilirubin, Total 0.3 mg/dL (0.2-1.2); CK (CPK) 27 U/L (29-168); Calc. Creatinine Clearance 0 mL/min (70-130); Calcium 9.1 mg/dL (7.8-10.44); Carbon Dioxide 29 mmol/L (22-29); Chloride 103 mmol/L (98-107); Estimated GFR-MDRD 87; Globulin 2.6 g/dL (2.4-3.5); Glucose 90 mg/dL (70-105); Lipase 49 U/L (8-78); Protein, Total 6.5 g/dL (6.0-8.3); Sodium 141 mmol/L (136-145)
[2018-12-29 21:57] LABS: Potassium 2.8 mmol/L (3.5-5.1)
[2018-12-29] MEDS ORDERED: Potassium Chloride 20 MEQ TAB ONE (23:07)
[2018-12-29] MEDS ORDERED: Aspirin Chewable 81 MG TAB ONE (23:07)
[2018-12-29] MEDS ORDERED: Acetaminophen 500 MG TAB ONE (23:07)
[2018-12-30] MEDS ORDERED: Acetaminophen 325 MG TAB PO PRN (00:57)
[2018-12-30] MEDS ORDERED: Ondansetron PF 4 MG/2 ML Vial IVP PRN (00:57)
[2018-12-30] MEDS ORDERED: Ondansetron ODT 4 MG TAB SL PRN (00:57)
[2018-12-30 01:06] LABS: Troponin I Less than 0.010 ng/mL (< 0.028)
[2018-12-30 01:15] VITALS: BMI 35.9
[2018-12-30] MEDS ORDERED: Calcium Carbonate 500 MG ChewTAB PO PRN (01:44)
[2018-12-30] MEDS ORDERED: Senokot S 8.6-50 MG TAB PO PRN (01:44)
[2018-12-30] MEDS ORDERED: Cyclobenzaprine 10 MG TAB PO SCH (01:45)
[2018-12-30] MEDS: HYDROcodone/Acetaminophen 10/325 mg Tablet PO PRN ×5 (02:38→22:42)
[2018-12-30] MEDS: Lactated Ringer's 1,000 ML IV SCH ×3 (02:39→17:04)
--- NOTE | 2018-12-30 02:57 | PDOC.FPRHP ---
- History of Present Illness Chief Complaint: Chest Pain, ache all over History of Present Illness: Patient is a 43 yo female with PMHx of Rheumatoid Arthritis, SLE, and CHF who presents with chest pain that is sharp and increasing in severity over the past several hours. Pain sometimes radiates down the left arm but not always. Sometimes chest pain is squeezing and worsens with exertion. Chest pain also on the right side which is achy. Has also been feeling dizzy, SOB and weak since Saturday morning. Patient has had similar chest pain about 3 months ago when she was admitted to hospital for RA flare. Patient states that her entire body has been achy since Saturday but has been starting to worsen yesterday afternoon. She tried doubling her home prednisone to 40 mg daily for past 2 days but this has not helped her pain (she is usually on 20 mg prednisone daily). In addition to her pain she has also had nausea, diarrhea, and achy abdominal pain with increasing abdominal swelling since Saturday. She has had dry cough and nasal congestion going on for at least the past week, possibly longer. Patient has been receiving treatment for Rheumatoid Arthritis and Lupus/SLE, usually sees Dr. Wu, Rheumatology and Dr. Batista, PCP for management. Additionally has seen Dr. Harley for her dx of interstitial lung disease made during September 2018 admission (supposedly a side effect reaction of her taking Suldasalazine for her RA). Patient was admitted in September 2018 for a flare of RA and Lupus and at that time required increasing dosing of IV methylprednisolone up to 125 mg daily, this was tapered down at discharge to 10 mg prednisone daily. Patient was then admitted in late October 2018 for CHF & COPD exacerbations. During this time her prednisone was increased to 40 mg daily, which was then tapered at discharge down to 10 mg prednisone daily. However patient then states that Dr. Batista, her PCP has since increased her daily prednisone back to 20 mg daily (confirmed with [facility] pharmacy records). ED Course: given Tylenol, ASA 325mg, KCl 40 meq - Allergies/Adverse Reactions Allergies Allergy/AdvReac Type Severity Reaction Status Date / Time sulfasalazine Allergy Severe Verified 12/30/18 02:57 tramadol Allergy Severe Verified 12/30/18 02:57 Penicillins Allergy Intermediate Rash Verified 12/30/18 02:57 levofloxacin [From Levaquin] AdvReac Severe Verified 12/30/18 02:57 NSAIDS (Non-Steroidal AdvReac Unknown Verified 12/30/18 02:57 Anti-Inflamma - Home Medications Medication Instructions Recorded Confirmed Type Divalproex Sodium [Depakote] 750 mg PO DAILY 01/26/18 12/30/18 History HYDROcodone Bit/APAP [Curlew] 1 tab PO Q4HR PRN 01/26/18 12/30/18 History Hydroxychloroquine Sulfate 400 mg PO DAILY 04/22/18 12/30/18 History [Plaquenil] Furosemide [Lasix] 20 mg PO DAILY #0 11/11/18 12/30/18 Rx predniSONE 20 mg PO DAILY 12/30/18 12/30/18 History - History PMHx: RA, SLE, CHF, Interstitial lung disease, Seizures (last one 5 years ago), Anxiety PSHx: 3 c-sections, bilateral tubal ligation, "lung scraping" (biopsies?) FHx: Dad with CAD issues since age 70, Mom with SLE & DM; Hx of Cancer in multiple family members (Brain, Lung, stomach) Social: Social EtOH (drinks 1-2x/month). Smokes 1/2 ppd. - Review of Systems General: reports: weight/appetite/sleep changes, fatigue. denies: fever/chills Eyes: denies: vision changes ENT: reports: nasal congestion. denies: rhinorrhea Respiratory: reports: cough, shortness of breath. denies: congestion Cardiovascular: reports: chest pain, edema. denies: palpitation Gastrointestinal: reports: nausea, diarrhea, abdominal pain. denies: vomiting, constipation Skin: reports: lesions. denies: rashes, itching Musculoskeletal: reports: pain, tenderness, arthritis/arthralgias. denies: swelling Neurological: denies: numbness, seizure, weakness - Vital signs BP: 152/80 HR: 82 RR: 16 Tmax: 99.1F Pox: 94% on RA Wt: 92 kg - Physical Exam Constitutional: awake, alert and oriented -Constitutional: obese, amol-like appearance HEENT: normocephalic and atraumatic, EOMI, conjunctiva clear, grossly normal vision, grossly normal hearing, MMM Neck: supple, no JVD Heart: RRR, normal S1/S2, no murmurs/rubs/gallops, pulses present, no edema Lungs: CTAB, no respiratory distress, no rales/rhonchi, no wheezing Abdomen: soft, no masses/distention -Abdomen: Hypoactive bowel sounds. Grossly TTP across abdomen, worst in right upper quadrant. Positive najera's sign. Musculoskeletal: normal structure, normal tone, ROM grossly normal -Musculoskeletal: TTP in shoulder joints and upper right leg Neurological: no focal deficit, normal sensation Skin: good turgor -Skin: Numerous scattered skin lesions/ulcers in various stages of healing. Heme/Lymphatic: no unusual bruising or bleeding Psychiatric: normal mood and affect, intact recent and remote memory FMR H&P: Results - Labs Result Diagrams: 12/29/18 21:20 12/30/18 03:03 Lab results: WBC 8.6 thou/uL (4.8-10.8) 12/29/18 21:20 Hgb 14.0 g/dL (12.0-16.0) 12/29/18 21:20 Hct 39.7 % (36.0-47.0) 12/29/18 21:20 MCV 90.2 fL (78.0-98.0) 12/29/18 21:20 Plt Count 402 thou/uL (130-400) H 12/29/18 21:20 Neutrophils % 55.3 % (42.0-75.0) 12/29/18 21:20 Sodium 141 mmol/L (136-145) 12/29/18 21:20 Potassium 2.8 mmol/L (3.5-5.1) L* 12/29/18 21:20 Chloride 103 mmol/L (98-107) 12/29/18 21:20 Carbon Dioxide 29 mmol/L (22-29) 12/29/18 21:20 BUN 8 mg/dL (7.0-18.7) 12/29/18 21:20 Creatinine 0.73 mg/dL (0.6-1.1) 12/29/18 21:20 Glucose 90 mg/dL (70-105) 12/29/18 21:20 Calcium 9.1 mg/dL (7.8-10.44) 12/29/18 21:20 Total Bilirubin 0.3 mg/dL (0.2-1.2) 12/29/18 21:20 AST 12 U/L (5-34) 12/29/18 21:20 ALT 9 U/L (8-55) 12/29/18 21:20 Alkaline Phosphatase 59 U/L (40-110) 12/29/18 21:20 Creatine Kinase 27 U/L (29-168) L 12/29/18 21:20 B-Natriuretic Peptide 57.7 pg/mL (0-100) 12/29/18 21:20 Serum Total Protein 6.5 g/dL (6.0-8.3) 12/29/18 21:20 Albumin 3.9 g/dL (3.5-5.0) 12/29/18 21:20 Lipase 49 U/L (8-78) 12/29/18 21:20 - EKG Interpretation EKG: Sinus tachycardia FMR H&P: A/P - Problem List (1) Atypical chest pain Current Visit: Yes Status: Acute Code(s): R07.89 - OTHER CHEST PAIN (2) Flare of rheumatoid arthritis Current Visit: Yes Status: Acute Code(s): M06.9 - RHEUMATOID ARTHRITIS, UNSPECIFIED (3) Hypokalemia Current Visit: No Status: Acute Code(s): E87.6 - HYPOKALEMIA - Plan Patient is a 43 yo female with chest pain who is admitted for ACS workup and suspected autoimmune flare: #Atypical Chest Pain -ASA 325 mg given in ED, will continue at 81 mg daily -Stress test in AM -d/t significant RUQ pain on exam with pos. Najera sign with obtain RUQ U/S -maintenance IVF LR @ 130 #Flare of Rheumatoid Arthritis/SLE, suspected -home dose usually 20 mg prednisone daily -will start on 40mg prednisone daily for suspected autoimmune flare -continue home Curlew for additional pain control -continue home Plaquenil -Tylenol prn #Cough, Congestion -check Respiratory viral panel -Mucinex daily -Flonase daily #Hypokalemia -give 40 mEq KCl in ED -repeat BMP in 4 hours -will check Mg & Phos #Elevated BP without dx of HTN -likely 2/2 widespread pain -BP in ED 152/80 -patient not currently on any home BP meds -monitor vitals q4h, reassess BP once pain controlled #Hx of Seizures -currently stable on home Depakote -last seizure 5 years ago #Hx of HFpEF -Echo in September 2018 had EF 50-55%, no other abnormalities -Echo in May 2018 had EF 50-55%, had increased right ventricular pressure at 30 mmHg -continue home Furosemide -BNP 57 Diet: Regular VTE: Lovenox 40 Code: FULL Dispo: Stable, admitted to observation on telemetry. Plan for stress test in AM. Anticipate LOS <2 days. FMR H&P: Upper Level - Pertinent history 43 year old female with PMH RA, lupus, seizure disorder, HFwpEF and anxiety presents with a three day history nasal congstion, nausea, and diarrhea. She reports that today, she had onset of chest pain after waking up from sleep at 3: 00 PM. She states she just hasn't been feeling well and since her son was in school, she wanted to use the time to sleep. The chest pain is located over right and left chest, but worse on left with occasional radiation to the neck and left arm. No associated diaphoresis. patient has been nauseous, but the nausea is not necessarily associated with the chest pain. The chest pain is persistent, but will occasionally get worse. Patient describes pain as "squeezing" in nature. It is worse with exertion. She did not receive nitro down in ED. Patient was supposed to follow with Medical Detailist but has been unable to do so up to this point. She does follow with Pulmonology due to interstitial lung disease associated with an autoimmune medication and rheumatology due to RA and Lupus. Her wet end helper is at [facility] and we do not have those records. Her PCP is Dr. Elizabeth at [facility]. Patient endorses diffuse body aches and pains that she reports is worse than her normal autoimmune flares. She endorses abdominal "swelling" and lower extremity swelling. Patient states abdominal pain is worse than it has been in the past. She has taken tylenol and dayquil. She has not had any fevers. She does have FH significant for CAD in father who required stents at age 70. Mom has Lupus and DM. Patient has been seen with similar symptoms in the past and she has been placed on a steroid taper each time. The taper has started at 40 mg and was intended to go down to 10 mg for which patient was instructed to continue on chronically. Patient saw Dr. Elizabeth recently, and he put her on 20 mg predisone daily. She is also on additional immunosuppressive agents for RA and lupus. Patient hospitalized in September. She had echo done at that time which showed EF of 50-55% with no report of diastolic dysfunction. Her echo from May 2018 had similar read. However. the May echo did mention mildly elevated RV sytolic pressure of 30 mmHg. Patient has interstitial lung disease and follows with Dr. Simmons since last hospitalization. CT abdomen/pelvis 11/2018 was unremarkable. - Pertinent findings General: Alert and oriented x3. No acute distress. [place]-like appearance. HEENT: MMM. Card: RRR, No murmur Resp: CTA, No acute respiratory distress. Cough present during exam. Abdomen: Diffusely tender to palpation. Positive najera's. No rebound or guarding. Ext: No cyanosis or edema. Skin: Multiple skin lesions on abdomen and arms in various stages of healing. - Plan Date/Time: 12/30/18252 IDayna, have evaluated this patient and agree with findings/plan as outlined by biology intern resident. Pertinent changes/additions are listed here. Atypical chest pain - Likely related to autoimmune disorders - ASA - Nitro PRN - Risk stratification labs: FLP, TSH, Mg, P - Stress test in AM - HH diet; NPO at midnight - Recent echo 09/2018 EF 50-55% - CXR with only chronic changes - BNP WNL - Trop neg x3 Suspect autoimmune flare 2/2 RA/Lupus - Patient with frequent flares. Last hospitalization in October - She was on taper of prednisone at that time, she has since been on 20 mg prednisone daily per PCP - Will increase to 40 mg predisone to address flare and taper upon discharge - Patient at risk for [place] Syndrome given assisted use of steroids - Continue home medications - Continue home medications for pain - Viral respiratory panel pending RUQ abdominal pain, suspicious for cholecystitis - Patient afebrile - Positive Najera's sign - Recent episodes of diarrhea, and worsening abdominal pain with intake of fatty foods - RUQ ultrasound pending - AST/ALT, Tbili WNL Viral URI - Viral panel pending - Symptoms may be 2/2 viral syndrome, although patient has been afebrile - Supportive treatment with mucinex, flonase HFpEF - Recent echo 09/2018 with EF 50-55%, similar to echo in 05/2018. - No mention of diastolic dysfunction on previous echos - Continue furosemide Hypokalemia - K on admission 2.8 - Replace - Mg checked and WNL Interstitial lung disease Seizure disorder - Diagnosed as child - Continue Keppra Anxiety - Continue home medications DVT PPX: Lovenox Code Status: Full Dispo: Stable. Obs on telemetry. Anticipate LOS <48 hours. Addendum - Attending - Attending Attestation Date/Time: 12/30/18 1038 I personally evaluated the patient and discussed the management with Dr. Hannah/ [place]. I agree with the History, Examination, Assessment and Plan documented above with any addition or exceptions noted below. Patient here with diffuse pain, chest pain worse. Has tenderness to palpation. Patient reports feeling similar to previous Lupus flares. Her enzymes are negative and EKG normal. Based on risk stratification, she will have stress testing today. Likely discharge with working diagnosis of inflammatory flare 2/ 2 lupus/RA with outpatient follow up if negative result.
[2018-12-30 03:36] LABS: Phosphorus 4.5 mg/dL (2.3-4.7)
[2018-12-30 03:41] LABS: Troponin I Less than 0.010 ng/mL (< 0.028)
[2018-12-30 03:53] LABS: Anion Gap 14 mmol/L (10-20); BUN (Urea Nitrogen) 10 mg/dL (7.0-18.7); Calc. Creatinine Clearance 149 mL/min (70-130); Calcium 8.7 mg/dL (7.8-10.44); Carbon Dioxide 26 mmol/L (22-29); Chloride 103 mmol/L (98-107); Estimated GFR-MDRD Greater than 90; Glucose 89 mg/dL (70-105); Magnesium 1.8 mg/dL (1.6-2.6); Potassium 3.4 mmol/L (3.5-5.1); Sodium 140 mmol/L (136-145)
[2018-12-30 06:05] LABS: Cardiac Risk 2.9 (Less than 4.5)
[2018-12-30] MEDS ORDERED: Nitroglycerin 0.4 MG TAB (25 Tab Bottle) SL PRN (07:22)
[2018-12-30] MEDS ORDERED: Cyclobenzaprine 10 MG TAB PO PRN (08:39)
[2018-12-30] MEDS: Aspirin 81 mg Enteric Coated Tablet PO SCH (08:46)
[2018-12-30] MEDS: Hydroxychloroquine Sulfate 200 MG TAB PO SCH (08:46)
[2018-12-30] MEDS: predniSONE 20 MG TAB PO SCH (08:46)
[2018-12-30] MEDS: guaiFENesin ER 600 MG TAB PO SCH ×2 (08:46→21:11)
[2018-12-30] MEDS: Furosemide 20 MG TAB PO SCH (08:46)
[2018-12-30] MEDS: Enoxaparin Sodium 40 MG/0.4 ML SYRINGE SC SCH (08:47)
[2018-12-30] MEDS ORDERED: FLU VACC QS2019-20(6MOS UP)/PF 60 MCG/0.5 ML SYRINGE IM ONE (09:00)
[2018-12-30] MEDS ORDERED: predniSONE 20 MG TAB PO SCH (09:00)
[2018-12-30] MEDS: Divalproex Sodium 250 MG (DR) TAB PO SCH (09:02)
[2018-12-30 09:03] LABS: Hemoglobin A1c 4.6 % (4.0-6.0)
--- NOTE | 2018-12-30 09:04 | ULT ---
Right upper quadrant ultrasound: 12/30/2018 COMPARISON: None HISTORY: Right upper quadrant pain TECHNIQUE: Multiplanar grayscale sonographic imaging of the right upper quadrant provided. FINDINGS: Imaged pancreas appears grossly unremarkable. Tail was obscured by bowel gas. No focal liver lesion or intrahepatic biliary dilatation is noted. The common bile duct measures 4 mm, within normal limits. The gallbladder is completely contracted and thus poorly assessed on this examination. No shadowing g allstones are noted. The right kidney measures 11 cm in craniocaudal dimension and demonstrates no evidence for stone, hyd ronephrosis, or mass lesion. The prawn trawler hand reports a negative Najera's sign IMPRESSION: Contracted gallbladder, limiting detailed assessment. No acute findings.
[2018-12-30] MEDS: Fluticasone Propionate Nasal Spray 16 gm Bottle NASAL SCH ×2 (14:28→21:11)
[2018-12-30] MEDS ORDERED: Regadenoson 0.4 MG/5 ML SYRINGE ONE (19:47)
--- NOTE | 2018-12-30 22:05 | PDOC.EVN ---
Event Note - Event Note Event Note: Mrs. Guy began experiencing intensifying chest pain w/ radiation to her left shoulder at approximately 2200. She also complained of mild epigastric pain as well. She states that this is similar to the pain that she usually has resultant from her SLE, but the increase in intensity w/ radiation is concerning. She denied any changes in vision, difficulty w/ ambulation or N/V. Physical exam was unremarkable, specifically w/ regard to her cardiopulmonary and GI examinations, w/ the exception of TTP over the area of chest pain and shoulder pain. It should be noted that she has received 3 [employer] 10/325 tablets thus far today, and has refused nitro. Recommend STAT EKG w/ troponins. Consider nitro, GI cocktail, and/or Flexeril if symptoms do not result spontaneously.
[2018-12-30 22:53] LABS: Troponin I 0.011 ng/mL (< 0.028)
[2018-12-30] MEDS ORDERED: Lidocaine 2% Viscous Solution 20 ML, Aluminum & Magnesium Hydroxide 30 ML, Donnatal Eli... SSW SCH (23:59)
[2018-12-31] MEDS: HYDROcodone/Acetaminophen 10/325 mg Tablet PO PRN ×3 (02:58→11:55)
[2018-12-31] MEDS: Lactated Ringer's 1,000 ML IV SCH ×2 (04:59→13:08)
--- NOTE | 2018-12-31 06:06 | PDOC.FM ---
- Subjective Subjective: Overnight the patient had an episode of chest pain around 2200. EKG was normal and trop neg at that time. She was given flexeril for her pain. She refused nitro. Pain was TTP on exam. This morning, the patient is resting comfortably in bed. She is still complaining of some pain in her chest. States she said that she slept through the stress test this AM. - Objective MAR Reviewed: Yes Vital Signs & Weight: Vital Signs (12 hours) Temp Pulse Resp BP Pulse Ox 12/31/18 03:42 98.1 F 16 113/64 96 12/31/18 00:50 95 12/30/18 23:29 98.4 F 69 16 143/84 H 97 12/30/18 21:00 98 F 73 20 142/74 H 99 Weight Admit Weight 92.125 kg Weight 92.125 kg I&O: 12/29/18 12/30/18 12/31/18 06:59 06:59 06:59 Intake Total 829 Balance 829 Result Diagrams: 12/29/18 21:20 12/30/18 03:03 Phys Exam - Physical Examination Constitutional: NAD HEENT: moist MMs, sclera anicteric Neck: supple, full ROM Respiratory: clear to auscultation bilateral Cardiovascular: RRR, no significant murmur, no rub mild TTP of ant chest Gastrointestinal: soft, non-tender, no distention, positive bowel sounds Musculoskeletal: no edema, pulses present Neurological: non-focal, moves all 4 limbs Psychiatric: normal affect, A&O x 3 Skin: no rash, normal turgor, cap refill <2 seconds Dx/Plan (1) Atypical chest pain Code(s): R07.89 - OTHER CHEST PAIN Status: Acute (2) Flare of rheumatoid arthritis Code(s): M06.9 - RHEUMATOID ARTHRITIS, UNSPECIFIED Status: Acute (3) ILD (interstitial lung disease) Code(s): J84.9 - INTERSTITIAL PULMONARY DISEASE, UNSPECIFIED Status: Chronic (4) Lupus Code(s): M32.9 - SYSTEMIC LUPUS ERYTHEMATOSUS, UNSPECIFIED Status: Chronic (5) Tobacco abuse Code(s): Z72.0 - TOBACCO USE Status: Chronic - Plan Plan: Patient is a 43 yo female with chest pain who is admitted for ACS workup and suspected autoimmune flare: #Atypical Chest Pain -ASA 325 mg given in ED, will continue at 81 mg daily -Day 2 of Stress test today -RUQ US neg #Flare of Rheumatoid Arthritis/SLE, suspected -home dose usually 20 mg prednisone daily -will start on 40mg prednisone daily for suspected autoimmune flare -continue home [place] for additional pain control -continue home Plaquenil -Tylenol prn #Cough, Congestion -RVP neg -Mucinex daily -Flonase daily #Hypokalemia -give 40 mEq KCl in ED -resolved #Elevated BP without dx of HTN -likely 2/2 widespread pain -BP in ED 152/80 -patient not currently on any home BP meds -monitor vitals q4h, reassess BP once pain controlled #Hx of Seizures -currently stable on home Depakote -last seizure 5 years ago #Hx of HFpEF -Echo in September 2018 had EF 50-55%, no other abnormalities -Echo in May 2018 had EF 50-55%, had increased right ventricular pressure at 30 mmHg -continue home Furosemide -BNP 57 Diet: Regular VTE: Lovenox 40 Code: FULL Dispo: Day2 of stress. If normal will discharge with close follow up. Anticipate LOS <2 days. case discussed with Dr. Sutton. Addendum - Attending - Attending Attestation Date/Time: 12/31/18 1122 I personally evaluated the patient and discussed the management with Dr. Acosta. I agree with the History, Examination, Assessment and Plan documented above with any addition or exceptions noted below. Patient here for likely MSK pain flared by RA/SLE. She is going for part 2 of stress test today. Anticipate no focal ischemia and will discharge after result with outpatient follow up.
[2018-12-31] MEDS: Enoxaparin Sodium 40 MG/0.4 ML SYRINGE SC SCH (09:30)
[2018-12-31] MEDS: Aspirin 81 mg Enteric Coated Tablet PO SCH (09:33)
[2018-12-31] MEDS: Hydroxychloroquine Sulfate 200 MG TAB PO SCH (09:33)
[2018-12-31] MEDS: guaiFENesin ER 600 MG TAB PO SCH (09:34)
[2018-12-31] MEDS: predniSONE 20 MG TAB PO SCH (09:34)
[2018-12-31] MEDS: Furosemide 20 MG TAB PO SCH (09:34)
[2018-12-31] MEDS: Divalproex Sodium 250 MG (DR) TAB PO SCH (09:34)
--- NOTE | 2018-12-31 10:24 | NM ---
CARDIAC SPECT: CLINICAL HISTORY: 43-year-old female with chest pain. TECHNIQUE: A myocardial perfusion scan was performed using the single isotope two day protocol with 32 mCi techn etium-99m sestamibi injected intravenously for both stress and rest images. Pharmacologic stress with Lexiscan was monitored and interpreted by Dr. Carolina. FINDINGS: There is a small fixed defect in the apex. No reversible defects are seen. TID ratio is 1.36. GATED SPECT LVEF: 38%. WALL MOTION EXAM: Global hypokinesis. IMPRESSION: TID ratio is 1.36. POS: QUIN
[2018-12-31 11:43] VITALS: BP 146/85; TEMP 98.3
[2018-12-31] MEDS: Fluticasone Propionate Nasal Spray 16 gm Bottle NASAL SCH (11:56)
--- NOTE | 2019-01-01 09:38 | DIS ---
DATE OF ADMISSION: 12/29/2018 DATE OF DISCHARGE: 12/31/2018 RESIDENT: Donya Acosta MD ADMITTING ATTENDING: Vinita Maciel MD DISCHARGE ATTENDING: Mal Sutton MD. CONSULTS: None. PROCEDURES: Stress test. DISCHARGE MEDICATIONS: 1. Wilmer 1 tablet oral every 4 hours as needed. 2. Depakote 750 mg oral daily. 3. Plaquenil 400 mg oral daily. 4. Lasix 20 mg oral daily. 5. Prednisone 20 mg oral daily. DISCONTINUED MEDICATIONS: None. PRIMARY DIAGNOSES: 1. Flare of rheumatoid arthritis/lupus. 2. Atypical chest pain. SECONDARY DIAGNOSES: History of seizures and history of heart failure with preserved ejection fraction. HISTORY OF PRESENT ILLNESS/HOSPITAL COURSE: This is a 43-year-old female with past medical history of rheumatoid arthritis, lupus, CHF, and interstitial lung disease, who presented to the ER with a chief complaint of chest pain that was sharp and increasing in severity over the past several hours. The patient stated that the pain also radiated down her left arm intermittently. She described the pain as squeezing and worsening with exertion, exertion. The patient also endorsed feeling dizzy, short of breath, and weak for the last few days. She did say that this chest pain felt similar to a rheumatoid arthritis flare that she had had previously. The patient did try doubling her home prednisone to 40 mg daily over the last two days, but this did not help her pain. The patient also endorsed a dry cough and nasal congestion for the last week or so. The patient does see Dr. Wu in Rheumatology and Dr. Batista as her PCP. She also sees Dr. Simmons for her diagnosis of interstitial lung disease. In the ER, the patient was given Tylenol, aspirin , and potassium. She was vitally stable throughout her stay. The patient had a potassium that was 3.4, which was replaced. Her EKG showed sinus tachycardia. The patient was admitted to telemetry for observation. For the patient's atypical chest pain, she underwent a stress test that showed an ejection fraction of 38% and no reversible ischemia. Respiratory viral panel was obtained on the patient due to cough and congestion, which was negative. We continued the prednisone at an increased dose of 40 during her stay. It is thought that the patient's atypical chest pain is likely due to a rheumatoid arthritis or lupus flare. Her pain could also be due to her interstitial lung disease. It was discussed with the patient that she needs to follow up with Cardiology, Rheumatology and Pulmonology for these issues. The results were discussed with the patient, she acknowledged understanding of this. DISPOSITION: Stable. DISCHARGE INSTRUCTIONS: 1. Location: Home. 2. Diet: Renal and heart healthy. 3. Activity: Ad chintan. 4. Follow up with Cardiology within 2-3 weeks, follow up with Rheumatology within 2-3 weeks, and follow up with Pulmonology within a month. Job ID: [id number] [id number]
--- NOTE | 2019-01-03 14:05 | EKG ---
Test Reason : Blood Pressure : / mmHG Vent. Rate : 101 BPM Atrial Rate : 101 BPM P-R Int : 130 ms QRS Dur : 082 ms QT Int : 386 ms P-R-T Axes : 054 012 010 degrees QTc Int : 500 ms Sinus tachycardia Possible Left atrial enlargement Nonspecific T wave abnormality Abnormal ECG Confirmed by EDGARD BLEVINS ([id number]), senior editor ALBERTA BETANCOURT ([id number]) on 01/03/2019 2:04:58 PM Referred By: Confirmed By:EDGARD BLEVINS
--- NOTE | 2019-01-05 22:47 | EKG ---
Test Reason : Blood Pressure : / mmHG Vent. Rate : 069 BPM Atrial Rate : 069 BPM P-R Int : 124 ms QRS Dur : 088 ms QT Int : 440 ms P-R-T Axes : 018 -02 -09 degrees QTc Int : 471 ms Normal sinus rhythm Moderate voltage criteria for LVH, may be normal variant Borderline ECG When compared with ECG of 29-DEC-2018 21:03, (Unconfirmed) Nonspecific T wave abnormality no longer evident in Lateral leads Confirmed by MUSA FIGUEROA M.D. ([id number]) on 01/05/2019 10:47:14 PM Referred By: SUZANNE Confirmed By:MUSA FIGUEROA M.D.
== END 2018-12-31 13:42 | disposition home or self-care (01) ==
LOC: ERS 20:53 → ERHOLD 23:10 → 2SE 12-30 00:51
PROVIDERS: ADMIT Student in an Organized Health Care Education/Training Program; ATTEND Student in an Organized Health Care Education/Training Program
DX: R07.89 Other chest pain (principal); M32.9 Systemic lupus erythematosus, unspecified; M06.9 Rheumatoid arthritis, unspecified; I50.9 Heart failure, unspecified; E87.6 Hypokalemia; G40.909 Epilepsy, unspecified, not intractable, without status epilepticus; R03.0 Elevated blood-pressure reading, without diagnosis of hypertension; Z88.0 Allergy status to penicillin; Z88.1 Allergy status to other antibiotic agents; Z88.2 Allergy status to sulfonamides; Z88.8 Allergy status to other drugs, medicaments and biological substances; Z79.899 Other long term (current) drug therapy; F41.9 Anxiety disorder, unspecified
CPT/HCPCS: 36415; 71045; 76705; 78452; 80048; 80053; 80061; 82550; 83036; 83690; 83735; 83880; 84100; 84443; 84484; 85025; 87633; 90471; 90686; 93005; 93010; 93017; 94760; 96361; 96372; 96374; A9500; G0008; G0378; J1650; J2405; J2785; J7512

== ENCOUNTER 2019-01-15 03:06 | Inpatient (IN) | payer BC ==
[2019-01-15 03:34] LABS: Analyzer IN Cardio ER; Base Excess (BEa) 2.3 mEq/L (-2.0 to +3.0); CO2 Tension 53.3 mmHg (35.0-45.0); Calcium, Ionized 1.19 mmol/L (1.12-1.30); Carboxyhemoglobin (COHb) 7.5 gm% (0.0-3.0); Hemoglobin (Hb) 13.5 g/dL (12.0-16.0); O2 Tension (PaO2) 63.3 mmHg (80.0-100.0); pH, Arterial 7.35 (7.35-7.45)
[2019-01-15 03:36] LABS: Puncture Site LRA
[2019-01-15 03:38] LABS: ALV-art Gradient 98.235 (0-20)
[2019-01-15] MEDS ORDERED: cefTRIAXone\\ROCEPHIN 2 GM VIAL ONE (04:09)
[2019-01-15 04:17] LABS: Hemoglobin 13.3 g/dL (12.0-16.0); Mean Corpuscular HGB CONC 34.1 g/dL (32.0-36.0); Mean Corpuscular Hemoglobin 31.5 pg (27.0-31.0); Mean Corpuscular Volume 92.5 fL (78.0-98.0); RBC Distribution Width 14.8 % (11.5-14.5); Red Blood Cell (RBC) Count 4.23 mill/uL (4.20-5.40)
[2019-01-15] MEDS ORDERED: methylPREDNISolone Sod Succ/PF 125 MG/2 ML VIAL ONE (04:21)
[2019-01-15 04:23] LABS: ALT (SGPT) 24 U/L (8-55); AST (SGOT) 40 U/L (5-34); Albumin 3.8 g/dL (3.5-5.0); Alkaline Phosphatase 75 U/L (40-110); Anion Gap 15 mmol/L (10-20); BUN (Urea Nitrogen) 10 mg/dL (7.0-18.7); Bilirubin, Total 0.6 mg/dL (0.2-1.2); Calc. Creatinine Clearance 0 mL/min (70-130); Calcium 9.7 mg/dL (7.8-10.44); Carbon Dioxide 27 mmol/L (22-29); Chloride 98 mmol/L (98-107); Estimated GFR-MDRD 79; Glucose 107 mg/dL (70-105); Protein, Total 6.8 g/dL (6.0-8.3); Sodium 137 mmol/L (136-145)
[2019-01-15 04:31] LABS: Band 20 % (5-11); Lymphocytes 7 % (21-51); MDiff Complete? YES; Monocytes 3 % (0-10); Neutrophil 70 % (42-75); Platelet Count 248 thou/uL (130-400); White Blood Cell (WBC) Count 22.8 thou/uL (4.8-10.8)
[2019-01-15 04:32] LABS: Potassium 2.9 mmol/L (3.5-5.1)
--- NOTE | 2019-01-15 04:46 | PDOC.FPRHP ---
- History of Present Illness Chief Complaint: Shortness of breath, hypoxia History of Present Illness: 43yo F presents to the ED via EMS w/ complaint of SOB and AMS. stated that for the past day pt has had increased SOB and cough. Pt is chronically on 3L of O2 intermittently 2/2 to Lupus and interstitial lung disease. Pt required oxygen all day yesterday and stated that they intermittenly took her O2 throughout the day. Last night her saturations were in the 70's and would not go up and pt became increasingly confused and disoriented. In the ED pt arrived hypoxic, tachypneic, and tachycardic. CXR showed bilateral infiltrates vs pulmonary congestion. At time of eval pt had alternating mental status and was intermittently somnolent and alert. Pt takes norco at home, denies pt taking more of her rx than she is prescribed and states he administers them to her. - Allergies/Adverse Reactions Allergies Allergy/AdvReac Type Severity Reaction Status Date / Time sulfasalazine Allergy Severe Verified 12/30/18 02:57 tramadol Allergy Severe Verified 12/30/18 02:57 Penicillins Allergy Intermediate Rash Verified 12/30/18 02:57 levofloxacin [From Levaquin] AdvReac Severe Verified 12/30/18 02:57 NSAIDS (Non-Steroidal AdvReac Unknown Verified 12/30/18 02:57 Anti-Inflamma - Home Medications Medication Instructions Recorded Confirmed Type Divalproex Sodium [Depakote] 750 mg PO DAILY 01/26/18 01/15/19 History HYDROcodone Bit/APAP [Thompson] 1 tab PO Q4HR PRN 01/26/18 01/15/19 History Hydroxychloroquine Sulfate 400 mg PO DAILY 04/22/18 01/15/19 History [Plaquenil] Furosemide [Lasix] 20 mg PO DAILY #0 11/11/18 01/15/19 Rx predniSONE 40 mg PO DAILY 12/30/18 01/15/19 History - History PMHx: RA, SLE, CHF, Interstitial lung disease, Seizures (last one 5 years ago), Anxiety PSHx: 3 c-sections, bilateral tubal ligation, "lung scraping" FHx: Dad with CAD issues since age 70, Mom with SLE & DM; Hx of Cancer in multiple family members (Brain, Lung, stomach) Social: Social EtOH (drinks 1-2x/month). Smokes 1/2 ppd. - Review of Systems ROS unobtainable: due to mental status Respiratory: reports: cough, shortness of breath - Vital signs BP: 128/71, Pulse: 134, Resp: 19, O2 sat: 90 on 3L Oxygen - Physical Exam Constitutional: NAD -Constitutional: Morbidly obese HEENT: normocephalic and atraumatic Heart: RRR, normal S1/S2 -Lungs: Crackles throughout, diminished in left lower base Abdomen: soft, non-tender, bowel sounds present Musculoskeletal: ROM grossly normal -Neurological: Intermittently following commands, at times somnolent and needs stimulation to arouse -Skin: Lupus dermatitis with lesions to left face and bilateral upper and lower extremities Heme/Lymphatic: no unusual bruising or bleeding -Psychiatric: Difficult to assess 2/2 to mental status FMR H&P: Results - Labs Result Diagrams: 01/15/19 03:43 01/15/19 13:41 Lab results: WBC 22.8 thou/uL (4.8-10.8) H 01/15/19 03:43 Hgb 13.3 g/dL (12.0-16.0) 01/15/19 03:43 Hct 39.1 % (36.0-47.0) 01/15/19 03:43 MCV 92.5 fL (78.0-98.0) 01/15/19 03:43 Plt Count 248 thou/uL (130-400) 01/15/19 03:43 Band Neuts % (Manual) 20 % (5-11) H 01/15/19 03:43 ABG pH 7.35 (7.35-7.45) 01/15/19 03:25 ABG pCO2 53.3 mmHg (35.0-45.0) H 01/15/19 03:25 ABG pO2 63.3 mmHg (80.0-100.0) L 01/15/19 03:25 Sodium 137 mmol/L (136-145) 01/15/19 03:43 Potassium 2.9 mmol/L (3.5-5.1) L* 01/15/19 03:43 Chloride 98 mmol/L (98-107) 01/15/19 03:43 Carbon Dioxide 27 mmol/L (22-29) 01/15/19 03:43 BUN 10 mg/dL (7.0-18.7) 01/15/19 03:43 Creatinine 0.79 mg/dL (0.6-1.1) 01/15/19 03:43 Glucose 107 mg/dL (70-105) H 01/15/19 03:43 Lactic Acid 3.6 mmol/L (0.5-2.2) H 01/15/19 03:43 Calcium 9.7 mg/dL (7.8-10.44) 01/15/19 03:43 Total Bilirubin 0.6 mg/dL (0.2-1.2) 01/15/19 03:43 AST 40 U/L (5-34) H 01/15/19 03:43 ALT 24 U/L (8-55) 01/15/19 03:43 Alkaline Phosphatase 75 U/L (40-110) 01/15/19 03:43 B-Natriuretic Peptide 18.8 pg/mL (0-100) 01/15/19 03:43 Serum Total Protein 6.8 g/dL (6.0-8.3) 01/15/19 03:43 Albumin 3.8 g/dL (3.5-5.0) 01/15/19 03:43 FMR H&P: A/P - Problem List (1) Acute and chronic respiratory failure with hypoxia Current Visit: No Status: Acute Code(s): J96.21 - ACUTE AND CHRONIC RESPIRATORY FAILURE WITH HYPOXIA Comment: Continue O2 supplementation to maintain sats > 90% (2) Hypokalemia Current Visit: No Status: Acute Code(s): E87.6 - HYPOKALEMIA (3) Obesity (BMI 30-39.9) Current Visit: No Status: Acute Code(s): E66.9 - OBESITY, UNSPECIFIED (4) ILD (interstitial lung disease) Current Visit: No Status: Chronic Code(s): J84.9 - INTERSTITIAL PULMONARY DISEASE, UNSPECIFIED Comment: Continue O2 supplementation, Solumedrol, Duonebs (5) Lupus Current Visit: No Status: Chronic Code(s): M32.9 - SYSTEMIC LUPUS ERYTHEMATOSUS, UNSPECIFIED - Plan Acute on chronic hypoxic respiratory failure - Hospital Acquired Pneumonia in presence of interstitial lung disease - Vanc and rocephin in ED - Will continue vanc, switch to cefepime and add azithro - Procal ordered, will trend - Flu and viral panel ordered - Supplemental O2 as needed - Admit to IMCU for continued hypoxia and need for consistent monitoring Hypokalemia - Currently receiving replacement by ED with 20meq IV - Likely will require additional - Trend BMP Lupus - Hold praquinel - Continue prednisone, stress dose Diet: NPO Dispo: Admit to IMCU. Expected LOS >48 hr. FMR H&P: Upper Level - Plan Date/Time: 01/15/19 0444 ISherwin MD, have evaluated this patient and agree with findings/plan as outlined by design engineering intern resident. Pertinent changes/additions are listed here. Karla Guy is a 43 year old F with a PMH of RA, SLE, Interstitial lung disease, CHF (last Echo in 09/2018: EF 50-55%) who presented to the ED with a 1 day history of low O2 sats at home. She is normally on 3 L O2 NC at home. states that pt became loopy and confused and had O2 sats in the 70s starting last night. She has had cough over the last few days. Denied fevers, chills, anorexia, n/v, abdominal pain. She had a recent admission this month for a chest pain r/o. Had stress that showed EF of 38%, global hypokinesis but no reversible defect. In the ED, patient was satting 88-93% on 4 L NC, afebrile , tachycardic. No tachypneic, no retractions or respiratory distress, no acute distress. CXR showed bilateral patchy infiltrates, greater on the left and new from previous CXR from last admission. Labs significant for BNP 18, K 2.9, WBC 22.8 with 20% bands. Lactic acid 3.6. ABG with pH 7.35, pCO2 of 53, pO2 63. EKG showed sinus tachycardia, no ST changes. Initial trop was negative. She received duoneb, vancomycin, rocephin, IV KCl, and solumedrol. Patient is being admitted to the IMCU for acute hypoxic respiratory failure 2/2 likely HAP. Will empirically treat with Vancomycin, Cefipime, and Azithromycin. Continue continue home steroids. Continue duonebs for the time being. Check d dimer to r/o PE. Blood cultures pending. Check procal. Anticipate hospital stay > 48 hours. Please see design engineering intern note above for full H&P, which I have reviewed and agree with. Addendum - Attending - Attending Attestation Date/Time: 01/15/192039 I personally evaluated the patient and discussed the management with Dr. Person and Pedro. I agree with the History, Examination, Assessment and Plan documented above with any addition or exceptions noted below. Acute lung injury 2/2 likely pneumonia in setting of lupus, RLD, HFrEF -does not appear sig volume overloaded -ddx of PNA in setting of pred 40/d wide, to include fungal and PCP -will tx with broad spectrum antibiotics and await cultures -monitor respiratory status closely, discussed possibility of intubation with patient and Consult pulm/cc. Approximately 45 minutes of critical care time spent at bedside, coordinating with residents, and reviewed history and data available.
[2019-01-15] MEDS ORDERED: Potassium Chloride 20 MEQ in Premix Bag 1 BAG IVPB SCH ×3 (05:30→11:00)
[2019-01-15 06:14] VITALS: BMI 36.2
[2019-01-15] MEDS ORDERED: Acetaminophen 325 MG TAB PO PRN (06:38)
[2019-01-15] MEDS ORDERED: Hydrocortisone Sod Succ/PF 100 mg/2 ml Vial IVP SCH ×2 (07:00)
[2019-01-15] MEDS: Lactated Ringer's 1,000 ML IV SCH ×3 (07:13→22:31)
--- NOTE | 2019-01-15 07:51 | RAD ---
XR Chest 1 View Portable History: Dyspnea Comparison: Radiograph December 29, 2018 Findings: New from the comparison examination are extensive bilateral airspace opacities. No pneumoth orax. Heart size is enlarged. Likely trace effusions. No acute osseous abnormality. Impression: Extensive airspace infiltrates which are new from the December 29, 2018 exam suggesting mu ltifocal pneumonia.
[2019-01-15 08:03] LABS: Lactic Acid 2.8 mmol/L (0.5-2.2)
[2019-01-15] MEDS: Enoxaparin Sodium 40 MG/0.4 ML SYRINGE SC SCH (09:34)
[2019-01-15] MEDS: predniSONE 20 MG TAB PO SCH (09:34)
[2019-01-15] MEDS: Furosemide 20 MG TAB PO SCH (09:34)
[2019-01-15] MEDS: Divalproex Sodium 250 MG (DR) TAB PO SCH (09:34)
[2019-01-15] MEDS: Azithromycin 500 MG in Sodium Chloride 0.9% 250 ML 250 ML IVPB SCH (09:35)
[2019-01-15] MEDS: Hydroxychloroquine Sulfate 200 MG TAB PO SCH (09:35)
[2019-01-15] MEDS: Cefepime 2 GM in Sodium Chloride 0.9% 100 ML IVPB SCH ×3 (09:36→22:30)
[2019-01-15 09:46] LABS: Lactic Acid 2.7 mmol/L (0.5-2.2)
[2019-01-15] MEDS ORDERED: Lactated Ringer's 250 ML IV SCH (10:45)
[2019-01-15] MEDS: methylPREDNISolone Sod Succ/PF 125 MG/2 ML VIAL IVP SCH ×3 (12:30→22:38)
[2019-01-15] MEDS ORDERED: Vancomycin HCl 1 GM in Premix Bag 1 BAG IVPB SCH (14:00)
[2019-01-15] MEDS ORDERED: Vancomycin HCl 1 GM in Sodium Chloride 0.9% 250 ML 250 ML IVPB SCH (14:00)
[2019-01-15 14:33] LABS: Anion Gap 17 mmol/L (10-20); BUN (Urea Nitrogen) 5 mg/dL (7.0-18.7); Calc. Creatinine Clearance 152 mL/min (70-130); Calcium 9.4 mg/dL (7.8-10.44); Carbon Dioxide 25 mmol/L (22-29); Chloride 103 mmol/L (98-107); Estimated GFR-MDRD Greater than 90; Glucose 165 mg/dL (70-105); Lactic Acid 4.1 mmol/L (0.5-2.2); Potassium 4.6 mmol/L (3.5-5.1); Sodium 140 mmol/L (136-145)
[2019-01-15] MEDS ORDERED: Acetaminophen 500 MG TAB PO SCH (15:15)
[2019-01-15] MEDS ORDERED: Lidocaine 5% Patch TD SCH (15:15)
[2019-01-15] MEDS ORDERED: Lactated Ringer's 500 ML IV SCH (15:15)
[2019-01-15] MEDS ORDERED: Ketorolac Tromethamine 30 MG/ML VIAL IVP SCH (15:30)
[2019-01-15] MEDS: Vancomycin HCl 1 GM in Premix Bag 1 BAG IVPB SCH (17:55)
[2019-01-15 19:36] LABS: Lactic Acid 2.5 mmol/L (0.5-2.2)
[2019-01-15] MEDS: HYDROcodone/Acetaminophen 10/325 mg Tablet PO PRN (20:26)
--- NOTE | 2019-01-15 21:45 | CON ---
DATE OF CONSULTATION: 01/15/2019 HISTORY OF PRESENT ILLNESS: Karla Guy is a 43-year-old female, who reportedly has lupus. She was seen by me last admission, and serology did not show any evidence of active lupus. She did have a diffusely abnormal chest x-ray, that improved with steroids, breathing treatments, and antibiotics rather rapidly. Improvement was felt to be most consistent with pulmonary edema, but her BNP as I recall was in the 20s. She is noncompliant with followup with her doctors. She had been seeing a management trainer in over 6 months. She says she takes between 20 and 40 mg of prednisone every day. She subsequently has been admitted with shortness of breath. She says she feels better than she felt yesterday. PAST MEDICAL HISTORY: 1. Remarkable? lupus. 2. History of medical noncompliance. 3. History of obesity. 4. History of diffuse infiltrates in the past on chest x-ray. She never did get a followup x-ray with anybody by my recommendations to do so. Her is at the bedside. He acknowledges that she was told that. 5. History of rheumatoid arthritis. 6. Reported history of COPD. 7. History of hypertension. 8. History of anemia of chronic disease. ALLERGIES: SHE REPORTS ALLERGIES TO LEVAQUIN AND NONSTEROIDALS. SOCIAL HISTORY: She continues to smoke a half to one pack a day up to 2 packs a day at times. She has no alcohol intake at this time. FAMILY HISTORY: Negative for lung disease in early age. MEDICATIONS: Reviewed. REVIEW OF SYSTEMS: Ten points completed otherwise negative. She denies hemoptysis. PHYSICAL EXAMINATION: GENERAL: She is in no distress at rest. VITAL SIGNS: She is afebrile. Blood pressure 120/80, heart rate is in the 90s, respiratory rate 20s, oximetry is 98% on room air. HEAD AND NECK: Unremarkable. She has a big ecchymotic area in her left cheek all the way down to her jawline angle. NECK: Supple without lymphadenopathy. LUNGS: Remarkable for crackles at both lung bases. HEART: Regular rhythm. ABDOMEN: Soft and nontender. EXTREMITIES: Without clubbing, cyanosis, or edema. Right upper extremity is remarkable for multiple excoriated scabbed over lesions. She says this is what happens when her vasculitis flares, but she does not have any of those lesions on her lower extremities and not on her abdominal wall. IMPRESSION: 1. ? Vasculitis. 2. Diffuse infiltrates on chest radiograph. I suspect this is similar to what happened in the past. With steroids and antibiotics, she has had a rapid improvement, arguing that this is either a steroid response or pulmonary edema. The argument against pulmonary edema is that she has had negative echos in the past and normal BUNs. I will be happy to follow the other physicians caring for. I have explained to her today and her her medical noncompliance will be a factor in how long she lives with whatever illness she has. This is a 70 minute consult, with greater than 50% of time spent on unit coordinating care. Job ID: [id number] MTDD
[2019-01-16] MEDS: HYDROcodone/Acetaminophen 10/325 mg Tablet PO PRN ×6 (00:30→23:12)
[2019-01-16] MEDS ORDERED: Lidocaine Patch Removal 1 EACH TOP SCH (03:15)
[2019-01-16] MEDS: Vancomycin HCl 1 GM in Premix Bag 1 BAG IVPB SCH ×2 (04:06→17:39)
[2019-01-16] MEDS: methylPREDNISolone Sod Succ/PF 125 MG/2 ML VIAL IVP SCH ×4 (05:12→23:04)
[2019-01-16] MEDS: Lactated Ringer's 1,000 ML IV SCH ×3 (05:13→21:15)
[2019-01-16 05:30] LABS: #Basophils 0.1 thou/uL (0.0-0.2); #Lymphocytes 0.5 thou/uL (1.20-3.40); #Monocytes 0.6 thou/uL (0.11-0.59); #Neutrophils 22.2 thou/uL (1.40-6.50); %Basophils 0.2 % (0.0-1.0); %Eosinophils 0.1 % (0.0-10.0); %Lymphocytes 1.9 % (21.0-51.0); %Monocytes 2.4 % (0.0-10.0); %Neutrophils 95.3 % (42.0-75.0); Hemoglobin 10.9 g/dL (12.0-16.0); Mean Corpuscular HGB CONC 32.7 g/dL (32.0-36.0); Mean Corpuscular Hemoglobin 30.9 pg (27.0-31.0); Mean Corpuscular Volume 94.5 fL (78.0-98.0); Mean Platelet Volume 7.3 fL (7.4-10.4); Platelet Count 272 thou/uL (130-400); Red Blood Cell (RBC) Count 3.54 mill/uL (4.20-5.40); White Blood Cell (WBC) Count 23.3 thou/uL (4.8-10.8)
[2019-01-16 05:52] LABS: Anion Gap 14 mmol/L (10-20); BUN (Urea Nitrogen) 13 mg/dL (7.0-18.7); Calc. Creatinine Clearance 135 mL/min (70-130); Calcium 9.5 mg/dL (7.8-10.44); Carbon Dioxide 28 mmol/L (22-29); Chloride 102 mmol/L (98-107); Estimated GFR-MDRD 77; Glucose 206 mg/dL (70-105); Potassium 3.5 mmol/L (3.5-5.1); Sodium 140 mmol/L (136-145)
[2019-01-16] MEDS: Cefepime 2 GM in Sodium Chloride 0.9% 100 ML IVPB SCH ×3 (06:16→23:04)
--- NOTE | 2019-01-16 06:43 | PDOC.FM ---
- Subjective Subjective: On 2-5L overnight. Reports improvement from yesterday in SOB but continues to have pain and SOB. Denies fever, chills. Reports lesions on her arm have been present for 3 months and on her face for 1 wk. - Objective MAR Reviewed: Yes Vital Signs & Weight: Vital Signs (12 hours) Temp 01/16/19 04:00 98.9 F 01/15/19 23:25 98.7 F 01/15/19 19:39 99 F Weight Weight 96.19 kg Most Recent Monitor Data Heart Rate from ECG 103 NIBP 113/67 NIBP BP-Mean 82 Respiration from ECG 26 SpO2 90 I&O: 01/14/19 01/15/19 01/16/19 06:59 06:59 06:59 Intake Total 1800 Output Total 650 Balance 1150 Result Diagrams: 01/17/19 04:13 01/17/19 04:13 Phys Exam - Physical Examination Snoring, fatigued HEENT: moist MMs crusted wound on left lower face Neck: supple Diffuse rhonchi and bibasilar wheezing Cardiovascular: RRR, no significant murmur Gastrointestinal: soft, non-tender Musculoskeletal: no edema Neurological: moves all 4 limbs Psychiatric: normal affect, A&O x 3 Deviation from normal: sores and exoriation on right arm Dx/Plan - Plan Plan: Acute on chronic hypoxic respiratory failure - Hospital Acquired Pneumonia in presence of interstitial lung disease - Continue Vanc, Cefepime, Azithromycin - Procal 29-> 19 - Flu & RVP negative - Improving with antibiotics, continue to monitor in IMCU today. Could potentially move up to the floor tomorrow. RA/SLE - Continue Plaquenil. Stress dose steroids Elevated lactic acid - 2.7-> 4.1 -> 2.5 - Continue mIVF Anemia of Chronic Disease - Hgb 10.9 Hypokalemia, resolved Code Status: FULL DVT ppx: Lovenox Addendum - Attending - Attending Attestation Date/Time: 01/16/19 [id number] I personally evaluated the patient and discussed the management with Dr. Whitten. I agree with the History, Examination, Assessment and Plan documented above with any addition or exceptions noted below. The patient is on oxygen via nasal cannula but satting in the upper 80's, 88 % currently. Discussed stepping up to venti mask and possible bipap. Lactic acidoses and procal are improving. Continue antibiotics. Monitor respiratory status closely.
[2019-01-16] MEDS: Azithromycin 500 MG in Sodium Chloride 0.9% 250 ML 250 ML IVPB SCH (08:56)
[2019-01-16] MEDS: Hydroxychloroquine Sulfate 200 MG TAB PO SCH (09:09)
[2019-01-16] MEDS: Divalproex Sodium 250 MG (DR) TAB PO SCH (09:09)
[2019-01-16] MEDS: predniSONE 20 MG TAB PO SCH (09:09)
[2019-01-16] MEDS: Enoxaparin Sodium 40 MG/0.4 ML SYRINGE SC SCH (09:11)
[2019-01-16] MEDS: Furosemide 20 MG TAB PO SCH (09:11)
[2019-01-16 16:57] LABS: Vancomycin, Trough 7.5 ug/mL
[2019-01-16] MEDS ORDERED: Vancomycin HCl 1 GM in Premix Bag 1 BAG IVPB SCH (21:00)
[2019-01-17] MEDS: Vancomycin HCl 1 GM in Premix Bag 1 BAG IVPB SCH ×3 (00:47→17:27)
[2019-01-17 04:56] LABS: Band 21 % (5-11); Hemoglobin 10.3 g/dL (12.0-16.0); Lymphocytes 5 % (21-51); MDiff Complete? YES; Mean Corpuscular Hemoglobin 30.8 pg (27.0-31.0); Mean Corpuscular Volume 93.4 fL (78.0-98.0); Mean Platelet Volume 7.2 fL (7.4-10.4); Metamyelocyte 1 % (0-0); Monocytes 3 % (0-10); Neutrophil 69 % (42-75); Nucleated RBC 1 % (0); Platelet Count 276 thou/uL (130-400); Platelet Morphology Comment Appears Adequate; RBC Distribution Width 14.9 % (11.5-14.5); RBC Morphology Normal; Reactive Lymphocytes 1 % (0-10); Red Blood Cell (RBC) Count 3.35 mill/uL (4.20-5.40); White Blood Cell (WBC) Count 19.2 thou/uL (4.8-10.8)
[2019-01-17 04:57] LABS: Anion Gap 15 mmol/L (10-20); BUN (Urea Nitrogen) 17 mg/dL (7.0-18.7); Calc. Creatinine Clearance 149 mL/min (70-130); Calcium 9.3 mg/dL (7.8-10.44); Carbon Dioxide 27 mmol/L (22-29); Chloride 101 mmol/L (98-107); Estimated GFR-MDRD 87; Glucose 133 mg/dL (70-105); Potassium 4.2 mmol/L (3.5-5.1); Sodium 139 mmol/L (136-145)
--- NOTE | 2019-01-17 05:27 | PDOC.FM ---
- Subjective Subjective: Patient desat to 86-90% O2 overnight, O2 via n/c increased from 3 to 5L with O2 sat only improving to 91-92%. This morning patient states that she continues to have productive cough. She says she coughed up blood once. She has a sputum up at bedside but says she forgets to provide a sample. She has no appetite, is nauseous, and was unable to eat dinner last night. Additionally complains of chest and back pain. At bedside patient's RR is 48 that decreases to 36 after talking with her for about 5 minutes. O2 sat at 92% on 3L N/C. - Objective MAR Reviewed: Yes Vital Signs & Weight: Vital Signs (12 hours) Temp 01/17/19 03:18 97.4 F L 01/16/19 23:36 97.7 F 01/16/19 19:51 97.6 F Weight Weight 96.19 kg Most Recent Monitor Data Heart Rate from ECG 75 NIBP 140/91 NIBP BP-Mean 107 Respiration from ECG 30 SpO2 89 I&O: 01/15/19 01/16/19 01/17/19 06:59 06:59 06:59 Intake Total 1800 2430 Output Total 650 725 Balance 1150 1705 Result Diagrams: 01/17/19 04:13 01/17/19 04:13 Phys Exam - Physical Examination Constitutional: NAD HEENT: moist MMs, sclera anicteric left lower face lesion with crusted blood present Neck: full ROM rapid shallow breaths with no deep excursions, decreased breath sounds coarse sounds throughout all lobes Cardiovascular: RRR, no significant murmur Gastrointestinal: soft, non-tender, no distention, positive bowel sounds Musculoskeletal: no edema, pulses present Neurological: moves all 4 limbs Deviation from normal: alert, oriented to person and place; depressed affect Deviation from normal: multiple scattered lesions in various stages of healing Dx/Plan (1) Acute respiratory failure with hypoxia Code(s): J96.01 - ACUTE RESPIRATORY FAILURE WITH HYPOXIA Status: Acute (2) Pneumonia Code(s): J18.9 - PNEUMONIA, UNSPECIFIED ORGANISM Status: Acute Qualifiers: Pneumonia type: due to unspecified organism Laterality: bilateral Lung location: unspecified part of lung Qualified Code(s): J18.9 - Pneumonia, unspecified organism (3) ILD (interstitial lung disease) Code(s): J84.9 - INTERSTITIAL PULMONARY DISEASE, UNSPECIFIED Status: Chronic (4) Lupus Code(s): M32.9 - SYSTEMIC LUPUS ERYTHEMATOSUS, UNSPECIFIED Status: Chronic Qualifiers: Systemic lupus erythematosus type: unspecified Systemic lupus erythematosus organ involvement: lung involvement Qualified Code(s): M32.13 - Lung involvement in systemic lupus erythematosus - Plan Plan: Patient is a 43 yo female who presents with SOB and hypoxia is admitted for HAP and acute hypoxic respiratory failure: #Acute on chronic hypoxic respiratory failure ->Hospital Acquired Pneumonia in presence of interstitial lung disease - Continue Vanc, Cefepime, Azithromycin - Procal 29-> 19 > 7.23 - Flu & RVP negative - Improving with antibiotics, continue to monitor in IMCU today. - continues to be hypoxic at night, Patient desat to 86-90% O2 overnight, O2 via n/c increased from 3 to 5L with O2 sat only improving to 91-92%. Suspect that the patient may have WILLIAM as patient's O2 sat improves during the daytime. - recommend sleep study as outpatient - sputum culture pending - Incentive spirometry ordered and placed at bedside #RA/SLE - Continue Plaquenil - increase dose of steroids to stress dose #Elevated lactic acid - 2.7-> 4.1 -> 2.5 - Continue mIVF NS @ 120 ml/h #Anemia of Chronic Disease - Hgb 10.9 #Hypokalemia, resolved - monitor CMP Diet: HH, low Na VTE: Lovenox Code Status: FULL PCP: CC Dispo: Admitted to inpatient on IMCU unit. Will continue current ABx. Still requiring increased O2 at night. Anticipate discharge in >48 hrs. Addendum - Attending - Attending Attestation Date/Time: 01/17/19 3082 I personally evaluated the patient and discussed the management with Dr. Hannah I agree with the History, Examination, Assessment and Plan documented above with any addition or exceptions noted below. Patient sitting up to bed mild labored breathing with inspiratory wheeze on exam rec check ABG start scheduled Neb continue IV steroids. Appreciate Pulmonary recommendations
[2019-01-17] MEDS: methylPREDNISolone Sod Succ/PF 125 MG/2 ML VIAL IVP SCH ×4 (05:35→23:31)
[2019-01-17] MEDS: HYDROcodone/Acetaminophen 10/325 mg Tablet PO PRN ×5 (05:35→23:31)
[2019-01-17] MEDS: Cefepime 2 GM in Sodium Chloride 0.9% 100 ML IVPB SCH ×3 (06:26→23:30)
[2019-01-17 09:38] LABS: CO2 Tension 45.9 mmHg (35.0-45.0); Carboxyhemoglobin (COHb) 1.4 gm% (0.0-3.0); Hemoglobin (Hb) 11.4 g/dL (12.0-16.0); Potassium - ABG Lab 4.21 mmol/L (3.70-5.30); pH, Arterial 7.43 (7.35-7.45)
[2019-01-17 09:46] LABS: O2 Tension (PaO2) 46.5 mmHg (80.0-100.0); Puncture Site RBRACH
[2019-01-17] MEDS: Azithromycin 500 MG in Sodium Chloride 0.9% 250 ML 250 ML IVPB SCH (09:57)
[2019-01-17] MEDS: Divalproex Sodium 250 MG (DR) TAB PO SCH (09:57)
[2019-01-17] MEDS: Lactated Ringer's 1,000 ML IV SCH (09:57)
[2019-01-17] MEDS: Enoxaparin Sodium 40 MG/0.4 ML SYRINGE SC SCH (09:57)
[2019-01-17] MEDS: predniSONE 20 MG TAB PO SCH (09:58)
[2019-01-17] MEDS: Hydroxychloroquine Sulfate 200 MG TAB PO SCH (09:58)
[2019-01-17] MEDS: Furosemide 20 MG TAB PO SCH (09:58)
[2019-01-17] MEDS ORDERED: Furosemide 40 MG/4 ML VIAL IVP SCH (11:30)
--- NOTE | 2019-01-17 11:35 | RAD ---
XR Chest 1 View Portable History: Respiratory distress Comparison: Radiograph 2 days prior Findings: Multifocal airspace opacities are similar. No pneumothorax. Heart size is enlarged. No acut e osseous normality. Likely small effusions. Impression: Similar appearance multifocal pneumonia. Continued follow-up recommended.
--- NOTE | 2019-01-17 11:42 | PRG ---
DATE OF SERVICE: 01/17/2019 SUBJECTIVE: The patient continues to do rather poorly. She remains on a Ventimask. She is not very talkative. Her is at the bedside. OBJECTIVE: VITAL SIGNS: Temperature is 97.2, pulse 86, blood pressure 145/106, O2 saturation is 98% on a Ventimask. HEENT: Unremarkable. NECK: No adenopathy or JVD. LUNGS: She has inspiratory squeaks and crackles. CARDIAC: S1, S2, regular. ABDOMEN: Soft. EXTREMITIES: She has discoid type lesions over her right arm. She has edema in her lower extremities. LABORATORY DATA: Sodium 139, potassium 4.2, chloride 101, CO2 of 27, BUN 17, creatinine 0.7, glucose 133. Procalcitonin level 7.2. White blood cell count 19.2, hematocrit 31.3, and platelet count 276. Chest x-ray shows diffuse bilateral infiltrates, not much changed since admission. So far cultures are negative. ASSESSMENT: 1. Lupus with flare suggesting either pneumonitis or vasculitis. 2. Acute hypoxic respiratory failure. PLAN: 1. I would go ahead and stop the IV fluids since she is receiving Lasix, continue the antibiotics. Give one dose of IV Lasix this afternoon. 2. Check labs tomorrow. Job ID: [id number]
[2019-01-17 14:14] LABS: Legionella Urinary Ag Negative (Negative); Strep pneumo Urine Ag NEGATIVE (NEGATIVE)
[2019-01-18] MEDS: Vancomycin HCl 1 GM in Premix Bag 1 BAG IVPB SCH ×3 (00:29→16:32)
[2019-01-18] MEDS: HYDROcodone/Acetaminophen 10/325 mg Tablet PO PRN ×5 (03:00→20:49)
[2019-01-18] MEDS: methylPREDNISolone Sod Succ/PF 125 MG/2 ML VIAL IVP SCH ×4 (05:24→23:35)
[2019-01-18] MEDS: Cefepime 2 GM in Sodium Chloride 0.9% 100 ML IVPB SCH ×3 (05:29→23:35)
--- NOTE | 2019-01-18 05:38 | PDOC.FM ---
- Subjective Subjective: Patient continues to require Venturi mask for O2. When talking to patient she removes the mask and after a period of 2-3 minutes she desat O2 to low 80s%. She continues to have harsh cough but says she doesn't remember to provide sputum sample. Continues to complain of chest pain in central chest, back pain, and neck pain. 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 73 21 H 100 01/18/19 00:00 98.7 F 01/17/19 22:12 71 18 100 01/17/19 20:00 100 01/17/19 19:23 98.9 F 01/17/19 18:37 77 28 H 100 Weight Weight 95.453 kg Most Recent Monitor Data Heart Rate from ECG 88 NIBP 153/94 NIBP BP-Mean 113 Respiration from ECG 25 SpO2 100 I&O: 01/16/19 01/17/19 01/18/19 06:59 06:59 05:59 Intake Total 4570 2990 Output Total 1425 2725 Balance 3145 265 Result Diagrams: 01/18/19 05:21 01/18/19 05:21 Phys Exam - Physical Examination Constitutional: NAD HEENT: moist MMs, sclera anicteric Neck: supple TTP posterior neck Respiratory: no wheezing coarse breath sounds heard throughout Cardiovascular: RRR, no significant murmur Gastrointestinal: soft, non-tender, positive bowel sounds Musculoskeletal: no edema, pulses present chest TTP, back TTP Neurological: normal sensation, moves all 4 limbs Psychiatric: A&O x 3 Skin: no rash, normal turgor Deviation from normal: lesion with scab formed on left lower face. -: multiple scattered lesions on extremities in various stages of healing Dx/Plan (1) Acute respiratory failure with hypoxia Code(s): J96.01 - ACUTE RESPIRATORY FAILURE WITH HYPOXIA Status: Acute (2) Pneumonia Code(s): J18.9 - PNEUMONIA, UNSPECIFIED ORGANISM Status: Acute Qualifiers: Pneumonia type: due to unspecified organism Laterality: bilateral Lung location: unspecified part of lung Qualified Code(s): J18.9 - Pneumonia, unspecified organism (3) ILD (interstitial lung disease) Code(s): J84.9 - INTERSTITIAL PULMONARY DISEASE, UNSPECIFIED Status: Chronic (4) Lupus Code(s): M32.9 - SYSTEMIC LUPUS ERYTHEMATOSUS, UNSPECIFIED Status: Chronic Qualifiers: Systemic lupus erythematosus type: unspecified Systemic lupus erythematosus organ involvement: lung involvement Qualified Code(s): M32.13 - Lung involvement in systemic lupus erythematosus - Plan Plan: Patient is a 43 yo female who presents with SOB and hypoxia is admitted for HAP and acute hypoxic respiratory failure: #Acute on chronic hypoxic respiratory failure ->Hospital Acquired Pneumonia in presence of interstitial lung disease - CXR 01/15: bilateral infiltrates - Continue Vanc, Cefepime, Azithromycin - Procal 29-> 19 > 7.23 - Flu & RVP negative - Improving with antibiotics, continue to monitor in IMCU today. - continues to be hypoxic at night (01/15 to 01/17), Patient desat to 86-90% O2 overnight, O2 via n/c increased from 3 to 5L with O2 sat only improving to 91-92 %. Suspect that the patient may have WILLIAM as patient's O2 sat improves during the daytime. - recommend sleep study as outpatient - sputum culture pending - Incentive spirometry ordered and placed at bedside - On 01/17-3 patient's respiratory status worsens during daytime, Venturi mask now applied with respirations in 20s and O2 sat in upper 90s. CXR repeated 01/17 showed similar findings to admission (bilat. infiltrates). Will schedule Duonebs. - Pulmonology consulted, appreciate recs-- Dr. Stovall recommends discontinuing fluids, continue ABx, continue Lasix with an additional 1 time IV dose (01/17) - ABG on 01/17: pH 7.43, CO2 46, O2 47, HCO3 30 - Legionella and Strep. pneumo urinary antigens negative - add on scheduled Duonebs (01/17) #RA/SLE - Continue Plaquenil - increase dose of steroids to stress dose: receiving IV Solumedrol 125 - PO Prednisone 40 daily from 01/15 to 01/17 - patient known to self-dose her home steroids when at home depending on her pain #Elevated lactic acid - 2.7-> 4.1 -> 2.5 - Continue mIVF NS @ 120 ml/h #Anemia of Chronic Disease - Hgb 10.9 #Hypokalemia, resolved - monitor CMP Diet: HH, low Na VTE: Lovenox Code Status: FULL PCP: CC Dispo: Admitted to inpatient on IMCU unit. Will continue current ABx. Still requiring increased O2 at night and now during daytime. Anticipate discharge in >48 hrs. Addendum - Attending - Attending Attestation Date/Time: 01/18/19 1411 I personally evaluated the patient and discussed the management with Dr. Hannah I agree with the History, Examination, Assessment and Plan documented above with any addition or exceptions noted below. Patient clinically improved she remains venti mask.
[2019-01-18 05:49] LABS: Band 2 % (5-11); Hemoglobin 10.5 g/dL (12.0-16.0); Hypochromia SLIGHT = 6-15 cells (100X) (0-5/hpf); Lymphocytes 5 % (21-51); MDiff Complete? YES; Mean Corpuscular Hemoglobin 30.7 pg (27.0-31.0); Mean Corpuscular Volume 93.1 fL (78.0-98.0); Mean Platelet Volume 7.1 fL (7.4-10.4); Monocytes 1 % (0-10); Neutrophil 92 % (42-75); Platelet Count 235 thou/uL (130-400); Platelet Morphology Comment Appears Adequate; RBC Distribution Width 14.7 % (11.5-14.5); Red Blood Cell (RBC) Count 3.41 mill/uL (4.20-5.40); White Blood Cell (WBC) Count 11.4 thou/uL (4.8-10.8)
[2019-01-18 06:02] LABS: Anion Gap 14 mmol/L (10-20); BUN (Urea Nitrogen) 21 mg/dL (7.0-18.7); Calc. Creatinine Clearance 146 mL/min (70-130); Calcium 9.4 mg/dL (7.8-10.44); Carbon Dioxide 34 mmol/L (22-29); Chloride 100 mmol/L (98-107); Estimated GFR-MDRD 85; Glucose 168 mg/dL (70-105); Potassium 3.5 mmol/L (3.5-5.1); Sodium 144 mmol/L (136-145)
[2019-01-18] MEDS: Azithromycin 500 MG in Sodium Chloride 0.9% 250 ML 250 ML IVPB SCH (07:54)
[2019-01-18] MEDS: Enoxaparin Sodium 40 MG/0.4 ML SYRINGE SC SCH (07:55)
[2019-01-18] MEDS: Divalproex Sodium 250 MG (DR) TAB PO SCH (07:55)
[2019-01-18] MEDS: Hydroxychloroquine Sulfate 200 MG TAB PO SCH (07:55)
[2019-01-18] MEDS: Furosemide 20 MG TAB PO SCH (07:55)
--- NOTE | 2019-01-18 10:20 | PRG ---
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 She looks much better than yesterday. OBJECTIVE: VITAL SIGNS: Temperature 97.4, pulse 88, blood pressure 175/97, and O2 saturation 100%. A 24-hour intake 2990 and output 2725. HEENT: Unremarkable. NECK: No adenopathy or JVD. LUNGS: She has inspiratory rales and squeaks bilaterally. CARDIAC: S1 and S2. Regular. ABDOMEN: Soft. EXTREMITIES: She has discoid lesions of her right arm. LABORATORY DATA: White blood cell count 11.4, hematocrit 31.7, and platelet count 235. Sodium 144, potassium 3.5, chloride 100, CO2 of 34, BUN 21, creatinine 0.7, and glucose 168. ASSESSMENT: 1. Lupus with flare suggesting either pneumonitis or vasculitis. 2. Acute respiratory failure. PLAN: 1. Continue steroids, diuretics, and antibiotics. 2. Wean oxygen as tolerated. 3. Recheck chest x-ray tomorrow. Job ID: [id number]
[2019-01-18 16:55] LABS: Vancomycin, Trough 19.7 ug/mL
--- NOTE | 2019-01-18 19:10 | PDOC.EVN ---
Event Note - Event Note Event Note: Received page from RN for pt having pain of headache and left-sided flank pain. Has received norco 10/325 q4h x4 today. Has allergies to tramadol of seizures and NSAIDs for kidney function. Pt Reports she fell the day prior to admission in the bathroom after feeling dizzy, like the room was spinning. She had used the restroom and stood up from the toilet and fell hitting the left side of her back. + blurry vision w/ this episode. Reports normal vision now. Denies weakness on one side more than another. Has history of migraines, but this feels somewhat different to her. Describes R parietal pain, sharp, stabbing pain that is intermittent. Usually her migraines do not last as long as this headache has. Reports prior history of receiving occipital injections for headaches. PEx: Gen: no acute distress, satting 98-100% on 5L O2 NC, AxO x4 HEENT: R pupil approx 5 mm, L pupil approx 3 mm, Both reactive to light w/ direct and consensual response, although R pupil stayed larger than L at all times during exam. EOMI. Heart: RRR, no murmurs Lungs: minimal crackles over anterior upper lung rubio bilaterally, minimal crackle and wheeze over lung bases b/l, otherwise clear. No increased WOB. Abdomen: soft, nondistended Skin: area of bruising over left flank about 5 cm in length and 2 cm wide. Appears to be healing. Multiple areas of excoriation on abdomen possibly from pt scratching self. MSK: Spine not TTP, minimal tenderness around area of bruising on back. Neuro: CNII-XII intact except as noted above, no decreased strength b/l, sensation intact. A/P: - Ordered Stat Brain CT without contrast. Rule out serious cause of new unilateral mydriasis such as brain bleed or cerebral herniation. Reviewed chart w/ RN and no documentation of this PEx finding previously by RNs or physicians. Pt denied ever having unilateral mydriasis to her knowledge. - Ordered orthostatic vital signs for her near-syncopal episode which occurred prior to admission - She initially presented w/ confusion and low O2 sats; confusion was attributed to her poor oxygenation status and has been improving from respiratory standpoint. - Reviewed EKG which showed sinus tach. - Ordered tylenol NOW dose of 650mg for headache. Pt has looked well from respiratory standpoint but would like to avoid another opioid on top of her Varina since she was on Venturi Mask for most of today and just recently was titrated to NC. - Will reassess as needed.
[2019-01-18] MEDS ORDERED: Acetaminophen 325 MG TAB PO SCH (19:15)
--- NOTE | 2019-01-18 20:59 | CT ---
CT BRAIN WITHOUT CONTRAST: HISTORY: Headaches. Blown pupil. COMPARISON: None. FINDINGS: No acute hemorrhage or infarct. No midline shift or mass effect. The ventricular size and extraaxial CSF spaces are normal. The calvarium is intact. The paranasal sinuses and mastoids are clear. IMPRESSION: No acute intracranial abnormality. POS: HOME
[2019-01-19] MEDS: Vancomycin HCl 1 GM in Premix Bag 1 BAG IVPB SCH ×3 (00:20→16:21)
[2019-01-19] MEDS: HYDROcodone/Acetaminophen 10/325 mg Tablet PO PRN ×5 (01:06→20:34)
[2019-01-19] MEDS ORDERED: hydrALAZINE 20 MG/ML VIAL SLOW IVP PRN (02:41)
[2019-01-19] MEDS ORDERED: Morphine 2 MG/ML SYRINGE SLOW IVP PRN (02:44)
[2019-01-19 04:49] LABS: #Lymphocytes 0.5 thou/uL (1.20-3.40); #Monocytes 0.6 thou/uL (0.11-0.59); #Neutrophils 8.5 thou/uL (1.40-6.50); %Eosinophils 0.2 % (0.0-10.0); %Lymphocytes 4.8 % (21.0-51.0); %Monocytes 6.3 % (0.0-10.0); %Neutrophils 88.8 % (42.0-75.0); Hemoglobin 10.3 g/dL (12.0-16.0); Mean Corpuscular HGB CONC 33.6 g/dL (32.0-36.0); Mean Corpuscular Hemoglobin 31.1 pg (27.0-31.0); Mean Corpuscular Volume 92.8 fL (78.0-98.0); Mean Platelet Volume 7.2 fL (7.4-10.4); Platelet Count 240 thou/uL (130-400); RBC Distribution Width 14.4 % (11.5-14.5); Red Blood Cell (RBC) Count 3.31 mill/uL (4.20-5.40); White Blood Cell (WBC) Count 9.6 thou/uL (4.8-10.8)
[2019-01-19 05:05] LABS: Anion Gap 15 mmol/L (10-20); BUN (Urea Nitrogen) 16 mg/dL (7.0-18.7); Calc. Creatinine Clearance 157 mL/min (70-130); Calcium 9.2 mg/dL (7.8-10.44); Carbon Dioxide 33 mmol/L (22-29); Chloride 97 mmol/L (98-107); Estimated GFR-MDRD Greater than 90; Glucose 171 mg/dL (70-105); Potassium 3.3 mmol/L (3.5-5.1); Sodium 142 mmol/L (136-145)
[2019-01-19] MEDS: methylPREDNISolone Sod Succ/PF 125 MG/2 ML VIAL IVP SCH ×2 (06:27→12:03)
[2019-01-19] MEDS: Cefepime 2 GM in Sodium Chloride 0.9% 100 ML IVPB SCH ×3 (06:28→23:06)
--- NOTE | 2019-01-19 07:18 | PDOC.FM ---
- Subjective Subjective: Had some pain overnight, likely related to her fall. She received IV morphine for some pain relief. Pt reports her breathing is better this morning. She denies chest pain. She does report seeing things like her cats when her oxygen drops too low. - Objective MAR Reviewed: Yes Vital Signs & Weight: Vital Signs (12 hours) Temp Pulse Resp BP BP BP Pulse Ox 01/19/19 04:00 98.3 F 01/19/19 02:16 64 18 98 01/19/19 00:00 98.7 F 01/18/19 22:13 61 21 H 97 01/18/19 20:10 177/115 H 172/122 H 172/110 H 01/18/19 20:00 97.2 F L Weight Weight 94.007 kg Most Recent Monitor Data Heart Rate from ECG 88 NIBP 136/101 NIBP BP-Mean 112 Respiration from ECG 22 SpO2 98 I&O: 01/18/19 01/19/19 01/20/19 06:59 06:59 06:59 Intake Total 1560 850 Output Total 1650 1000 Balance -90 -150 Result Diagrams: 01/19/19 04:24 01/19/19 04:24 Phys Exam - Physical Examination Constitutional: NAD HEENT: moist MMs right eye is dilated at 7mm, reactive, left eye 5 mm reactive Crackles at bases Cardiovascular: RRR, no significant murmur Gastrointestinal: soft, non-tender, positive bowel sounds Musculoskeletal: no edema, pulses present Neurological: moves all 4 limbs Psychiatric: A&O x 3 Skin: cap refill <2 seconds Dx/Plan (1) Acute and chronic respiratory failure with hypoxia Code(s): J96.21 - ACUTE AND CHRONIC RESPIRATORY FAILURE WITH HYPOXIA Status: Acute (2) Pneumonia Code(s): J18.9 - PNEUMONIA, UNSPECIFIED ORGANISM Status: Acute Qualifiers: Pneumonia type: due to unspecified organism Laterality: bilateral Lung location: unspecified part of lung Qualified Code(s): J18.9 - Pneumonia, unspecified organism (3) Lupus Code(s): M32.9 - SYSTEMIC LUPUS ERYTHEMATOSUS, UNSPECIFIED Status: Chronic Qualifiers: Systemic lupus erythematosus type: unspecified Systemic lupus erythematosus organ involvement: lung involvement Qualified Code(s): M32.13 - Lung involvement in systemic lupus erythematosus - Plan Plan: Acute hypoxic hypercapnic respiratory failure on chronic respiratory failure ( 3L ns at baseline) - Likely 2/2 HAP in the presence of interstitial lung disease -Continue vanc, cefepime, and azithromycin -Pt required increased oxygen overnight -Will follow wbc and procal, both of which are trending down nicely -Likely move out of IMCU after rounds -Pulmonology consulted RA/SLE -Continue praquenil -Receiving stress dose of steroids Elevated lactic acid, trending down Anemia of chronic disease Hypokalemia, resolved Chronic pain -Scheduled norco -one time dose IV morphine overnight -PO morphine IR
[2019-01-19] MEDS ORDERED: Aquaphor 10 GM TUBE TOP PRN (07:56)
--- NOTE | 2019-01-19 08:15 | RAD ---
PORTABLE CHEST 1 VIEW: Date: 01/19/19 Time: 0405 hours HISTORY: Pneumonia. FINDINGS/IMPRESSION: Comparison made with exam of 01/17/19. The heart is enlarged. There is mild interval improvement in the multifocal air space opacities noted bilaterally since the last exam. No pneumothoraces are seen. Small pleural effusions may be present. POS: OFF
[2019-01-19] MEDS: Azithromycin 500 MG in Sodium Chloride 0.9% 250 ML 250 ML IVPB SCH (09:50)
[2019-01-19] MEDS: Divalproex Sodium 250 MG (DR) TAB PO SCH (09:51)
[2019-01-19] MEDS: Hydroxychloroquine Sulfate 200 MG TAB PO SCH (09:52)
[2019-01-19] MEDS: Enoxaparin Sodium 40 MG/0.4 ML SYRINGE SC SCH (09:52)
[2019-01-19] MEDS: Furosemide 20 MG TAB PO SCH (09:52)
[2019-01-19] MEDS: Morphine IR 10 MG/5 ML UDCUP PO PRN ×2 (13:15→23:28)
--- NOTE | 2019-01-19 14:47 | PRG ---
DATE OF SERVICE: 01/19/2019 I have reviewed the note of Dr. Eric Santo and agree with his assessment and plan. Ms. Guy has a history of rheumatoid arthritis and interstitial lung disease secondary to rheumatoid arthritis. She was admitted with respiratory failure and pneumonia. She was treated appropriately and is already looking and feeling much better. She could likely be moved to a regular bed in 1 or 2 days. Job ID: [id number]
[2019-01-19] MEDS ORDERED: methylPREDNISolone Sod Succ/PF 125 MG/2 ML VIAL IVP SCH (15:52)
[2019-01-19] MEDS ORDERED: Bacteriostatic Water 30 ML VIAL FS PRN (15:55)
[2019-01-19] MEDS: methylPREDNISolone Sod Succ 40 MG VIAL IVP SCH ×2 (16:20→23:06)
--- NOTE | 2019-01-19 16:33 | PRG ---
DATE OF SERVICE: 01/19/2019 SUBJECTIVE: Karla Guy has makeup on today. She says she is feeling better. OBJECTIVE: VITAL SIGNS: She is afebrile. Heart rate is 88, respiratory rate 19, and blood pressure 161/89. LUNGS: Clear. HEART: Regular rhythm. ABDOMEN: Soft and nontender. EXTREMITIES: Without asymmetry. LABORATORY DATA: White count 9.6, hemoglobin 10.3, platelets 240,000. Sodium 142, potassium 3.3, chloride 97, bicarb 33, BUN 16, creatinine 0.69. Chest x-ray done today shows improvement of the pulmonary infiltrates. IMPRESSION: 1. Pneumonia versus pulmonary infiltrate secondary to underlying vasculitis. 2. Marginal medical compliance. 3. Steroid dosing can be decreased. She could be switched to p.o. antimicrobial therapy. Job ID: [id number]
[2019-01-19] MEDS ORDERED: Potassium Chloride 20 MEQ TAB PO SCH (20:30)
[2019-01-20] MEDS: Vancomycin HCl 1 GM in Premix Bag 1 BAG IVPB SCH ×2 (00:20→09:38)
[2019-01-20] MEDS: HYDROcodone/Acetaminophen 10/325 mg Tablet PO PRN ×3 (00:27→20:56)
[2019-01-20 05:00] LABS: #Lymphocytes 0.6 thou/uL (1.20-3.40); #Monocytes 0.9 thou/uL (0.11-0.59); #Neutrophils 8.1 thou/uL (1.40-6.50); %Eosinophils 0.3 % (0.0-10.0); %Lymphocytes 6.1 % (21.0-51.0); %Monocytes 9.7 % (0.0-10.0); %Neutrophils 83.9 % (42.0-75.0); Hemoglobin 10.8 g/dL (12.0-16.0); Mean Corpuscular Hemoglobin 30.7 pg (27.0-31.0); Platelet Count 285 thou/uL (130-400); RBC Distribution Width 14.5 % (11.5-14.5); White Blood Cell (WBC) Count 9.7 thou/uL (4.8-10.8)
[2019-01-20 05:29] LABS: Anion Gap 15 mmol/L (10-20); BUN (Urea Nitrogen) 19 mg/dL (7.0-18.7); Calc. Creatinine Clearance 142 mL/min (70-130); Calcium 9.3 mg/dL (7.8-10.44); Carbon Dioxide 35 mmol/L (22-29); Chloride 96 mmol/L (98-107); Estimated GFR-MDRD 84; Glucose 177 mg/dL (70-105); Potassium 3.6 mmol/L (3.5-5.1); Sodium 142 mmol/L (136-145)
[2019-01-20] MEDS: Cefepime 2 GM in Sodium Chloride 0.9% 100 ML IVPB SCH (06:00)
[2019-01-20] MEDS: methylPREDNISolone Sod Succ 40 MG VIAL IVP SCH ×3 (06:01→17:11)
[2019-01-20] MEDS: Azithromycin 500 MG in Sodium Chloride 0.9% 250 ML 250 ML IVPB SCH (09:31)
[2019-01-20] MEDS: Enoxaparin Sodium 40 MG/0.4 ML SYRINGE SC SCH (09:31)
[2019-01-20] MEDS: Hydroxychloroquine Sulfate 200 MG TAB PO SCH (09:31)
[2019-01-20] MEDS: Furosemide 20 MG TAB PO SCH (09:32)
[2019-01-20] MEDS: Divalproex Sodium 250 MG (DR) TAB PO SCH (09:32)
--- NOTE | 2019-01-20 10:45 | PRG ---
DATE OF SERVICE: 01/20/2019 Ms. Guy continues to look and feel much better. She is nearing time for discharge. She also sees Dr. Simmons for her interstitial lung disease and will also follow up with him. Job ID: [id number]
[2019-01-20] MEDS: Morphine IR 10 MG/5 ML UDCUP PO PRN ×2 (11:46→17:10)
--- NOTE | 2019-01-20 19:15 | PRG ---
DATE OF SERVICE: 01/20/2019 SUBJECTIVE: Ms. Guy says she continues to improve each day. She has oxygen at home. OBJECTIVE: VITAL SIGNS: She is afebrile. Oximetry is actually up to 93% on room air this afternoon, she is 100% on 2 L earlier today; heart rate is in 80s; respiratory rate is in the teens; blood pressure 158/77. LUNGS: Clear. HEART: Regular rhythm. ABDOMEN: Soft and nontender. IMPRESSION: Pneumonia? Atypical versus vasculitis induced pulmonary infiltrates. We will take her off the Solu-Medrol and place her on prednisone. 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 As long as I have known her, she has had an excuse for why she had not regularly seen a physician. She is actually probably stable enough, where she could be discharged perhaps in the morning. Job ID: [id number]
[2019-01-20] MEDS: Cefdinir 300 MG CAP PO SCH (20:57)
[2019-01-21] MEDS: Morphine IR 10 MG/5 ML UDCUP PO PRN ×2 (00:09→08:35)
[2019-01-21 04:36] LABS: #Eosinphils 0.1 thou/uL (0.0-0.7); #Lymphocytes 1.2 thou/uL (1.20-3.40); #Monocytes 0.9 thou/uL (0.11-0.59); #Neutrophils 8.5 thou/uL (1.40-6.50); %Basophils 0.2 % (0.0-1.0); %Eosinophils 0.6 % (0.0-10.0); %Lymphocytes 10.9 % (21.0-51.0); %Monocytes 8.7 % (0.0-10.0); %Neutrophils 79.7 % (42.0-75.0); Hemoglobin 11.5 g/dL (12.0-16.0); Mean Corpuscular HGB CONC 32.9 g/dL (32.0-36.0); Mean Corpuscular Hemoglobin 30.6 pg (27.0-31.0); Mean Platelet Volume 6.8 fL (7.4-10.4); Platelet Count 298 thou/uL (130-400); RBC Distribution Width 14.6 % (11.5-14.5); Red Blood Cell (RBC) Count 3.77 mill/uL (4.20-5.40); White Blood Cell (WBC) Count 10.7 thou/uL (4.8-10.8)
[2019-01-21] MEDS: HYDROcodone/Acetaminophen 10/325 mg Tablet PO PRN (04:39)
[2019-01-21 04:55] LABS: Anion Gap 15 mmol/L (10-20); BUN (Urea Nitrogen) 17 mg/dL (7.0-18.7); Calc. Creatinine Clearance 152 mL/min (70-130); Calcium 9.3 mg/dL (7.8-10.44); Carbon Dioxide 36 mmol/L (22-29); Chloride 95 mmol/L (98-107); Estimated GFR-MDRD Greater than 90; Glucose 114 mg/dL (70-105); Potassium 3.3 mmol/L (3.5-5.1); Sodium 143 mmol/L (136-145)
--- NOTE | 2019-01-21 06:17 | PDOC.FM ---
- Subjective Subjective: Pt reports that her pain is improved. She is able to sit up and feels like her breathing is improved. She denies any significant SOB at rest. - Objective MAR Reviewed: Yes Vital Signs & Weight: Vital Signs (12 hours) Temp Pulse Resp BP Pulse Ox 01/21/19 04:00 97.6 F 70 16 159/82 H 96 01/21/19 02:15 98 01/21/19 01:49 71 16 95 01/21/19 00:00 97.9 F 61 16 173/87 H 95 01/20/19 22:31 66 16 95 01/20/19 20:47 98.8 F 64 16 166/80 H 99 Weight Weight 94.007 kg Most Recent Monitor Data Heart Rate from ECG 70 NIBP 150/95 NIBP BP-Mean 113 Respiration from ECG 29 SpO2 97 I&O: 01/19/19 01/20/19 01/21/19 06:59 06:59 06:59 Intake Total 1560 850 500 Output Total 1650 1000 Balance -90 -150 500 Result Diagrams: 01/21/19 04:08 01/21/19 04:09 Phys Exam - Physical Examination Constitutional: NAD HEENT: moist MMs Neck: no JVD Coarse lung sounds Cardiovascular: RRR, no significant murmur Gastrointestinal: soft, non-tender, no distention, positive bowel sounds Musculoskeletal: no edema, pulses present Neurological: moves all 4 limbs Psychiatric: A&O x 3 Skin: cap refill <2 seconds Deviation from normal: Bruising on her posterior flanks Dx/Plan (1) Acute and chronic respiratory failure with hypoxia Code(s): J96.21 - ACUTE AND CHRONIC RESPIRATORY FAILURE WITH HYPOXIA Status: Acute (2) Pneumonia Code(s): J18.9 - PNEUMONIA, UNSPECIFIED ORGANISM Status: Acute Qualifiers: Pneumonia type: due to unspecified organism Laterality: bilateral Lung location: unspecified part of lung Qualified Code(s): J18.9 - Pneumonia, unspecified organism (3) Lupus Code(s): M32.9 - SYSTEMIC LUPUS ERYTHEMATOSUS, UNSPECIFIED Status: Chronic Qualifiers: Systemic lupus erythematosus type: unspecified Systemic lupus erythematosus organ involvement: lung involvement Qualified Code(s): M32.13 - Lung involvement in systemic lupus erythematosus - Plan Plan: Acute hypoxic hypercapnic respiratory failure on chronic respiratory failure ( 3L ns at baseline) - Likely 2/2 HAP in the presence of interstitial lung disease -Plan to transition to PO abx, likely discharge tomorrow -Pt required increased oxygen overnight -Will follow wbc and procal, both of which are trending down nicely -Pulmonology consulted RA/SLE -Continue praquenil -Receiving stress dose of steroids Elevated lactic acid, trending down Anemia of chronic disease Hypokalemia, resolved Chronic pain -Scheduled norco -one time dose IV morphine overnight -PO morphine IR
--- NOTE | 2019-01-21 06:19 | PDOC.FM ---
- Subjective Subjective: Pt is doing better today. Her breathing is improved. She denies chest pain and feels comfortable going home today. - Objective MAR Reviewed: Yes Vital Signs & Weight: Vital Signs (12 hours) Temp Pulse Resp BP Pulse Ox 01/21/19 04:00 97.6 F 70 16 159/82 H 96 01/21/19 02:15 98 01/21/19 01:49 71 16 95 01/21/19 00:00 97.9 F 61 16 173/87 H 95 01/20/19 22:31 66 16 95 01/20/19 20:47 98.8 F 64 16 166/80 H 99 Weight Weight 94.007 kg Most Recent Monitor Data Heart Rate from ECG 70 NIBP 150/95 NIBP BP-Mean 113 Respiration from ECG 29 SpO2 97 I&O: 01/19/19 01/20/19 01/21/19 06:59 06:59 06:59 Intake Total 1560 850 500 Output Total 1650 1000 Balance -90 -150 500 Result Diagrams: 01/21/19 04:08 01/21/19 04:09 Phys Exam - Physical Examination Constitutional: NAD HEENT: moist MMs Neck: no JVD Respiratory: no wheezing crackles, good air movement Cardiovascular: RRR, no significant murmur Gastrointestinal: soft, non-tender, no distention, positive bowel sounds Musculoskeletal: no edema, pulses present Neurological: moves all 4 limbs Psychiatric: A&O x 3 Skin: cap refill <2 seconds Dx/Plan (1) Acute and chronic respiratory failure with hypoxia Code(s): J96.21 - ACUTE AND CHRONIC RESPIRATORY FAILURE WITH HYPOXIA Status: Acute (2) Pneumonia Code(s): J18.9 - PNEUMONIA, UNSPECIFIED ORGANISM Status: Acute Qualifiers: Pneumonia type: due to unspecified organism Laterality: bilateral Lung location: unspecified part of lung Qualified Code(s): J18.9 - Pneumonia, unspecified organism (3) Lupus Code(s): M32.9 - SYSTEMIC LUPUS ERYTHEMATOSUS, UNSPECIFIED Status: Chronic Qualifiers: Systemic lupus erythematosus type: unspecified Systemic lupus erythematosus organ involvement: lung involvement Qualified Code(s): M32.13 - Lung involvement in systemic lupus erythematosus - Plan Plan: Acute hypoxic hypercapnic respiratory failure on chronic respiratory failure ( 3L ns at baseline) - Likely 2/2 HAP in the presence of interstitial lung disease -Currently on cefdinir and azithromycin (01/20) -Will follow wbc and procal, both of which are trending down nicely -Likely discharge today -Pulmonology consulted RA/SLE -Continue praquenil -Receiving stress dose of steroids Elevated lactic acid, trending down Anemia of chronic disease Hypokalemia -Requiring replacement Chronic pain -Scheduled norco -PO morphine IR PRN, requiring this every 6-7 hours at this point HTN -May be related to pain -Starting HCTZ 12.5mg daily, pt will need to follow up with PCP
[2019-01-21] MEDS ORDERED: Potassium Chloride 20 MEQ TAB PO SCH (08:00)
[2019-01-21] MEDS ORDERED: predniSONE 20 MG TAB PO SCH (08:00)
[2019-01-21] MEDS: Enoxaparin Sodium 40 MG/0.4 ML SYRINGE SC SCH (08:20)
[2019-01-21] MEDS: Divalproex Sodium 250 MG (DR) TAB PO SCH (08:21)
[2019-01-21] MEDS: Cefdinir 300 MG CAP PO SCH (08:23)
[2019-01-21] MEDS: Hydroxychloroquine Sulfate 200 MG TAB PO SCH (08:23)
[2019-01-21] MEDS: Furosemide 20 MG TAB PO SCH (08:24)
[2019-01-21] MEDS ORDERED: Azithromycin 250 MG TAB PO SCH (09:00)
[2019-01-21] MEDS ORDERED: Hydrochlorothiazide 25 MG TAB PO SCH (09:00)
[2019-01-21] MEDS ORDERED: Hydrocerin (Eucerin) Cream 120 gm Jar TOP PRN (09:15)
--- NOTE | 2019-01-21 10:51 | PRG ---
DATE OF SERVICE: Ms. Guy looks and feels much better. She will be discharged today and is encouraged to follow up with her mandrel puller. Job ID: [id number]
[2019-01-21 13:15] VITALS: BP 155/82; TEMP 98.7
[2019-01-21] MEDS ORDERED: Hydrocortisone 1% Cream 30 GM TUBE TOP SCH (21:00)
--- NOTE | 2019-01-22 05:19 | PQF ---
SAP Heel Seater Crystal Reports Winform ViewerSARAVANANRIVER KELSY SANABRIA [id number] IMCU- [id number] CLINICAL DOCUMENTATION CLARIFICATION FORM: POST DISCHARGE Addendum to original discharge summary date: ____ Late entry note date: __ DATE: 01/22/2019 ATTN: KELSY DONNELLY Please exercise your independent, professional judgment in responding to the clarification form. Clinical indicators are provided on the bottom of this form for your review Please check appropriate box(s) to clarify if the following diagnosis has been ruled in or ruled out: SEVERE SEPSIS (CDI/Coding list diagnosis here) [ ] Ruled in diagnosis [ ] Continue to treat [ ] Resolved [ ] Ruled out diagnosis [ ] Cannot rule out diagnosis [ ] Other diagnosis [ ] Unable to determine In addition, please specify: Present on Admission (POA): [ ] Yes [ ] No [ ] Unable to determine For continuity of documentation, please document condition throughout progress notes and discharge summary. Thank You. CLINICAL INDICATORS - SIGNS / SYMPTOMS / LABS Severe Sepsis - Documented in ED notes pg#11 WBC 23.3 on 01/16 and 19.2 on 01/17 - Documented in Vital and Signs Lactic Acid 4.1 on 01/15-Documented in Vital and Signs RR 21 , 32 on 01/17- Documented in Vital and Signs Procal 29 > 19 > 7.23 - Documented in Hospital PNs on 01/18 by Camden Linder RISK FACTORS pneumonia - Documented in H&P on 01/15 by Mahendra Gonsalez Acute on chronic respiratory failure - Documented in H&P on 01/15 by Mahendra Gonsalez TREATMENTS Continue Vanc, Cefepime, Azhithromycin Improving antibiotics, continues to monitor in IMCU today - Documented in Hospital PNs on 01/18 by Camden Linder SAP Heel Seater Crystal Reports Winform Viewer (This form is maintained as a part of the permanent medical record) 2014 [employer], [employer]. All Rights Reserved [email or web address] [email or web address] [not provided] MTDD
== END 2019-01-21 13:32 | disposition home or self-care (01) | DRG 193 ==
LOC: ERS 03:06 → IMCU/EMU 05:53 → 2NO 01-19 20:50
PROVIDERS: ADMIT Emergency Medicine; ATTEND Emergency Medicine
DX: J18.9 Pneumonia, unspecified organism (principal); J96.21 Acute and chronic respiratory failure with hypoxia; I50.22 Chronic systolic (congestive) heart failure; J84.9 Interstitial pulmonary disease, unspecified; Z99.81 Dependence on supplemental oxygen; Z88.0 Allergy status to penicillin; Z88.6 Allergy status to analgesic agent; Z88.8 Allergy status to other drugs, medicaments and biological substances; F41.9 Anxiety disorder, unspecified; I11.0 Hypertensive heart disease with heart failure; Z98.51 Tubal ligation status; F17.210 Nicotine dependence, cigarettes, uncomplicated; E87.6 Hypokalemia; Z68.36 Body mass index [BMI] 36.0-36.9, adult; R51 Headache; G89.29 Other chronic pain; E66.01 Morbid (severe) obesity due to excess calories; D63.8 Anemia in other chronic diseases classified elsewhere; M32.13 Lung involvement in systemic lupus erythematosus; M06.9 Rheumatoid arthritis, unspecified; I28.8 Other diseases of pulmonary vessels
CPT/HCPCS: 36415; 70450; 71045; 80048; 80053; 80202; 82805; 83605; 83880; 84145; 84484; 85025; 85379; 87040; 87449; 87633; 87798; 87804; 87899; 93005; 94640; 96365; 96367; 96375; J0360; J0456; J0692; J0696; J1650; J1885; J1940; J2270; J2920; J2930; J3370; J3480; J3490; J7050; J7512; J7620

== ENCOUNTER 2019-01-30 04:11 | Inpatient (IN) | payer BC ==
[2019-01-30 04:50] LABS: Hemoglobin 11.9 g/dL (12.0-16.0); Mean Corpuscular HGB CONC 33.6 g/dL (32.0-36.0); Mean Corpuscular Volume 92.3 fL (78.0-98.0); Mean Platelet Volume 6.9 fL (7.4-10.4); Platelet Count 321 thou/uL (130-400); RBC Distribution Width 14.9 % (11.5-14.5); Red Blood Cell (RBC) Count 3.85 mill/uL (4.20-5.40); White Blood Cell (WBC) Count 23.6 thou/uL (4.8-10.8)
[2019-01-30 04:57] LABS: Actual Bicarbonate (HCO3a) 29.6 mEq/L (22-28); Analyzer IN Cardio ER; Base Excess (BEa) 4.4 mEq/L (-2.0 to +3.0); CO2 Tension 46.7 mmHg (35.0-45.0); Calcium, Ionized 1.18 mmol/L (1.12-1.30); Potassium - ABG Lab 3.06 mmol/L (3.70-5.30); pH, Arterial 7.42 (7.35-7.45)
[2019-01-30 05:05] LABS: Puncture Site RRA
[2019-01-30 05:07] LABS: Band 4 % (5-11); Lymphocytes 2 % (21-51); MDiff Complete? YES; Monocytes 2 % (0-10); Neutrophil 92 % (42-75); Platelet Morphology Comment Appears Adequate
[2019-01-30 05:10] LABS: ALT (SGPT) 18 U/L (8-55); AST (SGOT) 40 U/L (5-34); Albumin 3.8 g/dL (3.5-5.0); Alkaline Phosphatase 59 U/L (40-110); Anion Gap 11 mmol/L (10-20); BUN (Urea Nitrogen) 15 mg/dL (7.0-18.7); Bilirubin, Total 0.4 mg/dL (0.2-1.2); Calc. Creatinine Clearance 0 mL/min (70-130); Calcium 9.2 mg/dL (7.8-10.44); Carbon Dioxide 29 mmol/L (22-29); Chloride 105 mmol/L (98-107); Estimated GFR-MDRD 77; Globulin 2.5 g/dL (2.4-3.5); Glucose 129 mg/dL (70-105); Potassium 3.3 mmol/L (3.5-5.1); Protein, Total 6.3 g/dL (6.0-8.3); Sodium 142 mmol/L (136-145)
--- NOTE | 2019-01-30 05:52 | PDOC.FPRHP ---
- History of Present Illness Chief Complaint: SOB History of Present Illness: 43 yo F with pmh of CHF, ILD, Lupus, seizure-disorder comes in w/ c/c of chest pain. Pt reports at 2pm tried to get up and do some things around the house and got chest pain. Reports getting SOB and been having trouble keeping oxygen sats up since. Pt uses 2L nc chronically at home. Pt reports pain as pressure and burning, described as "severe indigestion." Pain radiated up to her Jaw. Rates pain as 10. Pt felt flushed and hot. Pt reports having neck pain as well right now. Pt reports dry cough. Cough non productive. Pt reports just finished course of abx for recently hospitalization and discharged last week after being hospitalized for sepsis 2/2 bilateral pneumonia. Pt is currently on high dose steroid burst. Pt does endorse PND and chronic orthopnea. Slightly worsening of LE edema recently but improved today. Rhuematologist- Ruth PCP- [facility] ED Course: [place], Nadir, Constantine, adore. - Allergies/Adverse Reactions Allergies Allergy/AdvReac Type Severity Reaction Status Date / Time sulfasalazine Allergy Severe Verified 12/30/18 02:57 tramadol Allergy Severe Verified 12/30/18 02:57 Penicillins Allergy Intermediate Rash Verified 12/30/18 02:57 levofloxacin [From Levaquin] AdvReac Severe Verified 12/30/18 02:57 NSAIDS (Non-Steroidal AdvReac Unknown Verified 12/30/18 02:57 Anti-Inflamma - Home Medications Medication Instructions Recorded Confirmed Type Divalproex Sodium [Depakote] 750 mg PO DAILY 01/26/18 01/15/19 History HYDROcodone Bit/APAP [[place]] 1 tab PO Q4HR PRN 01/26/18 01/15/19 History Hydroxychloroquine Sulfate 400 mg PO DAILY 04/22/18 01/15/19 History [Plaquenil] Furosemide [Lasix] 20 mg PO DAILY #0 11/11/18 01/15/19 Rx predniSONE 40 mg PO DAILY 12/30/18 01/15/19 History Azithromycin [Zithromax] 250 mg PO DAILY #4 tab 01/21/19 Rx Cefdinir [Omnicef] 300 mg PO BID #8 cap 01/21/19 Rx Hydrochlorothiazide 12.5 mg PO DAILY #30 tab 01/21/19 Rx Potassium Chloride [K-Dur] 20 meq PO BID-WM #7 tab 01/21/19 Rx predniSONE 40 mg PO QAM-WM #14 tab 01/21/19 Rx - History PMHx: RA, SLE, CHF, Interstitial lung disease, Seizures (last one 5 years ago), Anxiety PSHx: 3 c-sections, bilateral tubal ligation, "lung scraping" FHx: Dad with CAD issues since age 70, Mom with SLE & DM; Hx of Cancer in multiple family members (Brain, Lung, stomach) Social: Social EtOH (drinks 1-2x/month). Smokes 1/2 ppd. Denies any illicit drug use Pt reports being full code. - Review of Systems General: reports: fatigue. denies: fever/chills, weight/appetite/sleep changes , night sweats Eyes: denies: eye pain, vision changes ENT: denies: nasal congestion, rhinorrhea Respiratory: reports: cough, shortness of breath. denies: congestion, exercise intolerance Cardiovascular: reports: chest pain, edema (reports some mild swelling in her feet), paroxysmal nocturnal dyspnea (Reports worsening recently), orthopnea (Pt has been having to sleep on couch since she was discharge a week ago.). denies : palpitation Gastrointestinal: denies: nausea, vomiting, diarrhea, constipation, abdominal pain, GI bleeding Genitourinary: denies: incontinence, dysuria, polyuria, discharge Skin: denies: rashes, lesions, jaundice Musculoskeletal: reports: arthritis/arthralgias. denies: pain, tenderness, stiffness, swelling Neurological: denies: numbness, syncope, seizure, weakness Psychological: reports: anxiety. denies: depression - Vital signs BP: [95/51] HR: [90] RR: [18] Tmax: [97.5] Pox: [99]% on [RA] Wt: [90.4kg] - Physical Exam Constitutional: NAD, well developed, other (drowsy but easily arousable with voice and light touch. Answers questions appropriately.) HEENT: PERRLA, EOMI, grossly normal vision, grossly normal hearing, MMM, oropharynx clear Neck: supple, trachea midline, no LAD Heart: RRR, normal S1/S2, no murmurs/rubs/gallops, pulses present, no edema Lungs: CTAB, no respiratory distress, no rales/rhonchi, no wheezing, other ( slightly decreased aeration of upper lobes as compared to lower) Abdomen: soft, non-tender, bowel sounds present Musculoskeletal: normal structure Neurological: no focal deficit Skin: no rash/lesions, good turgor, other (lupus rashes on UE and face. Sub centimeter excorations on UE.) Heme/Lymphatic: no unusual bruising or bleeding, no purpura, no petechia Psychiatric: normal mood and affect, good judgment and insight, intact recent and remote memory FMR H&P: Results - Labs Result Diagrams: 01/30/19 04:35 01/30/19 04:35 Lab results: WBC 23.6 thou/uL (4.8-10.8) H 01/30/19 04:35 Hgb 11.9 g/dL (12.0-16.0) L 01/30/19 04:35 Hct 35.5 % (36.0-47.0) L 01/30/19 04:35 MCV 92.3 fL (78.0-98.0) 01/30/19 04:35 Plt Count 321 thou/uL (130-400) 01/30/19 04:35 Band Neuts % (Manual) 4 % (5-11) L 01/30/19 04:35 ABG pH 7.42 (7.35-7.45) 01/30/19 04:53 ABG pCO2 46.7 mmHg (35.0-45.0) H 01/30/19 04:53 Sodium 142 mmol/L (136-145) 01/30/19 04:35 Potassium 3.3 mmol/L (3.5-5.1) L 01/30/19 04:35 Chloride 105 mmol/L (98-107) 01/30/19 04:35 Carbon Dioxide 29 mmol/L (22-29) 01/30/19 04:35 BUN 15 mg/dL (7.0-18.7) 01/30/19 04:35 Creatinine 0.81 mg/dL (0.6-1.1) 01/30/19 04:35 Glucose 129 mg/dL (70-105) H 01/30/19 04:35 Calcium 9.2 mg/dL (7.8-10.44) 01/30/19 04:35 Total Bilirubin 0.4 mg/dL (0.2-1.2) 01/30/19 04:35 AST 40 U/L (5-34) H 01/30/19 04:35 ALT 18 U/L (8-55) 01/30/19 04:35 Alkaline Phosphatase 59 U/L (40-110) 01/30/19 04:35 Serum Total Protein 6.3 g/dL (6.0-8.3) 01/30/19 04:35 Albumin 3.8 g/dL (3.5-5.0) 01/30/19 04:35 - Radiology Interpretation Chest x-ray Status: image reviewed by me, report reviewed by me (Extensive nonspecific interstitial and alveolar opacitis, left greater than right. Findings are similar when compared to recent CT angiogram of chest. Findings may be related to a nonspecific infectious/inflammatory process or atypical noncardiogenic pulmonary edema) CT scan - chest Status: report reviewed by me (Diffuse patchy airspace disease and ground glass opacities with relative sparing of the lower lobe suggestive infectious/ inflammatory process or atypical/noncardiogenic edema. Negative for PE) FMR H&P: A/P - Problem List (1) Acute and chronic respiratory failure with hypoxia Current Visit: Yes Status: Acute Code(s): J96.21 - ACUTE AND CHRONIC RESPIRATORY FAILURE WITH HYPOXIA Comment: Continue O2 supplementation to maintain sats > 90% (2) Atypical chest pain Current Visit: Yes Status: Acute Code(s): R07.89 - OTHER CHEST PAIN (3) ILD (interstitial lung disease) Current Visit: Yes Status: Chronic Code(s): J84.9 - INTERSTITIAL PULMONARY DISEASE, UNSPECIFIED Comment: Continue O2 supplementation, Solumedrol, Duonebs (4) Lupus Current Visit: Yes Status: Chronic Code(s): M32.9 - SYSTEMIC LUPUS ERYTHEMATOSUS, UNSPECIFIED Qualifiers: Systemic lupus erythematosus type: unspecified Systemic lupus erythematosus organ involvement: lung involvement Qualified Code(s): M32.13 - Lung involvement in systemic lupus erythematosus (5) Rheumatoid arthritis Current Visit: Yes Status: Chronic Code(s): M06.9 - RHEUMATOID ARTHRITIS, UNSPECIFIED Comment: Continue Plaquenil (6) Seizure disorder Current Visit: No Status: Chronic Code(s): G40.909 - EPILEPSY, UNSP, NOT INTRACTABLE, WITHOUT STATUS EPILEPTICUS Comment: Continue Depakote 750mg daily (7) Tobacco abuse Current Visit: Yes Status: Chronic Code(s): Z72.0 - TOBACCO USE Comment: Smoking cessation resources - Plan 43 yo F with pmh of CHF, ILD, Lupus, seizure-disorder comes in w/ c/c of chest pain found to be in acute on chronic hypoxic respiratory failure. #Acute on chronic hypoxic respiratory failure likely 2/2 ILD vs hospital acquired PNA failing OP therapy - O2 sats initially high 70s on RA - Placed on 6L NC, ABG obtained which was similar to previous - Improved on NC - Low threshold for BiPAP - likely 2/2 ILD from Lupus, will cont stress dose steroids - Consult Pulm in AM, apprec recs - Will order Procal, urine legionella and strep pneumo antigens - Vanc and Aztreonam given in ED, will monitor closely and consider abx tx with Vanc, Zosyn, and Aztreonam for HCAP failing OP therapy given quinolone allergy - admit to IMCU for close monitoring #Atypical Chest pain - GERD vs ILD Vs PNA - Initial trop negative, will trend. No EKG changes - Will given Pepcid - monitor on tele and monitor sxs #Leukocytosis - Hypoxic, but afebrile - WBC 23.6, higher than at previous admission per records reviewed - Abx in ED, consider for PNA - Will obtain procal and urine antigens and trend, consider cont abx #Lupus/RA - on stress dose steroids, will cont, will need taper upon discharge - cont home meds - Rheum - Dr. Wu #CHF - does not appear to be in acute exacerbation - BNP 94.1 - strict I/O's, daily weights, monitor fluid status #Seizure-disorder - will cont home medications #Anxiety - cont home medications Code: Full Diet: Regular IVF: SL VTE: Lovenox PCP: Rajendra - [facility] Disposition/LOS: Admit to IMCU for acute hypoxic respiratory failure. ILD flare vs PNA. Will cont workup, abx in ED. Pulm consult, apprec recs. Anticipate hospitalization > 48 hours. FMR H&P: Upper Level - Pertinent history I was present with the internet webmaster during the HPI. I scribed the above document. I made edits as needed. - Pertinent findings General: Pt somewhat tired appearing. She is alert and oriented x3 Resp: Pt has decreased breath sounds bilaterally. Rales and wheezes noted bilaterally. Cardio: RRR, no murmurs or gallops Ext: No edema noted. - Plan Date/Time: 01/30/19 [id number] I, Riki Castle, PGY-3, have evaluated this patient and agree with findings/ plan as outlined by internet webmaster resident. Pertinent changes/additions are listed here. See above for the detailed plan. I made edits as needed. At this time we are admitting pt for Acute Hypoxic Resp Failure 2/2 ILD vs failed outpt tx for HCAP. Pt was recently discharged a week ago after being tx for HCAP. Pt reports improving at home until yesterday prior to admission. Pt WBC elevated but has been on long burst of steroid. Will check procal at this time and tx pending result. At this time will admit to IMCU for close monitoring. Pt low threshold for BIPAP. Pt o2 sats currently stable on 4 L NC. Pt ABG stable from prior visit. Will consult Pulm/Crit- appreciate recs. Pt has chronic autoimmune disorders. Will continue home meds. See above for detailed plan. Pt also reported having chest pain. Will trend trops. Will monitor on Tele. May be cardiac related vs 2/2 to above. Addendum - Attending - Attending Attestation Date/Time: 01/30/19 0977 I personally evaluated the patient and discussed the management with Dr. Jin/ Corrine I agree with the History, Examination, Assessment and Plan documented above with any addition or exceptions noted below. Please see my dictated H&P for additional details. Document #[id number]
[2019-01-30] MEDS ORDERED: Aztreonam 1 GM in Sodium Chloride 0.9% 100 ML IVPB SCH (06:00)
[2019-01-30] MEDS ORDERED: HYDROcodone/Acetaminophen 5/325 mg Tablet ONE (06:01)
[2019-01-30] MEDS ORDERED: Ondansetron PF 4 MG/2 ML Vial IVP PRN ×2 (06:41→07:19)
[2019-01-30] MEDS ORDERED: Acetaminophen 325 MG TAB PO PRN ×2 (06:41→07:19)
[2019-01-30] MEDS ORDERED: Ondansetron ODT 4 MG TAB PO PRN ×2 (06:41→07:19)
[2019-01-30] MEDS ORDERED: HYDROcodone/Acetaminophen 5/325 mg Tablet PO PRN ×2 (06:42→06:43)
[2019-01-30] MEDS ORDERED: Calcium Carbonate 500 MG ChewTAB PO PRN (07:19)
[2019-01-30] MEDS ORDERED: CCU Electrolyte Replacement 1 EACH IVPB SCH (07:19)
[2019-01-30] MEDS ORDERED: Potassium Phosphate 9 MMOL in Sodium Chloride 0.9% 100 ML IVPB PRN (07:24)
[2019-01-30] MEDS ORDERED: Magnesium 2 GM/50 ML 2 GM in Premix Bag 1 BAG IVPB PRN (07:24)
[2019-01-30] MEDS ORDERED: Potassium Phosphate 12 MMOL in Sodium Chloride 0.9% 250 ML 250 ML IV PRN (07:24)
[2019-01-30] MEDS ORDERED: Magnesium Oxide 400 MG TAB PO PRN ×2 (07:24)
[2019-01-30] MEDS ORDERED: Potassium Chloride 20 MEQ TAB PO PRN (07:24)
[2019-01-30] MEDS ORDERED: Potassium Chloride 40 MEQ in Sodium Chloride 0.9% 250 ML 250 ML IVPB PRN (07:24)
[2019-01-30] MEDS ORDERED: CCU ELECTROLYTE REPLACEMENT PROTOCOL FS PRN (07:24)
[2019-01-30] MEDS ORDERED: Potassium Phosphate 15 MMOL in Sodium Chloride 0.9% 250 ML 250 ML IV PRN (07:24)
[2019-01-30] MEDS ORDERED: Potassium Chloride 40 MEQ in Premix Bag 1 BAG IVPB PRN (07:24)
[2019-01-30] MEDS ORDERED: PHOS-NAK 1 PKT PACK PO PRN ×2 (07:24)
[2019-01-30 07:54] LABS: Magnesium 1.8 mg/dL (1.6-2.6); Phosphorus 3.5 mg/dL (2.3-4.7)
--- NOTE | 2019-01-30 08:03 | RAD ---
FRONTAL AND LATERAL IMAGING CHEST: DATE: 01/30/2019. COMPARISON: 01/19/2019. HISTORY: Pneumonia. FINDINGS: There is extensive abnormal interstitial and alveolar opacity, left greater than right. No large vol ume pleural effusion. Heart and mediastinal contours are stable. No pneumothorax is seen. IMPRESSION: Extensive nonspecific interstitial and alveolar opacities, left greater than right. Findings are sim ilar when compared to recent CT angiogram of chest. Findings may be related to a nonspecific infecti ous/inflammatory process or atypical noncardiogenic pulmonary edema. POS: OFF
[2019-01-30] MEDS ORDERED: predniSONE 20 MG TAB PO SCH (08:30)
--- NOTE | 2019-01-30 08:47 | CT ---
PRELIMINARY REPORT/[facility]/EMERGENCY AFTER HOURS PROCEDURE: PROCEDURE INFORMATION: Exam: CT Angiography Chest With Contrast Exam date and time: 01/30/2019 4:44 AM Clinical history: 43 years old, female; Shortness of breath; Patient HX: PT C/O chest pain and o2 sat uration dropping at home. Recently dcd for pna and sepsis. TECHNIQUE: Imaging protocol: Computed tomographic angiography of the chest with intravenous contrast. 3D rendering: MIP reconstructed images were created and reviewed. COMPARISON: No relevant prior studies available. FINDINGS: Pulmonary arteries: Some motion artifact noted. No pulmonary embolus identified. Aorta: No aortic aneurysm. No aortic dissection. Lungs: Diffuse patchy airspace disease and groundglass opacities with relative sparing of the right l ower lobe. Mild diffuse bronchiolar prominence. Pleural space: No pneumothorax. No pleural effusion. Heart: Unremarkable. No significant pericardial effusion. Lymph nodes: Unremarkable. No enlarged lymph nodes. Bones/joints: Unremarkable. No acute fracture. Soft tissues: Unremarkable. IMPRESSION: Diffuse patchy airspace disease and groundglass opacities with relative sparing of the lower lobe sug gestive infectious/inflammatory process or atypical/non-cardiogenic edema. Thank you for allowing us to participate in the care of your patient. Dictated and Authenticated by: New Quiroz MD 01/30/2019 5:36 AM Central Time ([place] & [place]) FINAL REPORT EMERGENT AFTER HOURS CTA OF THE CHEST WITH CONTRAST: FINDINGS/IMPRESSION: I agree with the findings and impression given in the preliminary report per [facility] physician. 1. No evidence of pulmonary thromboembolism. 2. Multifocal infiltrates. POS: CET
[2019-01-30] MEDS: Divalproex Sodium 250 MG (DR) TAB PO SCH (08:50)
[2019-01-30] MEDS: Hydrochlorothiazide 25 MG TAB PO SCH (08:50)
[2019-01-30] MEDS: Potassium Chloride 20 MEQ TAB PO SCH ×2 (08:51→16:47)
[2019-01-30] MEDS: Hydroxychloroquine Sulfate 200 MG TAB PO SCH (08:51)
[2019-01-30] MEDS: Famotidine 20 MG TAB PO SCH ×2 (08:52→20:55)
[2019-01-30] MEDS: Enoxaparin Sodium 40 MG/0.4 ML SYRINGE SC SCH (08:52)
--- NOTE | 2019-01-30 09:49 | CON ---
DATE OF CONSULTATION: HISTORY OF PRESENT ILLNESS: Karla Guy is a 43-year-old female, who presented with shortness of breath and cough of several days duration. She is having significant chest pain this morning and shoulder pain and back pain. Unfortunately, she has a diagnosis of rheumatological problems including lupus, rheumatoid arthritis, ankylosing spondylitis associated with interstitial lung disease. She is followed by a local middle school teacher and is on prednisone 40 a day. The patient is smoking half pack a day and has done this for several years now. She denies any previous history of TB or pneumonia or bronchial asthma. PAST MEDICAL HISTORY: Otherwise, pertinent mainly for rheumatological problems, interstitial lung disease, history of seizure disorders. PREVIOUS SURGERIES: , tubal ligation, hypertension. HOME MEDICATIONS: Include: 1. Plaquenil 400. 2. Hydrocodone 10. 3. Depakote 750. 4. Prednisone 40. 5. Lasix 20. ALLERGIES: SULFA, TRAMADOL, PENICILLIN, LEVAQUIN. REVIEW OF SYSTEMS: Otherwise, unremarkable. PHYSICAL EXAMINATION: GENERAL: She is cushingoid, in no distress. VITAL SIGNS: Temperature 97, pulse 95, blood pressure 106/60, respiratory rate 18. CHEST: Minimal crackles. CARDIAC: Sinus tach. ABDOMEN: Soft. NEUROLOGIC: She is awake, alert, and responsive. LABORATORY DATA: White count 26,000, H and H of 11 and 35, platelet count 321. She had a blood gas done. PO2 of 94, pCO2 of 40, pH 7.42. Lytes are normal. X-ray shows extensive airspace disease bilaterally. BNP is normal. IMPRESSION: 1. Bilateral airspace pneumonia, probably secondary to rheumatological problem. 2. Tobacco abuse. PLAN: Agree with steroids. Dr. Simmons has seen her in the past. Get input from Rheumatology to see whether they need to add Cytoxan or azathioprine to present regime. Consultation note, 70 minutes, 50% direct patient care. Job ID: [id number]
[2019-01-30] MEDS: HYDROcodone/Acetaminophen 10/325 mg Tablet PO PRN ×4 (10:12→20:53)
[2019-01-30] MEDS: Benzonatate 100 MG CAP PO SCH ×3 (10:12→20:54)
[2019-01-30 10:21] LABS: Troponin I Less than 0.010 ng/mL (< 0.028)
[2019-01-30] MEDS ORDERED: Morphine 2 MG/ML SYRINGE SLOW IVP SCH (11:45)
--- NOTE | 2019-01-30 14:02 | HP ---
TIME OF SERVICE: 07:15. CHIEF COMPLAINT: Chest pain and shortness of breath. HISTORY OF PRESENT ILLNESS: I have discussed all findings with Dr. Castle and Dr. Jin and I reviewed their documentation. I agree with everything documented in their H and P with the exception of information listed in this following attestation. In summary, Ms. Guy is a 43-year-old female with a known past medical history of rheumatoid arthritis, interstitial lung disease, and heart failure with preserved ejection fraction. She was recently seen at [facility] last week and discharged home on 01/21/2019 after undergoing treatment for bilateral upper lobe pneumonia. She had an unremarkable hospital course and was ultimately discharged home on Cefdinir and azithromycin. The patient states she completed her home course of oral antibiotics and was feeling well up until yesterday morning. She says she began to experience chest pain and shortness of breath that progressively worsened throughout the day. This prompted her to come to the emergency room for evaluation. In the ER, she was found to be hypoxic on room air into the high 70s and low 80s. This quickly improved with supplemental oxygen. Given her extensive pulmonary history and recent pneumonia, it was felt that the patient would be best served by monitoring in the IMCU should she require noninvasive positive pressure ventilation. Please see Dr. Castle and Dr. Jin's note for past medical, surgical, social, and family history. FOCUSED PHYSICAL EXAMINATION: VITAL SIGNS: Blood pressure 106/60, respiratory rate 19, oxygen saturation 92% on 6 L nasal cannula, heart rate 69, and temperature 97.3. GENERAL: Mild respiratory distress, ill-appearing but nontoxic. Speaks in full sentences. CARDIOVASCULAR: Normal rate, regular rhythm. No murmurs, rubs, or gallops. PULMONARY: Poor air movement throughout, but no overt crackles or wheezing noted. PERTINENT LABORATORY FINDINGS: White blood cell count 23.6 with neutrophilia of 92%. D-dimer 0.37. Initial blood gas, pH 7.42, pCO2 of 46.7, oxygen, pO2 not listed, and bicarb 29.6. Cardiac enzymes are unremarkable. Procalcitonin pending at this time. EKG, normal sinus rhythm, LVH criteria met, normal intervals, left axis deviation, no overt ST-segment elevations or unusual T-wave inversions. IMAGING: Personally reviewed by me. Two-view chest x-ray shows presence of bilateral upper lobe infiltrates that appear unchanged from previous exam on 01/19/2019. CT angio of the chest without contrast. Bilateral right upper lobe pneumonia present. No obvious filling defects. ASSESSMENT: Ms. Guy is a 43-year-old female with interstitial lung disease, recently completed treatment for hospital-acquired pneumonia with azithromycin and cefdinir. She is currently on a steroid taper. She presents with a 1-day history of worsening shortness of breath that I suspect is due to reactive airway disease component. PLAN: As follows: 1. Acute hypoxic respiratory failure secondary to exacerbation of interstitial lung disease versus reactive airway disease versus continuation of community-acquired pneumonia. The patient received vancomycin and aztreonam in the ER. We will order procalcitonin and compare its trend from her most recent admission. On the day of discharge of her last admission, procalcitonin was 0.27. If it remains in this range or lower, we will discontinue antibiotics. I suspect her radiographic findings are consistent with resolving pneumonia that she was treated last week. We will keep her in the ICU in case any noninvasive positive pressure ventilation required. 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 Simmons, for further recommendations. The patient is currently on a steroid taper. We will continue this in the hospital. [place] provided. 2. Chest pain, likely related to #1, monitor. 3. Abdominal pain. The patient states this feels comparable to the prior pancreatitis flares. We will check a lipase to rule out. 4. See international student advisor note for chronic medical management condition. DISPOSITION: Inpatient IMCU greater than two midnights. Job ID: [id number] [facility]
[2019-01-30 14:46] LABS: Legionella Urinary Ag Negative (Negative)
[2019-01-30 14:47] LABS: Strep pneumo Urine Ag NEGATIVE (NEGATIVE)
[2019-01-30] MEDS ORDERED: Iopamidol 370 76% 100 ML VIAL ONE (16:02)
[2019-01-30] MEDS: Mometasone/Formoterol 120 PUFF INHALER INH SCH (18:43)
[2019-01-30] MEDS ORDERED: Melatonin 3 MG TAB PO PRN (21:50)
[2019-01-31] MEDS: HYDROcodone/Acetaminophen 10/325 mg Tablet PO PRN ×5 (00:57→20:20)
[2019-01-31 04:12] LABS: #Lymphocytes 0.9 thou/uL (1.20-3.40); #Monocytes 0.7 thou/uL (0.11-0.59); #Neutrophils 18.6 thou/uL (1.40-6.50); %Basophils 0.1 % (0.0-1.0); %Eosinophils 0.2 % (0.0-10.0); %Lymphocytes 4.3 % (21.0-51.0); %Monocytes 3.4 % (0.0-10.0); Hemoglobin 11.6 g/dL (12.0-16.0); Mean Corpuscular Hemoglobin 31.2 pg (27.0-31.0); Mean Corpuscular Volume 94.4 fL (78.0-98.0); Platelet Count 315 thou/uL (130-400); RBC Distribution Width 15.3 % (11.5-14.5); Red Blood Cell (RBC) Count 3.71 mill/uL (4.20-5.40); White Blood Cell (WBC) Count 20.2 thou/uL (4.8-10.8)
[2019-01-31 04:27] LABS: ALT (SGPT) 17 U/L (8-55); AST (SGOT) 41 U/L (5-34); Albumin 3.6 g/dL (3.5-5.0); Alkaline Phosphatase 62 U/L (40-110); Anion Gap 12 mmol/L (10-20); BUN (Urea Nitrogen) 9 mg/dL (7.0-18.7); Bilirubin, Total 0.4 mg/dL (0.2-1.2); Calc. Creatinine Clearance 144 mL/min (70-130); Carbon Dioxide 27 mmol/L (22-29); Chloride 105 mmol/L (98-107); Estimated GFR-MDRD 89; Globulin 2.6 g/dL (2.4-3.5); Glucose 122 mg/dL (70-105); Potassium 4.3 mmol/L (3.5-5.1); Protein, Total 6.2 g/dL (6.0-8.3); Sodium 140 mmol/L (136-145)
--- NOTE | 2019-01-31 05:27 | PDOC.FM ---
- Subjective Subjective: Pt reports her breathing is about the same. She state her chest is still hurting. Overnight she has episodes of panic attacks where she desats into the low 80s. - Objective MAR Reviewed: Yes Vital Signs & Weight: Vital Signs (12 hours) Temp Pulse Resp Pulse Ox 01/31/19 04:00 97.1 F L 01/31/19 00:31 97 01/31/19 00:00 98.3 F 01/30/19 22:38 96 01/30/19 22:35 73 28 H 96 01/30/19 20:00 97.9 F 01/30/19 18:43 96 16 97 Weight Admit Weight 90.4 kg Weight 90.4 kg Most Recent Monitor Data Heart Rate from ECG 105 NIBP 149/92 NIBP BP-Mean 111 Respiration from ECG 30 SpO2 91 I&O: 01/29/19 01/30/19 01/31/19 06:59 06:59 06:59 Intake Total 1600 Output Total 4325 Balance -2725 Result Diagrams: 01/31/19 03:47 01/31/19 03:47 Phys Exam - Physical Examination Constitutional: NAD HEENT: moist MMs Neck: no JVD Diffuse crackles Cardiovascular: RRR, no significant murmur Gastrointestinal: soft, non-tender, no distention, positive bowel sounds Musculoskeletal: no edema, pulses present Neurological: moves all 4 limbs Psychiatric: A&O x 3 Skin: cap refill <2 seconds Dx/Plan (1) Acute and chronic respiratory failure with hypoxia Code(s): J96.21 - ACUTE AND CHRONIC RESPIRATORY FAILURE WITH HYPOXIA Status: Acute (2) ILD (interstitial lung disease) Code(s): J84.9 - INTERSTITIAL PULMONARY DISEASE, UNSPECIFIED Status: Chronic (3) Rheumatoid arthritis Code(s): M06.9 - RHEUMATOID ARTHRITIS, UNSPECIFIED Status: Chronic - Plan Plan: This is a 43 yo female with a pmh of CHF, ILD, Lups Acute on chronic hyposic respiratory failure likely 2/2 ILD -Pt requiring O2 overnight -This is likely 2/2 ILD and not pneumonia 2/2 lack of fever and chronic underlying conditions. If pt does not improve today or spikes a fever, we will obtain blood cultures and start on vanc, cefepime, and azithromycin. At her last admission, procal was as high as 19 and pt was treated with abx, this time it is 0.21 -Negative legionella and S. pneumoniea -provide respiratory support -Will attempt to contact photoradio operator during this hospital stay -Pulmonology consulted Atypical chest pain -Negative troponin x2 and EKG -Likely pleuritic vs GERD Lupus/RA -Continue stress dose steroids, plan on taper at discharge -Rheum- Dr. Wu CHF -Will follow with daily I&Os Seizure disorder -Continue home meds Anxiety -Continue home meds
[2019-01-31] MEDS: Mometasone/Formoterol 120 PUFF INHALER INH SCH ×2 (07:18→18:16)
[2019-01-31] MEDS ORDERED: Morphine 2 MG/ML SYRINGE SLOW IVP SCH (08:15)
[2019-01-31] MEDS: Potassium Chloride 20 MEQ TAB PO SCH ×2 (08:18→15:14)
[2019-01-31] MEDS: predniSONE 20 MG TAB PO SCH (08:19)
[2019-01-31] MEDS: Divalproex Sodium 250 MG (DR) TAB PO SCH (08:19)
[2019-01-31] MEDS: Hydrochlorothiazide 25 MG TAB PO SCH (08:19)
[2019-01-31] MEDS: Famotidine 20 MG TAB PO SCH ×2 (08:19→20:20)
[2019-01-31] MEDS: Benzonatate 100 MG CAP PO SCH ×3 (08:19→20:21)
[2019-01-31] MEDS: Hydroxychloroquine Sulfate 200 MG TAB PO SCH (08:19)
[2019-01-31] MEDS: Enoxaparin Sodium 40 MG/0.4 ML SYRINGE SC SCH (08:19)
--- NOTE | 2019-01-31 09:15 | PRG ---
DATE OF SERVICE: 01/31/2019 SUBJECTIVE: This morning, she still feels poorly, still short of breath, but cough is better. She is sitting on the side of the bed with oxygen saturation of 97%, clearly improved. OBJECTIVE: VITAL SIGNS: Blood pressure 125/78, pulse rate of 18. CHEST: Decreased breath sounds. Bilateral crackles. CARDIAC: Normal S1 and S2. No gallops. ABDOMEN: No masses. [place]: [place] [id number]. ASSESSMENT: Respiratory failure, lupus, pneumonia. Empiric doxycycline is being ordered today. Otherwise, continue steroids. Follow up chest x-ray in the morning. Continue PT supportive care. We will follow. Job ID: [id number]
[2019-01-31] MEDS: Morphine 2 MG/ML SYRINGE SLOW IVP SCH ×2 (13:31→18:09)
[2019-01-31] MEDS: Doxycycline 100 MG CAP PO SCH (20:20)
[2019-02-01] MEDS: Morphine 2 MG/ML SYRINGE SLOW IVP SCH ×4 (00:10→18:28)
[2019-02-01] MEDS: HYDROcodone/Acetaminophen 10/325 mg Tablet PO PRN ×4 (03:12→22:18)
[2019-02-01 03:42] LABS: Band 1 % (5-11); Hemoglobin 11.4 g/dL (12.0-16.0); Lymphocytes 17 % (21-51); MDiff Complete? YES; Mean Corpuscular HGB CONC 33.2 g/dL (32.0-36.0); Mean Corpuscular Hemoglobin 31.2 pg (27.0-31.0); Mean Platelet Volume 8.4 fL (7.4-10.4); Monocytes 3 % (0-10); Neutrophil 79 % (42-75); Platelet Count 255 thou/uL (130-400); Platelet Morphology Comment Appears Adequate; RBC Distribution Width 15.3 % (11.5-14.5); Red Blood Cell (RBC) Count 3.66 mill/uL (4.20-5.40)
[2019-02-01 03:45] LABS: ALT (SGPT) 16 U/L (8-55); AST (SGOT) 25 U/L (5-34); Albumin 3.6 g/dL (3.5-5.0); Alkaline Phosphatase 63 U/L (40-110); Anion Gap 13 mmol/L (10-20); BUN (Urea Nitrogen) 12 mg/dL (7.0-18.7); Bilirubin, Total 0.4 mg/dL (0.2-1.2); Calc. Creatinine Clearance 144 mL/min (70-130); Calcium 9.3 mg/dL (7.8-10.44); Carbon Dioxide 33 mmol/L (22-29); Chloride 102 mmol/L (98-107); Estimated GFR-MDRD 88; Globulin 2.7 g/dL (2.4-3.5); Glucose 94 mg/dL (70-105); Potassium 3.9 mmol/L (3.5-5.1); Protein, Total 6.3 g/dL (6.0-8.3); Sodium 144 mmol/L (136-145)
--- NOTE | 2019-02-01 05:35 | PDOC.FM ---
- Subjective Subjective: Pt slept some overnight. She states that when she gets up, she starts coughing and this hurts her chest. Her nurse states she breaths well when she is calm but her O2 sats dip down to the 70s when she is gets up or starts coughing bad. - Objective MAR Reviewed: Yes Vital Signs & Weight: Vital Signs (12 hours) Temp Pulse Resp Pulse Ox 02/01/19 03:55 98.1 F 02/01/19 02:56 102 H 16 89 L 02/01/19 01:36 95 01/31/19 23:55 97.5 F L 01/31/19 20:00 94 L 01/31/19 19:49 98.3 F 01/31/19 18:18 91 18 95 01/31/19 18:16 91 18 95 Weight Admit Weight 90.4 kg Weight 91.399 kg Most Recent Monitor Data Heart Rate from ECG 71 NIBP 104/64 NIBP BP-Mean 77 Respiration from ECG 20 SpO2 97 I&O: 01/30/19 01/31/19 02/01/19 06:59 06:59 06:59 Intake Total 2880 2560 Output Total 5225 2150 Balance -2345 410 Result Diagrams: 02/01/19 03:09 02/01/19 03:09 Phys Exam - Physical Examination Constitutional: NAD HEENT: moist MMs Neck: no JVD Improving crackles, worse in the bases Cardiovascular: RRR, no significant murmur Gastrointestinal: soft, non-tender, no distention, positive bowel sounds Musculoskeletal: no edema, pulses present Neurological: moves all 4 limbs Psychiatric: A&O x 3 Skin: cap refill <2 seconds Dx/Plan (1) Acute and chronic respiratory failure with hypoxia Code(s): J96.21 - ACUTE AND CHRONIC RESPIRATORY FAILURE WITH HYPOXIA Status: Acute (2) ILD (interstitial lung disease) Code(s): J84.9 - INTERSTITIAL PULMONARY DISEASE, UNSPECIFIED Status: Chronic (3) Rheumatoid arthritis Code(s): M06.9 - RHEUMATOID ARTHRITIS, UNSPECIFIED Status: Chronic - Plan Plan: This is a 43 yo female with a pmh of CHF, ILD, Lups Acute on chronic hyposic respiratory failure likely 2/2 ILD -Pt requiring O2 overnight -This is likely 2/2 ILD and not pneumonia 2/2 lack of fever and chronic underlying conditions. If pt does not improve today or spikes a fever, we will obtain blood cultures and start on vanc, cefepime, and azithromycin. At her last admission, procal was as high as 19 and pt was treated with abx, this time it is 0.21 -Negative legionella and S. pneumoniea -provide respiratory support -Will attempt to contact oracle adf developer during this hospital stay -Pulmonology consulted, starting PO doxycycline at their recommendation -Adding dextromethorphan Atypical chest pain -Negative troponin x2 and EKG -Likely pleuritic vs GERD Lupus/RA -Continue stress dose steroids, plan on taper at discharge -Rheum- Dr. Wu CHF -Will follow with daily I&Os Seizure disorder -Continue home meds Anxiety -Continue home meds
[2019-02-01] MEDS: Cepastat Lozenges 1 LOZ PO PRN ×2 (06:15→22:20)
[2019-02-01] MEDS ORDERED: Dextromethorphan Polistirex 30 MG/5 ML (89 ML BOTTLE) PO SCH (07:00)
[2019-02-01] MEDS: Mometasone/Formoterol 120 PUFF INHALER INH SCH ×2 (07:07→18:49)
[2019-02-01] MEDS: Famotidine 20 MG TAB PO SCH ×2 (08:42→22:19)
[2019-02-01] MEDS: Potassium Chloride 20 MEQ TAB PO SCH ×2 (08:42→16:04)
[2019-02-01] MEDS: Hydroxychloroquine Sulfate 200 MG TAB PO SCH (08:42)
[2019-02-01] MEDS: predniSONE 20 MG TAB PO SCH (08:42)
[2019-02-01] MEDS: Doxycycline 100 MG CAP PO SCH ×2 (08:42→22:19)
[2019-02-01] MEDS: Hydrochlorothiazide 25 MG TAB PO SCH ×2 (08:43→08:46)
[2019-02-01] MEDS: Divalproex Sodium 250 MG (DR) TAB PO SCH (08:43)
[2019-02-01] MEDS: Enoxaparin Sodium 40 MG/0.4 ML SYRINGE SC SCH (08:44)
[2019-02-01] MEDS ORDERED: guaiFENesin/DM ER PO SCH (09:00)
--- NOTE | 2019-02-01 11:15 | PRG ---
DATE OF SERVICE: 02/01/2019 SUBJECTIVE: A 43-year-old female. OBJECTIVE: VITAL SIGNS: Saturations 100% on 5 L, pulse 87, respiratory rate 18, and blood pressure . GENERAL: Somewhat better, still short of breath. CHEST: Bilateral crackles without any wheezing. CARDIAC: Normal S1, S2. No gallops. ABDOMEN: No masses. LABORATORY DATA: White count 35748. IMPRESSION: Respiratory failure, secondary to rheumatological lung disease. Respiratory failure, cushingoid. PLAN: Continue present treatment. Supportive care. PT. Await results for x-ray today. Job ID: [id number]
--- NOTE | 2019-02-01 11:30 | RAD ---
RADIOGRAPH CHEST 2 VIEW: DATE: 02/01/2019 TIME: 12:24 PM HISTORY: 43-year-old female with pneumonia. COMPARISON: 01/30/2019 FINDINGS: Diffuse bilateral interstitial-alveolar infiltrates, left greater than right. No pneumothorax. No eff acement of lateral costophrenic angles. No interval change. IMPRESSION: 1. Diffuse bilateral infiltrates, left greater than right. 2. No interval change.
[2019-02-01] MEDS: Dextromethorphan Polistirex 30 MG/5 ML (89 ML BOTTLE) PO SCH ×2 (13:21→22:20)
--- NOTE | 2019-02-01 13:23 | PRG ---
DATE OF SERVICE: 02/01/2019 Please see the note from Dr. Santo, for which I agree. The patient was seen, evaluated, discussed, and examined with the residents by bedside. SUBJECTIVE: This is an unfortunate 43-year-old patient with lupus, rheumatoid arthritis, and interstitial lung disease, who has her lungs basically flared up. Intermittently, will desaturate, especially with coughing, and even will desaturate into the 70s. Repeat ABG is pending. Doxycycline was added yesterday. Still doing nebulizers and is still on Plaquenil, etc. Apparently, mentally was a little lethargic this morning, so the staff did not give her [place], but when we saw her, she was able to communicate and stated just the cough is hurting her chest. Otherwise, lungs have decreased breath sounds throughout and just some rales scattered throughout. Regular rate and rhythm cardiovascularly, and extremities show no edema. No major changes in labs. ASSESSMENT AND PLAN: Interstitial pneumonitis and pulmonitis flare-up and possible superinfection. Plan is to continue the same management. We will see what the ABG shows this morning. We will also see what Pulmonology says. Wonder if she may end up on BiPAP if not actually even intubated as she seems to be a little bit worse today than she was yesterday. She is on 5 L, and we will obviously continue that. Job ID: [id number]
[2019-02-02] MEDS: Morphine 2 MG/ML SYRINGE SLOW IVP SCH ×4 (00:39→18:36)
[2019-02-02] MEDS: Cepastat Lozenges 1 LOZ PO PRN ×3 (00:50→22:36)
[2019-02-02] MEDS: HYDROcodone/Acetaminophen 10/325 mg Tablet PO PRN ×4 (03:12→22:35)
[2019-02-02] MEDS: Dextromethorphan Polistirex 30 MG/5 ML (89 ML BOTTLE) PO SCH ×3 (06:08→22:52)
--- NOTE | 2019-02-02 06:13 | PDOC.FM ---
- Subjective Subjective: Pt says breathing not at baseline but improved from yesterday. Complaints of chest pain worse with coughing and deep breaths. No fever, no chills. Itching on skin, has used topical steroids before. Has hx of COPD but has not been taking meds for past year - Objective MAR Reviewed: Yes Vital Signs & Weight: Vital Signs (12 hours) Temp Pulse Resp Pulse Ox 02/02/19 04:00 98.7 F 02/01/19 23:22 98.6 F 02/01/19 20:00 98 02/01/19 19:34 97.4 F L 02/01/19 18:49 88 22 H 98 Weight Admit Weight 90.4 kg Weight 90.86 kg Most Recent Monitor Data Heart Rate from ECG 76 NIBP 114/66 NIBP BP-Mean 82 Respiration from ECG 17 SpO2 100 I&O: 01/31/19 02/01/19 02/02/19 06:59 06:59 06:59 Intake Total 2880 2800 425 Output Total 5225 2950 1650 Balance -3787 -334 -5614 Result Diagrams: 02/02/19 07:16 02/02/19 06:02 Phys Exam - Physical Examination Constitutional: NAD 5L nasal cannula HEENT: PERRLA, sclera anicteric Neck: full ROM Respiratory: wheezing present no resp distress, insp/exp crackles diffusely Cardiovascular: RRR, no significant murmur Gastrointestinal: soft, non-tender Musculoskeletal: no edema Neurological: non-focal, moves all 4 limbs Deviation from normal: skin lesions on arms, no skin breakage Dx/Plan (1) Acute and chronic respiratory failure with hypoxia Code(s): J96.21 - ACUTE AND CHRONIC RESPIRATORY FAILURE WITH HYPOXIA Status: Acute (2) ILD (interstitial lung disease) Code(s): J84.9 - INTERSTITIAL PULMONARY DISEASE, UNSPECIFIED Status: Chronic (3) Lupus Code(s): M32.9 - SYSTEMIC LUPUS ERYTHEMATOSUS, UNSPECIFIED Status: Chronic Qualifiers: Systemic lupus erythematosus type: unspecified Systemic lupus erythematosus organ involvement: lung involvement Qualified Code(s): M32.13 - Lung involvement in systemic lupus erythematosus (4) Rheumatoid arthritis Code(s): M06.9 - RHEUMATOID ARTHRITIS, UNSPECIFIED Status: Chronic (5) Acute exacerbation of CHF (congestive heart failure) Code(s): I50.9 - HEART FAILURE, UNSPECIFIED Status: Acute Qualifiers: Heart failure type: diastolic Qualified Code(s): I50.33 - Acute on chronic diastolic (congestive) heart failure (6) Obesity (BMI 30-39.9) Code(s): E66.9 - OBESITY, UNSPECIFIED Status: Acute - Plan Plan: This is a 43 yo female with a pmh of CHF, ILD, Lupus #Acute on chronic hypoxic respiratory failure likely 2/2 Rheumatoid Arthritis associated ILD vs COPD exacerbation -Pt has been on 5L O2, new requirement -This is likely 2/2 ILD vs failed tx of PNA however this is less likely infectious 2/2 lack of fever, procal 0.1 which is downtrending from discharge last week, and chronic underlying conditions. -w/u negative thus far for superimposed conditions- neg. BNP, Negative legionella and S. pneumonia, neg procal, downtrending WBC, neg Ddimer -continue doxy, steroids, dextromethorphan for supportive care -possible COPD component, pt has prior dx but has been off of meds-JOESPH duonebs q4hr, prednisone, doxy, and started on LABA/ICS -apprciate pulm recs, will try to contact rheumatology if pt unimproved -rpt CXR today #Atypical chest pain -Negative troponin x2 and EKG -Likely pleuritic vs GERD vs. RA related -will discuss gabapentin #RA related skin lesions vs. eczema -steroid cream -benadryl #Lupus/RA -Continue stress dose steroids, plan on taper at discharge -continue home plaquenil -Rheum- Dr. Wu #CHF -BNP <100 this admissions -fluid restricted diet, daily home lasix -daily i/o #Seizure disorder -Continue home meds #Anxiety -Continue home meds dvt ppx: lovenox gi ppx: pepcid/famotidine dispo: pending clinical course/respiratory status. Serial CXR to assess. Pending pulm recs. Will reach out to rheumatology Will discuss w/ Dr. Sam Addendum - Attending - Attending Attestation Date/Time: 02/02/19 2993 I personally evaluated the patient and discussed the management with Dr. Cheng I agree with the History, Examination, Assessment and Plan documented above with any addition or exceptions noted below. 43 yo female who appears older than her stated age with recurrent recent admissions related to Pulmonary disease. Patient with significant continued tobacco usage. Main concern is Connective tissue related Interstitial lung disease worsened by COPD and recent infections. Patient currently on high flow oxygen.She is able to have prolonged conversation without dyspnea. Patient related being started on Methotrexate in the past for her RA and was intolerant due to "infections in lung".Given continued exacerbation consider DMARD Biological agents if this would be a prudent consideration residential consult Rheumatology and appreciate Pulmonary for recommendations, short term have bumped prednisone from baseline,continue nebulizer treatment and doxycyline oral antimicrobial coverage. Note prior procalcitonin elevated this admission nonremarkable and IV ABX held. Candid discussion regard continued tobacco use and rec nicoderm for now. Patient voices significant craving of tobacco would benefit from nicotine gum/lozenge and patch combo.
[2019-02-02 07:10] LABS: ALT (SGPT) 14 U/L (8-55); AST (SGOT) 15 U/L (5-34); Albumin 3.4 g/dL (3.5-5.0); Alkaline Phosphatase 61 U/L (40-110); Anion Gap 13 mmol/L (10-20); BUN (Urea Nitrogen) 14 mg/dL (7.0-18.7); Bilirubin, Total 0.4 mg/dL (0.2-1.2); Calc. Creatinine Clearance 161 mL/min (70-130); Calcium 8.5 mg/dL (7.8-10.44); Carbon Dioxide 31 mmol/L (22-29); Chloride 102 mmol/L (98-107); Estimated GFR-MDRD Greater than 90; Globulin 2.5 g/dL (2.4-3.5); Glucose 85 mg/dL (70-105); Potassium 3.5 mmol/L (3.5-5.1); Protein, Total 5.9 g/dL (6.0-8.3); Sodium 142 mmol/L (136-145)
[2019-02-02] MEDS: Mometasone/Formoterol 120 PUFF INHALER INH SCH ×2 (07:11→19:08)
[2019-02-02 07:28] LABS: #Eosinphils 0.1 thou/uL (0.0-0.7); #Lymphocytes 2.2 thou/uL (1.20-3.40); #Monocytes 0.3 thou/uL (0.11-0.59); #Neutrophils 5.2 thou/uL (1.40-6.50); %Basophils 0.2 % (0.0-1.0); %Eosinophils 1.3 % (0.0-10.0); %Lymphocytes 28.1 % (21.0-51.0); %Monocytes 3.8 % (0.0-10.0); %Neutrophils 66.6 % (42.0-75.0); Mean Corpuscular HGB CONC 33.6 g/dL (32.0-36.0); Mean Corpuscular Hemoglobin 31.4 pg (27.0-31.0); Mean Corpuscular Volume 93.5 fL (78.0-98.0); Mean Platelet Volume 6.9 fL (7.4-10.4); Platelet Count 289 thou/uL (130-400); RBC Distribution Width 15.2 % (11.5-14.5); Red Blood Cell (RBC) Count 3.52 mill/uL (4.20-5.40); White Blood Cell (WBC) Count 7.8 thou/uL (4.8-10.8)
--- NOTE | 2019-02-02 07:38 | CON ---
DATE OF CONSULTATION: Please see the note from Dr. Santo, for which I agree. The patient was seen, evaluated, discussed, and examined with the residents by bedside. It sounds like things are improving on steroids. She has interstitial lung disease, likely autoimmune from lupus and rheumatoid arthritis diagnosis. She is on steroids, nebulizers, and Pulmonary added doxycycline. It sounds like she is fairly stable on oxygen level is getting better. Lung exam is significant for bilateral crackles, but fairly good air movement. Plan is to continue same supportive care, steroids, nebs, and antibiotics. Job ID: [id number]
--- NOTE | 2019-02-02 08:05 | RAD ---
FRONTAL RADIOGRAPH CHEST: DATE: 02/02/2019. COMPARISON: 02/01/2019. HISTORY: Pneumonia. FINDINGS: Heart and mediastinal contours are stable. Stable prominence of the cardiac silhouette and hilar sha dows with probable pulmonary vascular congestion. There is nonspecific increased density in the ana rosa hilar region as well as throughout the left lung, not significantly changed when compared to prior im aging. No large volume pleural effusion. IMPRESSION: Interstitial and alveolar opacity, left greater than right. Findings are similar when compared to re cent prior examination and are new when compared to 12/29/2018. Findings suggest pulmonary edema. I nfectious pneumonitis or aspiration cannot be excluded. Followup to resolution advised. POS: [facility]
[2019-02-02] MEDS: Hydrochlorothiazide 25 MG TAB PO SCH (09:07)
[2019-02-02] MEDS: Enoxaparin Sodium 40 MG/0.4 ML SYRINGE SC SCH (09:07)
[2019-02-02] MEDS: predniSONE 20 MG TAB PO SCH (09:07)
[2019-02-02] MEDS: Hydroxychloroquine Sulfate 200 MG TAB PO SCH (09:07)
[2019-02-02] MEDS: Doxycycline 100 MG CAP PO SCH ×2 (09:08→22:33)
[2019-02-02] MEDS: Famotidine 20 MG TAB PO SCH ×2 (09:08→22:33)
[2019-02-02] MEDS: Divalproex Sodium 250 MG (DR) TAB PO SCH (09:08)
[2019-02-02] MEDS: Potassium Chloride 20 MEQ TAB PO SCH ×2 (09:08→16:03)
[2019-02-02] MEDS ORDERED: predniSONE 20 MG TAB PO SCH (13:00)
[2019-02-02] MEDS: Nicotine 7 MG PATCH TD SCH (13:24)
--- NOTE | 2019-02-02 16:45 | PRG ---
DATE OF SERVICE: 02/02/2019 SUBJECTIVE: Karla Guy says she is feeling better. The event has been reviewed. OBJECTIVE: VITAL SIGNS: Stable. LUNGS: Remarkable for crackles at both lung bases. HEART: Regular rhythm. ABDOMEN: Soft. IMPRESSION: Pulmonary infiltrates, likely secondary to a vasculitis. Her administrative support specialist probably should be consulted for recommendations regarding whether or not she needs a steroid bolus or another immunosuppressive drug. It is interesting to note that she relapsed on 40 mg a day of prednisone. It is interesting to note that her GENARO screen was negative. Her double-stranded DNA was negative in September of this year and January of last year. Complement levels were normal. Rheumatoid factor was within the normal range. It is not entirely clear to me what her underlying autoimmune process is. Since her administrative support specialist does not come to this hospital, we should try to obtain clinic notes or talk to him by phone. Job ID: [id number]
[2019-02-03] MEDS: Morphine 2 MG/ML SYRINGE SLOW IVP SCH ×4 (00:13→18:07)
[2019-02-03 05:00] LABS: #Lymphocytes 1.6 thou/uL (1.20-3.40); #Monocytes 0.4 thou/uL (0.11-0.59); #Neutrophils 6.3 thou/uL (1.40-6.50); %Basophils 0.5 % (0.0-1.0); %Eosinophils 0.4 % (0.0-10.0); %Lymphocytes 18.7 % (21.0-51.0); %Monocytes 4.9 % (0.0-10.0); %Neutrophils 75.6 % (42.0-75.0); Hemoglobin 11.4 g/dL (12.0-16.0); Mean Corpuscular HGB CONC 33.5 g/dL (32.0-36.0); Mean Corpuscular Hemoglobin 31.4 pg (27.0-31.0); Mean Corpuscular Volume 93.8 fL (78.0-98.0); Mean Platelet Volume 6.9 fL (7.4-10.4); Platelet Count 290 thou/uL (130-400); RBC Distribution Width 15.1 % (11.5-14.5); Red Blood Cell (RBC) Count 3.64 mill/uL (4.20-5.40); White Blood Cell (WBC) Count 8.3 thou/uL (4.8-10.8)
[2019-02-03 05:25] LABS: ALT (SGPT) 14 U/L (8-55); AST (SGOT) 11 U/L (5-34); Albumin 3.6 g/dL (3.5-5.0); Alkaline Phosphatase 61 U/L (40-110); Anion Gap 13 mmol/L (10-20); BUN (Urea Nitrogen) 12 mg/dL (7.0-18.7); Bilirubin, Total 0.4 mg/dL (0.2-1.2); Calc. Creatinine Clearance 160 mL/min (70-130); Calcium 9.3 mg/dL (7.8-10.44); Carbon Dioxide 30 mmol/L (22-29); Chloride 101 mmol/L (98-107); Estimated GFR-MDRD Greater than 90; Globulin 2.6 g/dL (2.4-3.5); Glucose 95 mg/dL (70-105); Potassium 4.1 mmol/L (3.5-5.1); Protein, Total 6.2 g/dL (6.0-8.3); Sodium 140 mmol/L (136-145)
[2019-02-03] MEDS: Dextromethorphan Polistirex 30 MG/5 ML (89 ML BOTTLE) PO SCH ×2 (05:59→14:59)
[2019-02-03] MEDS: Cepastat Lozenges 1 LOZ PO PRN ×2 (06:00→14:57)
--- NOTE | 2019-02-03 06:09 | PDOC.FM ---
- Subjective Subjective: NAEO, pt says breathing improved but not at baseline. Able to walk to bathroom and back. Denies fevers, chills, chest pain. - Objective MAR Reviewed: Yes Vital Signs & Weight: Vital Signs (12 hours) Temp Pulse Resp Pulse Ox 02/03/19 03:34 97.4 F L 02/03/19 02:35 97 02/03/19 02:05 88 16 95 02/02/19 23:07 97.9 F 02/02/19 22:21 87 16 95 02/02/19 20:00 96 02/02/19 19:44 97.2 F L 02/02/19 19:07 87 16 97 Weight Admit Weight 90.4 kg Weight 88.961 kg Most Recent Monitor Data Heart Rate from ECG 72 NIBP 134/78 NIBP BP-Mean 96 Respiration from ECG 15 SpO2 100 I&O: 02/01/19 02/02/19 02/03/19 06:59 06:59 06:59 Intake Total 2800 425 2330 Output Total 2950 1650 2850 Balance -150 -1225 -520 Result Diagrams: 02/03/19 04:40 02/03/19 04:40 Phys Exam - Physical Examination Constitutional: NAD HEENT: PERRLA, moist MMs Neck: full ROM insp/exp velcro sounding crackles Cardiovascular: RRR, no significant murmur Gastrointestinal: soft, non-tender Neurological: non-focal, moves all 4 limbs Psychiatric: normal affect, A&O x 3 Skin: cap refill <2 seconds Deviation from normal: right skin lesions with raised red borders, non tendery , not warm -: pruritic Dx/Plan (1) Acute and chronic respiratory failure with hypoxia Code(s): J96.21 - ACUTE AND CHRONIC RESPIRATORY FAILURE WITH HYPOXIA Status: Acute (2) ILD (interstitial lung disease) Code(s): J84.9 - INTERSTITIAL PULMONARY DISEASE, UNSPECIFIED Status: Chronic (3) Lupus Code(s): M32.9 - SYSTEMIC LUPUS ERYTHEMATOSUS, UNSPECIFIED Status: Chronic Qualifiers: Systemic lupus erythematosus type: unspecified Systemic lupus erythematosus organ involvement: lung involvement Qualified Code(s): M32.13 - Lung involvement in systemic lupus erythematosus (4) Rheumatoid arthritis Code(s): M06.9 - RHEUMATOID ARTHRITIS, UNSPECIFIED Status: Chronic (5) Acute exacerbation of CHF (congestive heart failure) Code(s): I50.9 - HEART FAILURE, UNSPECIFIED Status: Acute Qualifiers: Heart failure type: diastolic Qualified Code(s): I50.33 - Acute on chronic diastolic (congestive) heart failure (6) Obesity (BMI 30-39.9) Code(s): E66.9 - OBESITY, UNSPECIFIED Status: Acute - Plan Plan: This is a 43 yo female with a pmh of CHF, ILD, Lupus, COPD #Acute on chronic hypoxic respiratory failure likely 2/2 Rheumatoid Arthritis associated ILD vs COPD exacerbation Improved respiratory standpoint, down to 3.5L [place] -Presumed ILD but work up in hospital for RA/SLE has been negative x2. Will request records from patient's bingo checker and pulmnologist she had seen who dx her with ILD when she underwent BAL/Tissue bx collection -Continue steroids as patient is improving with inc. in dose- possibly vasculitis. Pt with history of nosebleeds as well-will obtain records, consider [facility] -Will complete 5 day doxycycline course tmrw. Not likely PNA in light of feb. WBC, no fever, no clinical sxs, no focal consolidation on CXR -Pulm following along, recs appreciated #RA related skin lesions vs. eczema -steroid cream -benadryl #COPD -continue dulera & steroids -will work on affordance for spiriva -duonebs #Atypical chest pain -Negative troponin x2 and EKG -Likely pleuritic vs GERD vs. RA related #Lupus/RA -Continue stress dose steroids, plan on taper at discharge -continue home plaquenil -Rheum- Dr. Wu #CHF -BNP <100 this admissions -fluid restricted diet, daily home lasix -daily i/o #Seizure disorder -Continue home meds #Anxiety -Continue home meds dvt ppx: lovenox gi ppx: pepcid/famotidine dispo: Pending clinical course/respiratory status which is improved today. Will obtain records from [facility]. DDX includes vasculitis vs. other RA- ILD. Will continue tx with steroids and COPD mgmt as patient has showed improvement in clinical response Will discuss w/ Dr. Sam Addendum - Attending - Attending Attestation Date/Time: 02/03/19 0471 I personally evaluated the patient and discussed the management with Dr. Cheng I agree with the History, Examination, Assessment and Plan documented above with any addition or exceptions noted below.Patient has improved with increased steroid attempt to track down Rheumatology and prior questionable bronchial washing results.
[2019-02-03] MEDS: Mometasone/Formoterol 120 PUFF INHALER INH SCH ×2 (08:10→18:52)
[2019-02-03] MEDS: Famotidine 20 MG TAB PO SCH ×2 (08:28→20:07)
[2019-02-03] MEDS: Hydrochlorothiazide 25 MG TAB PO SCH (08:28)
[2019-02-03] MEDS: Doxycycline 100 MG CAP PO SCH ×2 (08:28→20:07)
[2019-02-03] MEDS: predniSONE 20 MG TAB PO SCH (08:28)
[2019-02-03] MEDS: Hydroxychloroquine Sulfate 200 MG TAB PO SCH (08:28)
[2019-02-03] MEDS: Potassium Chloride 20 MEQ TAB PO SCH ×2 (08:28→18:06)
[2019-02-03] MEDS: Enoxaparin Sodium 40 MG/0.4 ML SYRINGE SC SCH (08:29)
[2019-02-03] MEDS: HYDROcodone/Acetaminophen 10/325 mg Tablet PO PRN ×3 (08:29→20:07)
[2019-02-03] MEDS: Divalproex Sodium 250 MG (DR) TAB PO SCH (08:32)
[2019-02-03] MEDS: Betamethasone 0.1% Cream 15 GM TUBE TOP SCH (08:35)
--- NOTE | 2019-02-03 09:00 | PRG ---
DATE OF SERVICE: 02/03/2019 SUBJECTIVE: Karla Guy says she is feeling better. OBJECTIVE: VITAL SIGNS: She is afebrile, heart rate 74, respiratory rate is 18. . LUNGS: Remarkable for crackles at lung bases. HEART: Regular rhythm. ABDOMEN: Soft. White count 8.3, hemoglobin 11.4, platelets 290,000. Electrolytes are normal. IMPRESSION: progress notes from her boat joiner at [facility]. We will try to obtain today. If this is all vasculitis related, then vigorous steroid dosing probably needed plus or minus other drug. If he has nothing in his notes to suggest then surgical lung biopsy . Tends to respond to steroids based on my past interaction , so I am guessing she does have some disorder/vasculitis record. Serologies in past working up for lupus and rheumatoid arthritis when she was in the hospital were negative. Job ID: [id number]
[2019-02-03] MEDS: Nicotine 7 MG PATCH TD SCH (14:55)
[2019-02-04] MEDS: Morphine 2 MG/ML SYRINGE SLOW IVP SCH ×4 (00:04→17:00)
[2019-02-04] MEDS: Dextromethorphan Polistirex 30 MG/5 ML (89 ML BOTTLE) PO SCH ×4 (00:05→23:04)
[2019-02-04] MEDS: HYDROcodone/Acetaminophen 10/325 mg Tablet PO PRN ×5 (03:15→23:03)
[2019-02-04] MEDS: Cepastat Lozenges 1 LOZ PO PRN ×3 (03:16→12:06)
[2019-02-04 03:39] LABS: #Eosinphils 0.1 thou/uL (0.0-0.7); #Lymphocytes 1.8 thou/uL (1.20-3.40); #Monocytes 0.6 thou/uL (0.11-0.59); %Basophils 0.1 % (0.0-1.0); %Eosinophils 0.7 % (0.0-10.0); %Lymphocytes 21.3 % (21.0-51.0); %Monocytes 7.2 % (0.0-10.0); %Neutrophils 70.7 % (42.0-75.0); Hemoglobin 12.5 g/dL (12.0-16.0); Mean Corpuscular HGB CONC 32.9 g/dL (32.0-36.0); Mean Corpuscular Hemoglobin 31.1 pg (27.0-31.0); Mean Corpuscular Volume 94.4 fL (78.0-98.0); Mean Platelet Volume 6.7 fL (7.4-10.4); Platelet Count 271 thou/uL (130-400); RBC Distribution Width 15.2 % (11.5-14.5); Red Blood Cell (RBC) Count 4.03 mill/uL (4.20-5.40); White Blood Cell (WBC) Count 8.5 thou/uL (4.8-10.8)
[2019-02-04 03:49] LABS: Albumin 3.9 g/dL (3.5-5.0)
[2019-02-04 03:50] LABS: Chloride 100 mmol/L (98-107); Sodium 139 mmol/L (136-145)
[2019-02-04 03:51] LABS: Calcium 9.8 mg/dL (7.8-10.44)
[2019-02-04 03:52] LABS: Globulin 2.8 g/dL (2.4-3.5); Glucose 110 mg/dL (70-105); Protein, Total 6.7 g/dL (6.0-8.3)
[2019-02-04 03:53] LABS: Anion Gap 18 mmol/L (10-20); Bilirubin, Total 0.4 mg/dL (0.2-1.2); Carbon Dioxide 25 mmol/L (22-29)
[2019-02-04 03:54] LABS: Alkaline Phosphatase 61 U/L (40-110)
[2019-02-04 03:55] LABS: Calc. Creatinine Clearance 140 mL/min (70-130); Estimated GFR-MDRD 88
[2019-02-04 03:56] LABS: BUN (Urea Nitrogen) 14 mg/dL (7.0-18.7)
[2019-02-04 03:57] LABS: ALT (SGPT) 15 U/L (8-55); AST (SGOT) 10 U/L (5-34)
--- NOTE | 2019-02-04 06:35 | PDOC.FM ---
- Subjective Subjective: Breathing improved. Chest pain from coughing and with deep breaths, chronic. Not at baseline. - Objective MAR Reviewed: Yes Vital Signs & Weight: Vital Signs (12 hours) Temp Pulse Resp Pulse Ox 02/04/19 03:54 99 02/04/19 03:39 97.6 F 02/04/19 01:50 86 16 95 02/03/19 23:45 97.4 F L 02/03/19 22:41 99 02/03/19 22:24 82 18 99 02/03/19 20:00 100 02/03/19 19:39 98.2 F 02/03/19 18:39 87 20 99 Weight Admit Weight 90.4 kg Weight 90.673 kg Most Recent Monitor Data Heart Rate from ECG 76 NIBP 134/83 NIBP BP-Mean 100 Respiration from ECG 12 SpO2 100 I&O: 02/02/19 02/03/19 02/04/19 06:59 06:59 06:59 Intake Total 425 2330 1362 Output Total 1650 1680 3795 Balance -1225 -520 -1363 Result Diagrams: 02/04/19 03:29 02/04/19 03:29 Phys Exam - Physical Examination Constitutional: NAD HEENT: PERRLA, moist MMs Neck: full ROM Respiratory: clear to auscultation bilateral Cardiovascular: RRR, no significant murmur Gastrointestinal: soft, non-tender Musculoskeletal: no edema, pulses present chest tender to palpation Psychiatric: normal affect, A&O x 3 Skin: cap refill <2 seconds Deviation from normal: pruritic 1x1cm skin lesions with coalescent erythema on right arm Dx/Plan (1) Acute and chronic respiratory failure with hypoxia Code(s): J96.21 - ACUTE AND CHRONIC RESPIRATORY FAILURE WITH HYPOXIA Status: Acute (2) ILD (interstitial lung disease) Code(s): J84.9 - INTERSTITIAL PULMONARY DISEASE, UNSPECIFIED Status: Chronic (3) Lupus Code(s): M32.9 - SYSTEMIC LUPUS ERYTHEMATOSUS, UNSPECIFIED Status: Chronic Qualifiers: Systemic lupus erythematosus type: unspecified Systemic lupus erythematosus organ involvement: lung involvement Qualified Code(s): M32.13 - Lung involvement in systemic lupus erythematosus (4) Rheumatoid arthritis Code(s): M06.9 - RHEUMATOID ARTHRITIS, UNSPECIFIED Status: Chronic (5) Acute exacerbation of CHF (congestive heart failure) Code(s): I50.9 - HEART FAILURE, UNSPECIFIED Status: Acute Qualifiers: Heart failure type: diastolic Qualified Code(s): I50.33 - Acute on chronic diastolic (congestive) heart failure (6) Obesity (BMI 30-39.9) Code(s): E66.9 - OBESITY, UNSPECIFIED Status: Acute - Plan Plan: This is a 43 yo female with a pmh of CHF, ILD, Lupus, COPD #Acute on chronic hypoxic respiratory failure likely 2/2 Rheumatoid Arthritis associated ILD vs COPD exacerbation Improved respiratory standpoint, down to 2L [place] -Presumed ILD but work up in hospital for RA/SLE has been negative x2. Will request records from patient's typing secretary and pulmnologist she had seen who dx her with ILD when she underwent BAL/Tissue bx collection -Continue steroids as patient is improving with inc. in dose- possibly vasculitis. Pt with history of nosebleeds as well-will obtain records, consider [facility] -Will complete 5 day doxycycline course today. Not likely PNA in light of feb. WBC, no fever, no clinical sxs, no focal consolidation on CXR -Pulm following along, recs appreciated #RA related skin lesions vs. eczema -steroid cream -benadryl #COPD -continue dulera & steroids -will work on affordance for spiriva -duonebs #Atypical chest pain -Negative troponin x2 and EKG -Likely pleuritic vs GERD vs. RA related -will try GI cocktail #Lupus/RA -Continue stress dose steroids, plan on taper at discharge -continue home plaquenil -Rheum- Dr. Wu #CHF -BNP <100 this admissions -fluid restricted diet, daily home lasix -daily i/o #Seizure disorder -Continue home meds #Anxiety -Continue home meds dvt ppx: lovenox gi ppx: pepcid/famotidine dispo: Pending clinical course/respiratory status which is improved today. Will review records from [facility]. DDX includes vasculitis vs. other RA- ILD. Will continue tx with steroids and COPD mgmt as patient has showed improvement in clinical response Will discuss w/ Dr. Sam Addendum - Attending - Attending Attestation Date/Time: 02/04/19 5314 I personally evaluated the patient and discussed the management with Dr. Cheng I agree with the History, Examination, Assessment and Plan documented above with any addition or exceptions noted below. Should be able d/c antibiotic today and continue steroid and neb treatment will need further evaluation for definitive dx however she is markedly improved with escalated steroid.
[2019-02-04] MEDS: Mometasone/Formoterol 120 PUFF INHALER INH SCH ×2 (07:03→18:58)
[2019-02-04] MEDS: Potassium Chloride 20 MEQ TAB PO SCH ×2 (08:33→16:59)
[2019-02-04] MEDS: Hydrochlorothiazide 25 MG TAB PO SCH (08:34)
[2019-02-04] MEDS: predniSONE 20 MG TAB PO SCH (08:40)
[2019-02-04] MEDS: Doxycycline 100 MG CAP PO SCH ×2 (08:41→21:09)
[2019-02-04] MEDS: Enoxaparin Sodium 40 MG/0.4 ML SYRINGE SC SCH (08:41)
[2019-02-04] MEDS: Hydroxychloroquine Sulfate 200 MG TAB PO SCH (08:42)
[2019-02-04] MEDS: Divalproex Sodium 250 MG (DR) TAB PO SCH (08:43)
[2019-02-04] MEDS: Betamethasone 0.1% Cream 15 GM TUBE TOP SCH (08:45)
[2019-02-04] MEDS: Famotidine 20 MG TAB PO SCH ×2 (08:50→21:09)
[2019-02-04] MEDS: Nicotine 7 MG PATCH TD SCH (12:07)
--- NOTE | 2019-02-04 16:41 | PRG ---
DATE OF SERVICE: 02/04/2019 SUBJECTIVE: Karla Guy says she is actually feeling back toward normal. OBJECTIVE: She is afebrile, heart rate 85, respiratory rate 20, oximetry is 100% on 2 L cannula. LUNGS: Surprisingly remarkable for few crackles over lung bases. HEART: Regular rhythm. ABDOMEN: Soft. Outside records were reviewed. Apparently, she was diagnosed with rheumatoid arthritis in [place], and then was last seen by the [facility] senior c web developer in 2016. She says she is having to pay over 200 dollars of visit to see him, so she could not afford to keep going. At her last visit, it was noted in his notes that he felt she had rheumatoid arthritis. Given that information, this would lead me to believe that she has rheumatoid interstitial lung disease. Medical compliance is an issue. She now has insurance she says, so she is going to need to pick a senior c web developer and stick with him. She is approaching a point of discharge in my opinion. Job ID: [id number]
[2019-02-05] MEDS: Morphine 2 MG/ML SYRINGE SLOW IVP SCH ×5 (00:27→23:36)
[2019-02-05 04:05] LABS: #Eosinphils 0.1 thou/uL (0.0-0.7); #Lymphocytes 2.1 thou/uL (1.20-3.40); #Monocytes 0.8 thou/uL (0.11-0.59); %Basophils 0.4 % (0.0-1.0); %Eosinophils 0.5 % (0.0-10.0); %Lymphocytes 19.1 % (21.0-51.0); %Monocytes 6.9 % (0.0-10.0); Hemoglobin 12.3 g/dL (12.0-16.0); Mean Corpuscular HGB CONC 32.8 g/dL (32.0-36.0); Mean Corpuscular Volume 94.3 fL (78.0-98.0); Mean Platelet Volume 6.9 fL (7.4-10.4); Platelet Count 259 thou/uL (130-400); Red Blood Cell (RBC) Count 3.97 mill/uL (4.20-5.40); White Blood Cell (WBC) Count 10.9 thou/uL (4.8-10.8)
[2019-02-05 04:25] LABS: ALT (SGPT) 16 U/L (8-55); AST (SGOT) 10 U/L (5-34); Albumin 3.9 g/dL (3.5-5.0); Alkaline Phosphatase 58 U/L (40-110); Anion Gap 10 mmol/L (10-20); BUN (Urea Nitrogen) 15 mg/dL (7.0-18.7); Bilirubin, Total 0.5 mg/dL (0.2-1.2); Calc. Creatinine Clearance 147 mL/min (70-130); Calcium 9.5 mg/dL (7.8-10.44); Carbon Dioxide 33 mmol/L (22-29); Chloride 99 mmol/L (98-107); Estimated GFR-MDRD Greater than 90; Globulin 2.7 g/dL (2.4-3.5); Glucose 103 mg/dL (70-105); Potassium 4.2 mmol/L (3.5-5.1); Protein, Total 6.6 g/dL (6.0-8.3); Sodium 138 mmol/L (136-145)
[2019-02-05] MEDS: Cepastat Lozenges 1 LOZ PO PRN (05:58)
[2019-02-05] MEDS: Dextromethorphan Polistirex 30 MG/5 ML (89 ML BOTTLE) PO SCH ×3 (07:08→21:46)
[2019-02-05] MEDS ORDERED: Gabapentin 100 MG CAP PO SCH (08:46)
--- NOTE | 2019-02-05 08:47 | PDOC.FM ---
- Subjective Subjective: Reports not at baseline but breathing improved. Uses O2 at home intermittently. - Objective Vital Signs & Weight: Vital Signs (12 hours) Temp Pulse Resp Pulse Ox 02/05/19 07:43 97.8 F 02/05/19 03:31 97.6 F 02/04/19 23:33 98.0 F 02/04/19 22:12 84 22 H 100 Weight Admit Weight 90.4 kg Weight 90.31 kg Most Recent Monitor Data Heart Rate from ECG 104 NIBP 120/77 NIBP BP-Mean 91 Respiration from ECG 19 SpO2 100 I&O: 02/04/19 02/05/19 02/06/19 06:59 06:59 06:59 Intake Total 1362 2220 Output Total 9945 3365 Balance -1363 -4676 Result Diagrams: 02/05/19 03:52 02/05/19 03:52 Phys Exam - Physical Examination Constitutional: NAD HEENT: PERRLA Respiratory: clear to auscultation bilateral Cardiovascular: RRR, no significant murmur Gastrointestinal: soft Musculoskeletal: no edema Dx/Plan (1) Acute and chronic respiratory failure with hypoxia Code(s): J96.21 - ACUTE AND CHRONIC RESPIRATORY FAILURE WITH HYPOXIA Status: Acute (2) ILD (interstitial lung disease) Code(s): J84.9 - INTERSTITIAL PULMONARY DISEASE, UNSPECIFIED Status: Chronic (3) Lupus Code(s): M32.9 - SYSTEMIC LUPUS ERYTHEMATOSUS, UNSPECIFIED Status: Chronic Qualifiers: Systemic lupus erythematosus type: unspecified Systemic lupus erythematosus organ involvement: lung involvement Qualified Code(s): M32.13 - Lung involvement in systemic lupus erythematosus (4) Rheumatoid arthritis Code(s): M06.9 - RHEUMATOID ARTHRITIS, UNSPECIFIED Status: Chronic (5) Acute exacerbation of CHF (congestive heart failure) Code(s): I50.9 - HEART FAILURE, UNSPECIFIED Status: Acute Qualifiers: Heart failure type: diastolic Qualified Code(s): I50.33 - Acute on chronic diastolic (congestive) heart failure (6) Obesity (BMI 30-39.9) Code(s): E66.9 - OBESITY, UNSPECIFIED Status: Acute - Plan Plan: This is a 43 yo female with a pmh of CHF, ILD, Lupus, COPD #Acute on chronic hypoxic respiratory failure likely 2/2 Rheumatoid Arthritis associated ILD vs COPD exacerbation Improved respiratory standpoint, down to 1.5L [place] -Presumed ILD but work up in hospital for RA/SLE has been negative x2. Will request records from patient's construction plant operator and pulmnologist she had seen who dx her with ILD when she underwent BAL/Tissue bx collection -Continue steroids as patient is improving with inc. in dose- possibly vasculitis. Pt with history of nosebleeds as well-will obtain records, consider [facility] -s/p 5 day doxy course. Not likely PNA in light of feb. WBC, no fever, no clinical sxs, no focal consolidation on CXR -Pulm following along, recs appreciated #RA related skin lesions vs. eczema -steroid cream -benadryl #COPD -continue dulera & steroids -will work on affordance for spiriva -duonebs #Atypical chest pain -Negative troponin x2 and EKG -Likely pleuritic vs GERD vs. RA related -will try GI cocktail #Lupus/RA -Continue stress dose steroids, plan on taper at discharge -continue home plaquenil -Rheum- Dr. Wu #CHF -BNP <100 this admissions -fluid restricted diet, daily home lasix -daily i/o #Seizure disorder -Continue home meds #Anxiety -Continue home meds dvt ppx: lovenox gi ppx: pepcid/famotidine dispo: Need touch base with Rhematologist. Likely d/c today or tmrw-send out on high dose steroids wiht eventual taper, discussed seeing construction plant operator outppt- she will call today to make appt. will d/c with COPD meds. Walking test to see if can send out on home o2. Will discuss w/ Dr. Sam Addendum - Attending - Attending Attestation Date/Time: 02/05/19 0162 I personally evaluated the patient and discussed the management with Dr. Cheng I agree with the History, Examination, Assessment and Plan documented above with any addition or exceptions noted below. Appreciate Pulmonary recommendations, will advance activities, encourage continued smoking cessation, and need to f/u with Rheumatology will notify PCP of recommendation of referral to Rheumatology. Will send home on 60 mg prednisone pending Rheumatology evaluation.
[2019-02-05] MEDS: Mometasone/Formoterol 120 PUFF INHALER INH SCH ×2 (08:59→18:14)
[2019-02-05] MEDS: Hydrochlorothiazide 25 MG TAB PO SCH (09:22)
[2019-02-05] MEDS: diphenhydrAMINE 25 MG CAP PO PRN ×2 (09:22→21:46)
[2019-02-05] MEDS: Potassium Chloride 20 MEQ TAB PO SCH ×2 (09:22→15:53)
[2019-02-05] MEDS: predniSONE 20 MG TAB PO SCH (09:22)
[2019-02-05] MEDS: HYDROcodone/Acetaminophen 10/325 mg Tablet PO PRN ×3 (09:22→21:46)
[2019-02-05] MEDS: Enoxaparin Sodium 40 MG/0.4 ML SYRINGE SC SCH (09:23)
[2019-02-05] MEDS: Famotidine 20 MG TAB PO SCH ×2 (09:23→20:00)
[2019-02-05] MEDS: Betamethasone 0.1% Cream 15 GM TUBE TOP SCH (09:24)
[2019-02-05] MEDS: Divalproex Sodium 250 MG (DR) TAB PO SCH (09:27)
--- NOTE | 2019-02-05 10:29 | PRG ---
DATE OF SERVICE: 02/05/2019 SUBJECTIVE: Karla Guy is in no distress. OBJECTIVE: VITAL SIGNS: Heart rate is in the 70s, respiratory rate 17, oximetry is 100%. She is probably close to her baseline. LUNGS: Surprisingly almost completely clear now. HEART: Regular rhythm. ABDOMEN: Soft. LABORATORY DATA: White count 10.9, hemoglobin 12.3, platelets 259. Electrolytes are normal with the exception of a bicarb 33. IMPRESSION: 1. Rheumatoid arthritis by the history provided and documents obtained from [employer] assistant baseball coach. 2. Interstitial lung disease, likely related to rheumatoid arthritis. 3. History of noncompliance with medical followup because of insurance issues. 4. She has oxygen at home. It would not be unreasonable to discharge her home, but it is imperative she established contact with assistant baseball coach in the near future. I would like to see her ambulating prior to discharge. Job ID: [id number]
[2019-02-05 12:37] VITALS: BMI 36.3
[2019-02-05] MEDS: Hydroxychloroquine Sulfate 200 MG TAB PO SCH (13:17)
[2019-02-05] MEDS: Nicotine 7 MG PATCH TD SCH (13:19)
[2019-02-06] MEDS: HYDROcodone/Acetaminophen 10/325 mg Tablet PO PRN ×2 (03:15→09:24)
[2019-02-06] MEDS: Morphine 2 MG/ML SYRINGE SLOW IVP SCH ×3 (05:33→19:35)
[2019-02-06] MEDS: Dextromethorphan Polistirex 30 MG/5 ML (89 ML BOTTLE) PO SCH ×2 (05:33→13:39)
[2019-02-06 06:03] LABS: #Eosinphils 0.1 thou/uL (0.0-0.7); #Lymphocytes 2.5 thou/uL (1.20-3.40); #Monocytes 0.9 thou/uL (0.11-0.59); #Neutrophils 6.9 thou/uL (1.40-6.50); %Basophils 0.4 % (0.0-1.0); %Eosinophils 0.6 % (0.0-10.0); %Lymphocytes 24.3 % (21.0-51.0); %Neutrophils 65.8 % (42.0-75.0); Mean Corpuscular HGB CONC 32.9 g/dL (32.0-36.0); Mean Corpuscular Hemoglobin 30.9 pg (27.0-31.0); Mean Corpuscular Volume 93.8 fL (78.0-98.0); Platelet Count 267 thou/uL (130-400); RBC Distribution Width 14.8 % (11.5-14.5); Red Blood Cell (RBC) Count 3.89 mill/uL (4.20-5.40); White Blood Cell (WBC) Count 10.4 thou/uL (4.8-10.8)
[2019-02-06 06:22] LABS: Anion Gap 9 mmol/L (10-20); BUN (Urea Nitrogen) 18 mg/dL (7.0-18.7); Calc. Creatinine Clearance 144 mL/min (70-130); Carbon Dioxide 33 mmol/L (22-29); Chloride 100 mmol/L (98-107); Estimated GFR-MDRD 89; Potassium 3.5 mmol/L (3.5-5.1); Sodium 138 mmol/L (136-145)
[2019-02-06 06:23] LABS: ALT (SGPT) 17 U/L (8-55); AST (SGOT) 10 U/L (5-34); Albumin 3.7 g/dL (3.5-5.0); Alkaline Phosphatase 53 U/L (40-110); Bilirubin, Total 0.4 mg/dL (0.2-1.2); Calcium 9.1 mg/dL (7.8-10.44); Globulin 2.4 g/dL (2.4-3.5); Glucose 94 mg/dL (70-105); Protein, Total 6.1 g/dL (6.0-8.3)
--- NOTE | 2019-02-06 06:34 | PDOC.FM ---
- Subjective Subjective: NAEO. Breathing not at baseline but much improved. Able to walk aroudn with PT yesterday. Pt with no other concerns. Says she is ready to go home. Patient has good support at home- who will be able to help her as she gets situated. Has oxygen at home he can bring. - Objective MAR Reviewed: Yes Vital Signs & Weight: Vital Signs (12 hours) Temp Pulse Resp BP Pulse Ox 02/06/19 04:00 97.5 F L 74 18 132/86 95 02/06/19 01:58 96 20 95 02/06/19 00:00 97.9 F 93 18 131/83 95 02/05/19 21:54 102 H 20 97 02/05/19 19:55 95 02/05/19 19:50 97.7 F 113 H 18 138/86 95 Weight Admit Weight 90.4 kg Weight 90.265 kg Most Recent Monitor Data Heart Rate from ECG 104 NIBP 123/82 NIBP BP-Mean 95 Respiration from ECG 19 SpO2 98 I&O: 02/04/19 02/05/19 02/06/19 06:59 06:59 06:59 Intake Total 1362 2220 1180 Output Total 7455 3275 Balance -1363 -1055 1180 Result Diagrams: 02/06/19 05:30 02/06/19 05:30 Phys Exam - Physical Examination Constitutional: NAD HEENT: PERRLA, moist MMs Neck: full ROM Respiratory: no wheezing, clear to auscultation bilateral Cardiovascular: RRR, no significant murmur Gastrointestinal: soft, non-tender Psychiatric: normal affect, A&O x 3 Deviation from normal: right arm skin lesions with surrounding erythema, left facial rash Dx/Plan (1) Acute and chronic respiratory failure with hypoxia Code(s): J96.21 - ACUTE AND CHRONIC RESPIRATORY FAILURE WITH HYPOXIA Status: Acute (2) ILD (interstitial lung disease) Code(s): J84.9 - INTERSTITIAL PULMONARY DISEASE, UNSPECIFIED Status: Chronic (3) Lupus Code(s): M32.9 - SYSTEMIC LUPUS ERYTHEMATOSUS, UNSPECIFIED Status: Chronic Qualifiers: Systemic lupus erythematosus type: unspecified Systemic lupus erythematosus organ involvement: lung involvement Qualified Code(s): M32.13 - Lung involvement in systemic lupus erythematosus (4) Rheumatoid arthritis Code(s): M06.9 - RHEUMATOID ARTHRITIS, UNSPECIFIED Status: Chronic (5) Acute exacerbation of CHF (congestive heart failure) Code(s): I50.9 - HEART FAILURE, UNSPECIFIED Status: Acute Qualifiers: Heart failure type: diastolic Qualified Code(s): I50.33 - Acute on chronic diastolic (congestive) heart failure (6) Obesity (BMI 30-39.9) Code(s): E66.9 - OBESITY, UNSPECIFIED Status: Acute - Plan Plan: This is a 43 yo female with a pmh of CHF, ILD, Lupus, COPD #Acute on chronic hypoxic respiratory failure likely 2/2 Rheumatoid Arthritis associated ILD Improved respiratory standpoint, down to 1.5L [place] -Presumed ILD but work up in hospital for RA/SLE has been negative x2. Will request records from patient's protection specialist and pulmnologist she had seen who dx her with ILD when she underwent BAL/Tissue bx collection -Continue steroids as patient is improving with inc. in dose- possibly vasculitis. -s/p 5 day doxy course. Not likely PNA in light of dec. WBC, no fever, no clinical sxs, no focal consolidation on CXR -Pulm following along, recs appreciated #RA related skin lesions -stable with steroids #COPD -continue dulera & steroids -will work on affordance for spiriva -duonebs #Atypical chest pain -Negative troponin x2 and EKG -Likely pleuritic vs GERD vs. RA related -will try GI cocktail #Lupus/RA -Continue stress dose steroids, plan on eventual taper -continue home plaquenil -Rheum- Dr. Wu #CHF -BNP <100 this admissions -fluid restricted diet, daily home lasix -daily i/o #Seizure disorder -Continue home meds #Anxiety -Continue home meds dvt ppx: lovenox gi ppx: pepcid/famotidine dispo: Talked with PCP, Dr. Batista, yesterday in order to set up with protection specialist at academic center who agrees and will work on referral process. D/c today on high dose steroids (60mg). Has appt with PCP 1.5 weeks from now. Has oxygen at home. Discussed importance of compliance and follow up. Possible d /c pending clinical course today as patient says she still feels pretty weak. Will discuss w/ Dr. Sam Addendum - Attending - Attending Attestation Date/Time: 02/06/19 0337 I personally evaluated the patient and discussed the management with Dr. Cheng I agree with the History, Examination, Assessment and Plan documented above with any addition or exceptions noted below. Patient improved on prednisone 60 mg will increase patients activity and plan d/c later today with short term f/ u with PCP and Rheumatology referral as stated above. Patient with Autoimmune related ILD and will benefit from further treatment consideration.
[2019-02-06] MEDS: Mometasone/Formoterol 120 PUFF INHALER INH SCH (07:42)
[2019-02-06] MEDS: Hydroxychloroquine Sulfate 200 MG TAB PO SCH (08:24)
[2019-02-06] MEDS: Hydrochlorothiazide 25 MG TAB PO SCH (08:25)
[2019-02-06] MEDS: predniSONE 20 MG TAB PO SCH (08:26)
[2019-02-06] MEDS: Famotidine 20 MG TAB PO SCH (08:26)
[2019-02-06] MEDS: Divalproex Sodium 250 MG (DR) TAB PO SCH (08:26)
[2019-02-06] MEDS: Potassium Chloride 20 MEQ TAB PO SCH ×2 (08:27→17:41)
[2019-02-06] MEDS: Enoxaparin Sodium 40 MG/0.4 ML SYRINGE SC SCH (08:27)
[2019-02-06] MEDS: Betamethasone 0.1% Cream 15 GM TUBE TOP SCH (08:28)
[2019-02-06 16:50] VITALS: BP 128/75; TEMP 98.2
[2019-02-06] MEDS: Nicotine 7 MG PATCH TD SCH (17:41)
--- NOTE | 2019-02-07 14:22 | DIS ---
DATE OF ADMISSION: 01/30/2019 DATE OF DISCHARGE: 02/06/2019 ADMITTING ATTENDING: Archie Roque MD. DISCHARGE ATTENDING: Lenny Sam MD RESIDENT: Belén Cheng, PGY-2. CONSULTS: 1. Pulmonology, Dr. Simmons. 2. PT. 3. Wound Care. 4. Case management. PRIMARY DIAGNOSES: 1. Acute hypoxic respiratory failure secondary to rheumatoid arthritis, associated interstitial lung disease. 2. Rheumatoid arthritis, poorly controlled. 3. Chronic obstructive pulmonary disease. 4. Atypical chest pain, likely musculoskeletal. 5. Lupus. 6. Rheumatoid arthritis. 7. Congestive heart failure. 8. Seizure disorder. 9. Anxiety. PROCEDURES AND IMAGIN. CTA negative for PE. Multifocal infiltrates. 2. Chest x-ray, interstitial and alveolar opacity, left greater than right, which are similar when compared to the prior chest x-rays. DISCHARGE MEDICATIONS: New medications 1. Tylenol. 2. Betamethasone valerate 1 g topical daily. 3. Tums. 4. Cepastat lozenges. 5. Dextromethorphan 30 mg p.o. q.8 hours p.r.n. for cough. 6. Benadryl 25 mg p.o. q.4 hours p.r.n. for itching. 7. Pepcid. 8. DuoNeb. 9. Melatonin. 10. Dulera 2 puffs inhaled b.i.d. 11. Nicotine transdermal patch 10 mg q.24. 12. Prednisone 60 mg p.o. q.a.m., 20 tabs for the next 1 to 2 weeks as directed by PCP. 13. Lasix 20 mg daily. 14. HCTZ 12.5 mg p.o. daily. 15. K-Dur 20 mEq p.o. b.i.d. 16. Depakote 750 mg p.o. daily. 17. Grand Chain 10/325 one tab p.o. q.4 hours p.r.n. for pain. HISTORY OF PRESENT ILLNESS/HOSPITAL COURSE: Ms. Karla Guy is a 43-year-old female with poorly controlled rheumatoid arthritis and lupus, who came in with chest pain. She reports getting short of breath and uses 2 L at home. However, she was feeling more short of breath than normal. She was admitted for an ACS rule out and in which her troponins were negative and her EKG was insignificant. She was also admitted for acute on chronic hypoxic respiratory failure likely secondary to rheumatoid arthritis related interstitial lung disease. The patient has an interesting history of rheumatoid arthritis in which she has been unable to tolerate any DMARDs. She has currently been taking Plaquenil 40 mg daily steroids. She has experienced several of these flares requiring hospitalization this year. She is a current smoker as well. Originally, she was thought to have COPD versus CHF exacerbation. However, after Pulmonology consult was seen, this was all related to poorly controlled lupus. Patient records were obtained, which did confirm this diagnosis. It turns out patient has not been following up with Rheumatology due to loss of insurance. She improved and was close to baseline, requiring about 1.5 L of oxygen, which she has required before. It was discussed with the patient's PCP that she should probably be seen by a sports medicine trainer in an academic center to see if there is any new treatment that she could benefit from due to her associated lung flare-ups to this disease in her ability to tolerate typical DMARDs. Dr. Batista was contacted in regard to this. It was explained to the patient that she can go home or go to inpatient rehab since she was feeling weak. She is opting to go home. It was safe to go home, was cleared by PT. The patient also improved on high-dose steroids at 60 mg and so we continued this high dose since she had become symptomatic with 40 mg. It is possible that her smoking also trigger this and she currently smokes. I expect the patient will likely unfortunately end up returning until she can get seen with a sports medicine trainer and starting on an anti-biologic agent that will help control her rheumatoid arthritis. DISPOSITION: Stable. DISCHARGE INSTRUCTIONS: 1. Location: Home. 2. Diet: Heart healthy. 3. Activity: Ad chintan as tolerated using oxygen. FOLLOWUP: 1. Please follow up with Dr. Batista at your set appointment next week. 2. Please follow up with sports medicine trainer on this referral. 3. Please continue follow up with Dr. Simmons. Job ID: [id number]
== END 2019-02-06 18:27 | disposition home or self-care (01) | DRG 196 ==
LOC: ERS 04:11 → IMCU/EMU 05:48 → T4-A 02-05 10:04
PROVIDERS: ADMIT Family Medicine; ATTEND Family Medicine
PROC: 5A09357 Assistance with Respiratory Ventilation, Less than 24 Consecutive Hours, Continuous Positive Airway Pressure (ICD-10-PCS; principal; 2019-01-30)
DX: M05.10 Rheumatoid lung disease with rheumatoid arthritis of unspecified site (principal); J96.21 Acute and chronic respiratory failure with hypoxia; I50.33 Acute on chronic diastolic (congestive) heart failure; M32.9 Systemic lupus erythematosus, unspecified; E66.9 Obesity, unspecified; J44.9 Chronic obstructive pulmonary disease, unspecified; F41.9 Anxiety disorder, unspecified; G40.909 Epilepsy, unspecified, not intractable, without status epilepticus; K21.9 Gastro-esophageal reflux disease without esophagitis; Z68.36 Body mass index [BMI] 36.0-36.9, adult; Z79.899 Other long term (current) drug therapy; Z79.52 Long term (current) use of systemic steroids; Z88.6 Allergy status to analgesic agent; Z88.0 Allergy status to penicillin; Z88.8 Allergy status to other drugs, medicaments and biological substances; Z91.19 Patient's noncompliance with other medical treatment and regimen
CPT/HCPCS: 36415; 71045; 71046; 71275; 80053; 82805; 83690; 83735; 83880; 84100; 84145; 84484; 85025; 85379; 85520; 87449; 87804; 87899; 93005; 94640; 96365; J1650; J2270; J3370; J3490; J7512; J7620; Q0163; Q9967

== ENCOUNTER 2019-02-15 18:26 | Inpatient (IN) | payer BC ==
[2019-02-15 19:23] LABS: #Monocytes 1.3 thou/uL (0.11-0.59); #Neutrophils 11.8 thou/uL (1.40-6.50); %Basophils 0.3 % (0.0-1.0); %Eosinophils 0.2 % (0.0-10.0); %Monocytes 8.5 % (0.0-10.0); Hemoglobin 12.3 g/dL (12.0-16.0); Mean Corpuscular HGB CONC 33.6 g/dL (32.0-36.0); Mean Corpuscular Hemoglobin 31.4 pg (27.0-31.0); Mean Corpuscular Volume 93.4 fL (78.0-98.0); Mean Platelet Volume 6.6 fL (7.4-10.4); Platelet Count 281 thou/uL (130-400); RBC Distribution Width 14.9 % (11.5-14.5); Red Blood Cell (RBC) Count 3.94 mill/uL (4.20-5.40); White Blood Cell (WBC) Count 15.1 thou/uL (4.8-10.8)
[2019-02-15] MEDS ORDERED: Morphine 4 MG/ML VIAL ONE (19:29)
[2019-02-15] MEDS ORDERED: Ondansetron PF 4 MG/2 ML Vial ONE (19:29)
[2019-02-15 19:47] LABS: ALT (SGPT) 18 U/L (8-55); AST (SGOT) 12 U/L (5-34); Albumin 3.7 g/dL (3.5-5.0); Alkaline Phosphatase 56 U/L (40-110); Anion Gap 14 mmol/L (10-20); BUN (Urea Nitrogen) 10 mg/dL (7.0-18.7); Bilirubin, Total 0.5 mg/dL (0.2-1.2); Calc. Creatinine Clearance 0 mL/min (70-130); Calcium 8.7 mg/dL (7.8-10.44); Carbon Dioxide 27 mmol/L (22-29); Chloride 102 mmol/L (98-107); Estimated GFR-MDRD 89; Globulin 2.3 g/dL (2.4-3.5); Glucose 85 mg/dL (70-105); Potassium 3.2 mmol/L (3.5-5.1); Sodium 140 mmol/L (136-145)
--- NOTE | 2019-02-15 20:09 | RAD ---
RADIOGRAPH CHEST 1 VIEW: DATE: 02/15/2019 HISTORY: 43-year-old female with fever FINDINGS: There are no airspace densities, pulmonary edema, pneumothorax, or cardiomegaly. The lateral costophr enic angles are sharp. IMPRESSION: No acute cardiopulmonary findings.
[2019-02-15 20:21] LABS: Bacteria/HPF None Seen HPF (None Seen); Bilirubin Negative (Negative); Blood, Urine 2+ (Negative); Clarity Clear (Clear); Glucose, Urine (Dipstick) Normal (Negative); Leukocyte Negative Leu/uL (Negative); Nitrite Negative (Negative); Protein, Urine (Dipstick) Negative (Neg-Trace); Squamous Epithelial 0-3 HPF (0-3); Urobilinogen Normal mg/dL (Less than 2); WBC/HPF 0-3 HPF (0-3)
[2019-02-15] MEDS ORDERED: Acetaminophen 500 MG TAB ONE (20:57)
[2019-02-15] MEDS ORDERED: Cefepime 1 GM in Sodium Chloride 0.9% 100 ML IVPB SCH (21:00)
--- NOTE | 2019-02-15 22:14 | PDOC.FPRHP ---
- History of Present Illness Chief Complaint: Rash History of Present Illness: Pt is a 43 year old F with history of lupus who presents for rash of 1 day. She says she has a was painful and began in her hands. The rash present on both her arms more prominently on the R and bilateral ankles. She also has a rash in the R groin area. She says she has had no outside contacts. She has had no recent changes in her medication regimen. She has an Echo from 10/03 that shows EF of 50-55%. Rhuematologist- Ruth PCP- [facility] ED Course: In the ED, she received Vanc, Cefepime, zofran, morphine,and a 1 L bolus. - Allergies/Adverse Reactions Allergies Allergy/AdvReac Type Severity Reaction Status Date / Time sulfasalazine Allergy Severe Verified 02/16/19 01:12 tramadol Allergy Severe Verified 02/16/19 01:12 Penicillins Allergy Intermediate Rash Verified 02/16/19 01:12 levofloxacin [From Levaquin] AdvReac Severe Verified 02/16/19 01:12 NSAIDS (Non-Steroidal AdvReac Unknown Verified 02/16/19 01:12 Anti-Inflamma - Home Medications Medication Instructions Recorded Confirmed Type Divalproex Sodium [Depakote] 750 mg PO DAILY 01/26/18 02/16/19 History HYDROcodone Bit/APAP 10/325 [[place]] 1 tab PO Q4HR PRN 01/26/18 02/16/19 History Hydroxychloroquine Sulfate 400 mg PO DAILY 04/22/18 02/16/19 History [Plaquenil] Furosemide [Lasix] 20 mg PO DAILY #0 11/11/18 02/16/19 Rx Hydrochlorothiazide 12.5 mg PO DAILY #30 tab 01/21/19 02/16/19 Rx Potassium Chloride [K-Dur] 20 meq PO BID-WM #7 tab 01/21/19 02/16/19 Rx Acetaminophen [Tylenol Regular 650 mg PO Q4H PRN tab 02/06/19 02/16/19 Rx Strength] Betamethasone Valerate [Valisone 1 gm TOP DAILY #1 tube 02/06/19 02/16/19 Rx 0.1% Cream] Calcium Carbonate [Tums] 1,000 mg PO Q4H PRN tab 02/06/19 02/16/19 Rx Cepastat Lozenges 1 candice PO Q2H PRN candice 02/06/19 02/16/19 Rx Dextromethorphan Polistirex 30 mg PO Q8HR ml 02/06/19 02/16/19 Rx [Delsym Cough for Children and Adults] Famotidine [Pepcid] 20 mg PO BID tab 02/06/19 02/16/19 Rx Ipratropium/Albuterol Sulfate 3 ml NEB [id number] #30 neb 02/06/19 02/16/19 Rx [DuoNeb] Melatonin 3 mg PO HS PRN tab 02/06/19 02/16/19 Rx Mometasone/Formoterol 200/5 2 puff INH BID-RT #1 aer 02/06/19 02/16/19 Rx [Dulera 200 Mcg/5 Mcg Inhaler] Nicotine [Nicoderm CQ] 7 mg TD Q24HR #30 patch 02/06/19 02/16/19 Rx diphenhydrAMINE [Benadryl] 25 mg PO Q4H PRN cap 02/06/19 02/16/19 Rx predniSONE 60 mg PO QAM-WM 02/16/19 02/16/19 History - History PMHx: SLE, RA, Interstitial Lung disease, Seizures, Anxiety PSHx: 3x C-sections, Bilateral tubal ligation, lung scraping FHx: Mother and father have diabetes, father has heart disease Social: 7 pack year history, denies drinking, denies recreational drug use - Review of Systems General: reports: fever/chills Eyes: denies: vision changes ENT: denies: nasal congestion, rhinorrhea Respiratory: denies: cough, congestion Cardiovascular: denies: chest pain, edema Gastrointestinal: reports: nausea. denies: vomiting, diarrhea, constipation Skin: reports: rashes Musculoskeletal: reports: pain, swelling Neurological: denies: numbness, weakness - Vital signs BP: 101/60 HR: 101 RR: 20 Tmax: 100.0 Pox: 97% on RA Wt: 93 kg - Physical Exam Constitutional: NAD HEENT: normocephalic and atraumatic, PERRLA, EOMI Neck: supple, trachea midline Heart: RRR, normal S1/S2 Lungs: CTAB Abdomen: soft, non-tender, bowel sounds present Musculoskeletal: normal structure, normal tone, ROM grossly normal Neurological: no focal deficit, CN II-XII intact, normal sensation -Skin: Erythema with scabs present over the majority of the R arm. Bilateral ankles have erythema around the heel. RLE medial groin region is bright red with purulent discharge. Heme/Lymphatic: no LAD Psychiatric: normal mood and affect FMR H&P: Results - Labs Result Diagrams: 02/16/19 04:59 02/16/19 04:59 Lab results: WBC 15.1 thou/uL (4.8-10.8) H 02/15/19 19:15 Hgb 12.3 g/dL (12.0-16.0) 02/15/19 19:15 Hct 36.8 % (36.0-47.0) 02/15/19 19:15 MCV 93.4 fL (78.0-98.0) 02/15/19 19:15 Plt Count 281 thou/uL (130-400) 02/15/19 19:15 Neutrophils % 78.0 % (42.0-75.0) H 02/15/19 19:15 Sodium 140 mmol/L (136-145) 02/15/19 19:15 Potassium 3.2 mmol/L (3.5-5.1) L 02/15/19 19:15 Chloride 102 mmol/L (98-107) 02/15/19 19:15 Carbon Dioxide 27 mmol/L (22-29) 02/15/19 19:15 BUN 10 mg/dL (7.0-18.7) 02/15/19 19:15 Creatinine 0.71 mg/dL (0.6-1.1) 02/15/19 19:15 Glucose 85 mg/dL (70-105) 02/15/19 19:15 Lactic Acid 2.0 mmol/L (0.5-2.2) 02/15/19 19:15 Calcium 8.7 mg/dL (7.8-10.44) 02/15/19 19:15 Total Bilirubin 0.5 mg/dL (0.2-1.2) 02/15/19 19:15 AST 12 U/L (5-34) 02/15/19 19:15 ALT 18 U/L (8-55) 02/15/19 19:15 Alkaline Phosphatase 56 U/L (40-110) 02/15/19 19:15 Serum Total Protein 6.0 g/dL (6.0-8.3) 02/15/19 19:15 Albumin 3.7 g/dL (3.5-5.0) 02/15/19 19:15 Urine Ketones Negative mg/dL (Negative) 02/15/19 19:40 Urine Blood 2+ (Negative) A 02/15/19 19:40 Urine Nitrite Negative (Negative) 02/15/19 19:40 Ur Leukocyte Esterase Negative Andrew/uL (Negative) 02/15/19 19:40 Urine RBC 11-20 HPF (0-3) A 02/15/19 19:40 Urine WBC 0-3 HPF (0-3) 02/15/19 19:40 Ur Squamous Epith Cells 0-3 HPF (0-3) 02/15/19 19:40 Urine Bacteria None Seen HPF (None Seen) 02/15/19 19:40 FMR H&P: A/P - Problem List (1) Cellulitis Current Visit: Yes Status: Acute Code(s): L03.90 - CELLULITIS, UNSPECIFIED Qualifiers: Site of cellulitis: extremity Site of cellulitis of extremity: lower extremity Laterality: right Qualified Code(s): L03.115 - Cellulitis of right lower limb (2) Sepsis Current Visit: Yes Status: Acute Code(s): A41.9 - SEPSIS, UNSPECIFIED ORGANISM Qualifiers: Severe sepsis shock status: without septic shock (3) ILD (interstitial lung disease) Current Visit: No Status: Chronic Code(s): J84.9 - INTERSTITIAL PULMONARY DISEASE, UNSPECIFIED Comment: Continue O2 supplementation, Solumedrol, Duonebs (4) Lupus Current Visit: No Status: Chronic Code(s): M32.9 - SYSTEMIC LUPUS ERYTHEMATOSUS, UNSPECIFIED Qualifiers: Systemic lupus erythematosus type: unspecified Systemic lupus erythematosus organ involvement: lung involvement Qualified Code(s): M32.13 - Lung involvement in systemic lupus erythematosus (5) Rheumatoid arthritis Current Visit: No Status: Chronic Code(s): M06.9 - RHEUMATOID ARTHRITIS, UNSPECIFIED Comment: Continue Plaquenil (6) Seizure disorder Current Visit: No Status: Chronic Code(s): G40.909 - EPILEPSY, UNSP, NOT INTRACTABLE, WITHOUT STATUS EPILEPTICUS Comment: Continue Depakote 750mg daily (7) Tobacco abuse Current Visit: No Status: Chronic Code(s): Z72.0 - TOBACCO USE Comment: Smoking cessation resources - Plan Pt is a 43 year old F with history of lupus who presents for rash of 1 day. 1. Cellulitis RLE groin, b/l ankle * US done at bedside in ED showed no abscess * Currently on Vanc & Cefipime, will consider de-escalation in the future * Has erythema and redness on RUE, but through review of history found to be present on last admission * Most likely diffuse due to Plaquenil usage * Wound Care Consulted 2. Sepsis Tmax: 100.5, Tachycardic @ 111, Tacypneic @ 36, WBC: 15.1 * Started on Abx after Blood Cx and Urine Culture obtained * Most likely 2/2 Cellulitis * Will monitor CBC * UA unremarkable * Given 1 L bolus in ED & 1L bolus on floor * NS @ 125 ml/h 3. Seizure * Will restart home meds 4. RA * Will restart home meds 5. SLE * Will restart home meds 6. Tobacco Smokes 1/2 PPD for 20 years * Would like to quit * Order smoking cessation education * Started Nicotine path 14 7. Interstitial Lung Disease Currently not on medications for at home * Will monitor vitals Q4H * Currently sating well on RA Diet: HHLSo Lines: Peripheral, NS @ 125 Code Status: Full DVT PPx: Lovenox [facility]CP: [facility] Dispo: Medical inpt, LOS > 48H. FMR H&P: Upper Level - Plan Date/Time: 02/15/19 2212 43 yo f with pmhx of lupus present with a rash/abscess that appears to have started in her groin. She has an area of extreme tenderness on her right inner thigh that is weeping liquid/exudate. She also has a rash bilaterally on her ankles and on her right and left forearms. She has excorations/prior abscesses, healed on her forearms, but these were here prior. She endorses fever at home. She was admitted for sepsis 2/2 cellulitis. Vanc and cefepime were continued. She is pcn allergic which is why zosyn wasn't given. Cefepime was continued for now simply because she is immunocompromised. We will plan to deescalate after cultures results return and if the patient clinically improves. We also gave her an additional liter of NS, and started her on maintenance IV fluids. Mahesh Booker have evaluated this patient and agree with findings/plan as outlined by financial services internship resident. Pertinent changes/additions are listed here. Addendum - Attending - Attending Attestation Date/Time: 02/16/19 0676 I personally evaluated the patient and discussed the management with Dr. Radha Jin I agree with the History, Examination, Assessment and Plan documented above with any addition or exceptions noted below - 43 yo f with h/o seizures, rheumatoid arthritis, lupus, amxiety, and interstitial lung disease present with a rash/abscess that appears to have started in her groin. She has an area of extreme tenderness on her right inner thigh that is weeping liquid/exudate. She also has a rash bilaterally on her ankles and on her right and left forearms. She has excorations/prior abscesses, healed on her forearms, but these were here prior. She endorses fever at home. PMH/PSH/Meds/SH reviewed and agree with resident's documentation. T 100.5 VSS Exam repeated by me and agree with resident's findings including area of erythema, warmth and exquisite tenderness along right medial thigh. A/P: 1) Cellulitis- continue vanc/ cefipime. Per ER MD bedside sono- no fluid collection. Consider repeat if not improving or increasing in size. 3) RA/lupus- on prednisone; continue steroids. 3) Seizure d/o continue depakote
[2019-02-15] MEDS ORDERED: Calcium Carbonate 500 MG ChewTAB PO PRN (23:05)
[2019-02-15] MEDS ORDERED: Senokot S 8.6-50 MG TAB PO PRN (23:05)
[2019-02-15] MEDS ORDERED: Ondansetron PF 4 MG/2 ML Vial IVP PRN (23:05)
[2019-02-15] MEDS ORDERED: Acetaminophen 650 MG Suppository PR PRN (23:05)
[2019-02-15] MEDS ORDERED: Ondansetron ODT 4 MG TAB PO PRN (23:05)
[2019-02-15] MEDS ORDERED: Sodium Chloride 0.9% 1,000 ML IV SCH (23:15)
[2019-02-15 23:34] VITALS: BMI 35.5
[2019-02-16] MEDS: Nicotine 14 MG PATCH TD SCH ×2 (00:26→23:34)
[2019-02-16] MEDS: Sodium Chloride 0.9% 1,000 ML IV SCH ×3 (01:44→13:58)
[2019-02-16] MEDS: Acetaminophen 325 MG TAB PO PRN ×4 (01:49→23:33)
[2019-02-16] MEDS: Vancomycin HCl 1.5 GM in Sodium Chloride 0.9% 250 ML 300 ML IVPB SCH ×2 (04:25→14:26)
--- NOTE | 2019-02-16 06:18 | PDOC.FM ---
- Subjective Subjective: This morning pt had no allevation in pain, nauseated. SHe was not on her home pain medication. RLE lesion was painful, erythematous, present for 2 days. She chronically has arm, ankle scabs which she states is attributed to medication. - Objective Vital Signs & Weight: Vital Signs (12 hours) Temp Pulse Resp BP Pulse Ox 02/16/19 06:13 100.5 F H 02/16/19 04:15 102.2 F H 02/16/19 01:45 102.9 F H 02/15/19 23:00 98.7 F 97 18 117/80 100 Weight Weight 93.939 kg Result Diagrams: 02/17/19 05:38 02/17/19 05:38 Phys Exam - Physical Examination Constitutional: NAD HEENT: PERRLA Respiratory: no wheezing, no rales, clear to auscultation bilateral Cardiovascular: RRR Gastrointestinal: soft, non-tender Musculoskeletal: no edema, pulses present Deviation from normal: RLE cellulitis on medial thigh w/o fluctuance. Lesion was painful, erythema Dx/Plan (1) Cellulitis Code(s): L03.90 - CELLULITIS, UNSPECIFIED Status: Acute Qualifiers: Site of cellulitis: extremity Site of cellulitis of extremity: lower extremity Laterality: right Qualified Code(s): L03.115 - Cellulitis of right lower limb (2) Sepsis Code(s): A41.9 - SEPSIS, UNSPECIFIED ORGANISM Status: Acute Qualifiers: Severe sepsis shock status: without septic shock (3) Obesity (BMI 30-39.9) Code(s): E66.9 - OBESITY, UNSPECIFIED Status: Acute (4) ILD (interstitial lung disease) Code(s): J84.9 - INTERSTITIAL PULMONARY DISEASE, UNSPECIFIED Status: Chronic (5) Migraine Code(s): G43.909 - MIGRAINE, UNSP, NOT INTRACTABLE, WITHOUT STATUS MIGRAINOSUS Status: Chronic Qualifiers: Migraine type: unspecified Intractability: intractable (6) Rheumatoid arthritis Code(s): M06.9 - RHEUMATOID ARTHRITIS, UNSPECIFIED Status: Chronic (7) Seizure disorder Code(s): G40.909 - EPILEPSY, UNSP, NOT INTRACTABLE, WITHOUT STATUS EPILEPTICUS Status: Chronic (8) Tobacco abuse Code(s): Z72.0 - TOBACCO USE Status: Chronic - Plan Plan: Pt is a 43 year old F with history of lupus who presents for rash of 1 day. 1. Cellulitis RLE groin, b/l ankle * US done at bedside in ED showed no abscess * Currently on Vanc & Cefipime, will consider de-escalation in the future * Has erythema and redness on RUE, but through review of history found to be present on last admission * Most likely diffuse due to Plaquenil usage * Wound Care Consulted * Consult ID if non-improving tomorrow. 2. Sepsis Tmax: 100.5, Tachycardic @ 111, Tacypneic @ 36, WBC: 15.1 * Started on Abx after Blood Cx and Urine Culture obtained * Most likely 2/2 Cellulitis * Will monitor CBC * UA unremarkable * Given 1 L bolus in ED & 1L bolus on floor * NS @ 125 ml/h 3. Seizure * Will restart home meds 4. RA * Will restart home meds 5. SLE * Will restart home meds 6. Tobacco Smokes 1/2 PPD for 20 years * Would like to quit * Order smoking cessation education * Started Nicotine path 14 7. Interstitial Lung Disease Currently not on medications for at home * Will monitor vitals Q4H * Currently sating well on RA * Continue Prednisone 8. Tachycardia Likely secondary to pain but if persists will order EKG. Diet: HHLSo Lines: Peripheral, NS @ 125 Code Status: Full DVT PPx: Lovenox [facility]CP: [facility] Dispo: Medical inpt, LOS > 48H. Addendum - Attending - Attending Attestation Date/Time: 02/17/19 2450 I personally evaluated the patient and discussed the management with Dr. Dumont. I agree with the History, Examination, Assessment and Plan documented above with any addition or exceptions noted below.
[2019-02-16] MEDS ORDERED: Cepastat Lozenges 1 LOZ PO PRN (06:20)
[2019-02-16] MEDS ORDERED: Melatonin 3 MG TAB PO PRN (06:20)
[2019-02-16] MEDS ORDERED: Calcium Carbonate 500 MG ChewTAB PO PRN (06:20)
[2019-02-16] MEDS ORDERED: diphenhydrAMINE 25 MG CAP PO PRN (06:20)
[2019-02-16 06:30] LABS: Anion Gap 9 mmol/L (10-20); BUN (Urea Nitrogen) 6 mg/dL (7.0-18.7); Calc. Creatinine Clearance 166 mL/min (70-130); Calcium 8.1 mg/dL (7.8-10.44); Carbon Dioxide 29 mmol/L (22-29); Chloride 105 mmol/L (98-107); Estimated GFR-MDRD Greater than 90; Glucose 83 mg/dL (70-105); Potassium 3.1 mmol/L (3.5-5.1); Sodium 140 mmol/L (136-145)
[2019-02-16] MEDS ORDERED: Nicotine 7 MG PATCH TD SCH (06:30)
[2019-02-16 06:31] LABS: Band 13 % (5-11); Hemoglobin 11.9 g/dL (12.0-16.0); Lymphocytes 10 % (21-51); MDiff Complete? YES; Mean Corpuscular HGB CONC 33.4 g/dL (32.0-36.0); Mean Corpuscular Hemoglobin 31.2 pg (27.0-31.0); Mean Corpuscular Volume 93.4 fL (78.0-98.0); Mean Platelet Volume 6.9 fL (7.4-10.4); Monocytes 8 % (0-10); Neutrophil 69 % (42-75); Platelet Count 249 thou/uL (130-400); Platelet Morphology Comment Appears Adequate; White Blood Cell (WBC) Count 15.4 thou/uL (4.8-10.8)
[2019-02-16] MEDS ORDERED: Vancomycin HCl 1.25 GM in Sodium Chloride 0.9% 250 ML 250 ML IVPB SCH (07:00)
[2019-02-16] MEDS: Divalproex Sodium 250 MG (DR) TAB PO SCH (07:55)
[2019-02-16] MEDS: Famotidine 20 MG TAB PO SCH ×2 (07:55→20:07)
[2019-02-16] MEDS: Hydroxychloroquine Sulfate 200 MG TAB PO SCH (07:55)
[2019-02-16] MEDS: Furosemide 20 MG TAB PO SCH (07:56)
[2019-02-16] MEDS: HYDROcodone/Acetaminophen 10/325 mg Tablet PO PRN ×3 (07:56→17:13)
[2019-02-16] MEDS: Potassium Chloride 20 MEQ TAB PO SCH ×2 (07:56→17:10)
[2019-02-16] MEDS: predniSONE 20 MG TAB PO SCH (07:56)
[2019-02-16] MEDS: Hydrochlorothiazide 25 MG TAB PO SCH (07:56)
[2019-02-16] MEDS: Cefepime 2 GM in Sodium Chloride 0.9% 100 ML IVPB SCH ×2 (07:58→20:03)
[2019-02-16] MEDS: Enoxaparin Sodium 40 MG/0.4 ML SYRINGE SC SCH (07:58)
[2019-02-16] MEDS: Mometasone/Formoterol 120 PUFF INHALER INH SCH ×2 (08:13→19:33)
[2019-02-16] MEDS ORDERED: Potassium Chloride 20 MEQ TAB PO SCH (12:15)
[2019-02-16] MEDS: Dextromethorphan Polistirex 30 MG/5 ML (89 ML BOTTLE) PO SCH ×2 (13:31→21:52)
[2019-02-16] MEDS: Morphine 2 MG/ML SYRINGE SLOW IVP PRN ×3 (15:07→23:35)
[2019-02-17] MEDS: Sodium Chloride 0.9% 1,000 ML IV SCH ×3 (01:06→16:00)
[2019-02-17] MEDS: HYDROcodone/Acetaminophen 10/325 mg Tablet PO PRN ×5 (01:06→23:23)
[2019-02-17 02:59] LABS: Vancomycin, Trough 10.4 ug/mL
[2019-02-17] MEDS ORDERED: Morphine 2 MG/ML SYRINGE SLOW IVP SCH (03:30)
[2019-02-17] MEDS: Vancomycin HCl 1.75 GM in Sodium Chloride 0.9% 500 ML IVPB SCH ×2 (03:34→15:58)
[2019-02-17] MEDS: Vancomycin HCl 1.5 GM in Sodium Chloride 0.9% 250 ML 300 ML IVPB SCH (03:42)
[2019-02-17 06:07] LABS: Anion Gap 13 mmol/L (10-20); BUN (Urea Nitrogen) 7 mg/dL (7.0-18.7); Band 1 % (5-11); Calc. Creatinine Clearance 154 mL/min (70-130); Calcium 8.6 mg/dL (7.8-10.44); Carbon Dioxide 26 mmol/L (22-29); Chloride 107 mmol/L (98-107); Estimated GFR-MDRD Greater than 90; Glucose 98 mg/dL (70-105); Hemoglobin 10.6 g/dL (12.0-16.0); Hypochromia SLIGHT = 6-15 cells (100X) (0-5/hpf); Lymphocytes 5 % (21-51); MDiff Complete? YES; Mean Corpuscular HGB CONC 31.3 g/dL (32.0-36.0); Mean Corpuscular Hemoglobin 29.5 pg (27.0-31.0); Mean Corpuscular Volume 94.3 fL (78.0-98.0); Mean Platelet Volume 6.5 fL (7.4-10.4); Monocytes 9 % (0-10); Neutrophil 85 % (42-75); Platelet Count 266 thou/uL (130-400); Platelet Morphology Comment Appears Adequate; RBC Distribution Width 14.5 % (11.5-14.5); Red Blood Cell (RBC) Count 3.58 mill/uL (4.20-5.40); Sodium 143 mmol/L (136-145); White Blood Cell (WBC) Count 17.9 thou/uL (4.8-10.8)
[2019-02-17] MEDS: Dextromethorphan Polistirex 30 MG/5 ML (89 ML BOTTLE) PO SCH ×3 (06:10→22:37)
[2019-02-17] MEDS ORDERED: Acetaminophen 500 MG TAB PO PRN ×2 (06:30→10:30)
--- NOTE | 2019-02-17 06:39 | PDOC.FM ---
- Subjective Subjective: Pt continues with pain today in R lower extremity requiring morphine which alleviated the pain. She had fever yesterday alleviated with tylenol. She states she feels much better from yesterday. She is tolerating a diet. - Objective Vital Signs & Weight: Vital Signs (12 hours) Temp Pulse Resp BP Pulse Ox 02/17/19 04:00 99.6 F 113 H 20 138/86 100 02/17/19 02:06 109 H 16 92 L 02/17/19 00:00 99.0 F 111 H 20 111/74 98 02/16/19 20:00 94 L 02/16/19 19:57 98.5 F 119 H 20 112/71 94 L 02/16/19 18:30 99.6 F Weight Admit Weight 93.939 kg Weight 93.939 kg I&O: 02/15/19 02/16/19 02/17/19 06:59 06:59 06:59 Intake Total 3303 Balance 3303 Result Diagrams: 02/17/19 05:38 02/17/19 05:38 Phys Exam - Physical Examination Constitutional: NAD HEENT: PERRLA, moist MMs Respiratory: no wheezing, clear to auscultation bilateral Cardiovascular: RRR, no significant murmur Gastrointestinal: soft, non-tender Musculoskeletal: no edema, pulses present Psychiatric: normal affect, A&O x 3 -: erythema spread past border but intensity of erythema decreased Dx/Plan (1) Cellulitis Code(s): L03.90 - CELLULITIS, UNSPECIFIED Status: Acute Qualifiers: Site of cellulitis: extremity Site of cellulitis of extremity: lower extremity Laterality: right Qualified Code(s): L03.115 - Cellulitis of right lower limb (2) Sepsis Code(s): A41.9 - SEPSIS, UNSPECIFIED ORGANISM Status: Acute Qualifiers: Severe sepsis shock status: without septic shock (3) Obesity (BMI 30-39.9) Code(s): E66.9 - OBESITY, UNSPECIFIED Status: Acute (4) ILD (interstitial lung disease) Code(s): J84.9 - INTERSTITIAL PULMONARY DISEASE, UNSPECIFIED Status: Chronic (5) Migraine Code(s): G43.909 - MIGRAINE, UNSP, NOT INTRACTABLE, WITHOUT STATUS MIGRAINOSUS Status: Chronic Qualifiers: Migraine type: unspecified Intractability: intractable (6) Rheumatoid arthritis Code(s): M06.9 - RHEUMATOID ARTHRITIS, UNSPECIFIED Status: Chronic (7) Seizure disorder Code(s): G40.909 - EPILEPSY, UNSP, NOT INTRACTABLE, WITHOUT STATUS EPILEPTICUS Status: Chronic (8) Tobacco abuse Code(s): Z72.0 - TOBACCO USE Status: Chronic - Plan Plan: Pt is a 43 year old F with history of lupus who presents for rash of 1 day. 1. Cellulitis RLE groin, b/l ankle * US done at bedside in ED showed no abscess * Currently on Vanc & Cefipime, will consider de-escalation in the future * Has erythema and redness on RUE, but through review of history found to be present on last admission * Most likely diffuse due to Plaquenil usage * Wound Care Consulted * Vanc not adequately dosed w/ vanc trough 10.4; vanc increased. Continue to monitor for improvement with increased dosage. Will re-draw CBC at 1500, if WBC not changed will add flagyl. * WBC increased * U/S pending assessing for abscess 2. Sepsis Tmax: 100.5, Tachycardic @ 111, Tacypneic @ 36, WBC: 15.1 * Started on Abx after Blood Cx and Urine Culture obtained * Most likely 2/2 Cellulitis * Will monitor CBC * UA unremarkable * Given 1 L bolus in ED & 1L bolus on floor * NS @ 125 ml/h 3. Gram Positive Cocci in Clusters Blood Cultures 1/2 * likely contaminant, pt currently on appropriate therapy to cover for possible bacteremia. 3. Seizure * Will restart home meds 4. RA * Will restart home meds 5. SLE * Will restart home meds 6. Tobacco Smokes 1/2 PPD for 20 years * Would like to quit * Order smoking cessation education * Started Nicotine path 14 7. Interstitial Lung Disease Currently not on medications for at home * Will monitor vitals Q4H * Currently sating well on RA * Continue Prednisone - at this time do not feel pt needs stress dose as she is on 60 mg daily, BP stable. If she becomes hypotensive will give stress dose. 8. Tachycardia Likely secondary to pain but if persists will order EKG. Pt does admit to routinely have elevated HR in high 90's. Diet: HHLSo Lines: Peripheral, NS @ 125 Code Status: Full DVT PPx: Lovenox [facility]CP: [facility] Dispo: Medical inpt, LOS > 48H. Addendum - Attending - Attending Attestation Date/Time: 02/17/19 1150 I personally evaluated the patient and discussed the management with Dr. Dumont. I agree with the History, Examination, Assessment and Plan documented above with any addition or exceptions noted below. We will recheck CBC this afternoon. Will consider adding flagyl for anaerobic coverage if not improving.
[2019-02-17] MEDS ORDERED: Potassium Chloride 20 MEQ TAB PO SCH (06:45)
[2019-02-17] MEDS: Mometasone/Formoterol 120 PUFF INHALER INH SCH ×2 (07:52→18:52)
[2019-02-17] MEDS: Hydrochlorothiazide 25 MG TAB PO SCH (09:04)
[2019-02-17] MEDS: Hydroxychloroquine Sulfate 200 MG TAB PO SCH (09:04)
[2019-02-17] MEDS: Potassium Chloride 20 MEQ TAB PO SCH ×2 (09:04→16:30)
[2019-02-17] MEDS: Famotidine 20 MG TAB PO SCH ×2 (09:05→20:41)
[2019-02-17] MEDS: Furosemide 20 MG TAB PO SCH (09:05)
[2019-02-17] MEDS: predniSONE 20 MG TAB PO SCH (09:06)
[2019-02-17] MEDS: Enoxaparin Sodium 40 MG/0.4 ML SYRINGE SC SCH (09:07)
[2019-02-17] MEDS: Morphine 2 MG/ML SYRINGE SLOW IVP PRN ×2 (09:07→20:42)
[2019-02-17] MEDS: Divalproex Sodium 250 MG (DR) TAB PO SCH (09:14)
[2019-02-17] MEDS: Cefepime 2 GM in Sodium Chloride 0.9% 100 ML IVPB SCH ×2 (09:40→23:24)
--- NOTE | 2019-02-17 11:53 | ULT ---
US Soft Tissue Other: 02/17/2019 10:26 AM CLINICAL INDICATION: Redness and swelling since Saturday in the right medial thigh. COMPARISON: None. FINDINGS: A soft tissue ultrasound of the right medial thigh was performed. There is a small fluid collection m easuring 2.7 x 0.5 cm in size. Extensive edema is present. IMPRESSION: Small fluid collection in the right medial thigh as above.
[2019-02-17 15:10] LABS: Mean Corpuscular HGB CONC 33.4 g/dL (32.0-36.0); Mean Corpuscular Hemoglobin 31.3 pg (27.0-31.0); Mean Corpuscular Volume 93.7 fL (78.0-98.0); Mean Platelet Volume 6.6 fL (7.4-10.4); Platelet Count 276 thou/uL (130-400); RBC Distribution Width 14.6 % (11.5-14.5); Red Blood Cell (RBC) Count 3.51 mill/uL (4.20-5.40); White Blood Cell (WBC) Count 22.9 thou/uL (4.8-10.8)
[2019-02-17 15:45] LABS: Band 12 % (5-11); Lymphocytes 1 % (21-51); MDiff Complete? YES; Neutrophil 87 % (42-75); Platelet Morphology Comment Appears Adequate; Polychromasia SLIGHT = 2-3 cells (100X) (0-2/hpf)
[2019-02-17] MEDS ORDERED: metroNIDAZOLE 500 MG in Premix Bag 1 BAG IVPB SCH (22:00)
[2019-02-17] MEDS: Nicotine 14 MG PATCH TD SCH (23:24)
[2019-02-18] MEDS: Sodium Chloride 0.9% 1,000 ML IV SCH ×4 (00:04→23:15)
[2019-02-18] MEDS: Morphine 2 MG/ML SYRINGE SLOW IVP PRN ×4 (00:52→20:40)
[2019-02-18] MEDS ORDERED: HYDROcodone/Acetaminophen 10/325 mg Tablet ONE (03:19)
[2019-02-18] MEDS ORDERED: Morphine 2 MG/ML SYRINGE ONE (05:23)
[2019-02-18] MEDS: Divalproex Sodium 250 MG (DR) TAB PO SCH (08:35)
[2019-02-18] MEDS: Enoxaparin Sodium 40 MG/0.4 ML SYRINGE SC SCH (08:35)
[2019-02-18] MEDS: Famotidine 20 MG TAB PO SCH ×2 (08:35→20:41)
[2019-02-18] MEDS: Potassium Chloride 20 MEQ TAB PO SCH ×2 (08:35→17:39)
[2019-02-18] MEDS: Furosemide 20 MG TAB PO SCH (08:35)
[2019-02-18] MEDS: Hydroxychloroquine Sulfate 200 MG TAB PO SCH (08:35)
[2019-02-18] MEDS: HYDROcodone/Acetaminophen 10/325 mg Tablet PO PRN ×3 (08:35→23:13)
[2019-02-18] MEDS: Hydrochlorothiazide 25 MG TAB PO SCH (08:35)
[2019-02-18] MEDS: predniSONE 20 MG TAB PO SCH (11:45)
[2019-02-18] MEDS: Cefepime 2 GM in Sodium Chloride 0.9% 100 ML IVPB SCH (11:45)
[2019-02-18] MEDS: Mometasone/Formoterol 120 PUFF INHALER INH SCH ×2 (12:44→19:57)
[2019-02-18] MEDS ORDERED: Lidocaine 1% w/Epinephrine 1:200K 30 ML VIAL FS SCH (12:45)
[2019-02-18 14:10] LABS: Band 15 % (5-11); Hemoglobin 10.3 g/dL (12.0-16.0); Lymphocytes 3 % (21-51); MDiff Complete? YES; Mean Corpuscular HGB CONC 32.6 g/dL (32.0-36.0); Mean Corpuscular Hemoglobin 30.9 pg (27.0-31.0); Mean Corpuscular Volume 94.6 fL (78.0-98.0); Mean Platelet Volume 7.3 fL (7.4-10.4); Monocytes 1 % (0-10); Neutrophil 81 % (42-75); Platelet Count 272 thou/uL (130-400); Platelet Morphology Comment Appears Adequate; Polychromasia SLIGHT = 2-3 cells (100X) (0-2/hpf); Red Blood Cell (RBC) Count 3.33 mill/uL (4.20-5.40); White Blood Cell (WBC) Count 22.3 thou/uL (4.8-10.8)
[2019-02-18 14:34] LABS: Anion Gap 17 mmol/L (10-20); BUN (Urea Nitrogen) 9 mg/dL (7.0-18.7); Calc. Creatinine Clearance 157 mL/min (70-130); Calcium 9.6 mg/dL (7.8-10.44); Carbon Dioxide 22 mmol/L (22-29); Chloride 104 mmol/L (98-107); Estimated GFR-MDRD Greater than 90; Glucose 114 mg/dL (70-105); Potassium 3.9 mmol/L (3.5-5.1); Sodium 139 mmol/L (136-145)
[2019-02-18] MEDS: Vancomycin HCl 1.75 GM in Sodium Chloride 0.9% 500 ML IVPB SCH ×2 (15:00→21:45)
--- NOTE | 2019-02-18 15:16 | CON ---
DATE OF CONSULTATION: HISTORY OF PRESENT ILLNESS: Karla Guy is a 43-year-old female with rheumatoid arthritis, lupus, one-half pack a day smoker, morbidly obese, 5 foot 4 inches, 207 pounds, 35 BMI as well as a right medial thigh abscess with surrounding cellulitis, admitted by the [facility] on 02/15/2019. Apparently, an ultrasound was obtained today of her medial thigh demonstrating a small amount of purulent material. She has had spontaneous drainage of purulent material. One out of two blood cultures on 02/15/2019, coagulase-negative Staph. Urine culture negative. She has been afebrile and white count on admission was 15, today 22. I have been asked to see regarding a right thigh abscess and cellulitis. The patient had a regular diet today, but was placed n.p.o. after midnight tonight. The patient has a tremendous amount of cellulitis in her proximal medial right thigh extending down to her distal thigh. She has a fluctuant area of induration in her proximal medial thigh. She has a small opening. There is a small area of necrosis of the skin and ecchymosis. ALLERGIES: SULFASALAZINE, TRAMADOL, PENICILLINS, LEVOTHYROXINE, AND MORE. SOCIAL HISTORY: Tobacco one-half pack per day. Alcohol rarely. MEDICATIONS: 1. Prednisone. 2. Tums. 3. Valisone. 4. Tylenol. 5. DuoNebs. 6. Cepastat. 7. Dulera. 8. Melatonin. 9. Hydrochlorothiazide. 10. Plaquenil. 11. Depakote. 12. [place]. PAST SURGICAL HISTORY: Tubal ligation. PAST MEDICAL HISTORY: Lupus, rheumatoid arthritis, and obesity. ORTHO RN: Dr. Wu. PRIMARY CARE PHYSICIAN: Dr. Elizabeth at [facility]. PHYSICAL EXAMINATION: VITAL SIGNS: Height 5 foot 4 inches, 207 pounds, and 35 of BMI. LUNGS: Clear to auscultation. CARDIAC: Regular rate and rhythm without murmur or gallop. ABDOMEN: Obese, soft, and nontender. Palpable pulses. EXTREMITIES: The patient has a right thigh abscess, proximal medial thigh. She has cellulitis extending down the proximal 2/3rds of her medial thigh. There is induration and fluctuance in the abscess. ASSESSMENT AND PLAN: Right thigh abscess. At the bedside, this was drained, a copious amount of purulent material was drained, sent for culture and sensitivity. Wound packed open. This is a very limited process. In my opinion, the patient is going to go home on oral antibiotics in a day or two. She can begin daily tomorrow, remove the dressings before or in the shower after soaking them. She can soak this in the shower or bath daily, wash it with soap and water, wash the open wound with soap and water and apply normal saline wet-to-dry dressing to heal secondarily. She can be sent home on oral antibiotics at any time. At this point, I would recommend that she be taught wound care and I have put in orders for wound care to instruct her wound care. She can follow up with me in the office in 2 to 3 weeks. Job ID: [id number]
[2019-02-18 15:31] LABS: Vancomycin, Trough 16.1 ug/mL
[2019-02-18] MEDS: Dextromethorphan Polistirex 30 MG/5 ML (89 ML BOTTLE) PO SCH ×3 (16:22→23:29)
[2019-02-18] MEDS: metroNIDAZOLE 500 MG in Premix Bag 1 BAG IVPB SCH ×2 (16:47→17:39)
[2019-02-18] MEDS: Nicotine 14 MG PATCH TD SCH (23:18)
[2019-02-19] MEDS: Morphine 2 MG/ML SYRINGE SLOW IVP PRN ×3 (00:48→13:59)
[2019-02-19] MEDS: Cefepime 2 GM in Sodium Chloride 0.9% 100 ML IVPB SCH (02:29)
[2019-02-19] MEDS: metroNIDAZOLE 500 MG in Premix Bag 1 BAG IVPB SCH (03:17)
[2019-02-19] MEDS: HYDROcodone/Acetaminophen 10/325 mg Tablet PO PRN ×3 (03:32→11:56)
[2019-02-19] MEDS ORDERED: metroNIDAZOLE 500 MG in Premix Bag 1 BAG IVPB SCH (04:00)
[2019-02-19] MEDS: Dextromethorphan Polistirex 30 MG/5 ML (89 ML BOTTLE) PO SCH ×2 (05:39→16:13)
--- NOTE | 2019-02-19 06:41 | PDOC.FM ---
- Subjective Subjective: Pt is doing well today. She is afebrile. Remains with pain in her RLE. She was seen by Dr. Carrizales who performed I&D. Infection still draining pus. - Objective Vital Signs & Weight: Vital Signs (12 hours) Temp Pulse Resp BP BP Pulse Ox 02/19/19 04:00 98.8 F 94 19 123/86 92 L 02/19/19 00:00 98.8 F 112 H 18 115/79 91 L 02/18/19 22:28 107 H 16 92 L 02/18/19 20:00 98.3 F 107 H 19 127/69 92 L Weight Admit Weight 93.939 kg Weight 93.939 kg I&O: 02/17/19 02/18/19 02/19/19 06:59 06:59 06:59 Intake Total 3303 Balance 3303 Result Diagrams: 02/19/19 07:28 02/19/19 07:28 Phys Exam - Physical Examination Constitutional: NAD Respiratory: no wheezing, clear to auscultation bilateral Cardiovascular: RRR Gastrointestinal: soft, non-tender Musculoskeletal: pulses present Deviation from normal: RLE incision draining pus. erythema on medial thigh, TTP Dx/Plan (1) Cellulitis Code(s): L03.90 - CELLULITIS, UNSPECIFIED Status: Acute Qualifiers: Site of cellulitis: extremity Site of cellulitis of extremity: lower extremity Laterality: right Qualified Code(s): L03.115 - Cellulitis of right lower limb (2) Sepsis Code(s): A41.9 - SEPSIS, UNSPECIFIED ORGANISM Status: Acute Qualifiers: Severe sepsis shock status: without septic shock (3) Obesity (BMI 30-39.9) Code(s): E66.9 - OBESITY, UNSPECIFIED Status: Acute (4) ILD (interstitial lung disease) Code(s): J84.9 - INTERSTITIAL PULMONARY DISEASE, UNSPECIFIED Status: Chronic (5) Migraine Code(s): G43.909 - MIGRAINE, UNSP, NOT INTRACTABLE, WITHOUT STATUS MIGRAINOSUS Status: Chronic Qualifiers: Migraine type: unspecified Intractability: intractable (6) Rheumatoid arthritis Code(s): M06.9 - RHEUMATOID ARTHRITIS, UNSPECIFIED Status: Chronic (7) Seizure disorder Code(s): G40.909 - EPILEPSY, UNSP, NOT INTRACTABLE, WITHOUT STATUS EPILEPTICUS Status: Chronic (8) Tobacco abuse Code(s): Z72.0 - TOBACCO USE Status: Chronic (9) Abscess Code(s): L02.91 - CUTANEOUS ABSCESS, UNSPECIFIED Status: Acute - Plan Plan: Pt is a 43 year old F with history of lupus who presents for rash of 1 day. 1. Cellulitis/Abscess RLE groin, b/l ankle * Initial U/S at bedside in ED revealed no abscess * D/C cefepime, flagyl. Continue vanc. * Has erythema and redness on RUE, but through review of history found to be present on last admission * Most likely diffuse due to Plaquenil usage * Wound Care Consulted * WBC increased * U/S revealed small abscess which began draining w/o intervention. Dr. Carrizales consulted; he performed I&D and would like pt to follow up in 2-3, pack wound, take PO abx. Will change abx from vanc when sensitivities result for gram + clusters. 2. Sepsis - resolved Tmax: 100.5, Tachycardic @ 111, Tacypneic @ 36, WBC: 15.1 * Started on Abx after Blood Cx and Urine Culture obtained * Most likely 2/2 Cellulitis * Will monitor CBC * UA unremarkable * Given 1 L bolus in ED & 1L bolus on floor * NS @ 125 ml/h 3. Gram Positive Cocci in Clusters Blood Cultures 1/2 * likely contaminant, pt currently on appropriate therapy to cover for possible bacteremia. 3. Seizure * Will restart home meds 4. RA * Will restart home meds 5. SLE * Will restart home meds 6. Tobacco Smokes 1/2 PPD for 20 years * Would like to quit * Order smoking cessation education * Started Nicotine path 14 7. Interstitial Lung Disease Currently not on medications for at home * Will monitor vitals Q4H * Currently sating well on RA * Continue Prednisone - at this time do not feel pt needs stress dose as she is on 60 mg daily, BP stable. If she becomes hypotensive will give stress dose. 8. Tachycardia EKG Sinus Tachycardia. Pt does admit to routinely have elevated HR in high 90's. Diet: HHLSo Lines: Peripheral, NS @ 125 Code Status: Full DVT PPx: Lovenox PCP: [facility] Dispo: Medical inpt, LOS > 48H. Addendum - Attending - Attending Attestation Date/Time: 02/19/19 0897 I personally evaluated the patient and discussed the management with Dr. Dumont. I agree with the History, Examination, Assessment and Plan documented above with any addition or exceptions noted below.
[2019-02-19 07:33] LABS: #Lymphocytes 1.9 thou/uL (1.20-3.40); #Neutrophils 14.7 thou/uL (1.40-6.50); %Eosinophils 0.3 % (0.0-10.0); %Lymphocytes 10.7 % (21.0-51.0); %Monocytes 5.5 % (0.0-10.0); %Neutrophils 83.4 % (42.0-75.0); Hemoglobin 10.5 g/dL (12.0-16.0); Mean Corpuscular HGB CONC 32.6 g/dL (32.0-36.0); Mean Corpuscular Hemoglobin 31.4 pg (27.0-31.0); Mean Corpuscular Volume 96.2 fL (78.0-98.0); Mean Platelet Volume 6.8 fL (7.4-10.4); Platelet Count 300 thou/uL (130-400); RBC Distribution Width 14.8 % (11.5-14.5); Red Blood Cell (RBC) Count 3.35 mill/uL (4.20-5.40); White Blood Cell (WBC) Count 17.7 thou/uL (4.8-10.8)
[2019-02-19 07:42] VITALS: BP 122/83; TEMP 98.4
[2019-02-19] MEDS: Mometasone/Formoterol 120 PUFF INHALER INH SCH (07:51)
[2019-02-19 07:56] LABS: Anion Gap 15 mmol/L (10-20); BUN (Urea Nitrogen) 10 mg/dL (7.0-18.7); Calc. Creatinine Clearance 150 mL/min (70-130); Calcium 9.7 mg/dL (7.8-10.44); Carbon Dioxide 24 mmol/L (22-29); Chloride 105 mmol/L (98-107); Estimated GFR-MDRD 89; Glucose 108 mg/dL (70-105); Potassium 3.7 mmol/L (3.5-5.1); Sodium 140 mmol/L (136-145)
[2019-02-19] MEDS: Sodium Chloride 0.9% 1,000 ML IV SCH (07:58)
[2019-02-19] MEDS: Hydroxychloroquine Sulfate 200 MG TAB PO SCH (08:00)
[2019-02-19] MEDS: Hydrochlorothiazide 25 MG TAB PO SCH (08:01)
[2019-02-19] MEDS: Divalproex Sodium 250 MG (DR) TAB PO SCH (08:01)
[2019-02-19] MEDS: predniSONE 20 MG TAB PO SCH (08:02)
[2019-02-19] MEDS: Potassium Chloride 20 MEQ TAB PO SCH (08:02)
[2019-02-19] MEDS: Furosemide 20 MG TAB PO SCH (08:02)
[2019-02-19] MEDS: Famotidine 20 MG TAB PO SCH (08:02)
[2019-02-19] MEDS: Enoxaparin Sodium 40 MG/0.4 ML SYRINGE SC SCH (08:02)
--- NOTE | 2019-02-19 08:43 | OP ---
DATE OF PROCEDURE: 02/18/2019 PREOPERATIVE DIAGNOSIS: Right medial thigh abscess. POSTOPERATIVE DIAGNOSIS: Right medial thigh abscess. PROCEDURES PERFORMED: Incision and drainage of right medial thigh abscess. ANESTHESIA: 1% Xylocaine with epinephrine. DESCRIPTION OF PROCEDURE: With the patient at bedside, her right medial thigh was prepared with alcohol. Local anesthetic was infiltrated in the skin and subcutaneous tissue and a 4 cm incision was made through an area of induration of small opening and carried down to skin and subcutaneous tissue and a copious amount of purulent material evacuated and sent for culture and sensitivity. Abscess cavity is deep, although fairly localized. It was packed with a wet-to-dry gauze dressing. The patient tolerated the procedure well with some discomfort. In my opinion, the patient be discharged home in the next day or two on oral antibiotics. Wound care as described in the history and physical or consultation. Job ID: [id number]
[2019-02-19] MEDS ORDERED: Vancomycin HCl 1.75 GM in Sodium Chloride 0.9% 500 ML IVPB SCH (09:00)
[2019-02-19] MEDS ORDERED: Sulfameth/Trimethoprim DS 800-160mg TAB PO SCH (11:00)
[2019-02-19] MEDS ORDERED: Cefepime 2 GM in Sodium Chloride 0.9% 100 ML IVPB SCH (14:00)
--- NOTE | 2019-02-19 21:28 | EKG ---
Test Reason : Blood Pressure : / mmHG Vent. Rate : 113 BPM Atrial Rate : 113 BPM P-R Int : 136 ms QRS Dur : 088 ms QT Int : 344 ms P-R-T Axes : 036 -07 005 degrees QTc Int : 471 ms Sinus tachycardia Voltage criteria for left ventricular hypertrophy Abnormal ECG When compared with ECG of 15-FEB-2019 18:45, (Unconfirmed) No significant change was found Confirmed by Vic SHEN ([id number]) on 02/19/2019 9:28:24 PM Referred By: JASPER Confirmed By:Vic SHEN
== END 2019-02-19 16:55 | disposition home or self-care (01) | DRG 872 ==
LOC: ERS 18:26 → T4-B 22:59
PROVIDERS: ADMIT Family Medicine; ATTEND Family Medicine
PROC: 0J9L3ZZ Drainage of Right Upper Leg Subcutaneous Tissue and Fascia, Percutaneous Approach (ICD-10-PCS; principal; 2019-02-18)
DX: A41.9 Sepsis, unspecified organism (principal); L03.115 Cellulitis of right lower limb; J84.9 Interstitial pulmonary disease, unspecified; F41.9 Anxiety disorder, unspecified; M06.9 Rheumatoid arthritis, unspecified; M32.9 Systemic lupus erythematosus, unspecified; G40.909 Epilepsy, unspecified, not intractable, without status epilepticus; F17.210 Nicotine dependence, cigarettes, uncomplicated; E66.9 Obesity, unspecified; G43.909 Migraine, unspecified, not intractable, without status migrainosus; Z88.0 Allergy status to penicillin; Z88.1 Allergy status to other antibiotic agents; Z88.2 Allergy status to sulfonamides; Z88.8 Allergy status to other drugs, medicaments and biological substances; Z98.51 Tubal ligation status; Z68.35 Body mass index [BMI] 35.0-35.9, adult
CPT/HCPCS: 36415; 71045; 76999; 80048; 80053; 80202; 81003; 81015; 83605; 83735; 84484; 85025; 87040; 87070; 87077; 87086; 87186; 87205; 93005; 93010; 94640; J0692; J1650; J2270; J2405; J3370; J3490; J7050; J7512; J7620; Q0162

== ENCOUNTER 2019-04-09 14:07 | Inpatient (IN) | payer BC ==
[2019-04-09 14:36] LABS: Hemoglobin 12.7 g/dL (12.0-16.0); Mean Corpuscular HGB CONC 33.8 g/dL (32.0-36.0); Mean Corpuscular Hemoglobin 31.2 pg (27.0-31.0); Mean Corpuscular Volume 92.3 fL (78.0-98.0); Mean Platelet Volume 7.3 fL (7.4-10.4); Platelet Count 313 thou/uL (130-400); RBC Distribution Width 14.3 % (11.5-14.5); Red Blood Cell (RBC) Count 4.08 mill/uL (4.20-5.40); White Blood Cell (WBC) Count 24.4 thou/uL (4.8-10.8)
[2019-04-09 14:53] LABS: Band 8 % (5-11); Lymphocytes 3 % (21-51); MDiff Complete? YES; Monocytes 3 % (0-10); Neutrophil 86 % (42-75); Platelet Morphology Comment Appears Adequate; RBC Morphology Normal; Vacuoles SLIGHT
[2019-04-09] MEDS ORDERED: Albuterol Sulfate 2.5 mg/3 ml Neb ONE (14:57)
[2019-04-09 14:58] LABS: ALT (SGPT) 17 U/L (8-55); AST (SGOT) 35 U/L (5-34); Albumin 3.8 g/dL (3.5-5.0); Alkaline Phosphatase 65 U/L (40-110); Anion Gap 15 mmol/L (10-20); BUN (Urea Nitrogen) 10 mg/dL (7.0-18.7); Bilirubin, Total 0.3 mg/dL (0.2-1.2); Calc. Creatinine Clearance 0 mL/min (70-130); Calcium 9.1 mg/dL (7.8-10.44); Carbon Dioxide 25 mmol/L (22-29); Chloride 96 mmol/L (98-107); Estimated GFR-MDRD 65; Globulin 2.8 g/dL (2.4-3.5); Glucose 149 mg/dL (70-105); Potassium 3.2 mmol/L (3.5-5.1); Protein, Total 6.6 g/dL (6.0-8.3); Sodium 133 mmol/L (136-145)
[2019-04-09 15:08] LABS: Actual Bicarbonate (HCO3a) 24.8 mEq/L (22-28); Analyzer IN Cardio ER; CO2 Tension 45.8 mmHg (35.0-45.0); Calcium, Ionized 1.13 mmol/L (1.12-1.30); Carboxyhemoglobin (COHb) 11.7 gm% (0.0-3.0); Hemoglobin (Hb) 12.9 g/dL (12.0-16.0); O2 Tension (PaO2) 76.6 mmHg (80.0-100.0); Potassium - ABG Lab 3.47 mmol/L (3.70-5.30); pH, Arterial 7.35 (7.35-7.45)
[2019-04-09 15:12] LABS: Puncture Site RRA
[2019-04-09 15:17] LABS: CK (CPK) 65 U/L (29-168); Lipase 5 U/L (8-78)
[2019-04-09] MEDS ORDERED: Dexamethasone 10 MG/ML VIAL ONE (15:35)
[2019-04-09] MEDS ORDERED: Magnesium 2 GM/50 ML BAG (IN WATER) ONE (15:35)
--- NOTE | 2019-04-09 15:35 | RAD ---
PORTABLE CHEST: 04/09/19 HISTORY: Shortness of breath. COMPARISON: 02/15/19. Mild cardiomegaly again noted. There is mild vascular congestion. Mild interstitial prominence could represent mild edema. No focal infiltrate or consolidation. No significant effusion. IMPRESSION: Borderline cardiomegaly and evidence of mild vascular congestion. POS: C
[2019-04-09] MEDS ORDERED: Cefepime 2 GM in Sodium Chloride 0.9% 100 ML IVPB ONE (15:45)
[2019-04-09] MEDS ORDERED: Ondansetron PF 4 MG/2 ML Vial ONE (16:01)
[2019-04-09] MEDS ORDERED: Fentanyl 100 MCG/2 ML VIAL ONE (16:02)
[2019-04-09] MEDS ORDERED: Ondansetron PF 4 MG/2 ML Vial IVP PRN (16:35)
[2019-04-09] MEDS ORDERED: diphenhydrAMINE 25 MG CAP PO PRN (16:42)
--- NOTE | 2019-04-09 16:47 | PDOC.HHP ---
Hospitalist HPI - History of Present Illness History of Present Illness: Ms. Guy is a 43 y/o lady with PMH of SLE, HTN, ILD who presents to the ED with progressively worsening rash, pain, and shortness of breath for the past week. She has lupus and normally takes 20mg of prednisone and is on home oxygen for ILD. She states the past week she has had increasing joint pain and worsening of rash on her right arm, bilateral ankles and on the face. She increased her prednisone dose to 60mg, but reporteldy did not get much relief. She has been under stress lately at the house due to the fact that her family is moving houses and thinks this is what has caused her flare this time. She is on plaquenil and sulfasalazine at baseline for SLE and reportedly has tried several medications in the past with limited success. Hospitalist ROS - Review of Systems Constitutional: denies: fever, chills, sweats, weakness, malaise, other Eyes: denies: pain, vision change, conjunctivae inflammation, eyelid inflammation, redness, other ENT: denies: ear pain, ear discharge, nose pain, nose discharge, nose congestion , mouth pain, mouth swelling, throat pain, throat swelling, other Respiratory: denies: cough, dry, shortness of breath, hemoptysis, SOB with excertion, pleuritic pain, sputum, wheezing, other Cardiovascular: denies: chest pain, palpitations, orthopnea, paroxysmal noc. dyspnea, edema, light headedness, other Gastrointestinal: denies: nausea, vomiting, abdominal pain, diarrhea, constipation, melena, hematochezia, other Genitourinary: denies: dysuria, frequency, incontinence, hematuria, retention, other Musculoskeletal: reports: arm pain. denies: neck pain, shoulder pain, back pain , hand pain, leg pain, foot pain, other Skin: reports: rash. denies: lesions, joy, bruising, other Neurological: denies: weakness, numbness, incoordination, change in speech, confusion, seizures, other - Medication Medications: Medication Instructions Recorded Confirmed Type Divalproex Sodium [Depakote] 750 mg PO DAILY 01/26/18 02/16/19 History HYDROcodone Bit/APAP 10/325 [[place]] 1 tab PO Q4HR PRN 01/26/18 02/16/19 History Hydroxychloroquine Sulfate 400 mg PO DAILY 04/22/18 02/16/19 History [Plaquenil] Furosemide [Lasix] 20 mg PO DAILY #0 11/11/18 02/16/19 Rx Hydrochlorothiazide 12.5 mg PO DAILY #30 tab 01/21/19 02/16/19 Rx Potassium Chloride [K-Dur] 20 meq PO BID-WM #7 tab 01/21/19 02/16/19 Rx Betamethasone Valerate [Valisone 1 gm TOP DAILY #1 tube 02/06/19 02/16/19 Rx 0.1% Cream] Calcium Carbonate [Tums] 1,000 mg PO Q4H PRN tab 02/06/19 02/16/19 Rx Cepastat Lozenges 1 candice PO Q2H PRN candice 02/06/19 02/16/19 Rx Dextromethorphan Polistirex 30 mg PO Q8HR ml 02/06/19 02/16/19 Rx [Delsym Cough for Children and Adults] Famotidine [Pepcid] 20 mg PO BID tab 02/06/19 02/16/19 Rx Ipratropium/Albuterol Sulfate 3 ml NEB X1OD-GN #30 neb 02/06/19 02/16/19 Rx [DuoNeb] Melatonin 3 mg PO HS PRN tab 02/06/19 02/16/19 Rx Mometasone/Formoterol 200/5 2 puff INH BID-RT #1 aer 02/06/19 02/16/19 Rx [Dulera 200 Mcg/5 Mcg Inhaler] Nicotine [Nicoderm CQ] 7 mg TD Q24HR #30 patch 02/06/19 02/16/19 Rx diphenhydrAMINE [Benadryl] 25 mg PO Q4H PRN cap 02/06/19 02/16/19 Rx predniSONE 60 mg PO QAM-WM 02/16/19 02/16/19 History Sulfamethoxazole/Trimethoprim 1 tab PO 1100,2300 #19 tab 02/19/19 Rx [Bactrim DS] Hospitalist History - Past Medical History Source: patient Cardiac: reports: HTN Pulmonary: reports: no pertinent history CURBER: reports: no pertinent history Gastrointestinal: reports: no pertinent history Heme/Onc: reports: no pertinent history Hepatobiliary: reports: no pertinent history Psych: reports: no pertinent history Musculoskeletal: reports: no pertinent history Rheumatologic: reports: Other (SLE) Infectious Disease: reports: no pertinent history ENT: reports: no pertinent history Renal/: reports: no pertinent history Endocrine: reports: Diabetes Dermatology: reports: no pertinent history - Past Surgical History Past Surgical History: reports: , Tubal Ligation - Family History Family History: reports: no pertinent history - Social History Smoking Status: Current every day smoker Alcohol: reports: None Drugs: reports: none Living Situation: With Family Activity level: independent ambulation - Exam General Appearance: NAD, awake alert Eye: PERRL, anicteric sclera ENT: normocephalic atraumatic, no oropharyngeal lesions, moist mucosa ENT - other findings: Discoid type maculopapular rash on left face Neck: supple, symmetric, no JVD, no thyromegaly, no lymphadenopathy, no carotid bruit Heart: RRR, no murmur, no gallops, no rubs, normal peripheral pulses Respiratory: CTAB, no wheezes, no rales, no ronchi, normal chest expansion, no tachypnea, normal percussion Gastrointestinal: soft, non-tender, non-distended, normal bowel sounds, no palpable masses, no hepatomegaly, no splenomegaly, no bruit Extremities: no cyanosis, no clubbing, no edema Extremities - other findings: Bilateral ankle rash Skin: normal turgor Skin - other findings: multiple raised erythematous nodules on right arm, tende Neurological: cranial nerve grossly intact, normal sensation to touch, no weakness, no focal deficits, no new deficit Musculoskeletal: normal tone, normal strength, no muscle wasting Psychiatric: normal affect, normal behavior, A&O x 3 Hospitalist Results - Labs Result Diagrams: 04/09/19 14:24 04/09/19 14:24 Lab results: WBC 24.4 thou/uL (4.8-10.8) H 04/09/19 14:24 Hgb 12.7 g/dL (12.0-16.0) 04/09/19 14:24 Hct 37.7 % (36.0-47.0) 04/09/19 14:24 MCV 92.3 fL (78.0-98.0) 04/09/19 14:24 Plt Count 313 thou/uL (130-400) 04/09/19 14:24 Band Neuts % (Manual) 8 % (5-11) 04/09/19 14:24 ABG pH 7.35 (7.35-7.45) 04/09/19 15:00 ABG pCO2 45.8 mmHg (35.0-45.0) H 04/09/19 15:00 ABG pO2 76.6 mmHg (80.0-100.0) L 04/09/19 15:00 Sodium 133 mmol/L (136-145) L 04/09/19 14:24 Potassium 3.2 mmol/L (3.5-5.1) L 04/09/19 14:24 Chloride 96 mmol/L (98-107) L 04/09/19 14:24 Carbon Dioxide 25 mmol/L (22-29) 04/09/19 14:24 BUN 10 mg/dL (7.0-18.7) 04/09/19 14:24 Creatinine 0.94 mg/dL (0.6-1.1) 04/09/19 14:24 Glucose 149 mg/dL (70-105) H 04/09/19 14:24 Lactic Acid 3.6 mmol/L (0.5-2.2) H 04/09/19 15:40 Calcium 9.1 mg/dL (7.8-10.44) 04/09/19 14:24 Total Bilirubin 0.3 mg/dL (0.2-1.2) 04/09/19 14:24 AST 35 U/L (5-34) H 04/09/19 14:24 ALT 17 U/L (8-55) 04/09/19 14:24 Alkaline Phosphatase 65 U/L (40-110) 04/09/19 14:24 Creatine Kinase 65 U/L (29-168) 04/09/19 14:24 Troponin I Less than 0.010 ng/mL (< 0.028) 04/09/19 14:24 B-Natriuretic Peptide 31.2 pg/mL (0-100) 04/09/19 14:24 Serum Total Protein 6.6 g/dL (6.0-8.3) 04/09/19 14:24 Albumin 3.8 g/dL (3.5-5.0) 04/09/19 14:24 Lipase 5 U/L (8-78) L 04/09/19 14:24 Additional comment: VITAL SIGNS [facility] Apr 09, 2019 15:51 Dave RN, Pricila BP: 111/71, Pulse: 110, Resp: 22, Temp: 98.5 (Oral), Pain: 9, O2 sat: 94 on (3L Oxygen), Time: 04/09/2019 15:51. - EKG Interpretation EK lead EKG shows, sinus tachycardia, Rate (beats per minute): 111, T waves, Nonspecific T wave abnormality., Clinical impression:, non-specific EKG, possible left atrial enlargement, left ventricular hypertrophy. Hospitalist H&P A/P - Problem (1) SLE exacerbation Code(s): M32.9 - SYSTEMIC LUPUS ERYTHEMATOSUS, UNSPECIFIED Status: Acute (2) Hypertension Code(s): I10 - ESSENTIAL (PRIMARY) HYPERTENSION Status: Acute (3) ILD (interstitial lung disease) Code(s): J84.9 - INTERSTITIAL PULMONARY DISEASE, UNSPECIFIED Status: Chronic (4) Tobacco abuse Code(s): Z72.0 - TOBACCO USE Status: Chronic (5) Leukocytosis Code(s): D72.829 - ELEVATED WHITE BLOOD CELL COUNT, UNSPECIFIED Status: Acute (6) Immunocompromised Code(s): D89.9 - DISORDER INVOLVING THE IMMUNE MECHANISM, UNSPECIFIED Status: Acute - Plan Plan: Admit for inpatient management of SLE/ILD flare, with failure of outpatient tx of steroid therapy Begin high dose MethylPred 40mg IV q6hr Continue to trend lactate, follow up cultures Continuous oxygen for ILD, titrate oxygen to 92% Consult placed to her sales representative marine supplies, Dr. Simmons for further reccomendations Leukocytosis chronic due to steroid use, smoker, no clear nydus of infection; however, will continue with empiric cefepime pending negative culture result given her immunocomprised status. Will continue other medication from home for chronic co-mobid conditions Code status: Full code ACP: , is the surrogate decision maker Disposition: Admit for SLE flare. Pulm reccs appreciated.
[2019-04-09] MEDS ORDERED: Cefepime 2 GM VIAL ONE (16:58)
[2019-04-09 17:08] LABS: Bacteria/HPF None Seen HPF (None Seen); Bilirubin Negative (Negative); Blood, Urine 1+ (Negative); Clarity Clear (Clear); Glucose, Urine (Dipstick) Normal (Negative); Leukocyte Negative Leu/uL (Negative); Nitrite Negative (Negative); Protein, Urine (Dipstick) Negative (Neg-Trace); RBC/HPF 0-3 HPF (0-3); Squamous Epithelial 0-3 HPF (0-3); Urobilinogen Normal mg/dL (Less than 2); WBC/HPF 0-3 HPF (0-3)
[2019-04-09 18:07] LABS: Complement-C4 31.1 mg/dL (15-57)
[2019-04-09] MEDS: HYDROcodone/Acetaminophen 10/325 mg Tablet PO PRN (19:01)
[2019-04-09] MEDS: methylPREDNISolone Sod Succ 40 MG VIAL IVP SCH (19:01)
[2019-04-09] MEDS ORDERED: Melatonin 3 MG TAB PO PRN (19:53)
[2019-04-09] MEDS ORDERED: Calcium Carbonate 500 MG ChewTAB PO PRN (19:53)
[2019-04-09 20:02] LABS: Lactic Acid 4.8 mmol/L (0.5-2.2)
[2019-04-09] MEDS ORDERED: Sodium Chloride 0.9% 1,000 ML IV SCH (20:15)
[2019-04-09] MEDS ORDERED: Morphine 2 MG/ML SYRINGE SLOW IVP PRN (20:28)
[2019-04-09] MEDS: Famotidine 20 MG TAB PO SCH (21:11)
[2019-04-09] MEDS: Nicotine 7 MG PATCH TD SCH (21:14)
[2019-04-10] MEDS: methylPREDNISolone Sod Succ 40 MG VIAL IVP SCH ×2 (00:30→05:16)
[2019-04-10] MEDS ORDERED: Sodium Chloride 0.9% 1,000 ML IV SCH (02:00)
[2019-04-10 02:35] LABS: Lactic Acid 1.7 mmol/L (0.5-2.2)
[2019-04-10 02:43] LABS: Band 15 % (5-11); Hemoglobin 11.3 g/dL (12.0-16.0); Hypochromia SLIGHT = 6-15 cells (100X) (0-5/hpf); Lymphocytes 1 % (21-51); MDiff Complete? YES; Mean Corpuscular HGB CONC 33.2 g/dL (32.0-36.0); Mean Corpuscular Hemoglobin 30.8 pg (27.0-31.0); Mean Corpuscular Volume 92.9 fL (78.0-98.0); Mean Platelet Volume 7.1 fL (7.4-10.4); Monocytes 1 % (0-10); Neutrophil 83 % (42-75); Platelet Count 272 thou/uL (130-400); Platelet Morphology Comment Appears Adequate; RBC Distribution Width 14.2 % (11.5-14.5); Red Blood Cell (RBC) Count 3.67 mill/uL (4.20-5.40); White Blood Cell (WBC) Count 20.8 thou/uL (4.8-10.8)
[2019-04-10 02:51] LABS: ALT (SGPT) 12 U/L (8-55); AST (SGOT) 48 U/L (5-34); Albumin 3.3 g/dL (3.5-5.0); Alkaline Phosphatase 59 U/L (40-110); Anion Gap 12 mmol/L (10-20); BUN (Urea Nitrogen) 8 mg/dL (7.0-18.7); Bilirubin, Total 0.2 mg/dL (0.2-1.2); Calc. Creatinine Clearance 140 mL/min (70-130); Calcium 8.6 mg/dL (7.8-10.44); Carbon Dioxide 27 mmol/L (22-29); Chloride 105 mmol/L (98-107); Estimated GFR-MDRD 83; Globulin 2.7 g/dL (2.4-3.5); Glucose 163 mg/dL (70-105); Potassium 4.3 mmol/L (3.5-5.1); Sodium 140 mmol/L (136-145)
[2019-04-10] MEDS: Morphine 2 MG/ML SYRINGE SLOW IVP PRN ×5 (05:45→21:40)
[2019-04-10] MEDS: Mometasone/Formoterol 120 PUFF INHALER INH SCH ×3 (07:47→18:40)
[2019-04-10 08:22] LABS: Actual Bicarbonate (HCO3a) 29.3 mEq/L (22-28); Analyzer IN Cardio ER; Base Excess (BEa) 3.5 mEq/L (-2.0 to +3.0); CO2 Tension 49.3 mmHg (35.0-45.0); Calcium, Ionized 1.16 mmol/L (1.12-1.30); Carboxyhemoglobin (COHb) 1.8 gm% (0.0-3.0); Hemoglobin (Hb) 13.6 g/dL (12.0-16.0); Potassium - ABG Lab 3.92 mmol/L (3.70-5.30); pH, Arterial 7.39 (7.35-7.45)
[2019-04-10 08:27] LABS: ALV-art Gradient 596.175 (0-20); O2 Tension (PaO2) 55.2 mmHg (80.0-100.0); Puncture Site RRA
[2019-04-10] MEDS ORDERED: Furosemide 40 MG/4 ML VIAL SLOW IVP SCH (09:30)
--- NOTE | 2019-04-10 09:30 | RAD ---
RADIOGRAPH CHEST 1 VIEW: Date: 04/10/2019 Time: 0801 hours HISTORY: 43-year-old female with dyspnea. Code Green. COMPARISON: 04/09/2019 at 0205 hours. FINDINGS: There has been interval worsening of the previously demonstrated diffuse probable pulmonary edema, wh ich now appears to be pulmonary alveolar edema. Cardiomegaly is again noted. No pneumothorax. IMPRESSION: Interval worsening of pulmonary alveolar edema with cardiomegaly: evidence for congestive heart failnoah NOEL [] POS: CET
--- NOTE | 2019-04-10 09:38 | CON ---
DATE OF CONSULTATION: 04/10/2019 This is 75 minutes of time, of that, greater than 50% was spent with the patient and/or the patient's unit in the hospital. HISTORY OF PRESENT ILLNESS: The patient is a 43-year-old female, who has been admitted to the hospitalist group yesterday afternoon for increasing shortness of breath, hypoxemia, worsening rash, and other signs typical of lupus exacerbations. She has multiple hospitalizations in the past related to lupus and basically is not seeing a quantitative associate as an outpatient. She has been trying to manage this problem with steroids only. PAST MEDICAL HISTORY: 1. Pneumonia. 2. Lupus. 3. Rheumatoid arthritis. 4. Seizure disorder. 5. Chronic interstitial lung disease. ALLERGIES: PENICILLIN, LEVAQUIN, AND ULTRAM. MEDICATIONS: Prior to admission; 1. Potassium 20 mEq b.i.d. 2. [place] one every 4 hours as needed. 3. Lasix 20 mg daily. 4. Famotidine 20 mg b.i.d. 5. Depakote 750 mg daily. 6. Melatonin 3 mg nightly. 7. DuoNeb every 4 hours as needed. 8. Plaquenil 400 mg daily. 9. Hydrochlorothiazide 12.5 mg daily. 10. Prednisone 60 mg daily. 11. Diphenhydramine 25 mg every 4 hours as needed. 12. Bactrim DS one tablet twice daily. 13. Nicotine patch. 14. Dulera 200/5 two puffs b.i.d. 15. Ambien, unknown dose at night. Current inpatient medications include the outpatient medications plus cefepime and Solu-Medrol and excludes the prednisone. REVIEW OF SYSTEMS: Twelve-point review of system otherwise negative. PHYSICAL EXAMINATION: VITAL SIGNS: Temperature 99.9; pulse 114; respirations 30; O2 saturation 96%, on BiPAP; and blood pressure 103/55. GENERAL: She looks calm on the BiPAP. HEENT: Remarkable for periorbital papular rash. NECK: No adenopathy or JVD. LUNGS: Inspiratory crackles bilaterally. CARDIAC: S1 and S2. Regular. ABDOMEN: Soft. There are papular lesions over the inferior aspect of the abdomen. EXTREMITIES: No clubbing or cyanosis. She has papular lesions over her ankle with a rash in that region. IMAGING DATA: Her x-ray shows diffuse bilateral infiltrates, almost a pulmonary edema pattern. LABORATORY DATA: White blood cell count 20.8, hematocrit 34.1, and platelet count 272. ABG; pH of 7.39, pCO2 of 49, pO2 of 55, that was on 100% non-rebreather. Sodium 140, potassium 4.3, chloride 105, CO2 of 27, BUN 8, creatinine 0.7, and glucose 163. ASSESSMENT: The patient is presenting with bilateral infiltrates on the x-ray, which could be indicative of pulmonary edema, pneumonia, or lupus flare. This has been typical presenting symptoms of a lupus flare in the past, although the patient has had periodic problems with pulmonary edema. On top of this, she has chronic obstructive pulmonary disease and continued tobacco abuse. RECOMMENDATIONS: 1. She really needs formal Rheumatology consultation. If that cannot be obtained, I would advise transferring to assume that I can do that. Assuming that cannot be done, I have gone ahead and dosed her with a gram of Solu-Medrol today and for the subsequent 2 days. 2. Agree with antibiotics. Our choices are limited due to her numerous allergies. 3. I would go ahead and hold the IV fluids as she does have history of pulmonary edema and is not clinically dry at this point. 4. Follow labs and x-ray. Thank you for the consult. Job ID: [id number]
[2019-04-10] MEDS: Famotidine 20 MG TAB PO SCH ×2 (09:55→20:20)
[2019-04-10] MEDS: Cefepime 2 GM in Sodium Chloride 0.9% 100 ML IVPB SCH ×2 (09:55→21:39)
[2019-04-10] MEDS: Betamethasone 0.1% Cream 15 GM TUBE TOP SCH (09:55)
[2019-04-10] MEDS ORDERED: methylPREDNISolone Sod Succ/PF 125 MG/2 ML VIAL IVP SCH ×2 (10:00→12:00)
[2019-04-10] MEDS ORDERED: methylPREDNISolone Sod Succ 1,000 MG in Sodium Chloride 0.9% 100 ML IVPB SCH (10:00)
[2019-04-10] MEDS: methylPREDNISolone Sod Succ 1,000 MG in Sodium Chloride 0.9% 250 ML 250 ML IVPB SCH (10:34)
[2019-04-10] MEDS: Hydroxychloroquine Sulfate 200 MG TAB PO SCH (10:34)
[2019-04-10] MEDS: Divalproex Sodium 250 MG (DR) TAB PO SCH (10:34)
[2019-04-10] MEDS: HYDROcodone/Acetaminophen 10/325 mg Tablet PO PRN ×4 (10:39→23:56)
[2019-04-10 10:41] LABS: Actual Bicarbonate (HCO3a) 27.9 mEq/L (22-28); Base Excess (BEa) 3.1 mEq/L (-2.0 to +3.0); CO2 Tension 43.7 mmHg (35.0-45.0); Calcium, Ionized 1.16 mmol/L (1.12-1.30); Carboxyhemoglobin (COHb) 1.8 gm% (0.0-3.0); Hemoglobin (Hb) 11.5 g/dL (12.0-16.0); O2 Tension (PaO2) 60.1 mmHg (80.0-100.0); Potassium - ABG Lab 4.06 mmol/L (3.70-5.30); pH, Arterial 7.42 (7.35-7.45)
[2019-04-10 10:45] LABS: Puncture Site RRA
[2019-04-10 10:46] LABS: ALV-art Gradient 241.775 (0-20)
--- NOTE | 2019-04-10 16:34 | PDOC.HOSPP ---
- Subjective Subjective: Worsening SOB this AM, placed on non-rebreather. Rapid response was called. Upon my assessment, patient was tachypneic and saturating into low 90s on nonrebreather. Was given 40mg IV steroids. - Objective Vital Signs & Weight: Vital Signs (12 hours) Temp Temp Pulse Pulse Pulse Pulse Pulse 04/10/19 14:28 104 H 04/10/19 14:27 102 H 04/10/19 12:00 99.0 F 04/10/19 10:48 108 H 04/10/19 10:35 110 H 04/10/19 09:00 98.9 F 04/10/19 08:35 114 H 04/10/19 08:19 04/10/19 08:00 99.9 F H 121 H 127 H 127 H 123 H 04/10/19 07:54 99.9 F H 123 H 04/10/19 07:45 04/10/19 07:38 115 H 04/10/19 05:36 114 H Resp Resp Resp Resp Resp BP BP 04/10/19 14:28 04/10/19 14:27 21 H 04/10/19 12:00 04/10/19 10:48 04/10/19 10:35 28 H 04/10/19 09:00 04/10/19 08:35 04/10/19 08:19 04/10/19 08:00 34 H 36 H 35 H 34 H 111/54 L 112/52 L 04/10/19 07:54 34 H 04/10/19 07:45 04/10/19 07:38 32 H 04/10/19 05:36 BP BP BP Pulse Ox Pulse Ox Pulse Ox Pulse Ox 04/10/19 14:28 04/10/19 14:27 93 L 04/10/19 12:00 04/10/19 10:48 04/10/19 10:35 97 04/10/19 09:00 04/10/19 08:35 04/10/19 08:19 97 04/10/19 08:00 105/52 L 149/74 H 97 93 L 92 L 04/10/19 07:54 103/55 L 96 04/10/19 07:45 94 L 04/10/19 07:38 94 L 04/10/19 05:36 154/63 H 95 Pulse Ox 04/10/19 14:28 04/10/19 14:27 04/10/19 12:00 04/10/19 10:48 04/10/19 10:35 04/10/19 09:00 04/10/19 08:35 04/10/19 08:19 04/10/19 08:00 88 L 04/10/19 07:54 04/10/19 07:45 04/10/19 07:38 04/10/19 05:36 Weight Admit Weight 207 lb 4.8 oz Weight 207 lb 4.8 oz Most Recent Monitor Data Heart Rate from ECG 100 NIBP 120/91 NIBP BP-Mean 100 Respiration from ECG 24 SpO2 93 I&O: 04/09/19 04/10/19 04/11/19 06:59 06:59 06:59 Intake Total 1737 175 Output Total 1750 650 Balance -13 -475 Result Diagrams: 04/10/19 02:13 04/10/19 02:13 Additional Labs: Accuchecks 04/10/19 08:13 POC Glucose 174 H Hospitalist ROS - Review of Systems All other systems reviewed; all pertinent +/- noted in HPI/Subj - Medication Medications: Active Medications Generic Name Dose Route Start Last Admin Trade Name Freq PRN Reason Stop Dose Admin Hydrocodone Bitart/Acetaminophen 1 tab 04/09/19 16:35 04/10/19 15:09 [place] 10/325 PO 1 tab Q4H PRN Administration Moderate Pain (4-6) Albuterol/Ipratropium 3 ml 04/09/19 22:30 04/10/19 14:27 Duoneb NEB 3 ml [id number] JOESPH Administration Betamethasone Valerate 0 gm 04/10/19 09:00 04/10/19 09:55 Valisone 0.1% Cream TOP 1 applic DAILY JOESPH Administration Divalproex Sodium 750 mg 04/10/19 09:00 04/10/19 10:34 Depakote PO 750 mg DAILY JOESPH Administration Famotidine 20 mg 04/09/19 21:00 04/10/19 09:55 Pepcid PO 20 mg BID JOESPH Administration Hydroxychloroquine Sulfate 400 mg 04/10/19 09:00 04/10/19 10:34 Plaquenil PO 400 mg DAILY JOESPH Administration Cefepime HCl 2 gm/ Sodium 100 mls @ 200 mls/hr 04/10/19 10:00 04/10/19 09:55 Chloride IVPB 100 mls 1000,2200 JOESPH Administration Methylprednisolone Sodium 266 mls @ 266 mls/hr 04/10/19 10:00 04/10/19 10:34 Succinate 1,000 mg/ Sodium IVPB 04/12/19 10:59 266 mls Chloride 1000 JOESPH Administration Mometasone Furoate/Formoterol Fumar 2 puff 04/10/19 06:30 04/10/19 08:16 Dulera 200 Mcg/5 Mcg Inhaler INH Not Given BID-RT JOESPH Morphine Sulfate 2 mg 04/09/19 20:49 04/10/19 13:23 Morphine SLOW IVP 2 mg Q4H PRN Administration Breakthrough Pain Nicotine 7 mg 04/09/19 21:00 04/09/19 21:14 Nicoderm Patch TD 7 mg Q24HR JOESPH Administration Sodium Chloride 10 ml 04/09/19 21:00 04/10/19 09:56 Flush - Normal Saline IVF 10 ml Q12HR JOESPH Administration - Exam General Appearance: NAD, ill appearing Eye: PERRL ENT: normocephalic atraumatic, no oropharyngeal lesions, moist mucosa Neck: supple, symmetric, no JVD, no thyromegaly, no lymphadenopathy, no carotid bruit Heart: RRR, no murmur, no gallops, no rubs, normal peripheral pulses Respiratory: rhonchi, tachypneic Gastrointestinal: soft, non-tender, non-distended, normal bowel sounds, no palpable masses, no hepatomegaly, no splenomegaly, no bruit Extremities: no cyanosis, no clubbing, no edema Skin - other findings: rash on right arm, face, and bilateraly lower extremity ankles Neurological: cranial nerve grossly intact, normal sensation to touch, no weakness, no focal deficits, no new deficit Musculoskeletal: normal tone, normal strength, no muscle wasting Psychiatric: normal affect, normal behavior, A&O x 3 Hosp A/P (1) Acute respiratory failure with hypoxia Code(s): J96.01 - ACUTE RESPIRATORY FAILURE WITH HYPOXIA Status: Acute (2) SLE exacerbation Code(s): M32.9 - SYSTEMIC LUPUS ERYTHEMATOSUS, UNSPECIFIED Status: Acute (3) Hypertension Code(s): I10 - ESSENTIAL (PRIMARY) HYPERTENSION Status: Acute (4) ILD (interstitial lung disease) Code(s): J84.9 - INTERSTITIAL PULMONARY DISEASE, UNSPECIFIED Status: Chronic (5) Tobacco abuse Code(s): Z72.0 - TOBACCO USE Status: Chronic (6) Leukocytosis Code(s): D72.829 - ELEVATED WHITE BLOOD CELL COUNT, UNSPECIFIED Status: Acute (7) Immunocompromised Code(s): D89.9 - DISORDER INVOLVING THE IMMUNE MECHANISM, UNSPECIFIED Status: Acute - Plan Transfered to CCU for further care. PLaced on BiPAP. Consult to pulmonary Increase to high dose steroids, SOlumedrol 1000mg Continue abx, pending culture Reviewed chart labs going back to September, as well as 2018, appears to have negative GENARO, dsdna, RF, negative complement? This is not typical for lupus, possible for seronegative RA Her ESR is unremarkable but CRP is severely elevated. Would like to repeat panel for mixed connective itssue, repeat GENARO and dsdna as well as li antibodies Ultimately, she will require transfer to a medical institution for inpatient rheumatologic evaluation, she has frequent admission and has a complex rheumatolgic presentation She has failed outpatient treatment on multiple biologic agents as well. Code Status: Full code Disposition: Transfer to CCU. Will work on transfer to facility that has inpatient rheumatologic capabilities. Probably in [place]. Critical care time spent on the patient greater than 60 minutes in management of this critically ill patient.
[2019-04-10] MEDS: Nicotine 7 MG PATCH TD SCH (21:40)
[2019-04-11 04:25] LABS: Anion Gap 12 mmol/L (10-20); BUN (Urea Nitrogen) 16 mg/dL (7.0-18.7); Calc. Creatinine Clearance 142 mL/min (70-130); Calcium 9.3 mg/dL (7.8-10.44); Carbon Dioxide 31 mmol/L (22-29); Chloride 103 mmol/L (98-107); Estimated GFR-MDRD 84; Glucose 175 mg/dL (70-105); Potassium 3.8 mmol/L (3.5-5.1); Sodium 142 mmol/L (136-145)
[2019-04-11 04:33] LABS: Hemoglobin 10.6 g/dL (12.0-16.0); Lymphocytes 4 % (21-51); MDiff Complete? YES; Mean Corpuscular HGB CONC 33.5 g/dL (32.0-36.0); Mean Corpuscular Hemoglobin 31.8 pg (27.0-31.0); Mean Corpuscular Volume 94.8 fL (78.0-98.0); Mean Platelet Volume 7.4 fL (7.4-10.4); Metamyelocyte 1 % (0-0); Monocytes 2 % (0-10); Neutrophil 93 % (42-75); Platelet Count 276 thou/uL (130-400); Platelet Morphology Comment Appears Adequate; RBC Distribution Width 14.3 % (11.5-14.5); Red Blood Cell (RBC) Count 3.34 mill/uL (4.20-5.40); White Blood Cell (WBC) Count 17.6 thou/uL (4.8-10.8)
[2019-04-11] MEDS: Mometasone/Formoterol 120 PUFF INHALER INH SCH ×2 (07:22→19:47)
[2019-04-11] MEDS: HYDROcodone/Acetaminophen 10/325 mg Tablet PO PRN ×4 (08:01→20:58)
--- NOTE | 2019-04-11 08:05 | RAD ---
EXAM: Single view of the chest HISTORY: Pneumonia COMPARISON: 04/09/2019 FINDINGS: Single view of the chest shows an enlarged but stable cardiomediastinal silhouette. Multifo daniel airspace opacities are seen scattered throughout the lungs. The bones are unremarkable. IMPRESSION: Multifocal pneumonia
[2019-04-11] MEDS: Cepastat Lozenges 1 LOZ PO PRN (08:26)
[2019-04-11] MEDS: Betamethasone 0.1% Cream 15 GM TUBE TOP SCH (08:26)
[2019-04-11] MEDS: Famotidine 20 MG TAB PO SCH ×2 (08:31→20:12)
[2019-04-11] MEDS: Enoxaparin Sodium 40 MG/0.4 ML SYRINGE SC SCH (08:32)
[2019-04-11] MEDS: Divalproex Sodium 250 MG (DR) TAB PO SCH (08:43)
[2019-04-11] MEDS: Hydroxychloroquine Sulfate 200 MG TAB PO SCH (08:44)
--- NOTE | 2019-04-11 08:57 | PRG ---
DATE OF SERVICE: 04/11/2019 SUBJECTIVE: The patient remains in the CCU. She has been taken off the BiPAP and is on high-flow oxygen. She is eating breakfast. She says she feels a little better today compared to yesterday. OBJECTIVE: VITAL SIGNS: Temperature is 98.0, pulse 70, blood pressure 145/95, O2 saturation 99%. A 24-hour intake 1461, output 800. HEENT: Unremarkable. NECK: No adenopathy or JVD. LUNGS: Coarse breath sounds. CARDIOVASCULAR: S1, S2. Regular. ABDOMEN: Soft and nontender. EXTREMITIES: She has a rash around both ankles. Also rash around the perioral area. LABORATORY DATA: White blood cell count 17.6, hematocrit 31.7, and platelet count 276. Sodium 142, potassium 3.8, chloride 103, CO2 of 31, BUN 16, creatinine 0.7, glucose 175. ASSESSMENT: The patient has bilateral pulmonary infiltrates suggestive of either infectious pneumonia or lupus flare with acute pneumonitis. PLAN: 1. Continue antibiotics. 2. Continue high-dose steroids for another couple of days. 3. Rheumatology input would be nice. Job ID: [id number]
[2019-04-11] MEDS: Morphine 2 MG/ML SYRINGE SLOW IVP PRN ×4 (09:14→22:41)
[2019-04-11] MEDS: Cefepime 2 GM in Sodium Chloride 0.9% 100 ML IVPB SCH ×2 (09:18→21:03)
[2019-04-11] MEDS: methylPREDNISolone Sod Succ 1,000 MG in Sodium Chloride 0.9% 250 ML 250 ML IVPB SCH (10:16)
--- NOTE | 2019-04-11 11:43 | PDOC.HOSPP ---
- Subjective Subjective: Continues on high flow nasal cannula. States feels better overall. No overnight events. - Objective Vital Signs & Weight: Vital Signs (12 hours) Temp Pulse Resp Pulse Ox 04/11/19 10:25 113 H 28 H 90 L 04/11/19 08:05 94 L 04/11/19 08:00 98.7 F 96 04/11/19 07:22 85 29 H 97 04/11/19 07:00 84 04/11/19 04:00 98 F 04/11/19 03:07 76 22 H 95 04/11/19 00:14 105 H 04/11/19 00:00 98.1 F Weight Admit Weight 207 lb 4.8 oz Weight 207 lb 4.8 oz Most Recent Monitor Data Heart Rate from ECG 109 NIBP 110/81 NIBP BP-Mean 90 Respiration from ECG 35 SpO2 88 I&O: 04/10/19 04/11/19 04/12/19 06:59 06:59 06:59 Intake Total 1737 1461 670 Output Total 1750 800 400 Balance -13 661 270 Result Diagrams: 04/11/19 03:54 04/11/19 03:54 Hospitalist ROS - Review of Systems All other systems reviewed; all pertinent +/- noted in HPI/Subj - Medication Medications: Active Medications Generic Name Dose Route Start Last Admin Trade Name Freq PRN Reason Stop Dose Admin Hydrocodone Bitart/Acetaminophen 1 tab 04/09/19 16:35 04/11/19 08:01 [place] 10/325 PO 1 tab Q4H PRN Administration Moderate Pain (4-6) Albuterol/Ipratropium 3 ml 04/09/19 22:30 04/11/19 10:25 Duoneb NEB 3 ml [id number] JOESPH Administration Betamethasone Valerate 0 gm 04/10/19 09:00 04/11/19 08:26 Valisone 0.1% Cream TOP 1 applic DAILY JOESPH Administration Divalproex Sodium 750 mg 04/10/19 09:00 04/11/19 08:43 Depakote PO 750 mg DAILY JOESPH Administration Enoxaparin Sodium 40 mg 04/11/19 09:00 04/11/19 08:32 Lovenox SC 40 mg 0900 JOESPH Administration Famotidine 20 mg 04/09/19 21:00 04/11/19 08:31 Pepcid PO 20 mg BID JOESPH Administration Hydroxychloroquine Sulfate 400 mg 04/10/19 09:00 04/11/19 08:44 Plaquenil PO 400 mg DAILY JOESPH Administration Cefepime HCl 2 gm/ Sodium 100 mls @ 200 mls/hr 04/10/19 10:00 04/11/19 09:18 Chloride IVPB 100 mls 1000,2200 JOESPH Administration Methylprednisolone Sodium 266 mls @ 266 mls/hr 04/10/19 10:00 04/11/19 10:16 Succinate 1,000 mg/ Sodium IVPB 04/12/19 10:59 266 mls Chloride 1000 JOESPH Administration Mometasone Furoate/Formoterol Fumar 2 puff 04/10/19 06:30 04/11/19 07:22 Dulera 200 Mcg/5 Mcg Inhaler INH 2 puff BID-RT JOESPH Administration Morphine Sulfate 2 mg 04/09/19 20:49 04/11/19 09:14 Morphine SLOW IVP 2 mg Q4H PRN Administration Breakthrough Pain Nicotine 7 mg 04/09/19 21:00 04/10/19 21:40 Nicoderm Patch TD 7 mg Q24HR JOESPH Administration Sodium Chloride 10 ml 04/09/19 21:00 04/11/19 08:34 Flush - Normal Saline IVF 10 ml Q12HR JOESPH Administration Throat Lozenges 1 candice 04/09/19 19:53 04/11/19 08:26 Cepastat Lozenges PO 1 candice Q2H PRN Administration Cough, Sore Throat - Exam General Appearance: NAD, awake alert Eye: PERRL, anicteric sclera ENT: normocephalic atraumatic, no oropharyngeal lesions, moist mucosa Neck: supple, symmetric, no JVD, no thyromegaly, no lymphadenopathy, no carotid bruit Heart: RRR, no murmur, no gallops, no rubs, normal peripheral pulses Respiratory: CTAB, no wheezes, no rales, no ronchi, normal chest expansion, no tachypnea, normal percussion Gastrointestinal: soft, non-tender, non-distended, normal bowel sounds, no palpable masses, no hepatomegaly, no splenomegaly, no bruit Extremities: no cyanosis, no clubbing, no edema Skin: normal turgor Skin - other findings: macular rash on left aspect of face, raised nodules on right arm, b/l ankle Neurological: cranial nerve grossly intact, normal sensation to touch, no weakness, no focal deficits, no new deficit Musculoskeletal: normal tone, normal strength, no muscle wasting Psychiatric: normal affect, normal behavior, A&O x 3 Hosp A/P (1) Acute respiratory failure with hypoxia Code(s): J96.01 - ACUTE RESPIRATORY FAILURE WITH HYPOXIA Status: Acute (2) Bilateral pneumonia Code(s): J18.9 - PNEUMONIA, UNSPECIFIED ORGANISM Status: Acute (3) Erythroderma, maculopapular Code(s): L26 - EXFOLIATIVE DERMATITIS Status: Acute (4) Hypertension Code(s): I10 - ESSENTIAL (PRIMARY) HYPERTENSION Status: Acute (5) ILD (interstitial lung disease) Code(s): J84.9 - INTERSTITIAL PULMONARY DISEASE, UNSPECIFIED Status: Chronic (6) Tobacco abuse Code(s): Z72.0 - TOBACCO USE Status: Chronic (7) Leukocytosis Code(s): D72.829 - ELEVATED WHITE BLOOD CELL COUNT, UNSPECIFIED Status: Acute (8) Immunocompromised Code(s): D89.9 - DISORDER INVOLVING THE IMMUNE MECHANISM, UNSPECIFIED Status: Acute - Plan Continue care in CCU. 2 more days of Solumedrol 1000mg Continue abx, pending culture Reviewed chart labs going back to September, as well as 2018, appears to have negative GENARO, dsdna, RF, normal complement? This is not typical for lupus, possible for seronegative RA Her ESR is unremarkable but CRP is severely elevated. Pending repeat panel for mixed connective itssue, repeat GENARO and dsdna as well as li antibodies Ultimately, she will require transfer to a medical institution for inpatient rheumatologic evaluation, she has frequent admission and has a complex rheumatolgic presentation She has failed outpatient treatment on multiple biologic agents as well Prior to transfer, discussed case with ID about possibility of other differentials of infection including disseminated fungal etiologies, given fact she is on chronic immunosuppression and has diffuse skin and pulmonary component to her illness Will await further reccomendations from ID about workup, possible biopsy of skin lesion to be considered. Code Status: Full code Disposition: Continue workup. Tx of above. Coordinate with ID and pulmonary team.
[2019-04-11] MEDS: Fioricet 325/50/40 mg Tablet PO PRN ×2 (15:33→23:41)
--- NOTE | 2019-04-11 18:32 | CON ---
DATE OF CONSULTATION: 04/11/2019 REASON FOR CONSULTATION: Pneumonia, immunosuppressed state. HISTORY OF PRESENT ILLNESS: A 43-year-old, who has a diagnosis of seropositive rheumatoid arthritis, which was initially identified by Dr. Baer and then a doctor in [place]. Subsequently, she was treated by Dr. Wu, provider relations specialist at [facility] He saw her a few times in 2018, but not since. Apparently, she had lost insurance, which she has regained now. The patient also mentions a diagnosis of systemic lupus erythematosus, but all the serologies for lupus have been negative both here at [facility] as well as at [facility]. She did have low titers for rheumatoid factor at [facility]. 2019 has been marked for this progressively worsening diffuse pulmonary infiltrates, which have been associated with hypoxemia, have led her to use oxygen in the home setting. She has had her dose of prednisone increased progressively. Now, she is admitted to the hospital with further decompensation, diffuse bilateral infiltrates, and some chest pain, some cough and nausea, but no sputum production. She also has had this pruritic eruption in the skin of the appendicular structures, abdomen and chest and facial area. She does have the urge to scratch herself, but she tries to resisted, but obviously according to the exam, she had not been very successful when avoiding this self excoriation. Her dose of prednisone has been increased over the past few months to 60 mg per day, but she has decreased it to 30 on her own account trying to avoid adverse reactions from it. She has had some headaches now. She has a headache, which is quite intense. She denies any visual symptoms, sore throat , odynophagia, or dysphagia. No dental pain. No back pain. No abdominal pain or diarrhea. No genitourinary symptoms. She has joint symptoms mostly in hands, shoulders, but sometimes in knee as well. PAST MEDICAL HISTORY: Rheumatoid arthritis, seropositive. She has been diagnosed with lupus, but I do not have a confirmation of that through Dr. Wu's notes at [facility], only the diagnosis of rheumatoid arthritis. She has a history of seizures and pneumonia, plus-minus interstitial lung disease. Here mention of cardiomyopathy, but that is not documented. The medical history also includes a right medial thigh abscess secondary to MRSA in February 2019. PAST SURGICAL HISTORY: Includes x3, tubal ligation. She also had a bronchoscopy done by Dr. Simmons reportedly at [facility] in the past. 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 She used to work at [employer], but because of her illness exacerbation, she has quit working. Smokes half a pack per day. Does not drink alcoholic beverages. Lives in the area. FAMILY HISTORY: She has a history of autoimmune syndromes in her mother side of the family. 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 CURRENT MEDICATIONS LIST: 1. Fioricet. 2. [place]. 3. DuoNeb. 4. Valisone. 5. Cefepime. 6. Dextromethorphan. 7. Divalproex. 8. Enoxaparin. 9. Famotidine. 10. Hydroxychloroquine sulfate. 11. Methylprednisolone. 12. Morphine. 13. Nicotine. 14. Ondansetron. 15. Ambien. PHYSICAL EXAMINATION: VITAL SIGNS: T-max 99.8, BP 155, pulse 102, and O2 saturation 93 L nasal cannula. Now, she is on high-flow O2, keeping the same O2 saturation. SKIN: Shows diffuse areas of excoriation in the skin of the upper extremities and lower extremities. Some patches of hyperkeratosis with blistering. The skin in the upper extremities has a sort of a dermal hyperkeratotic appearance with some erythema noted and this fine scaly eruption, which is diffuse. There is quite a bit of self excoriation noted in the upper extremities in the facial region in the upper chest. She has a peripheral IV access and is urinating in the diaper. High- flow nasal cannula O2 noted. No lymphadenopathy. HEENT: Ocular movements conjugate. Sclerae white. Pupils are equal. Oral cavity with no thrush. Numerous teeth in place and fairly decent shape. NECK: Supple. LUNGS: With faint scattered inspiratory crackles diffusely distributed in both right and left hemithorax. HEART: S1 and S2. Regular rate without murmurs. ABDOMEN: Soft, not distended or tender. No ascites. No bladder distention. EXTREMITIES: No joint inflammatory activity noted. Pulses are 1+ in the dorsalis pedis. 1+ edema in lower extremities. She is able to move extremities equally. Cognitive function appears to be intact. LABORATORY DATA: White cell count is 24.4 and now is 17.6, hemoglobin 10.6, and platelets 276. She had 86% neutrophils, now 93%. A pH of 7.35, pCO2 of 45, and pO2 of 76. Sodium 140, creatinine 0.76, AST 48, ALT 12, and albumin 3.3. Urinalysis was normal. Complement was normal. Influenza A and B were negative. Two sets of blood cultures negative. Urine culture, no growth from February. Chest x-ray revealed multifocal airspace opacities scattered throughout the lungs. Echocardiogram from September last year with EF of 55%. Otherwise normal findings. CT angiogram from January with diffuse patches, airspace disease, and ground-glass opacities. We do not have any imaging studies of the lungs at [facility] and all the stuff that was done at the [facility] is in the old system and I cannot get a hold of it right now. I am trying to obtain that information because apparently, she did have a bronchoalveolar lavage for bronchoscopy there by Dr. Simmons. ASSESSMENT: 1. Reported history of rheumatoid arthritis, and not well documented SLE. The rheumatoid titer was quite low. 2. Progressive worsening diffuse pulmonary infiltrates. 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 4. Neutrophilia from corticosteroid intake. 5. Immunosuppression associated with chronic use of high dose of corticosteroids. DISCUSSION: The main concern here is with an opportunistic infectious process such as fungal including coccidioidomycosis, Pneumocystis, histoplasmosis, and so on. Mycobacterial infection would be less likely, but has to be considered as well, chronic or acute viral superimposed infection is less likely. Noninfectious syndromes including various types of lymphoma including T-cell lymphoma with skin manifestations is to be considered as well. Parasitic diseases would be less likely. The one I have in mind would specifically be Strongyloides, but this does not appear likely. Autoimmune syndromes with interstitial pneumonitis would be another possibility, but the patient had been on fairly high dose of corticosteroids and I would believe that is less likely. Other malignancies in view of her chronic smoking including alveolar carcinoma is within realm of possibilities. At this point, we will submit assays for the above. We will probably consider Karius test, which is seems to be quite sensitive for detection of disseminated fungal infections. In terms of empiric treatment, may consider treatment with fluconazole and anti-pneumocystis treatment as well but specific etiologic diagnosis is essential. Check HIV serology as well. May require repeat bronchoscopy/bal/biopsy. The skin changes may not result in specific pathology but skin biopsy with immunofluorescence and histopath are recommended. Job ID: [id number] [facility] CENTERYuliya
[2019-04-11] MEDS: Nicotine 7 MG PATCH TD SCH (21:02)
[2019-04-11] MEDS: Zolpidem Tartrate 5 MG TAB PO PRN (23:41)
[2019-04-12] MEDS: HYDROcodone/Acetaminophen 10/325 mg Tablet PO PRN ×4 (01:08→20:51)
[2019-04-12] MEDS: Morphine 2 MG/ML SYRINGE SLOW IVP PRN ×2 (03:20→08:30)
[2019-04-12 04:19] LABS: #Eosinphils 0.1 thou/uL (0.0-0.7); #Lymphocytes 0.7 thou/uL (1.20-3.40); #Monocytes 0.6 thou/uL (0.11-0.59); #Neutrophils 12.5 thou/uL (1.40-6.50); %Eosinophils 0.5 % (0.0-10.0); %Lymphocytes 5.3 % (21.0-51.0); %Monocytes 4.2 % (0.0-10.0); Hemoglobin 10.4 g/dL (12.0-16.0); Mean Corpuscular Hemoglobin 30.3 pg (27.0-31.0); Mean Corpuscular Volume 94.7 fL (78.0-98.0); Mean Platelet Volume 7.6 fL (7.4-10.4); Platelet Count 302 thou/uL (130-400); RBC Distribution Width 14.1 % (11.5-14.5); Red Blood Cell (RBC) Count 3.42 mill/uL (4.20-5.40); White Blood Cell (WBC) Count 13.9 thou/uL (4.8-10.8)
[2019-04-12 04:42] LABS: Anion Gap 13 mmol/L (10-20); BUN (Urea Nitrogen) 19 mg/dL (7.0-18.7); Calc. Creatinine Clearance 142 mL/min (70-130); Carbon Dioxide 31 mmol/L (22-29); Chloride 101 mmol/L (98-107); Estimated GFR-MDRD 84; Glucose 172 mg/dL (70-105); Potassium 4.4 mmol/L (3.5-5.1); Sodium 141 mmol/L (136-145)
[2019-04-12] MEDS: Mometasone/Formoterol 120 PUFF INHALER INH SCH ×2 (07:01→18:58)
--- NOTE | 2019-04-12 07:57 | RAD ---
EXAM: Single view of the chest HISTORY: Pneumonia COMPARISON: 04/11/2019 FINDINGS: Single view of the chest shows a normal sized cardiomediastinal silhouette. Multifocal stab le mixed infiltrates are seen in scattered throughout the lungs. The bones are unremarkable. IMPRESSION: Stable multifocal pneumonia
--- NOTE | 2019-04-12 08:20 | PDOC.HOSPP ---
- Subjective Subjective: Continues on high flow nasal cannula, respiratory is working on decreasing requirement for oxygen. Notes improvement in overall joint pain with medication. - Objective Vital Signs & Weight: Vital Signs (12 hours) Temp Pulse Resp Pulse Ox 04/12/19 07:00 65 28 H 97 04/12/19 05:00 98.9 F 04/12/19 03:46 98 04/12/19 03:45 70 33 H 98 04/12/19 00:00 98.7 F 04/11/19 23:29 97 04/11/19 23:24 91 L Weight Admit Weight 207 lb 4.8 oz Weight 207 lb 4.8 oz Most Recent Monitor Data Heart Rate from ECG 77 NIBP 155/99 NIBP BP-Mean 117 Respiration from ECG 30 SpO2 96 I&O: 04/11/19 04/12/19 04/13/19 06:59 06:59 06:59 Intake Total 1461 2820 Output Total 800 1350 Balance 661 1470 Result Diagrams: 04/12/19 03:30 04/12/19 03:30 Hospitalist ROS - Review of Systems All other systems reviewed; all pertinent +/- noted in HPI/Subj - Medication Medications: Active Medications Generic Name Dose Route Start Last Admin Trade Name Freq PRN Reason Stop Dose Admin Acetaminophen/Butalbital/Caffeine 1 tab 04/11/19 08:59 04/11/19 23:41 Fioricet PO 04/16/19 09:00 1 tab Q8H PRN Administration Headache Hydrocodone Bitart/Acetaminophen 1 tab 04/09/19 16:35 04/12/19 05:47 [place] 10/325 PO 1 tab Q4H PRN Administration Moderate Pain (4-6) Albuterol/Ipratropium 3 ml 04/09/19 22:30 04/12/19 07:00 Duoneb NEB 3 ml [id number] JOESPH Administration Betamethasone Valerate 0 gm 04/10/19 09:00 04/11/19 08:26 Valisone 0.1% Cream TOP 1 applic DAILY JOESPH Administration Divalproex Sodium 750 mg 04/10/19 09:00 04/11/19 08:43 Depakote PO 750 mg DAILY JOESPH Administration Enoxaparin Sodium 40 mg 04/11/19 09:00 04/11/19 08:32 Lovenox SC 40 mg 0900 JOESPH Administration Famotidine 20 mg 04/09/19 21:00 04/11/19 20:12 Pepcid PO 20 mg BID JOESPH Administration Hydroxychloroquine Sulfate 400 mg 04/10/19 09:00 04/11/19 08:44 Plaquenil PO 400 mg DAILY JOESPH Administration Cefepime HCl 2 gm/ Sodium 100 mls @ 200 mls/hr 04/10/19 10:00 04/11/19 21:03 Chloride IVPB 100 mls 1000,2200 JOESPH Administration Methylprednisolone Sodium 266 mls @ 266 mls/hr 04/10/19 10:00 04/11/19 10:16 Succinate 1,000 mg/ Sodium IVPB 04/12/19 10:59 266 mls Chloride 1000 JOESPH Administration Mometasone Furoate/Formoterol Fumar 2 puff 04/10/19 06:30 04/12/19 07:01 Dulera 200 Mcg/5 Mcg Inhaler INH 2 puff BID-RT JOESPH Administration Morphine Sulfate 2 mg 04/09/19 20:49 04/12/19 03:20 Morphine SLOW IVP 2 mg Q4H PRN Administration Breakthrough Pain Nicotine 7 mg 04/09/19 21:00 04/11/19 21:02 Nicoderm Patch TD 7 mg Q24HR JOESPH Administration Sodium Chloride 10 ml 04/09/19 21:00 04/11/19 20:12 Flush - Normal Saline IVF 10 ml Q12HR JOESPH Administration Throat Lozenges 1 candice 04/09/19 19:53 04/11/19 08:26 Cepastat Lozenges PO 1 candice Q2H PRN Administration Cough, Sore Throat Zolpidem Tartrate 5 mg 04/09/19 19:53 04/11/19 23:41 Ambien PO 5 mg HS PRN Administration Insomnia - Exam General Appearance: NAD, awake alert Eye: PERRL, anicteric sclera ENT: normocephalic atraumatic, no oropharyngeal lesions, moist mucosa Neck: supple, symmetric, no JVD, no thyromegaly, no lymphadenopathy, no carotid bruit Heart: RRR, no murmur, no gallops, no rubs, normal peripheral pulses Respiratory: CTAB, no wheezes, no rales, no ronchi, normal chest expansion, no tachypnea, normal percussion Gastrointestinal: soft, non-tender, non-distended, normal bowel sounds, no palpable masses, no hepatomegaly, no splenomegaly, no bruit Extremities: no cyanosis, no clubbing, no edema Skin: normal turgor Skin - other findings: rash improving on right arm, also has rash on bilateral ankles, and L face Neurological: cranial nerve grossly intact, normal sensation to touch, no weakness, no focal deficits, no new deficit Musculoskeletal: normal tone, normal strength, no muscle wasting Psychiatric: normal affect, normal behavior, A&O x 3 Hosp A/P (1) Acute respiratory failure with hypoxia Code(s): J96.01 - ACUTE RESPIRATORY FAILURE WITH HYPOXIA Status: Acute (2) Bilateral pneumonia Code(s): J18.9 - PNEUMONIA, UNSPECIFIED ORGANISM Status: Acute (3) Erythroderma, maculopapular Code(s): L26 - EXFOLIATIVE DERMATITIS Status: Acute (4) Hypertension Code(s): I10 - ESSENTIAL (PRIMARY) HYPERTENSION Status: Acute (5) ILD (interstitial lung disease) Code(s): J84.9 - INTERSTITIAL PULMONARY DISEASE, UNSPECIFIED Status: Chronic (6) Tobacco abuse Code(s): Z72.0 - TOBACCO USE Status: Chronic (7) Leukocytosis Code(s): D72.829 - ELEVATED WHITE BLOOD CELL COUNT, UNSPECIFIED Status: Acute (8) Immunocompromised Code(s): D89.9 - DISORDER INVOLVING THE IMMUNE MECHANISM, UNSPECIFIED Status: Acute (9) Rheumatoid arthritis Code(s): M06.9 - RHEUMATOID ARTHRITIS, UNSPECIFIED Status: Chronic - Plan Continue care in CCU. 1 more days of Solumedrol 1000mg Continue abx and antifungal per ID, pending culture Reviewed chart labs going back to September, as well as 2018, appears to have negative GENARO, dsdna, RF, normal complement? This is not typical for lupus, possible for seronegative RA, this was her original diagnosis from [facility] Her ESR is unremarkable but CRP is severely elevated. Pending repeat panel for mixed connective itssue, repeat GENARO and dsdna as well as li antibodies She has failed outpatient treatment on multiple biologic agents as well Prior to transfer, discussed case with ID about possibility of other differentials of infection including disseminated fungal etiologies, given fact she is on chronic immunosuppression and has diffuse skin and pulmonary component to her illness Will await further reccomendations from ID about workup, possible biopsy of skin lesion to be considered. Code Status: Full code Disposition: Copmlex case. Continue workup. Tx of above. Coordinate with ID and pulmonary team.
[2019-04-12] MEDS: Cefepime 2 GM in Sodium Chloride 0.9% 100 ML IVPB SCH ×2 (09:28→22:07)
[2019-04-12] MEDS: Enoxaparin Sodium 40 MG/0.4 ML SYRINGE SC SCH (09:30)
[2019-04-12] MEDS: Betamethasone 0.1% Cream 15 GM TUBE TOP SCH (09:30)
[2019-04-12] MEDS: Famotidine 20 MG TAB PO SCH ×2 (09:41→20:51)
[2019-04-12] MEDS: Divalproex Sodium 250 MG (DR) TAB PO SCH (10:20)
[2019-04-12] MEDS: Hydroxychloroquine Sulfate 200 MG TAB PO SCH (10:20)
[2019-04-12] MEDS: methylPREDNISolone Sod Succ 1,000 MG in Sodium Chloride 0.9% 250 ML 250 ML IVPB SCH (10:21)
--- NOTE | 2019-04-12 10:30 | PRG ---
DATE OF SERVICE: 04/12/2019 SUBJECTIVE: She feels better. She is on high-flow oxygen at about 45% FiO2. She did not require BiPAP last night. OBJECTIVE: VITAL SIGNS: Temperature 98.9; pulse 107; blood pressure 135/85; O2 saturation in the mid 90s; intake 2820, output 1350. HEENT: Unremarkable. NECK: No adenopathy or JVD. LUNGS: Coarse breath sounds. CARDIOVASCULAR: S1 and S2. Regular. ABDOMEN: Soft. EXTREMITIES: She has a papular rash over her arms and over her ankles and around her mouth. LABORATORY DATA: White blood cell count 13.9, hematocrit 32.4, and platelet count 302. Sodium 141, potassium 4.4, chloride 101, CO2 of 31, BUN 19, creatinine 0.7, glucose 172. Chest x-ray is about the same. ASSESSMENT: 1. 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 2. Beginning of volume overloaded. 3. Increased pain. PLAN: 1. Today is the last day of the high-dose Solu-Medrol. She will need to be restarted on her usual prednisone dose tomorrow. 2. Continue antibiotics. 3. Increase morphine as needed for pain. Job ID: [id number]
[2019-04-12] MEDS: Morphine 4 MG/ML VIAL SLOW IVP PRN ×4 (11:30→23:11)
--- NOTE | 2019-04-12 15:11 | PRG ---
DATE OF SERVICE: 04/12/2019 SUBJECTIVE: The patient is a bit drowsy. She has some headaches. No visual symptoms. Moderate dyspnea. No chest pain. No abdominal pain. She is voiding in the diaper. OBJECTIVE: VITAL SIGNS: T-max 98.9, blood pressure 140/70, pulse 74, respiratory rate 26, O2 saturation 94%. HEENT: Pupils are equal. LUNGS: Symmetric air entry with faint inspiratory crackles at bases. No wheezing. HEART: S1 and S2. Regular rate. ABDOMEN: [id number] distended, but soft. No guarding. EXTREMITIES: Moves extremities equally. LABORATORY STUDIES: Sodium 141 creatinine 0.75. White cell count 13.9, hemoglobin 10.4, platelets 302 with 90% neutrophils. Complement C3 and C4 within normal limits. Urinalysis normal with negative protein. Respiratory virus PCR panel negative. Cryptococcus antigen negative. Influenza A and B, negative. Blood cultures thus far 48 hours, negative. Chest x-ray from this morning, multifocal, mixed infiltrates scattered throughout lungs. ASSESSMENT AND DISCUSSION: 1. History of rheumatoid arthritis with a low titer treated elsewhere. 2. History of lupus without any well documented serology, all the serologies done here as well as at [facility] were negative for all the autoantibodies and complements have consistently been within normal limits. 3. High dose corticosteroid treatment for unclear indication before this admission. 4. Chronic progressive bilateral pulmonary infiltrates with negative bronchoscopy/BAL done at [facility]. I think it was done in 2018 or maybe the first half of 2019 with negative workup per laboratory report that we received. 5. 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 6. Headaches. Again the main concern is with an opportunistic infectious process that is progressing in the past few months. Pneumocystis, coccidioidomycosis, histoplasmosis, and so on. Mycobacterial infection would be less likely, but needs to be ruled out. The previous fungal and mycobacterial workup done at [facility] through a bronchoscopy all resulted negative cultures as well as negative histopathology, cytopathology for Pneumocystis and fungal/mycobacterial pathogens. The T-cell lymphoma, parasitic diseases, autoimmune syndrome, rheumatoid arthritis, associated lung disease would be less likely. Awaiting on the assays, the question of empiric treatment probably will have to be considered until we have final results. We will go ahead and start her on voriconazole and Bactrim. Job ID: [id number]
[2019-04-12] MEDS: SODIUM CHLORIDE 0.9% IVPB SCH (15:49)
[2019-04-12] MEDS: VORICONAZOLE IVPB SCH (15:49)
[2019-04-12] MEDS: Fioricet 325/50/40 mg Tablet PO PRN (20:52)
[2019-04-12] MEDS: Nicotine 7 MG PATCH TD SCH (20:53)
[2019-04-13] MEDS: diphenhydrAMINE 25 MG CAP PO PRN (00:09)
[2019-04-13] MEDS: HYDROcodone/Acetaminophen 10/325 mg Tablet PO PRN ×5 (02:53→21:08)
[2019-04-13] MEDS: VORICONAZOLE IVPB SCH (02:55)
[2019-04-13] MEDS: SODIUM CHLORIDE 0.9% IVPB SCH (02:55)
[2019-04-13] MEDS: Morphine 4 MG/ML VIAL SLOW IVP PRN ×5 (04:58→23:32)
[2019-04-13 05:19] LABS: #Basophils 0.1 thou/uL (0.0-0.2); #Eosinphils 0.1 thou/uL (0.0-0.7); #Lymphocytes 0.5 thou/uL (1.20-3.40); #Monocytes 0.5 thou/uL (0.11-0.59); #Neutrophils 5.8 thou/uL (1.40-6.50); %Basophils 1.2 % (0.0-1.0); %Eosinophils 0.8 % (0.0-10.0); %Lymphocytes 7.3 % (21.0-51.0); %Monocytes 6.9 % (0.0-10.0); %Neutrophils 83.7 % (42.0-75.0); Mean Corpuscular HGB CONC 32.5 g/dL (32.0-36.0); Mean Corpuscular Hemoglobin 30.5 pg (27.0-31.0); Mean Corpuscular Volume 93.9 fL (78.0-98.0); Platelet Count 256 thou/uL (130-400); RBC Distribution Width 13.7 % (11.5-14.5); Red Blood Cell (RBC) Count 3.26 mill/uL (4.20-5.40)
[2019-04-13 05:42] LABS: Anion Gap 15 mmol/L (10-20); BUN (Urea Nitrogen) 20 mg/dL (7.0-18.7); Calc. Creatinine Clearance 144 mL/min (70-130); Calcium 8.5 mg/dL (7.8-10.44); Carbon Dioxide 30 mmol/L (22-29); Chloride 100 mmol/L (98-107); Estimated GFR-MDRD 85; Glucose 179 mg/dL (70-105); Potassium 4.3 mmol/L (3.5-5.1); Sodium 141 mmol/L (136-145)
[2019-04-13] MEDS: Cepastat Lozenges 1 LOZ PO PRN (06:45)
[2019-04-13] MEDS: Mometasone/Formoterol 120 PUFF INHALER INH SCH ×2 (07:29→18:34)
--- NOTE | 2019-04-13 08:43 | RAD ---
EXAM: Single view of the chest HISTORY: Pneumonia COMPARISON: 04/12/2019 FINDINGS: Single view of the chest shows an enlarged but stable cardiomediastinal silhouette. Stable multifocal mixed opacities are seen in the lungs. The bones are unremarkable. IMPRESSION: Stable multifocal pneumonia
[2019-04-13] MEDS: Hydroxychloroquine Sulfate 200 MG TAB PO SCH (09:51)
[2019-04-13] MEDS: Divalproex Sodium 250 MG (DR) TAB PO SCH (09:51)
[2019-04-13] MEDS: Famotidine 20 MG TAB PO SCH ×2 (09:51→21:08)
[2019-04-13] MEDS: Dextromethorphan Polistirex 30 MG/5 ML (89 ML BOTTLE) PO PRN (09:51)
[2019-04-13] MEDS: Enoxaparin Sodium 40 MG/0.4 ML SYRINGE SC SCH (09:52)
[2019-04-13] MEDS: Cefepime 2 GM in Sodium Chloride 0.9% 100 ML IVPB SCH ×2 (10:38→21:08)
[2019-04-13] MEDS: Betamethasone 0.1% Cream 15 GM TUBE TOP SCH (11:48)
[2019-04-13] MEDS ORDERED: predniSONE 20 MG TAB PO SCH (15:00)
--- NOTE | 2019-04-13 15:40 | PRG ---
DATE OF SERVICE: 04/13/2019 SUBJECTIVE: Karla Guy's events have been reviewed. She says she is feeling a little bit better. This episode came on fairly suddenly. She never has established relationship with the sword swallower either here at [place] or [place]. OBJECTIVE: VITAL SIGNS: Heart rate in the 70s, blood pressure 147/86, respiratory rates in the teens. GENERAL: She apparently was hospitalized in [place] recently with a seizure, but did not see a sword swallower. LUNGS: Remarkable for diffuse crackles. She has had the same exam in the past and this tends to clear up in her with steroids. HEART: Regular rhythm. ABDOMEN: Soft. IMPRESSION: Pulmonary infiltrates with a vasculitis. Rheumatology input would be helpful from a standpoint if picking a maintenance drug for to hopefully decrease the frequency of these flare ups. I would recommend moving toward simplifying antimicrobial therapy given that all of her cultures are negative. Job ID: [id number]
[2019-04-13 17:53] VITALS: BMI 33.5
[2019-04-13] MEDS: Nicotine 7 MG PATCH TD SCH (21:23)
--- NOTE | 2019-04-13 22:25 | PDOC.HOSPP ---
- Subjective Subjective: Does feel like she is doing a little better overall. - Objective Vital Signs & Weight: Vital Signs (12 hours) Temp Pulse Resp Pulse Ox 04/13/19 20:00 98.9 F 98 04/13/19 15:12 81 16 97 04/13/19 15:00 98.8 F 04/13/19 11:00 99.0 F 04/13/19 10:41 87 21 H 94 L Weight Admit Weight 207 lb 4.8 oz Weight 195 lb 5.273 oz Most Recent Monitor Data Heart Rate from ECG 68 NIBP 117/69 NIBP BP-Mean 85 Respiration from ECG 19 SpO2 96 I&O: 04/12/19 04/13/19 04/14/19 06:59 06:59 06:59 Intake Total 2820 2580 1714 Output Total 1350 1650 1450 Balance 1470 930 264 Result Diagrams: 04/14/19 03:03 04/14/19 03:03 Hospitalist ROS - Medication Medications: Active Medications Generic Name Dose Route Start Last Admin Trade Name Freq PRN Reason Stop Dose Admin Acetaminophen/Butalbital/Caffeine 1 tab 04/11/19 08:59 04/12/19 20:52 Fioricet PO 04/16/19 09:00 1 tab Q8H PRN Administration Headache Hydrocodone Bitart/Acetaminophen 1 tab 04/09/19 16:35 04/13/19 21:08 [place] 10/325 PO 1 tab Q4H PRN Administration Moderate Pain (4-6) Albuterol/Ipratropium 3 ml 04/09/19 22:30 04/13/19 18:34 Duoneb NEB Not Given [id number] JOESPH Betamethasone Valerate 0 gm 04/10/19 09:00 04/13/19 11:48 Valisone 0.1% Cream TOP 1 applic DAILY JOESPH Administration Dextromethorphan Polistirix 30 mg 04/09/19 19:53 04/13/19 09:51 Delsym PO 30 mg Q8H PRN Administration Cough Diphenhydramine HCl 25 mg 04/09/19 19:53 04/13/19 00:09 Benadryl PO 25 mg Q4H PRN Administration Itching Divalproex Sodium 750 mg 04/10/19 09:00 04/13/19 09:51 Depakote PO 750 mg DAILY JOESPH Administration Enoxaparin Sodium 40 mg 04/11/19 09:00 04/13/19 09:52 Lovenox SC 40 mg 0900 [facility] Administration Famotidine 20 mg 04/09/19 21:00 04/13/19 21:08 Pepcid PO 20 mg BID JOESPH Administration Hydroxychloroquine Sulfate 400 mg 04/10/19 09:00 04/13/19 09:51 Plaquenil PO 400 mg DAILY JOESPH Administration Cefepime HCl 2 gm/ Sodium 100 mls @ 200 mls/hr 04/10/19 10:00 04/13/19 21:08 Chloride IVPB 100 mls 1000,2200 JOESPH Administration Voriconazole 400 mg/ Sodium 100 mls @ 50 mls/hr 04/13/19 15:00 04/13/19 15:29 Chloride IVPB 100 mls 0300,1500 JOESPH Administration Trimethoprim/Sulfamethoxazole 500 mls @ 250 mls/hr 04/12/19 18:00 04/13/19 18 :17 250 mg/ Dextrose/Water IVPB Not Given Q6HR [facility] Mometasone Furoate/Formoterol Fumar 2 puff 04/10/19 06:30 04/13/19 18:34 Dulera 200 Mcg/5 Mcg Inhaler INH Not Given BID-RT [facility] Morphine Sulfate 4 mg 04/12/19 10:04 04/13/19 18:21 Morphine SLOW IVP 4 mg Q2H PRN Administration Breakthrough Pain Nicotine 7 mg 04/09/19 21:00 04/13/19 21:23 Nicoderm Patch TD 7 mg Q24HR [facility] Administration Sodium Chloride 10 ml 04/09/19 21:00 04/13/19 21:10 Flush - Normal Saline IVF 10 ml Q12HR [facility] Administration Throat Lozenges 1 candice 04/09/19 19:53 04/13/19 06:45 Cepastat Lozenges PO 1 candice Q2H PRN Administration Cough, Sore Throat Zolpidem Tartrate 5 mg 04/09/19 19:53 04/11/19 23:41 Ambien PO 5 mg HS PRN Administration Insomnia - Exam General Appearance: NAD, awake alert Heart: RRR, no murmur, no gallops, no rubs, normal peripheral pulses Respiratory: normal chest expansion, no tachypnea, rales Respiratory - other findings: High flow NC Gastrointestinal: soft, non-tender, non-distended, normal bowel sounds, no palpable masses, no hepatomegaly, no splenomegaly, no bruit Skin - other findings: Distal RUE with erythema to above the elbow. fungal rash. Musculoskeletal: normal tone, normal strength, no muscle wasting Psychiatric: normal affect, normal behavior, A&O x 3 Hosp A/P (1) Dermatomycosis Code(s): B36.9 - SUPERFICIAL MYCOSIS, UNSPECIFIED Status: Acute (2) Hypertension Code(s): I10 - ESSENTIAL (PRIMARY) HYPERTENSION Status: Acute (3) Acute and chronic respiratory failure with hypoxia Code(s): J96.21 - ACUTE AND CHRONIC RESPIRATORY FAILURE WITH HYPOXIA Status: Acute (4) Obesity (BMI 30-39.9) Code(s): E66.9 - OBESITY, UNSPECIFIED Status: Acute (5) Pneumonitis Code(s): J18.9 - PNEUMONIA, UNSPECIFIED ORGANISM Status: Acute (6) ILD (interstitial lung disease) Code(s): J84.9 - INTERSTITIAL PULMONARY DISEASE, UNSPECIFIED Status: Chronic (7) Rheumatoid arthritis Code(s): M06.9 - RHEUMATOID ARTHRITIS, UNSPECIFIED Status: Chronic (8) Seizure disorder Code(s): G40.909 - EPILEPSY, UNSP, NOT INTRACTABLE, WITHOUT STATUS EPILEPTICUS Status: Chronic - Plan Case was reviewed with Dr. Schmidt. Concern about the sero-negativity in the SLE workup. She has had multiple admissions with pneumonitis/ILD. Seems to improve with steroids. Queries fungal source. Clearly has fungal skin infection of the right arm. ID following. Started Voriconazole. Converted from high dose IV steroids back to po prednisone. Discussed with Dr. Simmons. He does not have the bronch results from the other facility. He will monitor her situation for the possible need of bronch going forward.
[2019-04-14] MEDS: Zolpidem Tartrate 5 MG TAB PO PRN ×2 (00:52→23:56)
[2019-04-14] MEDS: HYDROcodone/Acetaminophen 10/325 mg Tablet PO PRN ×5 (00:58→20:32)
[2019-04-14 04:05] LABS: #Eosinphils 0.1 thou/uL (0.0-0.7); #Lymphocytes 0.6 thou/uL (1.20-3.40); #Monocytes 0.7 thou/uL (0.11-0.59); #Neutrophils 7.1 thou/uL (1.40-6.50); %Eosinophils 0.7 % (0.0-10.0); %Lymphocytes 6.8 % (21.0-51.0); %Monocytes 7.8 % (0.0-10.0); %Neutrophils 84.6 % (42.0-75.0); Hemoglobin 10.2 g/dL (12.0-16.0); Mean Corpuscular HGB CONC 33.3 g/dL (32.0-36.0); Mean Corpuscular Hemoglobin 31.1 pg (27.0-31.0); Mean Corpuscular Volume 93.3 fL (78.0-98.0); Platelet Count 296 thou/uL (130-400); Red Blood Cell (RBC) Count 3.27 mill/uL (4.20-5.40); White Blood Cell (WBC) Count 8.3 thou/uL (4.8-10.8)
[2019-04-14 04:25] LABS: Anion Gap 13 mmol/L (10-20); BUN (Urea Nitrogen) 17 mg/dL (7.0-18.7); Calc. Creatinine Clearance 132 mL/min (70-130); Calcium 8.3 mg/dL (7.8-10.44); Carbon Dioxide 30 mmol/L (22-29); Chloride 99 mmol/L (98-107); Estimated GFR-MDRD 83; Glucose 267 mg/dL (70-105); Sodium 138 mmol/L (136-145)
[2019-04-14] MEDS: Morphine 4 MG/ML VIAL SLOW IVP PRN ×5 (04:47→21:50)
[2019-04-14] MEDS: Mometasone/Formoterol 120 PUFF INHALER INH SCH ×2 (07:19→19:45)
--- NOTE | 2019-04-14 07:58 | RAD ---
EXAM: CHEST ONE VIEW HISTORY: Pneumonia COMPARISON: 04/13/2019 FINDINGS: Cardiac silhouette is magnified by projection but does appear in enlarged. Again noted are increased interstitial and alveolar opacities throughout the lungs bilaterally not significantly changed when compared to prior studies. Inferior left lateral costophrenic angle is excluded from view, but no def inite pleural effusion is seen. No other change interval change. IMPRESSION: Stable chest with bilateral interstitial and alveolar opacities. Findings may be related to either pu lmonary edema or infectious process. Follow-up to resolution is recommended.
[2019-04-14] MEDS: predniSONE 20 MG TAB PO SCH (08:46)
[2019-04-14] MEDS: Divalproex Sodium 250 MG (DR) TAB PO SCH (08:46)
[2019-04-14] MEDS: Famotidine 20 MG TAB PO SCH ×2 (08:46→20:32)
[2019-04-14] MEDS: Betamethasone 0.1% Cream 15 GM TUBE TOP SCH (08:47)
[2019-04-14] MEDS: Hydroxychloroquine Sulfate 200 MG TAB PO SCH (08:47)
[2019-04-14] MEDS: Enoxaparin Sodium 40 MG/0.4 ML SYRINGE SC SCH (08:47)
[2019-04-14] MEDS: Cefepime 2 GM in Sodium Chloride 0.9% 100 ML IVPB SCH ×2 (10:42→21:50)
--- NOTE | 2019-04-14 10:53 | PDOC.HOSPP ---
- Subjective Encounter Date: 04/14/19 Encounter Time: 10:52 Subjective: Feeling a little better today. Reports pain in the lower rib area. She thinks it is related to coughing. Was only up out of the bed once yesterday. Right arm fungal infection is getting better. She is very happy about that. - Objective Vital Signs & Weight: Vital Signs (12 hours) Temp Pulse Resp Pulse Ox 04/14/19 09:00 98.5 F 04/14/19 07:19 97 04/14/19 07:16 73 26 H 97 04/14/19 04:00 98.5 F 04/14/19 02:31 88 16 99 04/14/19 00:00 98.6 F 04/13/19 22:57 71 16 99 Weight Admit Weight 207 lb 4.8 oz Weight 195 lb 5.273 oz Most Recent Monitor Data Heart Rate from ECG 70 NIBP 132/81 NIBP BP-Mean 98 Respiration from ECG 18 SpO2 95 I&O: 04/13/19 04/14/19 04/15/19 06:59 06:59 06:59 Intake Total 2580 2403 354 Output Total 1650 3500 950 Balance 930 -1097 -596 Result Diagrams: 04/14/19 03:03 04/14/19 03:03 Hospitalist ROS - Medication Medications: Active Medications Generic Name Dose Route Start Last Admin Trade Name Freq PRN Reason Stop Dose Admin Acetaminophen/Butalbital/Caffeine 1 tab 04/11/19 08:59 04/12/19 20:52 Fioricet PO 04/16/19 09:00 1 tab Q8H PRN Administration Headache Hydrocodone Bitart/Acetaminophen 1 tab 04/09/19 16:35 04/14/19 06:25 [place] 10/325 PO 1 tab Q4H PRN Administration Moderate Pain (4-6) Albuterol/Ipratropium 3 ml 04/09/19 22:30 04/14/19 07:16 Duoneb NEB 3 ml [id number] JOESPH Administration Betamethasone Valerate 0 gm 04/10/19 09:00 04/14/19 08:47 Valisone 0.1% Cream TOP 1 applic DAILY JOESPH Administration Dextromethorphan Polistirix 30 mg 04/09/19 19:53 04/13/19 09:51 Delsym PO 30 mg Q8H PRN Administration Cough Diphenhydramine HCl 25 mg 04/09/19 19:53 04/13/19 00:09 Benadryl PO 25 mg Q4H PRN Administration Itching Divalproex Sodium 750 mg 04/10/19 09:00 04/14/19 08:46 Depakote PO 750 mg DAILY JOESPH Administration Enoxaparin Sodium 40 mg 04/11/19 09:00 04/14/19 08:47 Lovenox SC 40 mg 0900 JOESPH Administration Famotidine 20 mg 04/09/19 21:00 04/14/19 08:46 Pepcid PO 20 mg BID JOESPH Administration Hydroxychloroquine Sulfate 400 mg 04/10/19 09:00 04/14/19 08:47 Plaquenil PO 400 mg DAILY JOESPH Administration Cefepime HCl 2 gm/ Sodium 100 mls @ 200 mls/hr 04/10/19 10:00 04/14/19 10:42 Chloride IVPB 100 mls 1000,2200 JOESPH Administration Voriconazole 400 mg/ Sodium 100 mls @ 50 mls/hr 04/13/19 15:00 04/14/19 04:27 Chloride IVPB 100 mls 0300,1500 JOESPH Administration Trimethoprim/Sulfamethoxazole 500 mls @ 250 mls/hr 04/12/19 18:00 04/14/19 06 :26 250 mg/ Dextrose/Water IVPB 500 mls Q6HR JOESPH Administration Mometasone Furoate/Formoterol Fumar 2 puff 04/10/19 06:30 04/14/19 07:19 Dulera 200 Mcg/5 Mcg Inhaler INH 2 puff BID-RT JOESPH Administration Morphine Sulfate 4 mg 04/12/19 10:04 04/14/19 08:48 Morphine SLOW IVP 4 mg Q2H PRN Administration Breakthrough Pain Nicotine 7 mg 04/09/19 21:00 04/13/19 21:23 Nicoderm Patch TD 7 mg Q24HR JOESPH Administration Prednisone 60 mg 04/14/19 08:00 04/14/19 08:46 Prednisone PO 60 mg QAM-WM JOESPH Administration Sodium Chloride 10 ml 04/09/19 21:00 04/14/19 08:48 Flush - Normal Saline IVF 10 ml Q12HR JOESPH Administration Throat Lozenges 1 candice 04/09/19 19:53 04/13/19 06:45 Cepastat Lozenges PO 1 candice Q2H PRN Administration Cough, Sore Throat Zolpidem Tartrate 5 mg 04/09/19 19:53 04/14/19 00:52 Ambien PO 5 mg HS PRN Administration Insomnia - Exam General Appearance: NAD, awake alert General - other findings: High flow NC. Generally speaking in full sentences. Heart: RRR, no murmur, no gallops, no rubs, normal peripheral pulses Respiratory - other findings: Bibasilar rales. Gastrointestinal: soft, non-tender, non-distended, normal bowel sounds, no palpable masses, no hepatomegaly, no splenomegaly, no bruit Extremities: no cyanosis, no clubbing, no edema Musculoskeletal: normal tone Psychiatric: normal affect, normal behavior, A&O x 3 Hosp A/P (1) Acute and chronic respiratory failure with hypoxia Code(s): J96.21 - ACUTE AND CHRONIC RESPIRATORY FAILURE WITH HYPOXIA Status: Acute (2) Dermatomycosis Code(s): B36.9 - SUPERFICIAL MYCOSIS, UNSPECIFIED Status: Acute (3) Hypertension Code(s): I10 - ESSENTIAL (PRIMARY) HYPERTENSION Status: Acute (4) Obesity (BMI 30-39.9) Code(s): E66.9 - OBESITY, UNSPECIFIED Status: Acute (5) Pneumonitis Code(s): J18.9 - PNEUMONIA, UNSPECIFIED ORGANISM Status: Acute (6) ILD (interstitial lung disease) Code(s): J84.9 - INTERSTITIAL PULMONARY DISEASE, UNSPECIFIED Status: Chronic (7) Rheumatoid arthritis Code(s): M06.9 - RHEUMATOID ARTHRITIS, UNSPECIFIED Status: Chronic (8) Seizure disorder Code(s): G40.909 - EPILEPSY, UNSP, NOT INTRACTABLE, WITHOUT STATUS EPILEPTICUS Status: Chronic - Plan Case was reviewed with Dr. Schmidt. Concern about the sero-negativity in the SLE workup. She has had multiple admissions with pneumonitis/ILD. Seems to improve with steroids. Queries fungal source. Clearly has fungal skin infection of the right arm. ID following. Started Voriconazole. Converted from high dose IV steroids back to po prednisone on 04/13. Discussed with Dr. Simmons. He does not have the bronch results from the other facility. He will monitor her situation for the possible need of bronch going forward. Increase activity. IS. May be able to move to floor.
[2019-04-14 11:11] LABS: Antinuclear AB Negative (Negative); Complement-C3 (Sendout) 168 mg/dL (82-167); Complement-C4 (Sendout) 30 mg/dL (14-44); DSDNA Autoabs (FARR) Sendout Less than 1 IU/mL (0-9); Smooth Muscle Total Antibodies <0.2 AI (0.0-0.9); Thyroid Peroxidase Ab-Sendout 10 IU/mL (0-34); U1 RNP/snRNP IgG Autoabs <0.2 AI (0.0-0.9)
--- NOTE | 2019-04-14 16:51 | PRG ---
DATE OF SERVICE: 04/14/2019 SUBJECTIVE: The patient is sitting on the bed. She is feeling much better. No headaches. Less cough. No abdominal pain. No diarrhea, and is voiding in the bedpan. OBJECTIVE: VITAL SIGNS: She is afebrile. BP 140/80, respiratory rate 17, O2 saturation 97%. SKIN: Flushing in the malar region. Mild conjunctival hyperemia. LUNGS: With fairly clear breath sounds. A very faint crackles here and there. No wheezing. HEART: S1, S2 regular rate. No murmurs. ABDOMEN: Soft, not distended. EXTREMITIES: Moves extremities equally. LABORATORY DATA: White cell count down to 8.3, hemoglobin 10.2, platelets 296. Creatinine 0.76. Histoplasma antigen negative. CMV DNA, PCR, Ald[place] C antibody pending. Karius pending. ASSESSMENT AND DISCUSSION: 1. History of rheumatoid arthritis and high-dose corticosteroid treatment for unclear indication possibly for autoimmune pneumonitis, but not clear of the indication again. 2. Prior negative bronchoscopy workup. 3. Chronic progressive bilateral pulmonary infiltrates. 4. 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 The patient will continue on broad-spectrum coverage with antifungal, anti Pneumocystis and broad-spectrum antimicrobial therapy. Request a skin biopsy for histopathology. Job ID: [id number]
--- NOTE | 2019-04-14 17:30 | PRG ---
DATE OF SERVICE: 04/14/2019 SUBJECTIVE: Malena is afebrile. Heart rate in the 70s, respiratory rates in the teens, oximetry is now up in the high 90s. She could be weaned off high-flow oxygen back to a cannula in my opinion. OBJECTIVE: LUNGS: Still remarkable for crackles. HEART: Regular rhythm. ABDOMEN: Soft. EXTREMITIES: Without edema. LABORATORY DATA: White count 8.3, hemoglobin 10.2, platelets 296. Sodium 138, potassium 4, chloride 99, bicarb 30, BUN 17, and creatinine 0.76. IMPRESSION: Pulmonary vasculitis, slowly improving with steroids. PLAN: Continue current care. Job ID: [id number]
[2019-04-14] MEDS: Nicotine 7 MG PATCH TD SCH (20:38)
[2019-04-14] MEDS: Fioricet 325/50/40 mg Tablet PO PRN (22:37)
[2019-04-15] MEDS: HYDROcodone/Acetaminophen 10/325 mg Tablet PO PRN ×4 (00:35→17:34)
[2019-04-15] MEDS: Morphine 4 MG/ML VIAL SLOW IVP PRN ×4 (02:53→21:00)
[2019-04-15] MEDS: diphenhydrAMINE 25 MG CAP PO PRN (03:32)
[2019-04-15 03:42] LABS: Anion Gap 14 mmol/L (10-20); BUN (Urea Nitrogen) 12 mg/dL (7.0-18.7); Calc. Creatinine Clearance 141 mL/min (70-130); Calcium 8.4 mg/dL (7.8-10.44); Carbon Dioxide 29 mmol/L (22-29); Chloride 99 mmol/L (98-107); Estimated GFR-MDRD 89; Glucose 131 mg/dL (70-105); Potassium 3.9 mmol/L (3.5-5.1); Sodium 138 mmol/L (136-145)
[2019-04-15 03:51] LABS: Hemoglobin 10.2 g/dL (12.0-16.0); Lymphocytes 14 % (21-51); MDiff Complete? YES; Mean Corpuscular HGB CONC 33.2 g/dL (32.0-36.0); Mean Corpuscular Hemoglobin 31.1 pg (27.0-31.0); Mean Corpuscular Volume 93.6 fL (78.0-98.0); Mean Platelet Volume 6.6 fL (7.4-10.4); Metamyelocyte 4 % (0-0); Monocytes 7 % (0-10); Myelocyte 1 % (0-0); Neutrophil 74 % (42-75); Nucleated RBC 2 % (0); Platelet Count 307 thou/uL (130-400); Platelet Morphology Comment Appears Adequate; RBC Distribution Width 14.1 % (11.5-14.5); Red Blood Cell (RBC) Count 3.28 mill/uL (4.20-5.40); White Blood Cell (WBC) Count 12.6 thou/uL (4.8-10.8)
[2019-04-15] MEDS: Mometasone/Formoterol 120 PUFF INHALER INH SCH ×2 (06:45→18:25)
[2019-04-15] MEDS: Famotidine 20 MG TAB PO SCH ×2 (08:03→20:30)
[2019-04-15] MEDS: Hydroxychloroquine Sulfate 200 MG TAB PO SCH (08:04)
[2019-04-15] MEDS: Enoxaparin Sodium 40 MG/0.4 ML SYRINGE SC SCH (08:04)
[2019-04-15] MEDS: predniSONE 20 MG TAB PO SCH (08:04)
[2019-04-15] MEDS: Divalproex Sodium 250 MG (DR) TAB PO SCH (08:04)
[2019-04-15] MEDS: Betamethasone 0.1% Cream 15 GM TUBE TOP SCH (08:05)
[2019-04-15] MEDS: Nicotine 7 MG PATCH TD SCH (08:14)
--- NOTE | 2019-04-15 09:04 | RAD ---
CHEST 1 VIEW: INDICATION: History of pneumonia. COMPARISON: Prior exam dated 04/14/2019. FINDINGS: Cardiomegaly and mild pulmonary vascular congestion persists. Bilateral interstitial and airspace op acities are similar appearing. No pleural effusion or pneumothorax is evident. No acute osseous abn ormality is evident. IMPRESSION: Stable exam. POS: [facility]
[2019-04-15 10:11] LABS: CMV DNA-PCR Test Negative (Negative)
[2019-04-15] MEDS: Cefepime 2 GM in Sodium Chloride 0.9% 100 ML IVPB SCH ×2 (10:15→21:01)
[2019-04-15] MEDS ORDERED: Lidocaine 1% w/Epinephrine 1:100K 20 ML VIAL ONE (12:53)
[2019-04-15] MEDS ORDERED: Lidocaine 1% w/Epinephrine 1:100K 20 ML VIAL IJ SCH (13:30)
[2019-04-15 14:51] LABS: Reference Lab Name KARIUS
[2019-04-15 14:54] LABS: Ref Lab Test Ordered KARIUS
[2019-04-15 16:40] LABS: ANA Symphony (Qualitative) Negative (Negative); ANA Symphony (Quantitative) 0.2 Ratio (< 0.7 Negative); EliA RAS New Method **** NEW METHOD ****; Jo-1 IgG Antibody Less than 0.3 EliAU/mL (<7 Negative); SSA/Ro IgG Antibody Less than 0.3 EliAU/mL (<7 Negative); SSB/La IgG Antibody Less than 0.3 EliAU/mL (<7 Negative); Smith D IgG Antibody Less than 0.8 EliAU/mL (<7 Negative); dsDNA IgG Antibody Less than 0.5 IU/mL (<10 Negative)
--- NOTE | 2019-04-15 20:31 | PRG ---
DATE OF SERVICE: 04/15/2019 SUBJECTIVE: Karla Guy is feeling better. OBJECTIVE: VITAL SIGNS: She is down to 4 L nasal cannula. Sats are in the 90 to 92 range. She is afebrile. Heart rates in the 60s, respiratory rate 16. LUNGS: Still remarkable for crackles. HEART: Regular rhythm. ABDOMEN: Soft. EXTREMITIES: Without asymmetry. SKIN: Her lesions on her skin were biopsied today. LABORATORY DATA: White count is 12.6, hemoglobin 10.2, and platelets 307. Sodium 138, potassium 3.9, and creatinine is 0.7. IMPRESSION: Pulmonary infiltrates, likely secondary to pulmonary vasculitis based on the behavior as long as I have known her. She continues to come in, get placed on steroids, get better, and be discharged home, anticipating that she will see a marketing operations analyst. We probably should try to find a drug as a rheumatologic suppressive therapy to facilitate weaning from prednisone before she is discharged. At this point in time, I am not sure what the best drug is, since I do not do Rheumatology on a daily basis. We will discuss with Dr. Noland. Job ID: [id number]
--- NOTE | 2019-04-15 21:13 | OP ---
DATE OF PROCEDURE: 04/15/2019 REQUESTING PHYSICIAN: Dr. Noland. PROCEDURE PERFORMED: Punch biopsy x2 of right forearm. SUMMARY: We were asked to perform punch biopsies to the right forearm to evaluate for fungal versus inflammatory process. The patient was identified. Informed consent was obtained. Time-out was performed. The patient's right forearm was prepped and draped in normal sterile fashion. Two lesions were identified. They had a wheal of 2.5 mL of 1% lidocaine with epinephrine injected intradermal and into the subcutaneous tissue. The proximal lesion had a 6 mm punch biopsy performed and it was placed in cup for micro. The distal area had a 5 mm punch biopsy performed and it was placed in formalin for pathology. Both sites had one 4-0 Prolene suture placed. Afterwards, a dressing was placed over both. The patient tolerated the procedure well without any problems. There was good hemostasis at the time of the bandaging. The lab specimens were given to the patient's nurse. Job ID: [id number]
--- NOTE | 2019-04-15 22:21 | PDOC.HOSPP ---
- Subjective Subjective: Feeling a little better each day. Denies cough. Denies fever. - Objective Vital Signs & Weight: Vital Signs (12 hours) Temp Pulse Resp Pulse Ox 04/15/19 20:32 91 L 04/15/19 19:48 98.1 F 04/15/19 18:22 69 16 94 L 04/15/19 15:39 98.2 F 04/15/19 14:28 75 16 95 04/15/19 12:15 97.3 F L Weight Admit Weight 207 lb 4.8 oz Weight 195 lb 5.273 oz Most Recent Monitor Data Heart Rate from ECG 72 NIBP 153/101 NIBP BP-Mean 118 Respiration from ECG 17 SpO2 91 I&O: 04/14/19 04/15/19 04/16/19 06:59 06:59 06:59 Intake Total 2403 5193 1350 Output Total 3500 4350 Balance -6935 556 6267 Result Diagrams: 04/15/19 02:55 04/15/19 02:55 Hospitalist ROS - Medication Medications: Active Medications Generic Name Dose Route Start Last Admin Trade Name Freq PRN Reason Stop Dose Admin Acetaminophen/Butalbital/Caffeine 1 tab 04/11/19 08:59 04/14/19 22:37 Fioricet PO 04/16/19 09:00 1 tab Q8H PRN Administration Headache Hydrocodone Bitart/Acetaminophen 1 tab 04/09/19 16:35 04/15/19 17:34 [place] 10/325 PO 1 tab Q4H PRN Administration Moderate Pain (4-6) Albuterol/Ipratropium 3 ml 04/09/19 22:30 04/15/19 18:22 Duoneb NEB 3 ml [id number] JOESPH Administration Betamethasone Valerate 0 gm 04/10/19 09:00 04/15/19 08:05 Valisone 0.1% Cream TOP 1 applic DAILY JOESPH Administration Dextromethorphan Polistirix 30 mg 04/09/19 19:53 04/13/19 09:51 Delsym PO 30 mg Q8H PRN Administration Cough Diphenhydramine HCl 25 mg 04/09/19 19:53 04/15/19 03:32 Benadryl PO 25 mg Q4H PRN Administration Itching Divalproex Sodium 750 mg 04/10/19 09:00 04/15/19 08:04 Depakote PO 750 mg DAILY JOESPH Administration Enoxaparin Sodium 40 mg 04/11/19 09:00 04/15/19 08:04 Lovenox SC 40 mg 0900 JOESPH Administration Famotidine 20 mg 04/09/19 21:00 04/15/19 20:30 Pepcid PO 20 mg BID JOESPH Administration Hydroxychloroquine Sulfate 400 mg 04/10/19 09:00 04/15/19 08:04 Plaquenil PO 400 mg DAILY JOESPH Administration Cefepime HCl 2 gm/ Sodium 100 mls @ 200 mls/hr 04/10/19 10:00 04/15/19 21:01 Chloride IVPB 100 mls 1000,2200 JOESPH Administration Voriconazole 400 mg/ Sodium 100 mls @ 50 mls/hr 04/13/19 15:00 04/15/19 14:40 Chloride IVPB 100 mls 0300,1500 JOESPH Administration Trimethoprim/Sulfamethoxazole 500 mls @ 250 mls/hr 04/12/19 18:00 04/15/19 17 :34 250 mg/ Dextrose/Water IVPB 500 mls Q6HR JOESPH Administration Melatonin 3 mg 04/09/19 19:53 04/14/19 20:32 Melatonin PO 3 mg HS PRN Administration Insomnia Mometasone Furoate/Formoterol Fumar 2 puff 04/10/19 06:30 04/15/19 18:25 Dulera 200 Mcg/5 Mcg Inhaler INH 2 puff BID-RT JOESPH Administration Morphine Sulfate 4 mg 04/12/19 10:04 04/15/19 21:00 Morphine SLOW IVP 4 mg Q2H PRN Administration Breakthrough Pain Nicotine 7 mg 04/09/19 21:00 04/15/19 08:14 Nicoderm Patch TD 7 mg Q24HR JOESPH Administration Prednisone 60 mg 04/14/19 08:00 04/15/19 08:04 Prednisone PO 60 mg QAM-WM JOESPH Administration Sodium Chloride 10 ml 04/09/19 21:00 04/15/19 20:30 Flush - Normal Saline IVF 10 ml Q12HR JOESPH Administration Throat Lozenges 1 candice 04/09/19 19:53 04/13/19 06:45 Cepastat Lozenges PO 1 candice Q2H PRN Administration Cough, Sore Throat Zolpidem Tartrate 5 mg 04/09/19 19:53 04/14/19 23:56 Ambien PO 5 mg HS PRN Administration Insomnia - Exam General Appearance: NAD, awake alert General - other findings: Obese Heart: RRR, no murmur, no gallops, no rubs, normal peripheral pulses Respiratory: CTAB, no wheezes, no ronchi, normal chest expansion, normal percussion, rales (modest, scattered.) Gastrointestinal: soft, non-tender, non-distended, normal bowel sounds, no palpable masses, no hepatomegaly, no splenomegaly, no bruit Extremities: no cyanosis, no clubbing, no edema Musculoskeletal: normal tone, normal strength, no muscle wasting Psychiatric: normal affect, normal behavior, A&O x 3 Hosp A/P (1) Acute and chronic respiratory failure with hypoxia Code(s): J96.21 - ACUTE AND CHRONIC RESPIRATORY FAILURE WITH HYPOXIA Status: Acute (2) Dermatomycosis Code(s): B36.9 - SUPERFICIAL MYCOSIS, UNSPECIFIED Status: Acute (3) Hypertension Code(s): I10 - ESSENTIAL (PRIMARY) HYPERTENSION Status: Acute (4) Obesity (BMI 30-39.9) Code(s): E66.9 - OBESITY, UNSPECIFIED Status: Acute (5) Pneumonitis Code(s): J18.9 - PNEUMONIA, UNSPECIFIED ORGANISM Status: Acute (6) ILD (interstitial lung disease) Code(s): J84.9 - INTERSTITIAL PULMONARY DISEASE, UNSPECIFIED Status: Chronic (7) Rheumatoid arthritis Code(s): M06.9 - RHEUMATOID ARTHRITIS, UNSPECIFIED Status: Chronic (8) Seizure disorder Code(s): G40.909 - EPILEPSY, UNSP, NOT INTRACTABLE, WITHOUT STATUS EPILEPTICUS Status: Chronic - Plan She has had multiple admissions with pneumonitis/ILD. Seems to improve with steroids. Investigating potential fungal source of pulm disease. Clearly appears to have a fungal skin infection of the right arm. Improving. ID following. Started Voriconazole. Converted from high dose IV steroids back to po prednisone on 04/13. Increase activity as tolerated. IS. May be able to move to floor. Long discussion with the patient. She had spoken with Dr. Simmons. She needs to see a ranch supervisor. Likely at a tertiary setting. We are mostly treating the complications of the disease and the underlying disease itself. Skin biopsy may be helpful, but I suspect it will just be fungal dermatitis. She has responded to steroids in the past. Seems to be getting better now with steroids and anti-fungal. Will need more targeted therapy, but challenging to know the appropriate regimen with the active lung disease.
[2019-04-16] MEDS: Dextromethorphan Polistirex 30 MG/5 ML (89 ML BOTTLE) PO PRN (01:17)
[2019-04-16] MEDS: Morphine 4 MG/ML VIAL SLOW IVP PRN ×4 (01:17→21:33)
[2019-04-16 04:16] LABS: Anion Gap 14 mmol/L (10-20); BUN (Urea Nitrogen) 9 mg/dL (7.0-18.7); Calc. Creatinine Clearance 139 mL/min (70-130); Calcium 8.4 mg/dL (7.8-10.44); Carbon Dioxide 28 mmol/L (22-29); Chloride 102 mmol/L (98-107); Estimated GFR-MDRD 88; Glucose 148 mg/dL (70-105); Potassium 3.8 mmol/L (3.5-5.1); Sodium 140 mmol/L (136-145)
[2019-04-16 04:19] LABS: Hemoglobin 10.7 g/dL (12.0-16.0); Hypochromia SLIGHT = 6-15 cells (100X) (0-5/hpf); Lymphocytes 6 % (21-51); MDiff Complete? YES; Mean Corpuscular HGB CONC 32.7 g/dL (32.0-36.0); Mean Corpuscular Hemoglobin 30.8 pg (27.0-31.0); Mean Corpuscular Volume 94.3 fL (78.0-98.0); Mean Platelet Volume 6.8 fL (7.4-10.4); Monocytes 5 % (0-10); Neutrophil 89 % (42-75); Nucleated RBC 1 % (0); Platelet Count 291 thou/uL (130-400); Platelet Morphology Comment Appears Adequate; RBC Distribution Width 14.4 % (11.5-14.5); Red Blood Cell (RBC) Count 3.48 mill/uL (4.20-5.40)
[2019-04-16] MEDS: HYDROcodone/Acetaminophen 10/325 mg Tablet PO PRN ×4 (04:30→18:52)
[2019-04-16] MEDS: Mometasone/Formoterol 120 PUFF INHALER INH SCH ×2 (07:59→19:05)
[2019-04-16] MEDS: predniSONE 20 MG TAB PO SCH (08:48)
--- NOTE | 2019-04-16 08:48 | RAD ---
CHEST 1 VIEW PORTABLE: HISTORY: Followup pneumonia. COMPARISON: 04/15/2019. FINDINGS: There is cardiomegaly with bilateral vascular congestion and bilateral interstitial and alveolar opac ity changes throughout both lungs somewhat diffusely. No significant new focal confluent process. IMPRESSION: Overall stable congestion and bilateral diffuse opacity changes. POS: [facility]
[2019-04-16] MEDS: Enoxaparin Sodium 40 MG/0.4 ML SYRINGE SC SCH (08:49)
[2019-04-16] MEDS: Divalproex Sodium 250 MG (DR) TAB PO SCH (08:49)
[2019-04-16] MEDS: Famotidine 20 MG TAB PO SCH ×2 (08:50→21:21)
[2019-04-16] MEDS: Hydroxychloroquine Sulfate 200 MG TAB PO SCH (08:50)
[2019-04-16] MEDS: Cefepime 2 GM in Sodium Chloride 0.9% 100 ML IVPB SCH ×2 (08:53→21:23)
[2019-04-16] MEDS: Betamethasone 0.1% Cream 15 GM TUBE TOP SCH (08:54)
[2019-04-16] MEDS ORDERED: Furosemide 20 MG/2 ML VIAL SLOW IVP SCH (14:00)
--- NOTE | 2019-04-16 16:15 | PRG ---
DATE OF SERVICE: 04/16/2019 SUBJECTIVE: Karla Guy continues to improve. She says she finally feels like she is getting closer to normal. OBJECTIVE: VITAL SIGNS: She is afebrile. Heart rate 77, respiratory rate is in the 20s, oximetry is around 90% on 4 L cannula, blood pressure 110/68. Intake and outputs are positive 450. LUNGS: Remarkable still for diffuse crackles, but they are improving. HEART: Regular rhythm. ABDOMEN: Soft. LABORATORY DATA: White count 12, hemoglobin 10.7, platelets 291. Electrolytes are normal. 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 We do not have any active Rheumatology, who is coming to hospital on a regular basis. She does need to be switched off steroids gradually to a chronic immunosuppressive management agent, which needs to be determined. She says she is thinking that she is going to go to [place] to get care for her vasculitis. This would be reasonable since she has . We will continue to follow. Job ID: [id number]
--- NOTE | 2019-04-16 17:16 | PDOC.HOSPP ---
- Subjective Subjective: Doing a little better. Feels like she is on track with her usual course for these exacerbations. Feels like she is bloated with extra fluid volume. - Objective Vital Signs & Weight: Vital Signs (12 hours) Temp Pulse Resp BP Pulse Ox 04/16/19 16:12 88 L 04/16/19 15:38 98.5 F 77 22 H 110/68 88 L 04/16/19 12:01 97.6 F 04/16/19 11:14 73 18 94 L 04/16/19 07:58 86 24 H 88 L 04/16/19 07:42 92 L 04/16/19 07:36 97.6 F Weight Admit Weight 207 lb 4.8 oz Weight 195 lb 5.273 oz Most Recent Monitor Data Heart Rate from ECG 80 NIBP 132/79 NIBP BP-Mean 96 Respiration from ECG 24 SpO2 95 I&O: 04/15/19 04/16/19 04/17/19 06:59 06:59 06:59 Intake Total 5193 1350 Output Total 4350 900 Balance 843 450 Result Diagrams: 04/16/19 03:38 04/16/19 03:38 Hospitalist ROS - Medication Medications: Active Medications Generic Name Dose Route Start Last Admin Trade Name Freq PRN Reason Stop Dose Admin Hydrocodone Bitart/Acetaminophen 1 tab 04/09/19 16:35 04/16/19 12:48 [place] 10/325 PO 1 tab Q4H PRN Administration Moderate Pain (4-6) Albuterol/Ipratropium 3 ml 04/09/19 22:30 04/16/19 14:38 Duoneb NEB Not Given Q2PS-YQ JOESPH Betamethasone Valerate 0 gm 04/10/19 09:00 04/16/19 08:54 Valisone 0.1% Cream TOP 1 applic DAILY JOESPH Administration Dextromethorphan Polistirix 30 mg 04/09/19 19:53 04/16/19 01:17 Delsym PO 30 mg Q8H PRN Administration Cough Diphenhydramine HCl 25 mg 04/09/19 19:53 04/15/19 03:32 Benadryl PO 25 mg Q4H PRN Administration Itching Divalproex Sodium 750 mg 04/10/19 09:00 04/16/19 08:49 Depakote PO 750 mg DAILY JOESPH Administration Enoxaparin Sodium 40 mg 04/11/19 09:00 04/16/19 08:49 Lovenox SC 40 mg 0900 JOESPH Administration Famotidine 20 mg 04/09/19 21:00 04/16/19 08:50 Pepcid PO 20 mg BID JOESPH Administration Hydroxychloroquine Sulfate 400 mg 04/10/19 09:00 04/16/19 08:50 Plaquenil PO 400 mg DAILY JOESPH Administration Cefepime HCl 2 gm/ Sodium 100 mls @ 200 mls/hr 04/10/19 10:00 04/16/19 08:53 Chloride IVPB 100 mls 1000,2200 JOESPH Administration Voriconazole 400 mg/ Sodium 100 mls @ 50 mls/hr 04/13/19 15:00 04/16/19 15:34 Chloride IVPB 100 mls 0300,1500 JOESPH Administration Trimethoprim/Sulfamethoxazole 500 mls @ 250 mls/hr 04/12/19 18:00 04/16/19 12 :44 250 mg/ Dextrose/Water IVPB 500 mls Q6HR JOESPH Administration Melatonin 3 mg 04/09/19 19:53 04/14/19 20:32 Melatonin PO 3 mg HS PRN Administration Insomnia Mometasone Furoate/Formoterol Fumar 2 puff 04/10/19 06:30 04/16/19 07:59 Dulera 200 Mcg/5 Mcg Inhaler INH 2 puff BID-RT JOESPH Administration Morphine Sulfate 4 mg 04/12/19 10:04 04/16/19 15:32 Morphine SLOW IVP 4 mg Q2H PRN Administration Breakthrough Pain Nicotine 7 mg 04/09/19 21:00 04/15/19 08:14 Nicoderm Patch TD 7 mg Q24HR JOESPH Administration Prednisone 60 mg 04/14/19 08:00 04/16/19 08:48 Prednisone PO 60 mg QAM-WM JOESPH Administration Sodium Chloride 10 ml 04/09/19 21:00 04/16/19 08:50 Flush - Normal Saline IVF 10 ml Q12HR JOESPH Administration Sodium Chloride 10 ml 04/09/19 20:14 04/16/19 15:34 Flush - Normal Saline IVF 10 ml PRN PRN Administration Saline Flush Throat Lozenges 1 candice 04/09/19 19:53 04/13/19 06:45 Cepastat Lozenges PO 1 candice Q2H PRN Administration Cough, Sore Throat Zolpidem Tartrate 5 mg 04/09/19 19:53 04/14/19 23:56 Ambien PO 5 mg HS PRN Administration Insomnia - Exam General Appearance: NAD, awake alert General - other findings: Obese. Heart: RRR, no murmur, no gallops, no rubs, normal peripheral pulses Respiratory: CTAB, no wheezes, no rales, no ronchi, normal chest expansion, no tachypnea, normal percussion Gastrointestinal: soft, non-tender, non-distended, normal bowel sounds, no palpable masses, no hepatomegaly, no splenomegaly, no bruit Extremities: no cyanosis, no clubbing, no edema Psychiatric: normal affect, normal behavior, A&O x 3 Hosp A/P (1) Acute and chronic respiratory failure with hypoxia Code(s): J96.21 - ACUTE AND CHRONIC RESPIRATORY FAILURE WITH HYPOXIA Status: Acute (2) Dermatomycosis Code(s): B36.9 - SUPERFICIAL MYCOSIS, UNSPECIFIED Status: Acute (3) Hypertension Code(s): I10 - ESSENTIAL (PRIMARY) HYPERTENSION Status: Acute (4) Obesity (BMI 30-39.9) Code(s): E66.9 - OBESITY, UNSPECIFIED Status: Acute (5) Pneumonitis Code(s): J18.9 - PNEUMONIA, UNSPECIFIED ORGANISM Status: Acute (6) ILD (interstitial lung disease) Code(s): J84.9 - INTERSTITIAL PULMONARY DISEASE, UNSPECIFIED Status: Chronic (7) Rheumatoid arthritis Code(s): M06.9 - RHEUMATOID ARTHRITIS, UNSPECIFIED Status: Chronic (8) Seizure disorder Code(s): G40.909 - EPILEPSY, UNSP, NOT INTRACTABLE, WITHOUT STATUS EPILEPTICUS Status: Chronic - Plan She has had multiple admissions with pneumonitis/ILD. Seems to improve with steroids. Investigating potential fungal source of pulm disease. Clearly appears to have a fungal skin infection of the right arm. Improving. ID following. Started Voriconazole. Converted from high dose IV steroids back to po prednisone on 04/13. Increase activity as tolerated. IS. May be able to move to floor. Long discussion with the patient. She had spoken with Dr. Simmons. 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 Likely at a tertiary setting. We are mostly treating the complications of the disease and the underlying disease itself. Skin biopsy may be helpful, but I suspect it will just be fungal dermatitis. She has responded to steroids in the past. Seems to be getting better now with steroids and anti-fungal. Will need more targeted therapy, but challenging to know the appropriate regimen with the active lung disease. Skin bx pending. Small dose of Lasix today.
[2019-04-16] MEDS: Nicotine 7 MG PATCH TD SCH (21:22)
[2019-04-17] MEDS: HYDROcodone/Acetaminophen 10/325 mg Tablet PO PRN ×5 (01:36→19:10)
[2019-04-17] MEDS: Morphine 4 MG/ML VIAL SLOW IVP PRN ×5 (02:31→23:54)
[2019-04-17 06:28] LABS: Hemoglobin 10.3 g/dL (12.0-16.0); Mean Corpuscular HGB CONC 32.4 g/dL (32.0-36.0); Mean Corpuscular Hemoglobin 30.8 pg (27.0-31.0); Mean Platelet Volume 6.9 fL (7.4-10.4); Platelet Count 300 thou/uL (130-400); RBC Distribution Width 14.5 % (11.5-14.5); Red Blood Cell (RBC) Count 3.33 mill/uL (4.20-5.40); White Blood Cell (WBC) Count 14.3 thou/uL (4.8-10.8)
[2019-04-17 06:45] LABS: Anion Gap 11 mmol/L (10-20); BUN (Urea Nitrogen) 11 mg/dL (7.0-18.7); Calc. Creatinine Clearance 124 mL/min (70-130); Calcium 8.3 mg/dL (7.8-10.44); Carbon Dioxide 31 mmol/L (22-29); Chloride 100 mmol/L (98-107); Estimated GFR-MDRD 77; Glucose 91 mg/dL (70-105); Potassium 4.3 mmol/L (3.5-5.1); Sodium 138 mmol/L (136-145)
[2019-04-17 07:14] LABS: Band 5 % (5-11); Lymphocytes 13 % (21-51); MDiff Complete? YES; Metamyelocyte 1 % (0-0); Monocytes 4 % (0-10); Myelocyte 1 % (0-0); Neutrophil 76 % (42-75); Platelet Morphology Comment Appears Adequate; RBC Morphology Normal
[2019-04-17] MEDS: Mometasone/Formoterol 120 PUFF INHALER INH SCH ×2 (07:57→19:30)
--- NOTE | 2019-04-17 08:10 | RAD ---
SINGLE VIEW OF THE CHEST: COMPARISON: 04/16/2019. HISTORY: Pneumonia. FINDINGS: A single view of the chest shows an enlarged cardiomediastinal silhouette. There are fluffy opacitie s in both lungs which are more prominent in the hilar regions. This could represent pulmonary edema or perihilar infiltrates. No pleural effusion is seen. IMPRESSION: Stable exam. POS: [facility]
--- NOTE | 2019-04-17 08:11 | RAD ---
SINGLE VIEW OF THE ABDOMEN: HISTORY: No bowel movement. Abdominal pain. FINDINGS: A single view of the abdomen shows a nonspecific, nonobstructed bowel gas pattern. No significant st ool retention is seen in the colon. Air is seen throughout the colon to the level of the rectum. No suspicious calcifications are seen. IMPRESSION: Unremarkable exam. POS: [facility]
[2019-04-17] MEDS: predniSONE 20 MG TAB PO SCH (09:15)
[2019-04-17] MEDS: Famotidine 20 MG TAB PO SCH ×2 (09:15→21:39)
[2019-04-17] MEDS: Hydroxychloroquine Sulfate 200 MG TAB PO SCH (09:16)
[2019-04-17] MEDS: Divalproex Sodium 250 MG (DR) TAB PO SCH (09:16)
[2019-04-17] MEDS: Enoxaparin Sodium 40 MG/0.4 ML SYRINGE SC SCH (09:19)
[2019-04-17] MEDS: Cefepime 2 GM in Sodium Chloride 0.9% 100 ML IVPB SCH ×2 (09:19→21:39)
[2019-04-17] MEDS: Betamethasone 0.1% Cream 15 GM TUBE TOP SCH (09:21)
--- NOTE | 2019-04-17 11:31 | PRG ---
DATE OF SERVICE: 04/17/2019 SUBJECTIVE: Karla Guy is in no distress. OBJECTIVE: VITAL SIGNS: She is afebrile. Respiratory rate is 20, heart rate in the 80s, and oximetry is in the low 90s. LUNGS: Remarkable for crackles bilaterally. These continue to improve. HEART: Regular rhythm. ABDOMEN: Soft. EXTREMITIES: Without asymmetry. DIAGNOSTIC DATA: Chest x-ray was done showing no significant change. As long as she is clinically improving, we do not need to be doing x-rays frequently. My opinion would be reasonable to transition her into antibiotics by mouth. Need to increase her activity level. She apparently has been on methotrexate and Cytoxan in the past according to the . I have encouraged him to make a phone call today to get an appointment with the hardwood finisher at [facility] since they want to be treated in [place]. It is imperative that they have some type of followup plan involving Rheumatology. He will also need copies of their lab work and their radiographs and the progress notes while they are here. Job ID: [id number]
[2019-04-17] MEDS ORDERED: Furosemide 40 MG/4 ML VIAL SLOW IVP SCH (12:00)
--- NOTE | 2019-04-17 16:08 | PDOC.HOSPP ---
- Subjective Subjective: Doing ok. Feels about 50% back to her baseline. She has oxygen at home, but does not typically use it. Nurse indicates she has some lesions her buttocks that look like her arm. Patient continues to have some discomfort at the right mid-back and right mid- abdomen. Still feels bloated. - Objective Vital Signs & Weight: Vital Signs (12 hours) Temp Pulse Resp BP BP Pulse Ox 04/17/19 15:16 93 20 91 L 04/17/19 15:08 98.4 F 101 H 18 113/66 91 L 04/17/19 11:38 98.5 F 96 18 124/67 89 L 04/17/19 11:30 81 22 H 85 L 04/17/19 08:00 87 L 04/17/19 07:59 84 L 04/17/19 07:53 79 20 84 L Weight Admit Weight 207 lb 4.8 oz Weight 195 lb 5.273 oz Most Recent Monitor Data Heart Rate from ECG 80 NIBP 132/79 NIBP BP-Mean 96 Respiration from ECG 24 SpO2 95 I&O: 04/16/19 04/17/19 04/18/19 06:59 06:59 06:59 Intake Total 1350 110 Output Total 900 1500 Balance 450 -1390 Result Diagrams: 04/17/19 05:33 04/17/19 05:33 Hospitalist ROS - Medication Medications: Active Medications Generic Name Dose Route Start Last Admin Trade Name Freq PRN Reason Stop Dose Admin Hydrocodone Bitart/Acetaminophen 1 tab 04/09/19 16:35 04/17/19 14:32 [place] 10/325 PO 1 tab Q4H PRN Administration Moderate Pain (4-6) Albuterol/Ipratropium 3 ml 04/09/19 22:30 04/17/19 15:16 Duoneb NEB 3 ml [id number] JOESPH Administration Betamethasone Valerate 0 gm 04/10/19 09:00 04/17/19 09:21 Valisone 0.1% Cream TOP 1 applic DAILY JOESPH Administration Dextromethorphan Polistirix 30 mg 04/09/19 19:53 04/16/19 01:17 Delsym PO 30 mg Q8H PRN Administration Cough Diphenhydramine HCl 25 mg 04/09/19 19:53 04/15/19 03:32 Benadryl PO 25 mg Q4H PRN Administration Itching Divalproex Sodium 750 mg 04/10/19 09:00 04/17/19 09:16 Depakote PO 750 mg DAILY JOESPH Administration Enoxaparin Sodium 40 mg 04/11/19 09:00 04/17/19 09:19 Lovenox SC 40 mg 0900 JOESPH Administration Famotidine 20 mg 04/09/19 21:00 04/17/19 09:15 Pepcid PO 20 mg BID JOESPH Administration Hydroxychloroquine Sulfate 400 mg 04/10/19 09:00 04/17/19 09:16 Plaquenil PO 400 mg DAILY JOESPH Administration Cefepime HCl 2 gm/ Sodium 100 mls @ 200 mls/hr 04/10/19 10:00 04/17/19 09:19 Chloride IVPB 100 mls 1000,2200 JOESPH Administration Voriconazole 400 mg/ Sodium 100 mls @ 50 mls/hr 04/13/19 15:00 04/17/19 04:33 Chloride IVPB 100 mls 0300,1500 JOESPH Administration Trimethoprim/Sulfamethoxazole 500 mls @ 250 mls/hr 04/12/19 18:00 04/17/19 14 :33 250 mg/ Dextrose/Water IVPB 500 mls Q6HR JOESPH Administration Melatonin 3 mg 04/09/19 19:53 04/14/19 20:32 Melatonin PO 3 mg HS PRN Administration Insomnia Mometasone Furoate/Formoterol Fumar 2 puff 04/10/19 06:30 04/17/19 07:57 Dulera 200 Mcg/5 Mcg Inhaler INH 2 puff BID-RT JOESPH Administration Morphine Sulfate 4 mg 04/12/19 10:04 04/17/19 10:23 Morphine SLOW IVP 4 mg Q2H PRN Administration Breakthrough Pain Nicotine 7 mg 04/09/19 21:00 04/16/19 21:22 Nicoderm Patch TD 7 mg Q24HR JOESPH Administration Prednisone 60 mg 04/14/19 08:00 04/17/19 09:15 Prednisone PO 60 mg QAM-WM JOESPH Administration Sodium Chloride 10 ml 04/09/19 21:00 04/17/19 09:21 Flush - Normal Saline IVF 10 ml Q12HR JOESPH Administration Sodium Chloride 10 ml 04/09/19 20:14 04/16/19 15:34 Flush - Normal Saline IVF 10 ml PRN PRN Administration Saline Flush Throat Lozenges 1 candice 04/09/19 19:53 04/13/19 06:45 Cepastat Lozenges PO 1 candice Q2H PRN Administration Cough, Sore Throat Zolpidem Tartrate 5 mg 04/09/19 19:53 04/14/19 23:56 Ambien PO 5 mg HS PRN Administration Insomnia - Exam General Appearance: NAD, awake alert Heart: RRR, no murmur, no gallops, no rubs, normal peripheral pulses Respiratory: CTAB, no wheezes, no rales, no ronchi, normal chest expansion, no tachypnea, normal percussion Gastrointestinal: soft, non-tender, non-distended, normal bowel sounds, no palpable masses, no hepatomegaly, no splenomegaly, no bruit Extremities: no cyanosis, no clubbing, no edema Skin - other findings: Right FA dermatitis. No skin lesions on the abd and back. Musculoskeletal: normal tone Psychiatric: normal affect, normal behavior, A&O x 3 Hosp A/P (1) Acute and chronic respiratory failure with hypoxia Code(s): J96.21 - ACUTE AND CHRONIC RESPIRATORY FAILURE WITH HYPOXIA Status: Acute (2) Dermatomycosis Code(s): B36.9 - SUPERFICIAL MYCOSIS, UNSPECIFIED Status: Acute (3) Hypertension Code(s): I10 - ESSENTIAL (PRIMARY) HYPERTENSION Status: Acute (4) Obesity (BMI 30-39.9) Code(s): E66.9 - OBESITY, UNSPECIFIED Status: Acute (5) Pneumonitis Code(s): J18.9 - PNEUMONIA, UNSPECIFIED ORGANISM Status: Acute (6) ILD (interstitial lung disease) Code(s): J84.9 - INTERSTITIAL PULMONARY DISEASE, UNSPECIFIED Status: Chronic (7) Rheumatoid arthritis Code(s): M06.9 - RHEUMATOID ARTHRITIS, UNSPECIFIED Status: Chronic (8) Seizure disorder Code(s): G40.909 - EPILEPSY, UNSP, NOT INTRACTABLE, WITHOUT STATUS EPILEPTICUS Status: Chronic - Plan She has had multiple admissions with pneumonitis/ILD. Seems to improve with steroids. Investigating potential fungal source of pulm disease. Clearly appears to have a fungal skin infection of the right arm. Improving. ID following. Started Voriconazole. Converted from high dose IV steroids back to po prednisone on 04/13. Increase activity as tolerated. IS. May be able to move to floor. Long discussion with the patient. She had spoken with Dr. Simmons. 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 Likely at a tertiary setting. We are mostly treating the complications of the disease and the underlying disease itself. Skin biopsy may be helpful, but I suspect it will just be fungal dermatitis. She has responded to steroids in the past. Seems to be getting better now with steroids and anti-fungal. Will need more targeted therapy, but challenging to know the appropriate regimen with the active lung disease. Skin bx pending. Larger dose of Lasix today. Long discussion with the patient. Dr. Simmons and I discussed initiating meds for the underlying auto-immune disease. We don't have a firm dx and we are making an informed decision about the most appropriate medication given the severity of her condition. However, we are not rheumatologists, nor do we have access to one here. There are risks and benefits to that decision, but the ultimate choice is hers. She understands and is comfortable with initiating Imuran.
[2019-04-17] MEDS: Nicotine 7 MG PATCH TD SCH (21:44)
[2019-04-18] MEDS: HYDROcodone/Acetaminophen 10/325 mg Tablet PO PRN ×4 (02:28→21:20)
[2019-04-18 05:43] LABS: #Eosinphils 0.1 thou/uL (0.0-0.7); #Lymphocytes 1.6 thou/uL (1.20-3.40); #Monocytes 0.7 thou/uL (0.11-0.59); #Neutrophils 13.2 thou/uL (1.40-6.50); %Eosinophils 0.5 % (0.0-10.0); %Monocytes 4.4 % (0.0-10.0); Hemoglobin 10.8 g/dL (12.0-16.0); Mean Corpuscular HGB CONC 31.8 g/dL (32.0-36.0); Mean Corpuscular Hemoglobin 30.2 pg (27.0-31.0); Mean Platelet Volume 6.9 fL (7.4-10.4); Platelet Count 319 thou/uL (130-400); RBC Distribution Width 14.7 % (11.5-14.5); Red Blood Cell (RBC) Count 3.56 mill/uL (4.20-5.40); White Blood Cell (WBC) Count 15.5 thou/uL (4.8-10.8)
[2019-04-18] MEDS: Morphine 4 MG/ML VIAL SLOW IVP PRN ×3 (05:50→19:50)
[2019-04-18 06:05] LABS: Anion Gap 14 mmol/L (10-20); BUN (Urea Nitrogen) 10 mg/dL (7.0-18.7); Calc. Creatinine Clearance 132 mL/min (70-130); Calcium 8.4 mg/dL (7.8-10.44); Carbon Dioxide 31 mmol/L (22-29); Chloride 94 mmol/L (98-107); Estimated GFR-MDRD 83; Glucose 86 mg/dL (70-105); Potassium 3.7 mmol/L (3.5-5.1); Sodium 135 mmol/L (136-145)
[2019-04-18] MEDS: Mometasone/Formoterol 120 PUFF INHALER INH SCH ×2 (06:44→19:41)
[2019-04-18] MEDS ORDERED: Polyethylene Glycol 3350 17 GM Packet PO PRN (08:05)
[2019-04-18] MEDS ORDERED: Polyethylene Glycol 3350 17 GM Packet PO SCH (08:15)
[2019-04-18] MEDS: Enoxaparin Sodium 40 MG/0.4 ML SYRINGE SC SCH (09:05)
[2019-04-18] MEDS: Cefepime 2 GM in Sodium Chloride 0.9% 100 ML IVPB SCH (09:05)
[2019-04-18] MEDS: Famotidine 20 MG TAB PO SCH ×2 (09:08→19:55)
[2019-04-18] MEDS: azaTHIOprine 50 MG TAB PO SCH (09:08)
[2019-04-18] MEDS: predniSONE 20 MG TAB PO SCH (09:08)
[2019-04-18] MEDS: Divalproex Sodium 250 MG (DR) TAB PO SCH (09:08)
[2019-04-18] MEDS: Hydroxychloroquine Sulfate 200 MG TAB PO SCH (09:08)
[2019-04-18] MEDS: Betamethasone 0.1% Cream 15 GM TUBE TOP SCH (09:28)
[2019-04-18] MEDS: Senokot S 8.6-50 MG TAB PO SCH ×2 (09:39→19:55)
[2019-04-18 19:08] LABS: A. flavus Negative (Neg:<1:1); A. fumigatus Negative (Neg:<1:1); A. niger Negative (Neg:<1:1); Blastomyces AB Negative (Neg:<1:1)
[2019-04-18] MEDS ORDERED: Furosemide 40 MG/4 ML VIAL SLOW IVP SCH (20:30)
[2019-04-18] MEDS ORDERED: Potassium Chloride 20 MEQ TAB PO SCH (20:30)
--- NOTE | 2019-04-18 20:30 | PRG ---
DATE OF SERVICE: 04/18/2019 SERVICE: Pulmonary Medicine. INTERVAL HISTORY: The patient is really struggling to breathe. She is having increasing shortness of breath. She denies any current fevers, chills, nausea, or vomiting. Otherwise, she has no specific complaints. She is coughing and bringing up a little bit of clear phlegm. PHYSICAL EXAMINATION: VITAL SIGNS: Afebrile, pulse 74, blood pressure 126/84, respirations 22, saturation 92% on 6 L nasal cannula. GENERAL: The patient is awake and alert, in no apparent distress. LUNGS: Excellent air entry. No prolonged expiratory phase. Extensive crackling is present in bibasilar regions. HEART: Normal, rate regular. ABDOMEN: Soft, nontender, and nondistended. Bowel sounds are positive. MUSCULOSKELETAL: No cyanosis or clubbing. There is 2 to 3+ pitting in the bilateral lower extremities. NEUROLOGIC: Grossly nonfocal. LABORATORY DATA: WBC 15.5, hemoglobin 10.8, and platelets 319,000. Sodium 135. Basic metabolic profile is otherwise unremarkable. Immunology is positive for rheumatoid factor, IgM. The C3 is elevated. GENARO is unremarkable. Antismooth muscle antibodies and anti-TPO are also negative. Aspergillus, histoplasma, CMV , coccidioidomycosis, blastomycosis are all unremarkable. ASSESSMENT: 1. Acute on chronic hypoxic respiratory failure. 2. Abnormal rheumatoid titers. 3. Systemic lupus erythematosus, diagnosed at outside facility. 4. Volume overload, associated with 4 L of fluid a day from antibiotics. DISCUSSION AND PLAN: We will give her a dose of Lasix now, and tomorrow, and then daily after that. Hopefully, this will improve her shortness of breath in a very short period of time. I am hopeful this is water related. If it is not, she will likely go on to develop increasing, progressive dyspnea. Critical Care will follow along. Pulmonary will follow along. Job ID: [id number] [facility]
[2019-04-18] MEDS: Nicotine 7 MG PATCH TD SCH (21:19)
--- NOTE | 2019-04-18 23:46 | PDOC.HOSPP ---
- Subjective Encounter Date: 04/18/19 Encounter Time: 13:00 Subjective: no overnight events. Today continues to complain about difficulty breathing despite oxygen supplementation and productive cough. otherwise no complaints. - Objective Vital Signs & Weight: Vital Signs (12 hours) Temp Pulse Resp BP Pulse Ox 04/18/19 23:08 92 L 04/18/19 20:18 98.2 F 100 24 H 138/82 85 L 04/18/19 19:45 93 L 04/18/19 19:41 22 H 92 L 04/18/19 19:40 92 L 04/18/19 19:37 20 92 L 04/18/19 16:13 97.6 F 74 20 126/84 93 L 04/18/19 13:11 98.1 F 80 20 110/73 94 L Weight Admit Weight 207 lb 4.8 oz Weight 195 lb 5.273 oz Most Recent Monitor Data Heart Rate from ECG 80 NIBP 132/79 NIBP BP-Mean 96 Respiration from ECG 24 SpO2 95 I&O: 04/17/19 04/18/19 04/19/19 06:59 06:59 06:59 Intake Total 110 Output Total 1500 Balance -1390 Result Diagrams: 04/18/19 05:00 04/18/19 05:00 Additional Labs: Accuchecks 04/18/19 05:09 POC Glucose 107 Hospitalist ROS - Review of Systems Constitutional: denies: fever, chills, sweats, weakness, malaise, other Respiratory: reports: cough, shortness of breath, SOB with excertion, sputum. denies: pleuritic pain, wheezing Cardiovascular: denies: chest pain, palpitations, orthopnea, paroxysmal noc. dyspnea, edema, light headedness, other Gastrointestinal: denies: nausea, vomiting, abdominal pain, diarrhea, constipation, melena, hematochezia, other Genitourinary: denies: dysuria, frequency, incontinence, hematuria, retention, other Skin: reports: lesions - Medication Medications: Active Medications Generic Name Dose Route Start Last Admin Trade Name Freq PRN Reason Stop Dose Admin Hydrocodone Bitart/Acetaminophen 1 tab 04/09/19 16:35 04/18/19 21:20 [place] 10/325 PO 1 tab Q4H PRN Administration Moderate Pain (4-6) Albuterol/Ipratropium 3 ml 04/09/19 22:30 04/18/19 23:08 Duoneb NEB 3 ml [id number] JOESPH Administration Azathioprine 50 mg 04/18/19 09:00 04/18/19 09:08 Imuran PO 50 mg DAILY JOESPH Administration Betamethasone Valerate 0 gm 04/10/19 09:00 04/18/19 09:28 Valisone 0.1% Cream TOP 1 applic DAILY JOESPH Administration Dextromethorphan Polistirix 30 mg 04/09/19 19:53 04/16/19 01:17 Delsym PO 30 mg Q8H PRN Administration Cough Diphenhydramine HCl 25 mg 04/09/19 19:53 04/15/19 03:32 Benadryl PO 25 mg Q4H PRN Administration Itching Divalproex Sodium 750 mg 04/10/19 09:00 04/18/19 09:08 Depakote PO 750 mg DAILY JOESPH Administration Enoxaparin Sodium 40 mg 04/11/19 09:00 04/18/19 09:05 Lovenox SC 40 mg 0900 JOESPH Administration Famotidine 20 mg 04/09/19 21:00 04/18/19 19:55 Pepcid PO 20 mg BID JOESPH Administration Hydroxychloroquine Sulfate 400 mg 04/10/19 09:00 04/18/19 09:08 Plaquenil PO 400 mg DAILY JOESPH Administration Voriconazole 400 mg/ Sodium 100 mls @ 50 mls/hr 04/13/19 15:00 04/18/19 16:12 Chloride IVPB 100 mls 0300,1500 JOESPH Administration Trimethoprim/Sulfamethoxazole 500 mls @ 250 mls/hr 04/12/19 18:00 04/18/19 20 :03 250 mg/ Dextrose/Water IVPB 500 mls Q6HR JOESPH Administration Melatonin 3 mg 04/09/19 19:53 04/14/19 20:32 Melatonin PO 3 mg HS PRN Administration Insomnia Mometasone Furoate/Formoterol Fumar 2 puff 04/10/19 06:30 04/18/19 19:41 Dulera 200 Mcg/5 Mcg Inhaler INH 2 puff BID-RT JOESPH Administration Morphine Sulfate 4 mg 04/12/19 10:04 04/18/19 19:50 Morphine SLOW IVP 4 mg Q2H PRN Administration Breakthrough Pain Nicotine 7 mg 04/09/19 21:00 04/18/19 21:19 Nicoderm Patch TD 7 mg Q24HR JOESPH Administration Prednisone 60 mg 04/14/19 08:00 04/18/19 09:08 Prednisone PO 60 mg QAM-WM JOESPH Administration Senna/Docusate Sodium 1 tab 04/18/19 09:00 04/18/19 19:55 Senokot S PO 1 tab BID JOESPH Administration Sodium Chloride 10 ml 04/09/19 21:00 04/18/19 21:59 Flush - Normal Saline IVF 10 ml Q12HR JOESPH Administration Sodium Chloride 10 ml 04/09/19 20:14 04/16/19 15:34 Flush - Normal Saline IVF 10 ml PRN PRN Administration Saline Flush Throat Lozenges 1 candice 04/09/19 19:53 04/13/19 06:45 Cepastat Lozenges PO 1 candice Q2H PRN Administration Cough, Sore Throat Zolpidem Tartrate 5 mg 04/09/19 19:53 04/14/19 23:56 Ambien PO 5 mg HS PRN Administration Insomnia - Exam General Appearance: NAD, awake alert Respiratory: no wheezes, tachypneic Respiratory - other findings: bibasilar inspiratory crackles Gastrointestinal: soft, non-tender, non-distended, normal bowel sounds, no palpable masses, no hepatomegaly, no splenomegaly, no bruit Extremities - other findings: bilateral pitting edema to knee level Psychiatric: normal affect, normal behavior, A&O x 3 Hosp A/P - Plan -will continue bactrim and voriconazole (b-d-glucan positive) per ID; will continue imuran, hydroxychlorquine, prednisone; will require outpatient rheumatology follow up and on discharge, provide patient results and notes -forearm skin biopsy negative; will disconitnue topical antifungal; 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
[2019-04-19] MEDS: Morphine 4 MG/ML VIAL SLOW IVP PRN ×4 (03:35→21:38)
[2019-04-19 06:16] LABS: Phosphorus 4.6 mg/dL (2.3-4.7)
[2019-04-19 06:21] LABS: Anion Gap 15 mmol/L (10-20); BUN (Urea Nitrogen) 11 mg/dL (7.0-18.7); Calc. Creatinine Clearance 126 mL/min (70-130); Calcium 8.9 mg/dL (7.8-10.44); Carbon Dioxide 33 mmol/L (22-29); Chloride 93 mmol/L (98-107); Estimated GFR-MDRD 78; Glucose 91 mg/dL (70-105); Magnesium 2.3 mg/dL (1.6-2.6); Potassium 4.1 mmol/L (3.5-5.1); Sodium 137 mmol/L (136-145)
[2019-04-19] MEDS: Furosemide 20 MG/2 ML VIAL SLOW IVP SCH ×2 (06:35→15:12)
[2019-04-19] MEDS: HYDROcodone/Acetaminophen 10/325 mg Tablet PO PRN ×2 (06:36→12:53)
[2019-04-19] MEDS: Mometasone/Formoterol 120 PUFF INHALER INH SCH ×2 (07:36→18:49)
[2019-04-19] MEDS: Hydroxychloroquine Sulfate 200 MG TAB PO SCH (09:10)
[2019-04-19] MEDS: Divalproex Sodium 250 MG (DR) TAB PO SCH (09:10)
[2019-04-19] MEDS: Senokot S 8.6-50 MG TAB PO SCH ×2 (09:12→21:38)
[2019-04-19] MEDS: Enoxaparin Sodium 40 MG/0.4 ML SYRINGE SC SCH (09:13)
[2019-04-19] MEDS: azaTHIOprine 50 MG TAB PO SCH (09:13)
[2019-04-19] MEDS: Famotidine 20 MG TAB PO SCH ×2 (09:13→21:37)
[2019-04-19] MEDS: predniSONE 20 MG TAB PO SCH (09:13)
--- NOTE | 2019-04-19 17:45 | PRG ---
DATE OF SERVICE: 04/19/2019 SERVICE: Pulmonary Medicine. INTERVAL HISTORY: The patient's breathing is much improved today. Denies any current chest discomfort, nausea, or vomiting. Otherwise, there has been no interval change to her condition. She is coughing still, but not bringing up any phlegm anymore. PHYSICAL EXAMINATION: VITAL SIGNS: Afebrile, pulse 95, blood pressure 105/68, respirations 18, and saturation 95% on 3 L nasal cannula. GENERAL: The patient is awake and alert, in no apparent distress. LUNGS: Wonderful air entry. Crackles are much improved. No prolonged expiratory phase or wheezing appreciated. HEART: Normal rate. Regular. ABDOMEN: Soft, nontender, and nondistended. Bowel sounds are positive. MUSCULOSKELETAL: No cyanosis or clubbing. There is now 1 to 2+ pitting in the bilateral lower extremities, but it has improved significantly. LABORATORY DATA: Basic metabolic profile is stable and/or unremarkable. Magnesium and phosphorous are negative. ASSESSMENT: 1. Acute on chronic hypoxic respiratory failure. 2. Abnormal rheumatoid titers. 3. Systemic lupus erythematosus, diagnosed at outside facility. 4. Volume overload, associated with fluid from antibiotics. DISCUSSION AND PLAN: We will continue giving her daily dose of Lasix for the time being until she gets closer to euvolemia. Her respiratory distress is significantly improved overnight. Tessalon Perles will be provided for her underlying cough. Pulmonary will continue to follow. Job ID: [id number] [facility]
[2019-04-19] MEDS: Benzonatate 100 MG CAP PO SCH (21:37)
[2019-04-19] MEDS: Nicotine 7 MG PATCH TD SCH (21:43)
[2019-04-19] MEDS ORDERED: Furosemide 20 MG/2 ML VIAL SLOW IVP SCH (22:00)
--- NOTE | 2019-04-19 22:10 | RAD ---
Chest AP view INDICATION: Hypoxia COMPARISON: April 17, 2019 FINDINGS: Lungs:The chronic interstitial and airspace opacity affecting both lungs are stable. Cardiac silhouette:Cardiomegaly is stable Pulmonary vasculature:Normal Pleural spaces:No pleural effusion or pneumothorax is demonstrated. Upper abdomen:No abnormality seen. Osseous structures: No acute osseous abnormality. Additional findings:None. IMPRESSION: Stable chronic lung changes suspicious for underlying interstitial lung disease. Stable c ardiomegaly without overt evidence of cardiac decompensation.
[2019-04-19] MEDS ORDERED: methylPREDNISolone Sod Succ 40 MG VIAL IVP SCH (22:15)
--- NOTE | 2019-04-19 23:07 | PDOC.HOSPP ---
- Subjective Encounter Date: 04/19/19 Encounter Time: 10:00 Subjective: no overnight events. This morning, feeling about the same and breathing unchanged. Continues to saturate in the 90s on 6L NC however endorses improvemed breathing with lasix - Objective Vital Signs & Weight: Vital Signs (12 hours) Temp Pulse Resp BP Pulse Ox 04/19/19 21:51 87 L 04/19/19 18:50 89 L 04/19/19 18:49 88 L 04/19/19 18:47 19 88 L 04/19/19 16:50 98.5 F 95 18 105/68 90 L 04/19/19 14:39 93 16 93 L 04/19/19 11:48 98.0 F 97 18 117/70 84 L Weight Admit Weight 207 lb 4.8 oz Weight 195 lb 5.273 oz Most Recent Monitor Data Heart Rate from ECG 80 NIBP 132/79 NIBP BP-Mean 96 Respiration from ECG 24 SpO2 95 I&O: 04/18/19 04/19/19 04/20/19 06:59 06:59 06:59 Intake Total 1800 Output Total 3500 Balance -1700 Result Diagrams: 04/18/19 05:00 04/19/19 05:30 Hospitalist ROS - Review of Systems Constitutional: denies: fever, chills, sweats, weakness, malaise, other Respiratory: reports: shortness of breath. denies: cough, dry, hemoptysis, SOB with excertion, pleuritic pain, sputum, wheezing, other Cardiovascular: denies: chest pain, palpitations, orthopnea, paroxysmal noc. dyspnea, edema, light headedness, other Gastrointestinal: denies: nausea, vomiting, abdominal pain, diarrhea, constipation, melena, hematochezia, other Genitourinary: denies: dysuria, frequency, incontinence, hematuria, retention, other - Medication Medications: Active Medications Generic Name Dose Route Start Last Admin Trade Name Freq PRN Reason Stop Dose Admin Albuterol/Ipratropium 3 ml 04/09/19 22:30 04/19/19 21:51 Duoneb NEB 3 ml [id number] JOESPH Administration Azathioprine 50 mg 04/18/19 09:00 04/19/19 09:13 Imuran PO 50 mg DAILY JOESPH Administration Benzonatate 100 mg 04/19/19 21:00 04/19/19 21:37 Tessalon PO 04/20/19 21:01 100 mg TID JOESPH Administration Dextromethorphan Polistirix 30 mg 04/09/19 19:53 04/16/19 01:17 Delsym PO 30 mg Q8H PRN Administration Cough Diphenhydramine HCl 25 mg 04/09/19 19:53 04/15/19 03:32 Benadryl PO 25 mg Q4H PRN Administration Itching Divalproex Sodium 750 mg 04/10/19 09:00 04/19/19 09:10 Depakote PO 750 mg DAILY JOESPH Administration Enoxaparin Sodium 40 mg 04/11/19 09:00 04/19/19 09:13 Lovenox SC 40 mg 0900 JOESPH Administration Famotidine 20 mg 04/09/19 21:00 04/19/19 21:37 Pepcid PO 20 mg BID JOESPH Administration Furosemide 20 mg 04/19/19 22:00 04/19/19 22:15 Lasix SLOW IVP 04/19/19 23:59 20 mg NOW JOESPH Administration Hydroxychloroquine Sulfate 400 mg 04/10/19 09:00 04/19/19 09:10 Plaquenil PO 400 mg DAILY JOESPH Administration Voriconazole 400 mg/ Sodium 100 mls @ 50 mls/hr 04/13/19 15:00 04/19/19 15:11 Chloride IVPB 100 mls 0300,1500 JOESPH Administration Trimethoprim/Sulfamethoxazole 500 mls @ 250 mls/hr 04/12/19 18:00 04/19/19 18 :09 250 mg/ Dextrose/Water IVPB 500 mls Q6HR JOESPH Administration Melatonin 3 mg 04/09/19 19:53 04/14/19 20:32 Melatonin PO 3 mg HS PRN Administration Insomnia Methylprednisolone Sodium Succinate 40 mg 04/19/19 22:15 04/19/19 22:42 Solu-Medrol IVP 04/19/19 23:59 40 mg NOW JOESPH Administration Mometasone Furoate/Formoterol Fumar 2 puff 04/10/19 06:30 04/19/19 18:49 Dulera 200 Mcg/5 Mcg Inhaler INH 2 puff BID-RT JOESPH Administration Morphine Sulfate 4 mg 04/12/19 10:04 04/19/19 21:38 Morphine SLOW IVP 4 mg Q2H PRN Administration Breakthrough Pain Nicotine 7 mg 04/09/19 21:00 04/19/19 21:43 Nicoderm Patch TD 7 mg Q24HR JOESPH Administration Prednisone 60 mg 04/14/19 08:00 04/19/19 09:13 Prednisone PO 60 mg QAM-WM JOESPH Administration Senna/Docusate Sodium 1 tab 04/18/19 09:00 04/19/19 21:38 Senokot S PO 1 tab BID JOESPH Administration Sodium Chloride 10 ml 04/09/19 21:00 04/19/19 21:43 Flush - Normal Saline IVF 10 ml Q12HR JOESPH Administration Sodium Chloride 10 ml 04/09/19 20:14 04/16/19 15:34 Flush - Normal Saline IVF 10 ml PRN PRN Administration Saline Flush Throat Lozenges 1 candice 04/09/19 19:53 04/13/19 06:45 Cepastat Lozenges PO 1 candice Q2H PRN Administration Cough, Sore Throat Zolpidem Tartrate 5 mg 04/09/19 19:53 04/14/19 23:56 Ambien PO 5 mg HS PRN Administration Insomnia - Exam General Appearance: NAD, awake alert ENT - other findings: erythematous rash over the nasal bridge and cheeks Neck: no JVD Heart: RRR, no murmur, no gallops Respiratory - other findings: b/l inspiratory rales, mostly lower rubio, improved Extremities - other findings: b/l pitting edema to knee level; improved compared to yesterday Skin - other findings: purpura mostly over right arm but also scattered over lower extremities Psychiatric: normal affect, normal behavior, A&O x 3 Hosp A/P - Plan -will stop bactrim, especially considering patient reports worsening rash when treated with it. 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 -per Pulm, will continue diuresis -possible discharge tomorrow if continue to improve
[2019-04-20 05:56] LABS: #Eosinphils 0.2 thou/uL (0.0-0.7); #Lymphocytes 0.7 thou/uL (1.20-3.40); #Monocytes 0.5 thou/uL (0.11-0.59); #Neutrophils 10.3 thou/uL (1.40-6.50); %Basophils 0.2 % (0.0-1.0); %Eosinophils 1.5 % (0.0-10.0); %Lymphocytes 5.6 % (21.0-51.0); %Monocytes 4.2 % (0.0-10.0); %Neutrophils 88.4 % (42.0-75.0); Hemoglobin 10.4 g/dL (12.0-16.0); Mean Corpuscular HGB CONC 32.4 g/dL (32.0-36.0); Mean Corpuscular Hemoglobin 30.5 pg (27.0-31.0); Platelet Count 385 thou/uL (130-400); RBC Distribution Width 14.8 % (11.5-14.5); White Blood Cell (WBC) Count 11.6 thou/uL (4.8-10.8)
[2019-04-20 06:24] LABS: Phosphorus 4.7 mg/dL (2.3-4.7)
[2019-04-20 06:28] LABS: Anion Gap 15 mmol/L (10-20); BUN (Urea Nitrogen) 12 mg/dL (7.0-18.7); Calc. Creatinine Clearance 138 mL/min (70-130); Carbon Dioxide 30 mmol/L (22-29); Chloride 93 mmol/L (98-107); Estimated GFR-MDRD 87; Glucose 143 mg/dL (70-105); Magnesium 2.2 mg/dL (1.6-2.6); Potassium 5.2 mmol/L (3.5-5.1); Sodium 133 mmol/L (136-145)
[2019-04-20] MEDS: Mometasone/Formoterol 120 PUFF INHALER INH SCH ×2 (07:24→19:22)
[2019-04-20] MEDS: Benzonatate 100 MG CAP PO SCH ×3 (08:20→21:13)
[2019-04-20] MEDS: Furosemide 20 MG/2 ML VIAL SLOW IVP SCH (08:21)
[2019-04-20] MEDS: Divalproex Sodium 250 MG (DR) TAB PO SCH (08:21)
[2019-04-20] MEDS: predniSONE 20 MG TAB PO SCH (08:22)
[2019-04-20] MEDS: Hydroxychloroquine Sulfate 200 MG TAB PO SCH (08:22)
[2019-04-20] MEDS: Famotidine 20 MG TAB PO SCH ×2 (08:22→21:13)
[2019-04-20] MEDS: Enoxaparin Sodium 40 MG/0.4 ML SYRINGE SC SCH (08:23)
[2019-04-20] MEDS: azaTHIOprine 50 MG TAB PO SCH (08:23)
[2019-04-20] MEDS: Senokot S 8.6-50 MG TAB PO SCH ×2 (08:24→21:12)
[2019-04-20] MEDS: HYDROcodone/Acetaminophen 10/325 mg Tablet PO PRN ×3 (10:59→21:12)
--- NOTE | 2019-04-20 16:09 | PRG ---
DATE OF SERVICE: 04/20/2019 SUBJECTIVE: Karla Guy is still intermittently wearing high-flow oxygen. OBJECTIVE: VITAL SIGNS: Heart rate is in the 80s, respiratory rate is 20, oximetry is 96%. LUNGS: Remarkable for crackles at her bases. HEART: Regular rhythm. ABDOMEN: Soft. LABORATORY DATA: White count 11.6, hemoglobin 10.4, platelets 385. Sodium 133, potassium 5.2, chloride 93, bicarb 30, BUN 12, and creatinine 0.73. She apparently diuresed 4600 mL yesterday, 3500 the day before. IMPRESSION: Pulmonary vasculitis, still improving. We will continue to follow the other physicians caring for. Job ID: [id number]
[2019-04-20] MEDS: Ipratropium Bromide 0.06% Nasal Inhaler 15ml NASAL SCH ×2 (20:04→21:11)
--- NOTE | 2019-04-20 21:23 | PDOC.HOSPP ---
- Subjective Encounter Date: 04/20/19 Encounter Time: 08:00 Subjective: overnight, labored breathing, increased oxygen demand requiring HFNC. This morning, breathing slightly improved on HFNC, and patient feels rash has improved as well. - Objective Vital Signs & Weight: Vital Signs (12 hours) Pulse Resp Pulse Ox 04/20/19 14:39 86 20 96 04/20/19 10:37 82 20 88 L Weight Admit Weight 207 lb 4.8 oz Weight 195 lb 5.273 oz Most Recent Monitor Data Heart Rate from ECG 80 NIBP 132/79 NIBP BP-Mean 96 Respiration from ECG 24 SpO2 95 I&O: 04/19/19 04/20/19 04/21/19 06:59 06:59 06:59 Intake Total 1800 1400 Output Total 3500 4600 1300 Balance -1700 -4600 100 Result Diagrams: 04/20/19 05:23 04/20/19 05:23 Hospitalist ROS - Review of Systems Constitutional: denies: fever, chills, sweats, weakness, malaise, other Respiratory: reports: cough, shortness of breath, pleuritic pain, sputum Cardiovascular: denies: chest pain, palpitations, orthopnea, paroxysmal noc. dyspnea, edema, light headedness, other Gastrointestinal: denies: nausea, vomiting, abdominal pain, diarrhea, constipation, melena, hematochezia, other Genitourinary: denies: dysuria, frequency, incontinence, hematuria, retention, other Skin: reports: rash - Medication Medications: Active Medications Generic Name Dose Route Start Last Admin Trade Name Freq PRN Reason Stop Dose Admin Hydrocodone Bitart/Acetaminophen 1 tab 04/20/19 10:36 04/20/19 21:12 [place] 10/325 PO 1 tab Q4H PRN Administration Pain Albuterol/Ipratropium 3 ml 04/09/19 22:30 04/20/19 19:22 Duoneb NEB Not Given [id number] JOESPH Azathioprine 50 mg 04/18/19 09:00 04/20/19 08:23 Imuran PO 50 mg DAILY JOESPH Administration Dextromethorphan Polistirix 30 mg 04/09/19 19:53 04/16/19 01:17 Delsym PO 30 mg Q8H PRN Administration Cough Diphenhydramine HCl 25 mg 04/09/19 19:53 04/15/19 03:32 Benadryl PO 25 mg Q4H PRN Administration Itching Divalproex Sodium 750 mg 04/10/19 09:00 04/20/19 08:21 Depakote PO 750 mg DAILY JOESPH Administration Enoxaparin Sodium 40 mg 04/11/19 09:00 04/20/19 08:23 Lovenox SC 40 mg 0900 JOESPH Administration Famotidine 20 mg 04/09/19 21:00 04/20/19 21:13 Pepcid PO 20 mg BID JOESPH Administration Furosemide 20 mg 04/20/19 09:00 04/20/19 08:21 Lasix SLOW IVP 20 mg 0900 JOESPH Administration Voriconazole 400 mg/ Sodium 100 mls @ 50 mls/hr 04/13/19 15:00 04/20/19 17:44 Chloride IVPB 100 mls 0300,1500 JOESPH Administration Ipratropium [place] 1 ml 04/20/19 15:00 04/20/19 21:11 Atrovent 0.06% Nasal Inhaler NASAL 1 spr TID JOESPH Administration Melatonin 3 mg 04/09/19 19:53 04/14/19 20:32 Melatonin PO 3 mg HS PRN Administration Insomnia Mometasone Furoate/Formoterol Fumar 2 puff 04/10/19 06:30 04/20/19 19:22 Dulera 200 Mcg/5 Mcg Inhaler INH Not Given BID-RT JOESPH Nicotine 7 mg 04/09/19 21:00 04/19/19 21:43 Nicoderm Patch TD 7 mg Q24HR JOESPH Administration Prednisone 60 mg 04/14/19 08:00 04/20/19 08:22 Prednisone PO 60 mg QAM-WM JOESPH Administration Senna/Docusate Sodium 1 tab 04/18/19 09:00 04/20/19 21:12 Senokot S PO Not Given BID JOESPH Sodium Chloride 10 ml 04/09/19 21:00 04/20/19 21:14 Flush - Normal Saline IVF 10 ml Q12HR JOESPH Administration Sodium Chloride 10 ml 04/09/19 20:14 04/16/19 15:34 Flush - Normal Saline IVF 10 ml PRN PRN Administration Saline Flush Throat Lozenges 1 candice 04/09/19 19:53 04/13/19 06:45 Cepastat Lozenges PO 1 candice Q2H PRN Administration Cough, Sore Throat Zolpidem Tartrate 5 mg 04/09/19 19:53 04/14/19 23:56 Ambien PO 5 mg HS PRN Administration Insomnia - Exam General Appearance: NAD, awake alert Neck: no JVD, no lymphadenopathy Heart: RRR, no murmur, no gallops, normal peripheral pulses Respiratory: no wheezes, no ronchi, normal chest expansion, no tachypnea Respiratory - other findings: good air flow throughout with mild inspiratory crackles up to [place] b/l Gastrointestinal: soft, non-tender, non-distended Extremities - other findings: pitting edema b/l LE up to knee level Skin - other findings: malar rash; rash over right arm improving Neurological: cranial nerve grossly intact Psychiatric: normal affect, normal behavior, A&O x 3 Hosp A/P - Plan #undifferentiated connective tissue disease #interstitial lung disease -considering patient is worsening, should consider transfer to facility with inpatient rheumatology for further workup and treatment; will discuss with other teams for input -will continue voriconazole (b-d-glucan positive) per ID; will continue imuran, hydroxychlorquine, prednisone; -will require outpatient rheumatology follow up and on discharge, provide patient results and notes; patient was requested to call her chef german on for a prompt appointment -forearm skin biopsy negative; will disconitnue topical steroids; #lower extremity edema -lung exam: valcro-like inpiratory crackles, more consistent with ILD rather than pulmonary congestion -LE edema may be a result of cor pulmonale due to pulmonary HTN type 3 or of type 1 PHTN -will continue diuresis as long as HD stable due to perceived symptomatic improvement -will obtain ECHO to detect right heart strain / finding c/w pulmonary HTN #hyperkalemia #hyponatremia may be due to reduced effective arterial perfusion due to diuresis; will continue to follow #full code
[2019-04-20] MEDS: Nicotine 7 MG PATCH TD SCH (22:51)
[2019-04-21] MEDS: HYDROcodone/Acetaminophen 10/325 mg Tablet PO PRN ×5 (01:24→22:26)
[2019-04-21] MEDS: Dextromethorphan Polistirex 30 MG/5 ML (89 ML BOTTLE) PO PRN ×2 (02:40→18:25)
[2019-04-21 05:52] LABS: Anion Gap 15 mmol/L (10-20); BUN (Urea Nitrogen) 16 mg/dL (7.0-18.7); Calc. Creatinine Clearance 141 mL/min (70-130); Calcium 8.9 mg/dL (7.8-10.44); Carbon Dioxide 27 mmol/L (22-29); Chloride 95 mmol/L (98-107); Estimated GFR-MDRD 89; Glucose 199 mg/dL (70-105); Magnesium 2.1 mg/dL (1.6-2.6); Phosphorus 3.9 mg/dL (2.3-4.7); Potassium 4.2 mmol/L (3.5-5.1); Sodium 133 mmol/L (136-145)
[2019-04-21] MEDS: Mometasone/Formoterol 120 PUFF INHALER INH SCH ×2 (07:43→18:17)
[2019-04-21] MEDS: Divalproex Sodium 250 MG (DR) TAB PO SCH (09:12)
[2019-04-21] MEDS: predniSONE 20 MG TAB PO SCH (09:12)
[2019-04-21] MEDS: Famotidine 20 MG TAB PO SCH ×2 (09:12→21:27)
[2019-04-21] MEDS: Senokot S 8.6-50 MG TAB PO SCH ×2 (09:12→21:27)
[2019-04-21] MEDS: azaTHIOprine 50 MG TAB PO SCH (09:12)
[2019-04-21] MEDS: Ipratropium Bromide 0.06% Nasal Inhaler 15ml NASAL SCH ×2 (09:12→21:28)
[2019-04-21] MEDS: Enoxaparin Sodium 40 MG/0.4 ML SYRINGE SC SCH (09:13)
[2019-04-21] MEDS: Furosemide 20 MG/2 ML VIAL SLOW IVP SCH (09:14)
[2019-04-21] MEDS ORDERED: Furosemide 40 MG/4 ML VIAL IVP SCH (17:30)
[2019-04-21] MEDS ORDERED: Potassium Chloride 20 MEQ TAB PO SCH (17:30)
--- NOTE | 2019-04-21 17:43 | PRG ---
DATE OF SERVICE: 04/21/2019 SUBJECTIVE: Karla Guy says she just does not feel as good as she did yesterday. She says she is a little more short of breath. She is afebrile. Heart rates in the 80s, respiratory rates in the 20s, oximetry is 91% on high-flow. I suspect there may be some component of noncardiogenic pulmonary edema, so we will give her an additional dose of Lasix today as well as some potassium replacement. OBJECTIVE: LUNGS: Remarkable for crackles bilaterally. HEART: Regular rhythm. ABDOMEN: Soft. LABORATORY DATA: There is no new lab other than electrolytes. Her creatinine is 0.7, her BUN is 16, so there is some room to try and diurese her. We will continue to follow. Job ID: [id number] [facility]
[2019-04-21] MEDS: Cepastat Lozenges 1 LOZ PO PRN (17:54)
[2019-04-21] MEDS: Nicotine 7 MG PATCH TD SCH (21:27)
--- NOTE | 2019-04-21 22:28 | PDOC.HOSPP ---
- Subjective Encounter Date: 04/21/19 Encounter Time: 09:00 Subjective: no overnight events. This morning, claims breathing is worse than before. Remains on HFNC, oxygen demand, breathing, and saturations similar to yesterday. - Objective Vital Signs & Weight: Vital Signs (12 hours) Pulse Resp Pulse Ox 04/21/19 21:59 81 6 L 93 L 04/21/19 18:18 92 L 04/21/19 18:17 77 18 92 L 04/21/19 14:01 68 16 90 L 04/21/19 10:34 91 L 04/21/19 10:33 86 24 H 91 L Weight Admit Weight 207 lb 4.8 oz Weight 195 lb 5.273 oz Most Recent Monitor Data Heart Rate from ECG 80 NIBP 132/79 NIBP BP-Mean 96 Respiration from ECG 24 SpO2 95 I&O: 04/20/19 04/21/19 04/22/19 06:59 06:59 06:59 Intake Total 1400 240 Output Total 4600 1300 Balance -4600 100 240 Result Diagrams: 04/20/19 05:23 04/21/19 05:11 Hospitalist ROS - Review of Systems Constitutional: denies: fever, chills, sweats, weakness, malaise, other Respiratory: reports: cough, dry, shortness of breath, SOB with excertion. denies: hemoptysis, pleuritic pain, sputum, wheezing Cardiovascular: denies: chest pain, palpitations, orthopnea, paroxysmal noc. dyspnea, edema, light headedness, other Gastrointestinal: denies: nausea, vomiting, abdominal pain, diarrhea, constipation, melena, hematochezia, other Neurological: reports: weakness - Medication Medications: Active Medications Generic Name Dose Route Start Last Admin Trade Name Freq PRN Reason Stop Dose Admin Hydrocodone Bitart/Acetaminophen 1 tab 04/20/19 10:36 04/21/19 18:25 [place] 10/325 PO 1 tab Q4H PRN Administration Pain Albuterol/Ipratropium 3 ml 04/09/19 22:30 04/21/19 21:59 Duoneb NEB 3 ml [id number] JOESPH Administration Azathioprine 50 mg 04/18/19 09:00 04/21/19 09:12 Imuran PO 50 mg DAILY JOESPH Administration Dextromethorphan Polistirix 30 mg 04/09/19 19:53 04/21/19 18:25 Delsym PO 30 mg Q8H PRN Administration Cough Diphenhydramine HCl 25 mg 04/09/19 19:53 04/15/19 03:32 Benadryl PO 25 mg Q4H PRN Administration Itching Divalproex Sodium 750 mg 04/10/19 09:00 04/21/19 09:12 Depakote PO 750 mg DAILY JOESPH Administration Enoxaparin Sodium 40 mg 04/11/19 09:00 04/21/19 09:13 Lovenox SC 40 mg 0900 JOESPH Administration Famotidine 20 mg 04/09/19 21:00 04/21/19 21:27 Pepcid PO 20 mg BID JOESPH Administration Furosemide 20 mg 04/20/19 09:00 04/21/19 09:14 Lasix SLOW IVP 20 mg 0900 JOESPH Administration Voriconazole 400 mg/ Sodium 100 mls @ 50 mls/hr 04/13/19 15:00 04/21/19 16:13 Chloride IVPB 100 mls 0300,1500 JOESPH Administration Ipratropium [place] 1 ml 04/20/19 15:00 04/21/19 21:28 Atrovent 0.06% Nasal Inhaler NASAL 1 spr TID JOESPH Administration Melatonin 3 mg 04/09/19 19:53 04/14/19 20:32 Melatonin PO 3 mg HS PRN Administration Insomnia Mometasone Furoate/Formoterol Fumar 2 puff 04/10/19 06:30 04/21/19 18:17 Dulera 200 Mcg/5 Mcg Inhaler INH 2 puff BID-RT JOESPH Administration Nicotine 7 mg 04/09/19 21:00 04/21/19 21:27 Nicoderm Patch TD 7 mg Q24HR JOESPH Administration Prednisone 60 mg 04/14/19 08:00 04/21/19 09:12 Prednisone PO 60 mg QAM-WM JOESPH Administration Senna/Docusate Sodium 1 tab 04/18/19 09:00 04/21/19 21:27 Senokot S PO Not Given BID JOESPH Sodium Chloride 10 ml 04/09/19 21:00 04/21/19 21:28 Flush - Normal Saline IVF 10 ml Q12HR JOESPH Administration Sodium Chloride 10 ml 04/09/19 20:14 01/30/20 15:34 Flush - Normal Saline IVF 10 ml PRN PRN Administration Saline Flush Throat Lozenges 1 candice 04/09/19 19:53 04/21/19 17:54 Cepastat Lozenges PO 1 candice Q2H PRN Administration Cough, Sore Throat Zolpidem Tartrate 5 mg 04/09/19 19:53 04/14/19 23:56 Ambien PO 5 mg HS PRN Administration Insomnia - Exam General Appearance: NAD, awake alert General - other findings: more somnolent than yesterday Eye: PERRL Neck: no JVD Heart: RRR, no murmur, no gallops Respiratory: no wheezes, no ronchi, tachypneic Respiratory - other findings: diffuse bilateral inspiratory crackles Gastrointestinal: soft, non-tender, non-distended, normal bowel sounds, no palpable masses, no hepatomegaly, no splenomegaly, no bruit Extremities - other findings: edema unchanged Neurological: cranial nerve grossly intact Psychiatric: normal affect, normal behavior, A&O x 3 Hosp A/P - Plan #undifferentiated connective tissue disease #interstitial lung disease -will continue voriconazole (b-d-glucan positive) per ID; will continue imuran, hydroxychlorquine, prednisone; -will require outpatient rheumatology follow up and on discharge, provide patient results and notes; patient was requested to call her spooler operator on for a prompt appointment -forearm skin biopsy negative; #lower extremity edema -Echo showing no elevated RVSP or signs of right strain; therefore, unlikely a result of pHTN -per pulmonology, will continue to diurese #hypotonic hyponatremia likely due to diuresis/hypervolemia -will continue diuresis per pulmonology #full code
[2019-04-22] MEDS: Dextromethorphan Polistirex 30 MG/5 ML (89 ML BOTTLE) PO PRN ×2 (01:34→10:04)
[2019-04-22] MEDS: HYDROcodone/Acetaminophen 10/325 mg Tablet PO PRN ×5 (03:18→21:10)
[2019-04-22 06:18] LABS: #Eosinphils 0.1 thou/uL (0.0-0.7); #Lymphocytes 0.6 thou/uL (1.20-3.40); #Neutrophils 11.3 thou/uL (1.40-6.50); %Basophils 0.1 % (0.0-1.0); %Eosinophils 0.7 % (0.0-10.0); %Lymphocytes 4.3 % (21.0-51.0); %Monocytes 7.5 % (0.0-10.0); %Neutrophils 87.5 % (42.0-75.0); Hemoglobin 11.3 g/dL (12.0-16.0); Mean Corpuscular HGB CONC 32.7 g/dL (32.0-36.0); Mean Corpuscular Hemoglobin 30.9 pg (27.0-31.0); Mean Corpuscular Volume 94.7 fL (78.0-98.0); Mean Platelet Volume 6.7 fL (7.4-10.4); Platelet Count 414 thou/uL (130-400); RBC Distribution Width 14.8 % (11.5-14.5); Red Blood Cell (RBC) Count 3.65 mill/uL (4.20-5.40); White Blood Cell (WBC) Count 12.9 thou/uL (4.8-10.8)
[2019-04-22 06:31] LABS: Anion Gap 13 mmol/L (10-20); BUN (Urea Nitrogen) 19 mg/dL (7.0-18.7); Calc. Creatinine Clearance 136 mL/min (70-130); Calcium 8.7 mg/dL (7.8-10.44); Carbon Dioxide 32 mmol/L (22-29); Chloride 96 mmol/L (98-107); Estimated GFR-MDRD 85; Glucose 182 mg/dL (70-105); Magnesium 2.1 mg/dL (1.6-2.6); Sodium 137 mmol/L (136-145)
[2019-04-22] MEDS: Mometasone/Formoterol 120 PUFF INHALER INH SCH ×2 (07:22→18:01)
[2019-04-22] MEDS: Divalproex Sodium 250 MG (DR) TAB PO SCH (08:13)
[2019-04-22] MEDS: azaTHIOprine 50 MG TAB PO SCH (08:14)
[2019-04-22] MEDS: Famotidine 20 MG TAB PO SCH ×2 (08:14→21:07)
[2019-04-22] MEDS: Furosemide 20 MG/2 ML VIAL SLOW IVP SCH (08:14)
[2019-04-22] MEDS: predniSONE 20 MG TAB PO SCH (08:14)
[2019-04-22] MEDS: Enoxaparin Sodium 40 MG/0.4 ML SYRINGE SC SCH (08:15)
[2019-04-22] MEDS: Senokot S 8.6-50 MG TAB PO SCH ×2 (08:15→21:07)
--- NOTE | 2019-04-22 08:40 | RAD ---
XR Chest 1 View HISTORY: Increased oxygen demand. Hypoxia COMPARISON: 04/19/2019 FINDINGS: There is stable cardiomegaly and continued elevation the right hemidiaphragm. There is pulm onary vascular congestion. Alveolar opacities in the left lung demonstrate interval improvement. No pneumothoraces or large effusions are seen.
[2019-04-22] MEDS: Cepastat Lozenges 1 LOZ PO PRN (10:04)
[2019-04-22] MEDS ORDERED: Furosemide 40 MG/4 ML VIAL IVP SCH (11:49)
[2019-04-22] MEDS ORDERED: predniSONE 20 MG TAB PO SCH ×2 (12:00→12:15)
[2019-04-22] MEDS ORDERED: Potassium Chloride 20 MEQ TAB PO SCH (12:00)
--- NOTE | 2019-04-22 12:31 | PRG ---
DATE OF SERVICE: 04/22/2019 SUBJECTIVE: Ms. Guy says she is feeling better. She feels like the Lasix help. I have given another dose of Lasix today in addition to the 20 mg ordered this morning. I will replace her potassium with that. OBJECTIVE: VITAL SIGNS: Stable. LUNGS: Clear now. She is 100% better from a lung exam standpoint than she was a week ago. Her biggest problem is that she is sitting in bed, doing crafts and not ambulating. I suspect her gas exchange problems would improve if she would just start ambulating. I reminded her to get an appointment with her silk screen printer helper within 2 weeks after discharge at [facility] in [place]. She still has not done that, although we have discussed this almost every day. I am not convinced she really wants followup with a silk screen printer helper, but it would be beneficial from the standpoint of picking long-term therapy. She is still on 60 mg a day of prednisone. I would cut this to 40 mg a day at this point starting tomorrow. Job ID: [id number]
[2019-04-22] MEDS ORDERED: Sulfameth/Trimethoprim DS 800-160mg TAB PO SCH (13:30)
--- NOTE | 2019-04-22 13:51 | PRG ---
DATE OF SERVICE: 04/22/2019 SUBJECTIVE: Ms. Guy is transferred to the floor. She is still on high-flow oxygen. Still having some difficulty with breathing, a little bit of cough, but no sputum production, no diarrhea, and she is voiding in the diaper. The skin eruption in the forearm seems to be improving. OBJECTIVE: VITAL SIGNS: Temperature has been normal. Blood pressure 111/54, pulse 68, respirations 18, and O2 sat ranging from 89 to 93. SKIN: With the papular erythematous lesions with secondary excoriation, not as prominent as previously noted. GENERAL: She is awake. HEENT: A little bit of conjunctival hyperemia. Oral cavity without any abnormalities. LUNGS: With fairly clear breath sounds. HEART: S1 and S2 regular rate. ABDOMEN: Soft with some distention, but no tenderness, no bladder distention. EXTREMITIES: Able to move extremities. LABORATORY DATA: White cell count 12.9, hemoglobin 11, platelets 414 with 87% neutrophils. Sodium 137 and creatinine 0.74. AST 48, ALT 12, alkaline phosphatase 59, CK 65. CRP was 13.62. Albumin 3.3. Rheumatoid factor was elevated at 16.2 with IgM at 11. All the other autoantibodies were negative. Complement was elevated. All the microbiology workup was negative including the Karius test. The skin biopsy with negative for significant inflammatory changes, negative for fungi. ASSESSMENT AND DISCUSSION: History of rheumatoid arthritis with high-dose corticosteroid treatment for unclear indication, possibly for autoimmune pneumonitis, but not clear. Prior negative bronchoscopy workup done at the [facility] [place]. 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 In view of the negative microbiology workup, it is more likely that the changes reflect the underlying autoimmune process. The next step I guess would be if feasible an open lung biopsy, although it might not be a safe procedure to carry out. The last note from Dr. Simmons states that she now pretty much concurs with the above. I do not think she is going to have any other intervention in terms of diagnostic procedures for the lung infiltrate, so I am going to go ahead and discontinue voriconazole in terms of infectious disease prevention. She will need a varicella zoster vaccine Shingrix to be given after discharge, consists of 2 doses and needs to be provided by her primary care physician. In addition to that, I would advise prophylaxis against Pneumocystis pneumonia with low-dose Bactrim, and of course, she will need to have steroid-sparing therapy implemented and monitored by her cylinder batcher. Job ID: [id number]
[2019-04-22] MEDS: Ipratropium Bromide 0.06% Nasal Inhaler 15ml NASAL SCH ×4 (16:39→23:12)
--- NOTE | 2019-04-22 21:45 | PDOC.HOSPP ---
- Subjective Encounter Date: 04/22/19 Encounter Time: 08:00 Subjective: no overnight events. This morning, feels slightly better. Attempting to schedule medical office asst appointment. Remains on HFNC, unchanged oxygen demand, satting 89% during encounter. - Objective Vital Signs & Weight: Vital Signs (12 hours) Temp Pulse Resp BP Pulse Ox 04/22/19 21:39 90 L 04/22/19 19:10 98.2 F 89 20 127/87 85 L 04/22/19 18:00 81 16 91 L 04/22/19 14:16 72 22 H 88 L 04/22/19 10:17 18 89 L Weight Admit Weight 207 lb 4.8 oz Weight 195 lb 5.273 oz Most Recent Monitor Data Heart Rate from ECG 80 NIBP 132/79 NIBP BP-Mean 96 Respiration from ECG 24 SpO2 95 I&O: 04/21/19 04/22/19 04/23/19 06:59 06:59 06:59 Intake Total 1400 340 800 Output Total 1300 2500 Balance 100 -2160 800 Result Diagrams: 04/22/19 05:44 04/22/19 05:44 Radiology Reviewed by me: Yes Hospitalist ROS - Review of Systems Constitutional: denies: fever, chills, sweats, weakness, malaise, other Respiratory: reports: cough, dry, SOB with excertion. denies: shortness of breath, hemoptysis, pleuritic pain, sputum, wheezing, other Cardiovascular: denies: chest pain, palpitations, orthopnea, paroxysmal noc. dyspnea, edema, light headedness, other Gastrointestinal: denies: nausea, vomiting, abdominal pain, diarrhea, constipation, melena, hematochezia, other Genitourinary: reports: dysuria, frequency, incontinence Skin: reports: rash Neurological: denies: weakness - Medication Medications: Active Medications Generic Name Dose Route Start Last Admin Trade Name Freq PRN Reason Stop Dose Admin Hydrocodone Bitart/Acetaminophen 1 tab 04/20/19 10:36 04/22/19 21:10 [place] 10/325 PO 1 tab Q4H PRN Administration Pain Albuterol/Ipratropium 3 ml 04/09/19 22:30 04/22/19 21:39 Duoneb NEB 3 ml [id number] JOESPH Administration Azathioprine 50 mg 04/18/19 09:00 04/22/19 08:14 Imuran PO 50 mg DAILY JOESPH Administration Dextromethorphan Polistirix 30 mg 04/09/19 19:53 04/22/19 10:04 Delsym PO 30 mg Q8H PRN Administration Cough Diphenhydramine HCl 25 mg 04/09/19 19:53 04/15/19 03:32 Benadryl PO 25 mg Q4H PRN Administration Itching Divalproex Sodium 750 mg 04/10/19 09:00 04/22/19 08:13 Depakote PO 750 mg DAILY JOESPH Administration Enoxaparin Sodium 40 mg 04/11/19 09:00 04/22/19 08:15 Lovenox SC 40 mg 0900 JOESPH Administration Famotidine 20 mg 04/09/19 21:00 04/22/19 21:07 Pepcid PO 20 mg BID JOEPSH Administration Ipratropium [place] 1 ml 04/20/19 15:00 04/22/19 16:41 Atrovent 0.06% Nasal Inhaler NASAL 1 spr TID JOESPH Administration Melatonin 3 mg 04/09/19 19:53 04/14/19 20:32 Melatonin PO 3 mg HS PRN Administration Insomnia Mometasone Furoate/Formoterol Fumar 2 puff 04/10/19 06:30 04/22/19 18:01 Dulera 200 Mcg/5 Mcg Inhaler INH 2 puff BID-RT JOESPH Administration Nicotine 7 mg 04/09/19 21:00 04/21/19 21:27 Nicoderm Patch TD 7 mg Q24HR JOESPH Administration Senna/Docusate Sodium 1 tab 04/18/19 09:00 04/22/19 21:07 Senokot S PO 1 tab BID JOESPH Administration Sodium Chloride 10 ml 04/09/19 21:00 04/22/19 08:15 Flush - Normal Saline IVF 10 ml Q12HR JOESPH Administration Sodium Chloride 10 ml 04/09/19 20:14 04/22/19 21:07 Flush - Normal Saline IVF 10 ml PRN PRN Administration Saline Flush Throat Lozenges 1 candice 04/09/19 19:53 04/22/19 10:04 Cepastat Lozenges PO 1 candice Q2H PRN Administration Cough, Sore Throat Zolpidem Tartrate 5 mg 04/09/19 19:53 04/14/19 23:56 Ambien PO 5 mg HS PRN Administration Insomnia - Exam General Appearance: NAD, awake alert Neck: no JVD Heart: RRR, no murmur, no gallops Respiratory: CTAB, no wheezes, no rales, no ronchi Respiratory - other findings: inspiratory velcro-like fine crackles mostly at bases Gastrointestinal: soft, non-tender, non-distended Extremities: 1+ LE edema Extremities - other findings: improved edema Hosp A/P - Plan #undifferentiated connective tissue disease #interstitial lung disease -Based on ACR and SLICC criteria, unlikely to have SLE since GENARO -ve, and anti- ro/la negative so unlikely GENARO-negative SLE as well -BASED on EULAR/ACR 2010 criteria, borderline diagnosis of RA (5-6/10 points) -will discontinue fluconazole (b-d-glucan positive) per ID; will continue imuran , hydroxychlorquine, prednisone 40mg per pulmonology; -will require outpatient rheumatology follow up and on discharge, provide patient results and notes; patient was requested to call her medical office asst on for a prompt appointment -forearm skin biopsy negative; -appreciate pulmonology and ID recs; agree with recommendation that biopsy may be useful for prognostic purposes; will order high resolution CT now that pulmonary congestion has improved, pattern of ILD may subvert need for invasive procedure #lower extremity edema -Echo showing no cardiomyopathy; no elevated RVSP or signs of right strain; therefore, unlikely a result of pHTN -per pulmonology, will continue to diurese #full code
[2019-04-22] MEDS: Nicotine 7 MG PATCH TD SCH (23:00)
[2019-04-23] MEDS: HYDROcodone/Acetaminophen 10/325 mg Tablet PO PRN ×6 (00:39→23:40)
[2019-04-23] MEDS: Dextromethorphan Polistirex 30 MG/5 ML (89 ML BOTTLE) PO PRN (04:29)
[2019-04-23 06:03] LABS: Anion Gap 15 mmol/L (10-20); BUN (Urea Nitrogen) 18 mg/dL (7.0-18.7); Calc. Creatinine Clearance 138 mL/min (70-130); Carbon Dioxide 29 mmol/L (22-29); Chloride 93 mmol/L (98-107); Estimated GFR-MDRD 87; Glucose 149 mg/dL (70-105); Magnesium 2.1 mg/dL (1.6-2.6); Potassium 4.4 mmol/L (3.5-5.1); Sodium 133 mmol/L (136-145)
[2019-04-23] MEDS: Mometasone/Formoterol 120 PUFF INHALER INH SCH ×2 (07:03→17:56)
[2019-04-23] MEDS: Enoxaparin Sodium 40 MG/0.4 ML SYRINGE SC SCH (08:45)
[2019-04-23] MEDS: Famotidine 20 MG TAB PO SCH ×2 (08:45→20:22)
[2019-04-23] MEDS: Ipratropium Bromide 0.06% Nasal Inhaler 15ml NASAL SCH ×3 (08:45→20:22)
[2019-04-23] MEDS: Divalproex Sodium 250 MG (DR) TAB PO SCH (08:45)
[2019-04-23] MEDS: azaTHIOprine 50 MG TAB PO SCH (08:45)
[2019-04-23] MEDS: Senokot S 8.6-50 MG TAB PO SCH ×2 (08:45→20:23)
[2019-04-23] MEDS: predniSONE 20 MG TAB PO SCH (08:45)
--- NOTE | 2019-04-23 11:15 | CT ---
HIGH RESOLUTION CHEST CT: HISTORY: Idiopathic lung disease. COMPARISON: CT angio of the chest performed 09/21/2018. FINDINGS: Diffuse ground-glass opacities are again demonstrated. There has been some change in the pattern. T he left upper lobe parenchymal changes have definitely improved. The right upper lobe parenchymal ch kathrin has worsened and there has been worsening in the pattern of the bibasilar lung changes. Much mo re prominent ground-glass opacity is seen. There appears to be some developing traction bronchiectas is seen. There are areas of normal lung and areas in the right lower lobe that appear to represent a reas of air trapping. No honeycombing is evident. No confluent areas of consolidation. I do not appreciate significant mediastinal or hilar adenopathy. No perilymphatic nodules are seen. IMPRESSION: Somewhat migratory appearance of the ground-glass opacity. Worsening changes in the right upper lobe and lung bases as compared to the prior examination with improvement to some of the left upper lobe parenchymal change. There is also development of some traction bronchiectasis. This is a somewhat n onspecific pattern but it has some features that would be typical of hypersensitivity pneumonitis, le ss likely a respiratory bronchiolitis or a DIP-type pattern. If the patient is a smoker, I would say that this would be atypical for sarcoid but would not be totally excluded. Follicular bronchiolitis and lymphoid interstitial pneumonia would be considered less likely. POS: [facility]
--- NOTE | 2019-04-23 20:45 | PDOC.HOSPP ---
- Subjective Encounter Date: 04/23/19 Encounter Time: 08:30 Subjective: no overnight events and no change overall. Continues to be on HFNC and saturate low 90s. Again requested to ensure appointment with Receiving Specialist and to walk around as tolerated. - Objective Vital Signs & Weight: Vital Signs (12 hours) Temp Pulse Resp BP Pulse Ox 04/23/19 19:00 98.1 F 92 22 H 124/70 93 L 04/23/19 17:57 69 22 H 100 04/23/19 16:49 98.3 F 77 24 H 121/80 97 04/23/19 14:47 99 04/23/19 13:57 97 04/23/19 13:56 60 24 H 97 04/23/19 11:42 98.2 F 80 16 132/83 94 L 04/23/19 11:10 98.2 F 80 16 132/83 94 L Weight Admit Weight 207 lb 4.8 oz Weight 195 lb 5.273 oz Most Recent Monitor Data Heart Rate from ECG 80 NIBP 132/79 NIBP BP-Mean 96 Respiration from ECG 24 SpO2 95 I&O: 04/22/19 04/23/19 04/24/19 06:59 06:59 06:59 Intake Total 340 800 960 Output Total 2500 800 Balance -2160 800 160 Result Diagrams: 04/22/19 05:44 04/24/19 05:11 Hospitalist ROS - Review of Systems Constitutional: denies: fever, chills, sweats, weakness, malaise, other Respiratory: reports: cough, dry. denies: shortness of breath, hemoptysis, SOB with excertion, pleuritic pain, sputum, wheezing, other Cardiovascular: denies: chest pain, palpitations, orthopnea, paroxysmal noc. dyspnea, edema, light headedness, other Gastrointestinal: denies: nausea, vomiting, abdominal pain, diarrhea, constipation, melena, hematochezia, other Genitourinary: denies: hematuria Neurological: denies: weakness - Medication Medications: Active Medications Generic Name Dose Route Start Last Admin Trade Name Freq PRN Reason Stop Dose Admin Hydrocodone Bitart/Acetaminophen 1 tab 04/20/19 10:36 04/23/19 17:53 [place] 10/325 PO 1 tab Q4H PRN Administration Pain Albuterol/Ipratropium 3 ml 04/09/19 22:30 04/23/19 17:57 Duoneb NEB 3 ml [id number] JOESPH Administration Azathioprine 50 mg 04/18/19 09:00 04/23/19 08:45 Imuran PO 50 mg DAILY JOESPH Administration Dextromethorphan Polistirix 30 mg 04/09/19 19:53 04/23/19 04:29 Delsym PO 30 mg Q8H PRN Administration Cough Diphenhydramine HCl 25 mg 04/09/19 19:53 04/15/19 03:32 Benadryl PO 25 mg Q4H PRN Administration Itching Divalproex Sodium 750 mg 04/10/19 09:00 04/23/19 08:45 Depakote PO 750 mg DAILY JOESPH Administration Enoxaparin Sodium 40 mg 04/11/19 09:00 04/23/19 08:45 Lovenox SC 40 mg 0900 JOESPH Administration Famotidine 20 mg 04/09/19 21:00 04/23/19 20:22 Pepcid PO 20 mg BID JOESPH Administration Ipratropium [place] 1 ml 04/20/19 15:00 04/23/19 20:22 Atrovent 0.06% Nasal Inhaler NASAL 1 spr TID JOESPH Administration Melatonin 3 mg 04/09/19 19:53 04/14/19 20:32 Melatonin PO 3 mg HS PRN Administration Insomnia Mometasone Furoate/Formoterol Fumar 2 puff 04/10/19 06:30 04/23/19 17:56 Dulera 200 Mcg/5 Mcg Inhaler INH 2 puff BID-RT JOESPH Administration Nicotine 7 mg 04/09/19 21:00 04/22/19 23:00 Nicoderm Patch TD 7 mg Q24HR JOESPH Administration Prednisone 40 mg 04/23/19 08:00 04/23/19 08:45 Prednisone PO 40 mg QAM-WM JOESPH Administration Senna/Docusate Sodium 1 tab 04/18/19 09:00 04/23/19 20:23 Senokot S PO 1 tab BID JOESPH Administration Sodium Chloride 10 ml 04/09/19 21:00 04/23/19 20:23 Flush - Normal Saline IVF 10 ml Q12HR JOESPH Administration Sodium Chloride 10 ml 04/09/19 20:14 04/22/19 21:07 Flush - Normal Saline IVF 10 ml PRN PRN Administration Saline Flush Throat Lozenges 1 candice 04/09/19 19:53 04/22/19 10:04 Cepastat Lozenges PO 1 candice Q2H PRN Administration Cough, Sore Throat Zolpidem Tartrate 5 mg 04/09/19 19:53 04/14/19 23:56 Ambien PO 5 mg HS PRN Administration Insomnia - Exam General Appearance: NAD, awake alert Neck: negative: no JVD Heart: RRR, no murmur, no gallops, no rubs Respiratory: CTAB, no wheezes, no rales, no ronchi Respiratory - other findings: lungs dry with velcro inspiratory sounds mostly at bases Gastrointestinal: soft, non-tender, non-distended, normal bowel sounds Extremities: 2+ LE edema Musculoskeletal: normal tone, normal strength Hosp A/P - Plan #undifferentiated connective tissue disease #interstitial lung disease -Based on ACR and SLICC criteria, unlikely to have SLE since GENARO -ve, and anti- ro/la negative so unlikely GENARO-negative SLE as well -BASED on EULAR/ACR 2010 criteria, borderline diagnosis of RA (5-6/10 points) -will discontinue fluconazole (b-d-glucan positive) per ID; will continue imuran , hydroxychlorquine, prednisone 40mg per pulmonology; -will require outpatient rheumatology follow up and on discharge, provide patient results and notes; patient was requested to call her reading aide on for a prompt appointment -forearm skin biopsy negative; -appreciate pulmonology and ID recs; agree with recommendation that biopsy may be useful for prognostic purposes; will order high resolution CT now that pulmonary congestion has improved, pattern of ILD may subvert need for invasive procedure -HRCT thorax c/w hypersensitivity pneumonitis, less likely respiratory bronchiolitis or DIP-type pattern; will #lower extremity edema -Echo showing no cardiomyopathy; no elevated RVSP or signs of right strain; therefore, unlikely a result of pHTN -per pulmonology, will continue to diurese #full code
[2019-04-23] MEDS ORDERED: Morphine 2 MG/ML SYRINGE SLOW IVP SCH (21:30)
[2019-04-23] MEDS: Nicotine 7 MG PATCH TD SCH (23:15)
[2019-04-24] MEDS: HYDROcodone/Acetaminophen 10/325 mg Tablet PO PRN ×5 (03:15→21:00)
[2019-04-24 05:56] LABS: Anion Gap 11 mmol/L (10-20); BUN (Urea Nitrogen) 20 mg/dL (7.0-18.7); Calc. Creatinine Clearance 157 mL/min (70-130); Calcium 8.8 mg/dL (7.8-10.44); Carbon Dioxide 33 mmol/L (22-29); Chloride 99 mmol/L (98-107); Estimated GFR-MDRD Greater than 90; Glucose 86 mg/dL (70-105); Magnesium 2.3 mg/dL (1.6-2.6); Potassium 4.1 mmol/L (3.5-5.1); Sodium 139 mmol/L (136-145)
[2019-04-24] MEDS: Mometasone/Formoterol 120 PUFF INHALER INH SCH ×2 (07:03→18:28)
[2019-04-24] MEDS: Divalproex Sodium 250 MG (DR) TAB PO SCH (08:25)
[2019-04-24] MEDS: Senokot S 8.6-50 MG TAB PO SCH ×3 (08:25→21:02)
[2019-04-24] MEDS: predniSONE 20 MG TAB PO SCH (08:25)
[2019-04-24] MEDS: Famotidine 20 MG TAB PO SCH ×2 (08:25→21:00)
[2019-04-24] MEDS: azaTHIOprine 50 MG TAB PO SCH (08:25)
[2019-04-24] MEDS: Enoxaparin Sodium 40 MG/0.4 ML SYRINGE SC SCH (08:26)
[2019-04-24] MEDS: Ipratropium Bromide 0.06% Nasal Inhaler 15ml NASAL SCH ×3 (08:32→21:00)
[2019-04-24] MEDS ORDERED: Sulfameth/Trimethoprim DS 800-160mg TAB PO SCH (09:00)
--- NOTE | 2019-04-24 10:56 | PRG ---
DATE OF SERVICE: 04/24/2019 SUBJECTIVE: Malena says she is feeling better. Oximetry is 100% on high-flow. It does not look like anybody tried to wean her to a nasal cannula yesterday, even though I gave a verbal order for this. OBJECTIVE: LUNGS: Clear to bases. HEART: Regular rhythm. ABDOMEN: Soft. EXTREMITIES: Without edema. High-resolution CT was ordered yesterday. There was nothing surprising on the CAT scan. The biggest question is whether or not this is all pulmonary vasculitis or could she have some other steroid responsive lung disease like hypersensitivity pneumonitis. She did have a skin lesion biopsy this admission, reported as benign skin. She certainly has these lesions on arms but they end at her sleeve suggesting a lot of her upper extremity lesions are related to excoriation from scratching and anxiety. Her medical noncompliance makes caring for her difficult. Every admission in the past she has responded to steroids, but she has been slower to recover this admission. Job ID: [id number]
[2019-04-24] MEDS: Dextromethorphan Polistirex 30 MG/5 ML (89 ML BOTTLE) PO PRN (18:24)
--- NOTE | 2019-04-24 20:07 | PDOC.HOSPP ---
- Subjective Encounter Date: 04/24/19 Encounter Time: 14:00 Subjective: No overnight events. Per respiratory therapist and nurse, attempted to wean to NC but patient started breathing heavily, yet saturation remained in the high 90s, suggesting possible anxiety component. Requested nurse to try to give morphine prior to next trial, and also placed an order to take an ABG as the patient exhibits abovementioned symptoms prior to putting her back on HFNC. Again requested patient that she makes an appointment with Public Health Staff Nurse, to which she replied that one is supposed to call her back tomorrow. - Objective Vital Signs & Weight: Vital Signs (12 hours) Temp Pulse Resp BP BP Pulse Ox 04/24/19 19:00 97.7 F 101 H 22 H 139/87 94 L 04/24/19 18:27 81 18 100 04/24/19 15:44 98.2 F 88 20 126/85 100 04/24/19 14:22 87 20 100 04/24/19 11:02 98.1 F 100 22 H 118/78 100 04/24/19 10:44 109 H 20 100 Weight Admit Weight 207 lb 4.8 oz Weight 195 lb 5.273 oz Most Recent Monitor Data Heart Rate from ECG 80 NIBP 132/79 NIBP BP-Mean 96 Respiration from ECG 24 SpO2 95 I&O: 04/23/19 04/24/19 04/25/19 06:59 06:59 06:59 Intake Total 477 612 0994 Output Total 1700 Balance 800 -740 1100 Result Diagrams: 04/22/19 05:44 04/24/19 05:11 Radiology Reviewed by me: Yes Hospitalist ROS - Review of Systems Constitutional: denies: fever, chills, sweats, weakness, malaise, other Respiratory: reports: cough, dry. denies: shortness of breath, hemoptysis, SOB with excertion, pleuritic pain, sputum, wheezing, other Cardiovascular: reports: edema. denies: chest pain, palpitations, orthopnea, paroxysmal noc. dyspnea, light headedness, other Gastrointestinal: denies: nausea, vomiting, abdominal pain, diarrhea, constipation, melena, hematochezia, other Skin: reports: rash Neurological: denies: weakness - Medication Medications: Active Medications Generic Name Dose Route Start Last Admin Trade Name Freq PRN Reason Stop Dose Admin Hydrocodone Bitart/Acetaminophen 1 tab 04/20/19 10:36 04/24/19 16:54 [place] 10/325 PO 1 tab Q4H PRN Administration Pain Albuterol/Ipratropium 3 ml 04/09/19 22:30 04/24/19 18:27 Duoneb NEB 3 ml [id number] JOESPH Administration Albuterol/Ipratropium 3 ml 04/19/19 22:05 04/24/19 00:33 Duoneb NEB 3 ml [id number] PRN Administration SOB &/or Wheezing Azathioprine 50 mg 04/18/19 09:00 04/24/19 08:25 Imuran PO 50 mg DAILY JOESPH Administration Dextromethorphan Polistirix 30 mg 04/09/19 19:53 04/24/19 18:24 Delsym PO 30 mg Q8H PRN Administration Cough Diphenhydramine HCl 25 mg 04/09/19 19:53 04/15/19 03:32 Benadryl PO 25 mg Q4H PRN Administration Itching Divalproex Sodium 750 mg 04/10/19 09:00 04/24/19 08:25 Depakote PO 750 mg DAILY JOESPH Administration Enoxaparin Sodium 40 mg 04/11/19 09:00 04/24/19 08:26 Lovenox SC 40 mg 0900 JOESPH Administration Famotidine 20 mg 04/09/19 21:00 04/24/19 08:25 Pepcid PO 20 mg BID JOESPH Administration Ipratropium [place] 1 ml 04/20/19 15:00 04/24/19 16:55 Atrovent 0.06% Nasal Inhaler NASAL 1 spr TID JOESPH Administration Melatonin 3 mg 04/09/19 19:53 04/14/19 20:32 Melatonin PO 3 mg HS PRN Administration Insomnia Mometasone Furoate/Formoterol Fumar 2 puff 04/10/19 06:30 04/24/19 18:28 Dulera 200 Mcg/5 Mcg Inhaler INH 2 puff BID-RT JOESPH Administration Nicotine 7 mg 04/09/19 21:00 04/23/19 23:15 Nicoderm Patch TD 7 mg Q24HR JOESPH Administration Prednisone 40 mg 04/23/19 08:00 04/24/19 08:25 Prednisone PO 40 mg QAM-WM JOESPH Administration Senna/Docusate Sodium 1 tab 04/18/19 09:00 04/24/19 08:25 Senokot S PO 1 tab BID JOESPH Administration Sodium Chloride 10 ml 04/09/19 21:00 04/24/19 08:26 Flush - Normal Saline IVF 10 ml Q12HR JOESPH Administration Sodium Chloride 10 ml 04/09/19 20:14 04/22/19 21:07 Flush - Normal Saline IVF 10 ml PRN PRN Administration Saline Flush Throat Lozenges 1 candice 04/09/19 19:53 04/22/19 10:04 Cepastat Lozenges PO 1 candice Q2H PRN Administration Cough, Sore Throat Zolpidem Tartrate 5 mg 04/09/19 19:53 04/14/19 23:56 Ambien PO 5 mg HS PRN Administration Insomnia - Exam General Appearance: NAD, awake alert Neck: negative: no JVD Heart: RRR, no murmur, no gallops, no rubs Respiratory: CTAB, no wheezes, no rales, no ronchi, no tachypnea Respiratory - other findings: high 90s on HFNC Gastrointestinal: soft, non-tender, non-distended, normal bowel sounds, no bruit Extremities: 1+ LE edema Extremities - other findings: improving edema Psychiatric: normal affect, normal behavior, A&O x 3 Hosp A/P - Plan #undifferentiated connective tissue disease #interstitial lung disease/hypersensitivity pneumonitis -Based on ACR and SLICC criteria, unlikely to have SLE since GENARO -ve, and anti- ro/la negative so unlikely GENARO-negative SLE as well -BASED on EULAR/ACR 2010 criteria, borderline diagnosis of RA (5-6/10 points) -will discontinue fluconazole (b-d-glucan positive) per ID; will continue imuran , hydroxychlorquine, prednisone 40mg per pulmonology; -will require outpatient rheumatology follow up and on discharge, provide patient results and notes; patient was requested to call her skein tier on for a prompt appointment -forearm skin biopsy negative; -appreciate pulmonology and ID recs; agree with recommendation that biopsy may be useful for prognostic purposes; will order high resolution CT now that pulmonary congestion has improved, pattern of ILD may subvert need for invasive procedure -HRCT thorax c/w hypersensitivity pneumonitis, less likely respiratory bronchiolitis or DIP-type pattern -repeatedly requested patient to make appointment with skein tier throughout the week; yet to make one (04/24) -weaning attempts failed reportedly due to patient feeling she has sensation of breathing difficulties yet saturation remains high 90s; requested that nurse gives morphine prior to trial next time and takes an ABG prior to putting back on HFNC if necessary (04/24) #lower extremity edema -Echo showing no cardiomyopathy; no elevated RVSP or signs of right strain; therefore, unlikely a result of pHTN -per pulmonology, will continue to diurese #full code
[2019-04-24] MEDS ORDERED: Morphine 2 MG/ML SYRINGE SLOW IVP PRN (20:11)
[2019-04-24] MEDS: Nicotine 7 MG PATCH TD SCH (22:19)
[2019-04-24] MEDS ORDERED: Morphine 2 MG/ML SYRINGE SLOW IVP SCH (23:15)
[2019-04-25] MEDS: HYDROcodone/Acetaminophen 10/325 mg Tablet PO PRN ×5 (01:47→20:33)
[2019-04-25 04:50] LABS: #Eosinphils 0.2 thou/uL (0.0-0.7); #Lymphocytes 2.6 thou/uL (1.20-3.40); #Monocytes 1.5 thou/uL (0.11-0.59); #Neutrophils 7.1 thou/uL (1.40-6.50); %Basophils 0.2 % (0.0-1.0); %Eosinophils 1.6 % (0.0-10.0); %Lymphocytes 22.6 % (21.0-51.0); %Monocytes 12.9 % (0.0-10.0); %Neutrophils 62.6 % (42.0-75.0); Hemoglobin 13.3 g/dL (12.0-16.0); Mean Corpuscular Volume 93.9 fL (78.0-98.0); Mean Platelet Volume 6.5 fL (7.4-10.4); Platelet Count 416 thou/uL (130-400); RBC Distribution Width 14.7 % (11.5-14.5); White Blood Cell (WBC) Count 11.3 thou/uL (4.8-10.8)
[2019-04-25 05:27] LABS: Anion Gap 13 mmol/L (10-20); BUN (Urea Nitrogen) 19 mg/dL (7.0-18.7); Calc. Creatinine Clearance 167 mL/min (70-130); Calcium 8.9 mg/dL (7.8-10.44); Carbon Dioxide 29 mmol/L (22-29); Chloride 101 mmol/L (98-107); Estimated GFR-MDRD Greater than 90; Glucose 92 mg/dL (70-105); Magnesium 2.3 mg/dL (1.6-2.6); Potassium 3.7 mmol/L (3.5-5.1); Sodium 139 mmol/L (136-145)
[2019-04-25] MEDS: Mometasone/Formoterol 120 PUFF INHALER INH SCH ×2 (06:30→19:37)
[2019-04-25] MEDS: predniSONE 20 MG TAB PO SCH (08:10)
[2019-04-25] MEDS: Divalproex Sodium 250 MG (DR) TAB PO SCH (08:12)
[2019-04-25] MEDS: azaTHIOprine 50 MG TAB PO SCH (08:13)
[2019-04-25] MEDS: Enoxaparin Sodium 40 MG/0.4 ML SYRINGE SC SCH (08:13)
[2019-04-25] MEDS: Senokot S 8.6-50 MG TAB PO SCH ×2 (08:13→20:34)
[2019-04-25] MEDS: Famotidine 20 MG TAB PO SCH ×2 (08:13→20:35)
[2019-04-25] MEDS: Ipratropium Bromide 0.06% Nasal Inhaler 15ml NASAL SCH ×3 (08:14→20:35)
--- NOTE | 2019-04-25 12:10 | PRG ---
DATE OF SERVICE: 04/25/2019 SUBJECTIVE: This morning, she says she is doing better. She is weak. She is less short of breath. OBJECTIVE: VITAL SIGNS: Temperature 97, pulse 112, respirations 20, saturations are 94% on 2 L, and blood pressure 126/81. CHEST: Minimal rhonchi. CARDIAC: Normal S1 and S2. No gallops. ABDOMEN: No masses. IMPRESSION: Respiratory failure, lupus, severe deconditioning. PLAN: Continue aggressive physical therapy, neb treatments, prednisone, PT supportive care. Job ID: [id number]
--- NOTE | 2019-04-25 17:42 | PDOC.HOSPP ---
- Subjective Encounter Date: 04/25/19 Encounter Time: 17:40 Subjective: Ms. Guy was seen today in follow-up of pneumonitis. She complains of pain in the center of her chest, primarily when moving around. She says the dyspnea is a bit better. - Objective Vital Signs & Weight: Vital Signs (12 hours) Temp Pulse Resp BP Pulse Ox 04/25/19 14:08 91 20 95 04/25/19 10:30 83 20 94 L 04/25/19 08:00 91 L 04/25/19 07:04 97.4 F L 112 H 20 126/81 85 L 04/25/19 06:12 77 20 94 L Weight Admit Weight 207 lb 4.8 oz Weight 195 lb 5.273 oz Most Recent Monitor Data Heart Rate from ECG 80 NIBP 132/79 NIBP BP-Mean 96 Respiration from ECG 24 SpO2 95 I&O: 04/24/19 04/25/19 04/26/19 06:59 06:59 06:59 Intake Total 960 1500 360 Output Total 1700 Balance -740 1500 360 Result Diagrams: 04/25/19 04:30 04/25/19 04:30 Hospitalist ROS - Medication Medications: Active Medications Generic Name Dose Route Start Last Admin Trade Name Freq PRN Reason Stop Dose Admin Hydrocodone Bitart/Acetaminophen 1 tab 04/20/19 10:36 04/25/19 16:16 [place] 10/325 PO 1 tab Q4H PRN Administration Pain Albuterol/Ipratropium 3 ml 04/09/19 22:30 04/25/19 14:08 Duoneb NEB 3 ml [id number] JOESPH Administration Albuterol/Ipratropium 3 ml 04/19/19 22:05 04/24/19 00:33 Duoneb NEB 3 ml [id number] PRN Administration SOB &/or Wheezing Azathioprine 50 mg 04/18/19 09:00 04/25/19 08:13 Imuran PO 50 mg DAILY JOESPH Administration Dextromethorphan Polistirix 30 mg 04/09/19 19:53 04/24/19 18:24 Delsym PO 30 mg Q8H PRN Administration Cough Diphenhydramine HCl 25 mg 04/09/19 19:53 04/15/19 03:32 Benadryl PO 25 mg Q4H PRN Administration Itching Divalproex Sodium 750 mg 04/10/19 09:00 04/25/19 08:12 Depakote PO 750 mg DAILY JOESPH Administration Enoxaparin Sodium 40 mg 04/11/19 09:00 04/25/19 08:13 Lovenox SC 40 mg 0900 JOESPH Administration Famotidine 20 mg 04/09/19 21:00 04/25/19 08:13 Pepcid PO 20 mg BID JOESPH Administration Ipratropium [place] 1 ml 04/20/19 15:00 04/25/19 14:41 Atrovent 0.06% Nasal Inhaler NASAL 1 spr TID JOESPH Administration Melatonin 3 mg 04/09/19 19:53 04/14/19 20:32 Melatonin PO 3 mg HS PRN Administration Insomnia Mometasone Furoate/Formoterol Fumar 2 puff 04/10/19 06:30 04/25/19 06:30 Dulera 200 Mcg/5 Mcg Inhaler INH 2 puff BID-RT JOESPH Administration Morphine Sulfate 2 mg 04/24/19 20:11 04/25/19 04:45 Morphine SLOW IVP 04/27/19 20:12 2 mg ONE PRN Administration prior to weaning trial Nicotine 7 mg 04/09/19 21:00 04/24/19 22:19 Nicoderm Patch TD 7 mg Q24HR JOESPH Administration Prednisone 40 mg 04/23/19 08:00 04/25/19 08:10 Prednisone PO 40 mg QAM-WM JOESPH Administration Senna/Docusate Sodium 1 tab 04/18/19 09:00 04/25/19 08:13 Senokot S PO 1 tab BID JOESPH Administration Sodium Chloride 10 ml 04/09/19 21:00 04/25/19 08:14 Flush - Normal Saline IVF 10 ml Q12HR JOESPH Administration Sodium Chloride 10 ml 04/09/19 20:14 04/22/19 21:07 Flush - Normal Saline IVF 10 ml PRN PRN Administration Saline Flush Throat Lozenges 1 candice 04/09/19 19:53 04/22/19 10:04 Cepastat Lozenges PO 1 candice Q2H PRN Administration Cough, Sore Throat Zolpidem Tartrate 5 mg 04/09/19 19:53 04/14/19 23:56 Ambien PO 5 mg HS PRN Administration Insomnia - Exam Eye: PERRL Heart: RRR, no murmur, no gallops, no rubs Respiratory: CTAB, no wheezes, no rales, no ronchi, normal chest expansion, no tachypnea, normal percussion Gastrointestinal: soft, non-tender, non-distended, normal bowel sounds, no palpable masses, no hepatomegaly Extremities: no cyanosis, no clubbing, no edema (+ excoriations and rash on both upper extremities) Hosp A/P (1) Bilateral pneumonia Code(s): J18.9 - PNEUMONIA, UNSPECIFIED ORGANISM Status: Acute (2) Rheumatoid arthritis Code(s): M06.9 - RHEUMATOID ARTHRITIS, UNSPECIFIED Status: Acute (3) Hypertension Code(s): I10 - ESSENTIAL (PRIMARY) HYPERTENSION Status: Acute (4) ILD (interstitial lung disease) Code(s): J84.9 - INTERSTITIAL PULMONARY DISEASE, UNSPECIFIED Status: Chronic (5) Lupus Code(s): M32.9 - SYSTEMIC LUPUS ERYTHEMATOSUS, UNSPECIFIED Status: Chronic Qualifiers: Systemic lupus erythematosus type: unspecified Systemic lupus erythematosus organ involvement: lung involvement Qualified Code(s): M32.13 - Lung involvement in systemic lupus erythematosus (6) Acute and chronic respiratory failure with hypoxia Code(s): J96.21 - ACUTE AND CHRONIC RESPIRATORY FAILURE WITH HYPOXIA Status: Acute - Plan * Acute on chronic respiratory failure with hypoxemia- likely due to pneumonitis - ? type- continue steroids * HTN- blood pressure is stable * RA and SLE- plan is for out patient Rheumatology evaluation * Await further recommendations from Pulmonary
[2019-04-26] MEDS: HYDROcodone/Acetaminophen 10/325 mg Tablet PO PRN ×6 (00:25→21:25)
[2019-04-26] MEDS: Nicotine 7 MG PATCH TD SCH ×2 (00:26→21:26)
[2019-04-26 06:47] LABS: Anion Gap 14 mmol/L (10-20); BUN (Urea Nitrogen) 22 mg/dL (7.0-18.7); Calc. Creatinine Clearance 154 mL/min (70-130); Calcium 8.8 mg/dL (7.8-10.44); Carbon Dioxide 27 mmol/L (22-29); Chloride 101 mmol/L (98-107); Estimated GFR-MDRD Greater than 90; Glucose 94 mg/dL (70-105); Magnesium 2.3 mg/dL (1.6-2.6); Potassium 3.6 mmol/L (3.5-5.1); Sodium 138 mmol/L (136-145)
[2019-04-26] MEDS: Mometasone/Formoterol 120 PUFF INHALER INH SCH ×2 (07:28→19:58)
[2019-04-26] MEDS: Divalproex Sodium 250 MG (DR) TAB PO SCH (08:20)
[2019-04-26] MEDS: predniSONE 20 MG TAB PO SCH (08:20)
[2019-04-26] MEDS: Senokot S 8.6-50 MG TAB PO SCH ×2 (08:22→21:23)
[2019-04-26] MEDS: Famotidine 20 MG TAB PO SCH ×2 (08:22→21:26)
[2019-04-26] MEDS: azaTHIOprine 50 MG TAB PO SCH (08:22)
[2019-04-26] MEDS: DULoxetine 30 MG CAP PO SCH (08:25)
[2019-04-26] MEDS: Enoxaparin Sodium 40 MG/0.4 ML SYRINGE SC SCH (08:26)
[2019-04-26] MEDS: Ipratropium Bromide 0.06% Nasal Inhaler 15ml NASAL SCH ×3 (08:27→21:26)
--- NOTE | 2019-04-26 13:09 | PRG ---
DATE OF SERVICE: 04/26/2019 SUBJECTIVE: This morning, she says she is feeling somewhat better. OBJECTIVE: VITAL SIGNS: Temperature 98, pulse was 117, respirations 20, saturations 91 on 2 L, and blood pressure 120/81. CHEST: Bilateral rhonchi and crackles. CARDIAC: Normal S1 and S2. No gallops. ABDOMEN: Soft. LABORATORY DATA: Lytes are normal. ASSESSMENT: Respiratory failure, lupus, pneumonitis, and chronic obstructive pulmonary disease. PLAN: Continue neb treatments, prednisone, and supportive care. Job ID: [id number]
--- NOTE | 2019-04-26 14:13 | PDOC.HOSPP ---
- Subjective Encounter Date: 04/26/19 Encounter Time: 14:10 Subjective: Ms. Guy was seen today in follow-up of respiratory failure. She says she is feeling a bit better. The pain has improved some already with Cymbalta. - Objective Vital Signs & Weight: Vital Signs (12 hours) Temp Pulse Pulse Resp BP Pulse Ox Pulse Ox 04/26/19 13:24 109 H 20 96 04/26/19 10:06 121 H 91 L 04/26/19 08:00 91 L 04/26/19 07:27 96 18 98 04/26/19 05:12 98.8 F 117 H 20 120/81 93 L 04/26/19 03:02 83 18 99 Weight Admit Weight 207 lb 4.8 oz Weight 195 lb 5.273 oz Most Recent Monitor Data Heart Rate from ECG 80 NIBP 132/79 NIBP BP-Mean 96 Respiration from ECG 24 SpO2 95 I&O: 04/25/19 04/26/19 04/27/19 06:59 06:59 06:59 Intake Total 1500 1710 120 Balance 1500 1710 120 Result Diagrams: 04/25/19 04:30 04/26/19 06:00 Hospitalist ROS - Medication Medications: Active Medications Generic Name Dose Route Start Last Admin Trade Name Freq PRN Reason Stop Dose Admin Hydrocodone Bitart/Acetaminophen 1 tab 04/20/19 10:36 04/26/19 12:50 [place] 10/325 PO 1 tab Q4H PRN Administration Pain Albuterol/Ipratropium 3 ml 04/09/19 22:30 04/26/19 13:24 Duoneb NEB 3 ml [id number] JOESPH Administration Albuterol/Ipratropium 3 ml 04/19/19 22:05 04/24/19 00:33 Duoneb NEB 3 ml [id number] PRN Administration SOB &/or Wheezing Azathioprine 50 mg 04/18/19 09:00 04/26/19 08:22 Imuran PO 50 mg DAILY JOESPH Administration Dextromethorphan Polistirix 30 mg 04/09/19 19:53 04/24/19 18:24 Delsym PO 30 mg Q8H PRN Administration Cough Diphenhydramine HCl 25 mg 04/09/19 19:53 04/15/19 03:32 Benadryl PO 25 mg Q4H PRN Administration Itching Divalproex Sodium 750 mg 04/10/19 09:00 04/26/19 08:20 Depakote PO 750 mg DAILY JOESPH Administration Duloxetine HCl 30 mg 04/26/19 09:00 04/26/19 08:25 Cymbalta PO 30 mg DAILY JOESPH Administration Enoxaparin Sodium 40 mg 04/11/19 09:00 04/26/19 08:26 Lovenox SC 40 mg 0900 JOESPH Administration Famotidine 20 mg 04/09/19 21:00 04/26/19 08:22 Pepcid PO 20 mg BID JOESPH Administration Ipratropium [place] 1 ml 04/20/19 15:00 04/26/19 08:27 Atrovent 0.06% Nasal Inhaler NASAL 1 spr TID JOESPH Administration Melatonin 3 mg 04/09/19 19:53 04/14/19 20:32 Melatonin PO 3 mg HS PRN Administration Insomnia Mometasone Furoate/Formoterol Fumar 2 puff 04/10/19 06:30 04/26/19 07:28 Dulera 200 Mcg/5 Mcg Inhaler INH 2 puff BID-RT JOESPH Administration Morphine Sulfate 2 mg 04/24/19 20:11 04/25/19 04:45 Morphine SLOW IVP 04/27/19 20:12 2 mg ONE PRN Administration prior to weaning trial Nicotine 7 mg 04/09/19 21:00 04/26/19 00:26 Nicoderm Patch TD 7 mg Q24HR JOESPH Administration Prednisone 40 mg 04/23/19 08:00 04/26/19 08:20 Prednisone PO 40 mg QAM-WM JOESPH Administration Senna/Docusate Sodium 1 tab 04/18/19 09:00 04/26/19 08:22 Senokot S PO 1 tab BID JOESPH Administration Sodium Chloride 10 ml 04/09/19 21:00 04/26/19 08:27 Flush - Normal Saline IVF 10 ml Q12HR JOESPH Administration Sodium Chloride 10 ml 04/09/19 20:14 04/22/19 21:07 Flush - Normal Saline IVF 10 ml PRN PRN Administration Saline Flush Throat Lozenges 1 candice 04/09/19 19:53 04/22/19 10:04 Cepastat Lozenges PO 1 candice Q2H PRN Administration Cough, Sore Throat Zolpidem Tartrate 5 mg 04/09/19 19:53 04/14/19 23:56 Ambien PO 5 mg HS PRN Administration Insomnia - Exam Eye: PERRL Heart: RRR, no murmur, no gallops, no rubs, normal peripheral pulses Respiratory: CTAB (+ occasional wheeze), no rales, no ronchi, normal chest expansion Gastrointestinal: soft, non-tender, non-distended, normal bowel sounds, no palpable masses, no hepatomegaly Extremities: no cyanosis, no clubbing, no edema Hosp A/P (1) Bilateral pneumonia Code(s): J18.9 - PNEUMONIA, UNSPECIFIED ORGANISM Status: Acute (2) Rheumatoid arthritis Code(s): M06.9 - RHEUMATOID ARTHRITIS, UNSPECIFIED Status: Acute (3) Hypertension Code(s): I10 - ESSENTIAL (PRIMARY) HYPERTENSION Status: Acute (4) ILD (interstitial lung disease) Code(s): J84.9 - INTERSTITIAL PULMONARY DISEASE, UNSPECIFIED Status: Chronic (5) Lupus Code(s): M32.9 - SYSTEMIC LUPUS ERYTHEMATOSUS, UNSPECIFIED Status: Chronic Qualifiers: Systemic lupus erythematosus type: unspecified Systemic lupus erythematosus organ involvement: lung involvement Qualified Code(s): M32.13 - Lung involvement in systemic lupus erythematosus (6) Acute and chronic respiratory failure with hypoxia Code(s): J96.21 - ACUTE AND CHRONIC RESPIRATORY FAILURE WITH HYPOXIA Status: Acute - Plan * Acute on chronic respiratory failure with hypoxemia- due to pneumonitis- ? type- continue steroids and duonebs * Chronic pain- continue Cymbalta, and [place] * HTN- blood pressure is stable * RA and SLE- out patient Rheumatology evaluation * Hopefully home soon
[2019-04-27] MEDS: HYDROcodone/Acetaminophen 10/325 mg Tablet PO PRN ×5 (01:24→17:40)
[2019-04-27 05:56] LABS: Anion Gap 14 mmol/L (10-20); BUN (Urea Nitrogen) 17 mg/dL (7.0-18.7); Calc. Creatinine Clearance 162 mL/min (70-130); Calcium 8.7 mg/dL (7.8-10.44); Carbon Dioxide 24 mmol/L (22-29); Chloride 102 mmol/L (98-107); Estimated GFR-MDRD Greater than 90; Glucose 93 mg/dL (70-105); Potassium 3.8 mmol/L (3.5-5.1); Sodium 136 mmol/L (136-145)
[2019-04-27] MEDS: Mometasone/Formoterol 120 PUFF INHALER INH SCH ×2 (07:13→19:00)
[2019-04-27] MEDS: Enoxaparin Sodium 40 MG/0.4 ML SYRINGE SC SCH (08:50)
[2019-04-27] MEDS: Senokot S 8.6-50 MG TAB PO SCH (08:50)
[2019-04-27] MEDS: predniSONE 20 MG TAB PO SCH (08:50)
[2019-04-27] MEDS: Divalproex Sodium 250 MG (DR) TAB PO SCH (08:50)
[2019-04-27] MEDS: Famotidine 20 MG TAB PO SCH (08:50)
[2019-04-27] MEDS: DULoxetine 30 MG CAP PO SCH (08:50)
[2019-04-27] MEDS: azaTHIOprine 50 MG TAB PO SCH (08:50)
--- NOTE | 2019-04-27 17:46 | PDOC.HOSPP ---
- Subjective Encounter Date: 04/27/19 Encounter Time: 17:34 Subjective: Ms. Guy was seen today in follow-up of respiratory failure. She says she feels better. No new complaints. - Objective Vital Signs & Weight: Vital Signs (12 hours) Temp Pulse Resp BP Pulse Ox 04/27/19 14:22 79 18 96 04/27/19 10:25 82 16 95 04/27/19 09:00 93 L 04/27/19 08:00 97.9 F 102 H 22 H 118/80 93 L 04/27/19 07:15 85 18 98 04/27/19 07:13 85 16 98 Weight Admit Weight 207 lb 4.8 oz Weight 195 lb 5.273 oz Most Recent Monitor Data Heart Rate from ECG 80 NIBP 132/79 NIBP BP-Mean 96 Respiration from ECG 24 SpO2 95 I&O: 04/26/19 04/27/19 04/28/19 06:59 06:59 06:59 Intake Total 1710 600 Balance 1710 600 Result Diagrams: 04/25/19 04:30 04/27/19 05:16 Hospitalist ROS - Medication Medications: Active Medications Generic Name Dose Route Start Last Admin Trade Name Freq PRN Reason Stop Dose Admin Hydrocodone Bitart/Acetaminophen 1 tab 04/20/19 10:36 04/27/19 12:55 [place] 10/325 PO 1 tab Q4H PRN Administration Pain Albuterol/Ipratropium 3 ml 04/09/19 22:30 04/27/19 14:22 Duoneb NEB 3 ml [id number] JOESPH Administration Albuterol/Ipratropium 3 ml 04/19/19 22:05 04/24/19 00:33 Duoneb NEB 3 ml [id number] PRN Administration SOB &/or Wheezing Azathioprine 50 mg 04/18/19 09:00 04/27/19 08:50 Imuran PO 50 mg DAILY JOESPH Administration Dextromethorphan Polistirix 30 mg 04/09/19 19:53 04/24/19 18:24 Delsym PO 30 mg Q8H PRN Administration Cough Diphenhydramine HCl 25 mg 04/09/19 19:53 04/15/19 03:32 Benadryl PO 25 mg Q4H PRN Administration Itching Divalproex Sodium 750 mg 04/10/19 09:00 04/27/19 08:50 Depakote PO 750 mg DAILY JOESPH Administration Duloxetine HCl 30 mg 04/26/19 09:00 04/27/19 08:50 Cymbalta PO 30 mg DAILY JOESPH Administration Enoxaparin Sodium 40 mg 04/11/19 09:00 04/27/19 08:50 Lovenox SC 40 mg 0900 JOESPH Administration Famotidine 20 mg 04/09/19 21:00 04/27/19 08:50 Pepcid PO 20 mg BID JOESPH Administration Ipratropium [place] 1 ml 04/20/19 15:00 04/26/19 21:26 Atrovent 0.06% Nasal Inhaler NASAL 2 spr TID JOESPH Administration Melatonin 3 mg 04/09/19 19:53 04/14/19 20:32 Melatonin PO 3 mg HS PRN Administration Insomnia Mometasone Furoate/Formoterol Fumar 2 puff 04/10/19 06:30 04/27/19 07:13 Dulera 200 Mcg/5 Mcg Inhaler INH 2 puff BID-RT JOESPH Administration Morphine Sulfate 2 mg 04/24/19 20:11 04/25/19 04:45 Morphine SLOW IVP 04/27/19 20:12 2 mg ONE PRN Administration prior to weaning trial Nicotine 7 mg 04/09/19 21:00 04/26/19 21:26 Nicoderm Patch TD 7 mg Q24HR JOESPH Administration Prednisone 40 mg 04/23/19 08:00 04/27/19 08:50 Prednisone PO 40 mg QAM-WM JOESPH Administration Senna/Docusate Sodium 1 tab 04/18/19 09:00 04/27/19 08:50 Senokot S PO Not Given BID JOESPH Sodium Chloride 10 ml 04/09/19 21:00 04/27/19 08:51 Flush - Normal Saline IVF 10 ml Q12HR JOESPH Administration Sodium Chloride 10 ml 04/09/19 20:14 04/22/19 21:07 Flush - Normal Saline IVF 10 ml PRN PRN Administration Saline Flush Throat Lozenges 1 candice 04/09/19 19:53 04/22/19 10:04 Cepastat Lozenges PO 1 candice Q2H PRN Administration Cough, Sore Throat Zolpidem Tartrate 5 mg 04/09/19 19:53 04/14/19 23:56 Ambien PO 5 mg HS PRN Administration Insomnia - Exam Eye: PERRL Heart: RRR, no murmur, no gallops, no rubs, normal peripheral pulses Respiratory: CTAB, no wheezes, no rales, no ronchi, normal chest expansion, no tachypnea, normal percussion Gastrointestinal: soft, non-tender, non-distended, normal bowel sounds, no palpable masses, no hepatomegaly Extremities: no cyanosis, no clubbing, no edema Hosp A/P (1) Bilateral pneumonia Code(s): J18.9 - PNEUMONIA, UNSPECIFIED ORGANISM Status: Acute (2) Rheumatoid arthritis Code(s): M06.9 - RHEUMATOID ARTHRITIS, UNSPECIFIED Status: Acute (3) Hypertension Code(s): I10 - ESSENTIAL (PRIMARY) HYPERTENSION Status: Acute (4) ILD (interstitial lung disease) Code(s): J84.9 - INTERSTITIAL PULMONARY DISEASE, UNSPECIFIED Status: Chronic (5) Lupus Code(s): M32.9 - SYSTEMIC LUPUS ERYTHEMATOSUS, UNSPECIFIED Status: Chronic Qualifiers: Systemic lupus erythematosus type: unspecified Systemic lupus erythematosus organ involvement: lung involvement Qualified Code(s): M32.13 - Lung involvement in systemic lupus erythematosus (6) Acute and chronic respiratory failure with hypoxia Code(s): J96.21 - ACUTE AND CHRONIC RESPIRATORY FAILURE WITH HYPOXIA Status: Acute - Plan * Acute on chronic respiratory failure with hypoxemia- patient says she is symptomatically improved * She would like to go home to care for her * Will discuss with Dr. Simmons * Chronic pain- continue Cymbalta, and [place] * HTN- blood pressure is stable * RA and SLE- out patient Rheumatology evaluation i8
[2019-04-27 19:18] VITALS: BP 134/78; TEMP 98.6
--- NOTE | 2019-04-28 11:17 | DIS ---
DATE OF ADMISSION: 04/09/2019 DATE OF DISCHARGE: 04/27/2019 DISCHARGE DISPOSITION: Home. DISCHARGE DIAGNOSES: 1. Pneumonitis, questionable etiology. 2. Acute on chronic respiratory failure with hypoxemia. 3. History of rheumatoid arthritis. 4. Possible seronegative lupus. 5. Hypertension. DISCHARGE MEDICATIONS: Include; 1. Bactrim DS one tablet p.o. daily. 2. Prednisone 40 mg daily. 3. Potassium chloride 20 mEq twice daily. 4. NicoDerm 7 mg q.24. 5. Melatonin 3 mg at bedtime. 6. Hydrochlorothiazide 12.5 mg daily. 7. Lasix 20 mg daily. 8. Pepcid 20 mg twice daily. 9. Cymbalta 30 mg daily. 10. Diphenhydramine 25 mg q.4 hours as needed. 11. Calcium carbonate 1000 mg q.4. 12. Betamethasone 1 g topical daily. 13. Azathioprine 50 mg daily. 14. Ambien 5 mg at bedtime. 15. Plaquenil 400 mg daily. 16. [place] 10/325 q.4 hours as needed. 17. Depakote 750 mg daily. 18. Delsym 30 mg q.8 as needed. IMAGING AND PROCEDURES: The patient had a skin biopsy showing no significant change. The patient also had an echocardiogram, in which the ejection fraction was estimated at 55% to 60%. It was a suboptimal study. There was no significant valvular disease noted. The patient had a CT scan of the chest showing migratory appearance of a ground-glass opacity, worsening changes in the right upper lobe and lung bases as compared to the prior exam. There was a nonspecific pattern that has some features typical of hypersensitivity pneumonitis, possible bronchiolitis or a DIP type pattern. CODE STATUS: Full code. ALLERGIES: TO SULFASALAZINE, TRAMADOL, PENICILLIN, LEVOFLOXACIN, AND NSAIDS WELL PENICILLIN. HOSPITAL COURSE: Ms. Guy is a pleasant 43-year-old female, who presented to the emergency room with severe shortness of breath. She was admitted and started on IV antibiotics as well as IV steroids. She has a history of seronegative lupus as well as rheumatoid arthritis and Pulmonology was consulted. Shortly after admission, she became more hypoxic even on a non-rebreather and was transitioned to the IMCU and placed on BiPAP. A CT scan of the chest was done showing changes consistent with a possible hypersensitivity pneumonitis. However, it also could be a primary lung process not related to her connective tissue disorders. Thought was made to transfer the patient to a higher level of care. However, she slowly began to improve with IV steroids. She was also started on Imuran during her hospital stay and seen by Pulmonology as well as ID. Eventually, antibiotics were discontinued and she was able to be weaned off the oxygen close to her home dose of home oxygen and was able to be safely discharged home. She was highly urged to follow up with the informatics pharmacist at [facility] in [place] at [facility] so that she could see an academic informatics pharmacist to help sort out her complicated connective tissue disorder and also to follow up with her informatics pharmacist locally and they can then discuss continued medication and how to taper her current dose. Job ID: [id number]
== END 2019-04-27 19:15 | disposition home or self-care (01) | DRG 545 ==
LOC: ERS 14:07 → 2NO 17:50 → CCU 04-10 08:08 → IMCU/EMU 04-14 18:29 → T4-B 04-16 15:22
PROVIDERS: ADMIT Internal Medicine; ATTEND Internal Medicine
PROC: 0JBD3ZX Excision of Right Upper Arm Subcutaneous Tissue and Fascia, Percutaneous Approach, Diagnostic (ICD-10-PCS; principal; 2019-04-19)
DX: M32.13 Lung involvement in systemic lupus erythematosus (principal); J96.21 Acute and chronic respiratory failure with hypoxia; J84.9 Interstitial pulmonary disease, unspecified; E87.1 Hypo-osmolality and hyponatremia; E78.5 Hyperlipidemia, unspecified; F17.210 Nicotine dependence, cigarettes, uncomplicated; I28.8 Other diseases of pulmonary vessels; E87.5 Hyperkalemia; I50.9 Heart failure, unspecified; L26 Exfoliative dermatitis; J44.9 Chronic obstructive pulmonary disease, unspecified; M06.9 Rheumatoid arthritis, unspecified; D89.9 Disorder involving the immune mechanism, unspecified; E87.70 Fluid overload, unspecified; E66.9 Obesity, unspecified; G40.909 Epilepsy, unspecified, not intractable, without status epilepticus; Z98.51 Tubal ligation status; Z88.6 Allergy status to analgesic agent; Z88.1 Allergy status to other antibiotic agents; Z88.0 Allergy status to penicillin; Z88.2 Allergy status to sulfonamides; Z88.8 Allergy status to other drugs, medicaments and biological substances; Z68.33 Body mass index [BMI] 33.0-33.9, adult
CPT/HCPCS: 36415; 36416; 71045; 71250; 74018; 80048; 80053; 81003; 81015; 82550; 82805; 83520; 83605; 83690; 83735; 83880; 84100; 84484; 85025; 85652; 86038; 86140; 86160; 86225; 86235; 86376; 86612; 86635; 86698; 87040; 87102; 87385; 87449; 87497; 87633; 87804; 87899; 88305; 88312; 93005; 93306; 94640; 94644; 94660; 94760; 96365; 96367; 96375; J0692; J1100; J1650; J1940; J2270; J2405; J2920; J2930; J3010; J3370; J3465; J3475; J3490; J7050; J7070; J7500; J7512; J7611; J7620; Q0163